=== PATIENT | female | born 1935 | race Caucasian/White ===

== ENCOUNTER 2016-06-13 21:42 | Emergency (ER) | payer MEDICARE ==
[~2016-06-13] VITALS: Ht 165.1 cm; Wt 83.0 kg
[~2016-06-13 21:42] MED LIST: ASPI81TA2 PO; DOXY100C2 PO; FLUT16SP2 NS; GUAI-42 PO; HYDR-2762 PO; PRED20TA PO; SERT50TA PO; VENTOLIN HFA18 GM INH
[2016-06-13] MEDS ORDERED: DIPHTH,PERTUSS(ACELL),TET TOX 0.5 ML DISP.SYRIN. VAX IM ONE (22:30)
--- NOTE | 2016-06-13 22:39 | PHYS DOC ---
Past Medical History Past Medical History: Anemia Past Surgical History: No Surgical History Alcohol Use: None Drug Use: None Adult General Chief Complaint Chief Complaint: LACERATION/AVULSION HPI HPI 80-year-old female presenting to the emergency department today with right eye laceration less than 1 cm. She sustained this after having a mechanical fall and injuring her forehead. She has mild pain is nonradiating constant and not associated with visual changes. She denies neck pain chest pain shortness of breath. Review of systems is negative for chest pain abdominal pain. She does have right knee pain with bruising. Otherwise she denies any other injuries to her extremities. All other review of systems is negative unless otherwise noted in history of present illness. Review of Systems Review of Systems SEE ABOVE. Current Medications Current Medications Current Medications Medications (Trade) Dose Ordered Sig/Bhavna Start Time Stop Time Status Last Admin Dose Admin Diphtheria/ Tetanus/Acell Pertussis (Boostrix) 0.5 ml ONCE ONCE 06/13/16 22:30 06/13/16 22:31 DC 06/13/16 23:06 0.5 ML Allergies Allergies Allergies Coded Allergies Type Severity Reaction Last Updated Verified codeine Allergy Mild Anxiety 02/10/14 Yes Physical Exam Physical Exam Constitutional: Well developed, well nourished, no acute distress, non-toxic appearance. HENT: Normocephalic, 3mm laceration on the right lateral eyebrow, bilateral external ears normal, oropharynx moist, no oral exudates, nose normal. [] Eyes: PERRLA, EOMI, conjunctiva normal, no discharge. Neck: Normal range of motion, no tenderness, supple, no stridor. Cardiovascular:Heart rate regular rhythm, no murmur [] Lungs & Thorax: Bilateral breath sounds clear to auscultation Abdomen: Bowel sounds normal, soft, no tenderness, no masses, no pulsatile masses. [] Skin: Warm, dry, no erythema, no rash. Back: No tenderness, no CVA tenderness. [] Extremities: No tenderness, no cyanosis, no clubbing, ROM intact, no edema. Neurologic: Alert and oriented X 3, normal motor function, normal sensory function, no focal deficits noted. Psychologic: Affect normal, judgement normal, mood normal. [] Current Patient Data Vital Signs Vital Signs Date Time Temp Pulse Resp B/P Pulse Ox O2 Delivery O2 Flow Rate FiO2 06/13/16 22:08 98.7 85 16 157/65 95 Room Air 98.7 EKG EKG [] Radiology/Procedures Radiology/Procedures [] Course & Med Decision Making Course & Med Decision Making Pertinent Labs and Imaging studies reviewed. (See chart for details) [] 80-year-old female presenting to the emergency department today after sustaining a mechanical fall. Vital signs show chronic hypertension otherwise unremarkable. Head neck CT negative. Maxillofacial CT negative. Patient had a 5 mm laceration was repaired using glue successfully. Otherwise x-rays of the knee and tibia-fibula were negative for acute pathology. She was in discharged home to follow up with PCP over the next 2-3 days. Dragon Disclaimer Dragon Disclaimer This electronic medical record was generated, in whole or in part, using a voice recognition dictation system. Departure Departure Impression: Primary Impression: Head injury Additional Impression: Facial laceration Disposition: 01 HOME, SELF-CARE Condition: STABLE Referrals: EDILMA LAMA Jr, MD (PCP) Patient Instructions: Facial Laceration, [id number] Additional Instructions: Thank you for allowing us to participate in your care today. Followup with your primary care physician in 3 days if your symptoms do not improve. If you do not have a primary care provider you can ask for a list of our primary care providers. Return to the emergency department you have any new or concerning findings. This should be evaluated by the primary care physician and any necessary consulting services for continued management within a few days after discharge. Return to emergency room if you have any new or concerning symptoms including but not limited to fever, chills, nausea, vomiting, intractable pain, any new rashes, chest pain, shortness of air, uncontrolled bleeding, difficulty breathing, and/or vision loss. You may have been prescribed medication that can change in your level of thinking and ability to operate machinery. These medications include hydrocodone and Ativan. Also, Benadryl has been known to do this as well. Be sure to check with your pharmacist and ask if the medications you've prescribed can affect your level of consciousness. I recommend not operating heavy machinery or driving while on medication such as these. Laceration Repair Lac Repair Indication: []facial lac Procedure: The patient was placed in the appropriate position and anesthesia around the right eyebrow. The area was then cleansed with saline. The laceration was closed with dermabond. The wound area was then dressed with sterile covering. Total repaired wound length: 3mm. Other Items: The patient tolerated the procedure well. Complications: none. Problem Qualifiers THIAGO ROLDAN MD Jun 13, 2016 22:39
--- NOTE | 2016-06-13 22:47 | RAD ---
PROCEDURE Head, cervical spine and maxillofacial bone CT without contrast. HISTORY Laceration. TECHNIQUE Computed tomographic images of the head, cervical spine and maxillofacial bones were obtained without contrast. One or more of the following individualized dose reduction techniques were utilized for this examination: 1. Automated exposure control; 2. Adjustment of the mA and/or kV according to patient size; 3. Use of iterative reconstruction technique. COMPARISON None. FINDINGS Head: There is no acute or subacute hemorrhage. There is no mass effect or midline shift. There is no hydrocephalus. There are subtle areas of hypodensity within the cerebral white matter, likely due to chronic small vessel disease. The mastoid air cells are clear. 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 No calvarial lesion is seen. Maxillofacial bones: There is right periorbital soft tissue swelling. No fracture is seen. There is frothy fluid within the left maxillary sinus and mild bilateral maxillary sinus mucosal thickening. The ostiomeatal units are patent. There is mild nasal septal deviation. There are degenerative changes involving the temporomandibular joints. Cervical spine: There is slight listhesis at multiple levels. The vertebral bodies are normal in height. There is endplate remodeling and facet arthropathy at multiple levels. No suspicious osseous lesion is seen. There is no fracture. At C2-C3, there is mild left facet arthropathy. There is no stenosis At C3-C4, there is mild right greater than left facet arthropathy. There is no stenosis. At C4-C5, there is mild to moderate bilateral facet arthropathy. There is no stenosis. At C5-C6, there is moderate left facet arthropathy. There is mild left foraminal stenosis. At C6-C7, there is [id number] left facet arthropathy. There is no stenosis. IMPRESSION 1. Small right periorbital soft tissue contusion. 2. No acute intracranial finding or evidence of acute maxillofacial bone or cervical spine trauma. 3. Subtle areas of hypodensity within the cerebral white matter, likely due to chronic small vessel disease. 4. Multilevel degenerative change within the cervical spine. 5. Mild maxillary sinus disease. Electronically signed by: Veronica Cordova (Jun 13, 2016 22:47:01)
[2016-06-13 23:35] VITALS: BP 159/67
--- NOTE | 2016-06-14 07:32 | RAD ---
Indication fall, pain. AP oblique and lateral views of the right knee were obtained. There is diffuse soft tissue swelling. There are degenerative changes involving the knee. There is bilateral joint space compartment narrowing lateral more so than medial and there is patellofemoral narrowing. An acute bony finding is not seen. IMPRESSION: Chronic changes. No acute finding seen.
--- NOTE | 2016-06-14 07:33 | RAD ---
Indication fall, pain. AP and lateral views of the right tibia and fibula were obtained. There is diffuse soft tissue swelling. An acute bony finding is not seen.
== END 2016-06-13 23:54 | disposition home or self-care (01) ==
LOC: ER 21:42
DX: S01.111A Laceration without foreign body of right eyelid and periocular area, initial encounter (principal); S80.01XA Contusion of right knee, initial encounter; I10 Essential (primary) hypertension; Z88.5 Allergy status to narcotic agent; W18.39XA Other fall on same level, initial encounter; Y93.89 Activity, other specified; Y92.89 Other specified places as the place of occurrence of the external cause; Y99.8 Other external cause status
CPT/HCPCS: 12011; 70450; 70486; 72125; 73562; 73590; 90471; 90715; 99284-25

== ENCOUNTER 2016-07-01 16:29 | Inpatient (IN) | payer MEDICARE ==
[~2016-07-01] VITALS: Ht 157.5 cm; Wt 70.4 kg
--- NOTE | 2016-07-01 17:28 | RAD ---
Exam performed: 3 views right knee. History: Right knee pain and swelling with stiffness, status post fall Date of service: 07/01/16. Comparison: X-ray right knee from 06/13/16. Findings: AP, lateral and oblique views of the right knee are obtained. There is narrowing of the right medial and lateral tibiofemoral as well as patellofemoral joint compartment. There is no acute fracture or dislocation. No soft tissue swelling or joint effusion. impression: 1. 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 2. No acute abnormality seen.
[2016-07-01] MEDS ORDERED: fentaNYL PF VIAL 100 MCG/2 ML VIAL IV ONE (17:30)
[2016-07-01] MEDS ORDERED: VANCOMYCIN PER PHARMACY MC ONE (17:30)
[2016-07-01] MEDS ORDERED: IPRATRPIUM/ALBUTEROL 0.5/2.5MG 3 ML NEBU. NEB ONE (17:30)
[2016-07-01] MEDS ORDERED: OMEP20CA9 PO (17:37)
[2016-07-01] MEDS ORDERED: FURO40TA4 PO (17:37)
[2016-07-01] MEDS ORDERED: NAPR220T70 PO (17:37)
[2016-07-01] MEDS ORDERED: SERT50TA PO (17:37)
[2016-07-01] MEDS ORDERED: CYAN100031 PO (17:37)
--- NOTE | 2016-07-01 17:52 | PHYS DOC ---
Past Medical History Past Medical History: Anemia Past Surgical History: No Surgical History Alcohol Use: None Drug Use: None Adult General Chief Complaint Chief Complaint: KNEE INJURY HPI HPI 80-year-old female who had a fall approximately 3 weeks ago onto her right side and had significant right-sided knee injury. Her plain films of that time did not demonstrate any acute fracture. Since that time she's had increased redness and swelling to the area as well as bilateral lower externally swelling and shortness of breath. Patient is being treated outpatient for her edema with Lasix. She's been receiving DuoNeb treatments as needed minimal relief. She states she is significantly short of air with exertion denies any chest pain. Her daughter at bedside states the last 3-4 days she has noted some mild purulent drainage from the right knee. Patient was evaluated by her primary care doctor for this and placed on doxycycline for the skin infection over the knee as well as a possible pneumonia. The daughter at bedside states she is overwhelmed dealing with this patient and is in need of help. Upon my initial assessment, the patient does not appear to be in any acute distress. She complains primarily of right sided knee pain and swelling as well as mild shortness breath. She was initially saturating 89% in no acute distress. She normally does not require supplemental oxygen. She is placed on 2 L nasal cannula oxygen. Review of Systems Review of Systems Constitutional: Denies fever or chills [] Eyes: Denies change in visual acuity, redness, or eye pain [] HENT: Denies nasal congestion or sore throat [] Respiratory: Denies cough, has shortness of breath [] Cardiovascular: No additional information not addressed in HPI [] GI: Denies abdominal pain, nausea, vomiting, bloody stools or diarrhea [] : Denies dysuria or hematuria [] Musculoskeletal: Denies back pain, has joint pain [] Integument: Denies rash or skin lesions [] Neurologic: Denies headache, focal weakness or sensory changes [] Endocrine: Denies polyuria or polydipsia [] Current Medications Current Medications Current Medications Medications (Trade) Dose Ordered Sig/Bhavna Start Time Stop Time Status Last Admin Dose Admin Albuterol/ Ipratropium (Duoneb) 3 ml 1X ONCE 07/01/16 17:30 07/01/16 17:34 DC 07/01/16 17:46 3 ML Fentanyl Citrate (Fentanyl 2ml Vial) 50 mcg 1X ONCE 07/01/16 17:30 07/01/16 17:34 DC 07/01/16 17:30 50 MCG Vancomycin HCl (Vanco Per Pharmacy) 1 each 1X ONCE 07/01/16 17:30 07/01/16 18:41 DC 07/01/16 17:30 1 EACH Vancomycin HCl 2 gm/Sodium Chloride 500 ml @ 250 mls/hr 1X ONCE 07/01/16 18:00 07/01/16 19:59 DC 07/01/16 18:00 250 MLS/HR Allergies Allergies Allergies Coded Allergies Type Severity Reaction Last Updated Verified codeine Allergy Mild Anxiety 02/10/14 Yes Physical Exam Physical Exam Constitutional: Well developed, well nourished, no acute distress, non-toxic appearance. [] HENT: Normocephalic, atraumatic, bilateral external ears normal, oropharynx moist, no oral exudates, nose normal. [] Eyes: PERRLA, EOMI, conjunctiva normal, no discharge. [] Neck: Normal range of motion, no tenderness, supple, no stridor. [] Cardiovascular:Heart rate regular rhythm, no murmur [] Lungs & Thorax: Bilateral breath sounds clear to auscultation [] Abdomen: Bowel sounds normal, soft, no tenderness, no masses, no pulsatile masses. [] Skin: Warm, dry, no erythema, no rash. [] Back: No tenderness, no CVA tenderness. [] Extremities: No tenderness, no cyanosis, no clubbing, ROM intact, no edema. [] Neurologic: Alert and oriented X 3, normal motor function, normal sensory function, no focal deficits noted. [] Psychologic: Affect normal, judgement normal, mood normal. [] Current Patient Data Vital Signs Vital Signs Date Time Temp Pulse Resp B/P (MAP) Pulse Ox O2 Delivery O2 Flow Rate FiO2 07/01/16 17:39 96 Nasal Cannula 2.0 07/01/16 17:30 88 20 148/65 (92) 07/01/16 16:35 98.6 98.6 Lab Values Laboratory Tests Test 07/01/16 17:55 White Blood Count 9.8 x10^3/uL (4.0-11.0) Red Blood Count 3.19 x10^6/uL (3.50-5.40) L Hemoglobin 9.4 g/dL (12.0-15.5) L Hematocrit 28.8 % (36.0-47.0) L Mean Corpuscular Volume 90 fL (79-100) Mean Corpuscular Hemoglobin 30 pg (25-35) Mean Corpuscular Hemoglobin Concent 33 g/dL (31-37) Red Cell Distribution Width 15.0 % (11.5-14.5) H Platelet Count 377 x10^3/uL (140-400) Neutrophils (%) (Auto) 80 % (31-73) H Lymphocytes (%) (Auto) 12 % (24-48) L Monocytes (%) (Auto) 7 % (0-9) Eosinophils (%) (Auto) 0 % (0-3) Basophils (%) (Auto) 1 % (0-3) Neutrophils # (Auto) 7.9 x10^3uL (1.8-7.7) H Lymphocytes # (Auto) 1.2 x10^3/uL (1.0-4.8) Monocytes # (Auto) 0.7 x10^3/uL (0.0-1.1) Eosinophils # (Auto) 0.0 x10^3/uL (0.0-0.7) Basophils # (Auto) 0.1 x10^3/uL (0.0-0.2) Sodium Level 139 mmol/L (136-145) Potassium Level 4.1 mmol/L (3.5-5.1) Chloride Level 103 mmol/L (98-107) Carbon Dioxide Level 30 mmol/L (21-32) Anion Gap 6 (6-14) Blood Urea Nitrogen 22 mg/dL (7-20) H Creatinine 0.9 mg/dL (0.6-1.0) Estimated GFR (Cockcroft-Gault) 60.1 Glucose Level 178 mg/dL (70-99) H Lactic Acid Level 2.5 mmol/L (0.4-2.0) H Calcium Level 8.4 mg/dL (8.5-10.1) L Troponin I Quantitative < 0.017 ng/mL (0.000-0.055) VL-Kkt-Z-Type Natriuretic Peptide 274 pg/mL (0-449) Laboratory Tests 07/01/16 17:55 Laboratory Tests 07/01/16 17:55 EKG EKG [] Radiology/Procedures Radiology/Procedures One view of the chest shows a moderate right-sided pleural effusion and cardiomegaly. Course & Med Decision Making Course & Med Decision Making Pertinent Labs and Imaging studies reviewed. (See chart for details) 80-year-old female has significant right-sided knee pain and redness with swelling there as well. Patient will be empirically treated with vancomycin for her knee and had a venous Doppler of that lower extremity rule out DVT. She will be given a dose of IV Lasix and a DuoNeb treatment for her swelling and shortness of breath. Her chest film shows a moderate right-sided pleural effusion and cardiomegaly which is consistent with possible CHF. I'll be admitting her with consult to cardiology and orthopedics. Laboratory workup is pending at this time. Her laboratory workup is significant for an elevated serum lactate at 2.5. BNP was only mildly elevated. Patient is given doses of vancomycin and Rocephin for her ongoing right-sided knee infection and cellulitis as well as her right- sided pleural effusion. I discussed the case with Dr. Talavera regarding her large effusion and lower extremity swelling and possible need for echocardiogram. Her case was discussed with the hospitalist, Dr. Mane, who agreed to accept the patient for further evaluation and treatment. The rest of her laboratory workup was fairly unremarkable. Dragon Disclaimer Dragon Disclaimer This electronic medical record was generated, in whole or in part, using a voice recognition dictation system. Departure Departure Impression: Primary Impression: Swelling of knee joint, right Additional Impressions: Pleural effusion Cellulitis Disposition: ADMITTED INPATIENT Admitting Physician: Gonzales Mane Condition: STABLE Referrals: EDILMA LAMA Jr, MD (PCP) Problem Qualifiers HOLLY GUADARRAMA DO July 01, 2016 17:52
[2016-07-01] MEDS ORDERED: VANCOMYCIN 2 GM in IV NORMAL SALINE 500ML BAG 500 ML IV ONE (18:00)
[2016-07-01 18:11] LABS: BASO # 0.1 x10^3/uL (0.0-0.2); BASO % 1 % (0-3); EOS % 0 % (0-3); HEMATOCRIT 28.8 % (36.0-47.0); HEMOGLOBIN 9.4 g/dL (12.0-15.5); LYMPH # 1.2 x10^3/uL (1.0-4.8); LYMPH % 12 % (24-48); MEAN CORPUSCULAR HEMOGLOBIN 30 pg (25-35); MEAN CORPUSCULAR HGB CONC 33 g/dL (31-37); MEAN CORPUSCULAR VOLUME 90 fL (79-100); MONO % 7 % (0-9); NEUT % 80 % (31-73); PLATELET COUNT 377 x10^3/uL (140-400); RED BLOOD COUNT 3.19 x10^6/uL (3.50-5.40); WHITE BLOOD COUNT 9.8 x10^3/uL (4.0-11.0)
[2016-07-01] MEDS ORDERED: FUROSEMIDE 40 MG/4 ML VIAL. IVP ONE (18:15)
[2016-07-01] MEDS ORDERED: ONDANSETRON PF 4 MG/2 ML VIAL. IV PRN (18:15)
[2016-07-01 18:21] LABS: CALCIUM 8.4 mg/dL (8.5-10.1); CREATININE 0.9 mg/dL (0.6-1.0); GFR 60.1; POTASSIUM 4.1 mmol/L (3.5-5.1)
--- NOTE | 2016-07-01 19:06 | RAD ---
PROCEDURE Right lower extremity venous duplex Doppler ultrasound HISTORY Right leg pain and swelling and bruising TECHNIQUE Grayscale and duplex Doppler sonography were utilized COMPARISON No prior FINDINGS No evidence of deep venous thrombosis by grayscale imaging with compressibility, patent color Doppler blood flow and augmentation of blood flow of the right common femoral vein, greater saphenous vein in the proximal thigh, profunda femoral vein, superficial femoral vein, and popliteal vein. There is edema at the popliteal fossa and anterior knee. Patent color Doppler blood flow of the posterior tibial and peroneal veins in the calf documented. Right calf edema also noted. IMPRESSION Negative right leg for deep venous thrombosis. Electronically signed by: Beau Perry MD (July 01, 2016 19:05:25)
[2016-07-01] MEDS: IPRATRPIUM/ALBUTEROL 0.5/2.5MG 3 ML NEBU. NEB SCH (19:43)
--- NOTE | 2016-07-01 19:47 | PDOC2 ---
CONSULT Date of Consult Date of Consult DATE: 07/01/16 TIME: 19:39 Reason for Consult Reason for Consult: Pleural effusion Referring Physician Referring Physician: Dr. Moy Identification/Chief Complaint Chief Complaint Chest trauma, knee injury, pleural effusion. History of Present Illness Reason for Visit: This patient is a very pleasant 80-year-old lady that has a history of hypertension. She had a recent fall at which time she injured the right side of the face the right side of the chest as well as the knee. She was seen and evaluated at that time and no apparent fracture was noted. Since then the patient has been having progressive swelling of the knee and this has been a bilateral edema. In addition to that she had some injuries to the right side of the head as well as the knee. The patient has been getting gradually short of breath and complaints of some right-sided chest discomfort as well as the shortness of breath with a cough that is not very productive. At the time that I saw her she seems to be in mild respiratory distress. The patient denies having any previous cardiac problems. Past Medical History Cardiovascular: HTN Current Problem List Problem List Problems Medical Problems: (1) Cellulitis Status: Acute (2) Pleural effusion Status: Acute (3) Swelling of knee joint, right Status: Acute Current Medications Current Medications Current Medications Vancomycin HCl (Vanco Per Pharmacy) 1 each 1X ONCE MC Last administered on 07/01 17:30; Start 07/01/16 at 17:30; Stop 07/01/16 at 18:41; Status DC Fentanyl Citrate (Fentanyl 2ml Vial) 50 mcg 1X ONCE IV Last administered on 17:30; Start 07/01/16 at 17:30; Stop 07/01/16 at 17:34; Status DC Albuterol/ Ipratropium (Duoneb) 3 ml 1X ONCE NEB Last administered on 17:46; Start 07/01/16 at 17:30; Stop 07/01/16 at 17:34; Status DC Furosemide (Lasix) 40 mg 1X ONCE IVP Last administered on 07/01/16 18:15; Start 07/01/16 at 18:15; Stop 07/01/16 at 18:16; Status DC Vancomycin HCl 2 gm/Sodium Chloride 500 ml @ 250 mls/hr 1X ONCE IV Last administered on 5/8/17at 18:00; Start 07/01/16 at 18:00; Stop 07/01/16 at 19:59 Ondansetron HCl (Zofran) 4 mg PRN Q8HRS PRN IV NAUSEA/VOMITING; Start 07/01/16 at 18:15; Stop 07/02/16 at 18:14 Albuterol/ Ipratropium (Duoneb) 3 ml RTQID NEB ; Start 07/01/16 at 20:00; Stop at 19:59 Vancomycin HCl 1.25 gm/Sodium Chloride 250 ml @ 167 mls/hr Q24H IV ; Start 07/02 at 19:00 Vancomycin HCl 1 each 1X ONCE MC ; Start 07/03/16 at 18:30; Stop 07/03/16 at 18 :31 Vancomycin HCl (Vanco Per Pharmacy) 1 each PRN DAILY PRN MC SEE COMMENTS; Start 07/01/16 at 19:00 Ceftriaxone Sodium 1 gm/ Sodium Chloride 50 ml @ 100 mls/hr Q24H IV ; Start 07/01/16 at 20:00 Active Scripts Active Reported B-12 (Cyanocobalamin (Vitamin B-12)) 1,000 Mcg Tablet.er 1,000 Mcg PO Zoloft (Sertraline Hcl) 50 Mg Tablet 1 Tab PO DAILY Aleve (Naproxen Sodium) 220 Mg Tablet 220 Mg PO BID Furosemide 40 Mg Tablet 1 Tab PO DAILY Omeprazole 20 Mg Capsule.dr 1 Cap PO DAILY Zoloft (Sertraline Hcl) 50 Mg Tablet 1 Tab PO DAILY Hydrocodone-Apap 7.5-325 (Hydrocodone Bit/Acetaminophen) 1 Each Tablet 1 Tab PO PRN Q6HRS PRN Allergies Allergies: Coded Allergies: codeine (Verified Allergy, Mild, Anxiety, 02/10/14) Physical Exam Physical Exam H EENT there is a score radiation to the right orbital area on the lateral aspect that is probably about 1 cm x 2 cm. Pupils are reactive. Neck is supple no JVD. Lungs breath sounds are markedly decreased on the right side with dullness half way up on the right side there are some crackles on the left side at the base. Heart regular rate and rhythm S1-S2 no S3 no S4. Abdomen is soft bowel sounds are present. Extremities there is bilateral 2+ edema. Dressing on the knee. Vitals VITALS Vital Signs Date Time Temp Pulse Resp B/P (MAP) Pulse Ox O2 Delivery O2 Flow Rate FiO2 07/01/16 19:21 82 20 144/65 (91) 94 Nasal Cannula 2.0 07/01/16 16:35 98.6 98.6 Labs Labs Laboratory Tests Test 07/01/16 17:55 White Blood Count 9.8 x10^3/uL (4.0-11.0) Red Blood Count 3.19 x10^6/uL (3.50-5.40) Hemoglobin 9.4 g/dL (12.0-15.5) Hematocrit 28.8 % (36.0-47.0) Mean Corpuscular Volume 90 fL (79-100) Mean Corpuscular Hemoglobin 30 pg (25-35) Mean Corpuscular Hemoglobin Concent 33 g/dL (31-37) Red Cell Distribution Width 15.0 % (11.5-14.5) Platelet Count 377 x10^3/uL (140-400) Neutrophils (%) (Auto) 80 % (31-73) Lymphocytes (%) (Auto) 12 % (24-48) Monocytes (%) (Auto) 7 % (0-9) Eosinophils (%) (Auto) 0 % (0-3) Basophils (%) (Auto) 1 % (0-3) Neutrophils # (Auto) 7.9 x10^3uL (1.8-7.7) Lymphocytes # (Auto) 1.2 x10^3/uL (1.0-4.8) Monocytes # (Auto) 0.7 x10^3/uL (0.0-1.1) Eosinophils # (Auto) 0.0 x10^3/uL (0.0-0.7) Basophils # (Auto) 0.1 x10^3/uL (0.0-0.2) Sodium Level 139 mmol/L (136-145) Potassium Level 4.1 mmol/L (3.5-5.1) Chloride Level 103 mmol/L (98-107) Carbon Dioxide Level 30 mmol/L (21-32) Anion Gap 6 (6-14) Blood Urea Nitrogen 22 mg/dL (7-20) Creatinine 0.9 mg/dL (0.6-1.0) Estimated GFR (Cockcroft-Gault) 60.1 Glucose Level 178 mg/dL (70-99) Lactic Acid Level 2.5 mmol/L (0.4-2.0) Calcium Level 8.4 mg/dL (8.5-10.1) Troponin I Quantitative < 0.017 ng/mL (0.000-0.055) PE-Obx-A-Type Natriuretic Peptide 274 pg/mL (0-449) Laboratory Tests Test 07/01/16 17:55 White Blood Count 9.8 x10^3/uL (4.0-11.0) Red Blood Count 3.19 x10^6/uL (3.50-5.40) Hemoglobin 9.4 g/dL (12.0-15.5) Hematocrit 28.8 % (36.0-47.0) Mean Corpuscular Volume 90 fL (79-100) Mean Corpuscular Hemoglobin 30 pg (25-35) Mean Corpuscular Hemoglobin Concent 33 g/dL (31-37) Red Cell Distribution Width 15.0 % (11.5-14.5) Platelet Count 377 x10^3/uL (140-400) Neutrophils (%) (Auto) 80 % (31-73) Lymphocytes (%) (Auto) 12 % (24-48) Monocytes (%) (Auto) 7 % (0-9) Eosinophils (%) (Auto) 0 % (0-3) Basophils (%) (Auto) 1 % (0-3) Neutrophils # (Auto) 7.9 x10^3uL (1.8-7.7) Lymphocytes # (Auto) 1.2 x10^3/uL (1.0-4.8) Monocytes # (Auto) 0.7 x10^3/uL (0.0-1.1) Eosinophils # (Auto) 0.0 x10^3/uL (0.0-0.7) Basophils # (Auto) 0.1 x10^3/uL (0.0-0.2) Sodium Level 139 mmol/L (136-145) Potassium Level 4.1 mmol/L (3.5-5.1) Chloride Level 103 mmol/L (98-107) Carbon Dioxide Level 30 mmol/L (21-32) Anion Gap 6 (6-14) Blood Urea Nitrogen 22 mg/dL (7-20) Creatinine 0.9 mg/dL (0.6-1.0) Estimated GFR (Cockcroft-Gault) 60.1 Glucose Level 178 mg/dL (70-99) Lactic Acid Level 2.5 mmol/L (0.4-2.0) Calcium Level 8.4 mg/dL (8.5-10.1) Troponin I Quantitative < 0.017 ng/mL (0.000-0.055) AJ-Gir-N-Type Natriuretic Peptide 274 pg/mL (0-449) Assessment/Plan Assessment/Plan This patient comes in following a fall during which she sustained blunt trauma to the head chest and knee now she is having multiple problems including a pleural effusion. Whether this is due to to a lung contusion, chest wall contusion or CHF is not very clear however she has edema of both legs. I would like to get an echocardiogram to evaluate the patient's left ventricular function. I would then recommend to diurese the patient and follow x-rays including rib films. May need a CT of the chest. Thank you very much for asking me to participate in the care of this patient HIMA COLE MD July 01, 2016 19:47
[2016-07-01 20:00] VITALS: BP 128/61
[2016-07-01 23:00] VITALS: BP 114/62
[2016-07-01] MEDS: SERTRALINE 50 MG TABLET. PO SCH (23:52)
--- NOTE | 2016-07-02 00:07 | HP ---
ADMIT DATE: 07/01/2016 CHIEF COMPLAINT: Right knee pain and shortness of breath. HISTORY OF PRESENT ILLNESS: The patient is a pleasant 80-year-old female presents with right knee pain. She fell a few weeks ago and she has had right knee pain ____. She has also become short of breath. While in the ER, we did imaging; her chest x-ray showing pleural effusion and cardiomegaly. The knee was also swollen and erythematous. She has now been admitted for a presumed heart failure and right knee cellulitis. PAST MEDICAL HISTORY: Reviewed in the computerized H and P; please refer to the computerized H and P. ALLERGIES: None. FAMILY HISTORY: Hypertension. SOCIAL HISTORY: She does not drink, smoke or take drugs. She is retired. MEDICATIONS: Reviewed, please refer to the MRAD. REVIEW OF SYSTEMS: GENERAL: No history of weight change, weakness or fevers. SKIN: No bruising, hair changes or rashes. EYES: No blurred, double or loss of vision. NOSE AND THROAT: No history of nosebleeds, hoarseness or sore throat. HEART: No history of palpitations, chest pain or shortness of breath on exertion. LUNGS: ____ shortness of breath. GASTROINTESTINAL: Denies changes in appetite, nausea, vomiting, diarrhea or constipation. GENITOURINARY: No history of frequency, urgency, hesitancy or nocturia. NEUROLOGIC: Denies history of numbness, tingling, tremor or weakness. PSYCHIATRIC: No history of panic, anxiety or depression. ENDOCRINE: No history of heat or cold intolerance, polyuria or polydipsia. EXTREMITIES: She complains of right knee pain. PHYSICAL EXAMINATION: VITAL SIGNS: Temperature afebrile, pulse 67, respirations 18, blood pressure 144/91. GENERAL: She is alert, cooperative. Her family is present. HEART: Normal S1, S2 with a soft S3. LUNGS: Bibasilar crackles, diminished on the right. ABDOMEN: Soft. Decreased bowel sounds, distended. EXTREMITIES: The right knee is quite swollen and erythematous, little bit warm. ENDOCRINE: No thyromegaly. LYMPHATICS: No cervical nodes. HEMATOPOIETIC: No bruising. ASSESSMENT AND PLAN: Right knee swelling and pain, suspect cellulitis; with the incidental finding of an abnormal chest x-ray with [id number] systolic and diastolic heart failure. The patient has been admitted. We will give her intravenous Lasix. Consult Cardiology, intravenous antibiotics, consult Orthopedics, continue home medicines, PT, OT, recheck her labs. PROGNOSIS: Guarded. ZAHEER HENRIQUEZ DO DR: MARTIN/herve JOB#: [id number] / [id number]
[2016-07-02 03:00] VITALS: BP 122/61
--- NOTE | 2016-07-02 06:13 | EKG ---
[facility] [address] [place] [address] Test Date: 2016-07-01 Test Time: 18:45:18 Pat Name: JEFFERSON ABURTO Department: Room: 512 1 Gender: F Executive Vp: : 1935 Requested By: HOLLY GUADARRAMA Order Number: [id number] Reading MD: Arturo Flores Measurements Intervals [place] Rate: 81 P: 20 AK: 166 QRS: -14 QRSD: 80 T: 22 QT: 384 QTc: 447 Interpretive Statements SINUS RHYTHM NON-SPECIFIC ST/T CHANGES Electronically Signed On 07-08-2016 8:59:47 CDT by Arturo Flores
--- NOTE | 2016-07-02 06:31 | ACF ---
Admission Forms Criteria MUSCULOSKELETAL DISEASE GRG Clinical Indications for Admission to Inpatient Care (Place 'X' for any and all applicable criteria): Hospital admission is needed for appropriate care of the patient because of 1 or more of the following: [ ]I. Fracture, dislocation, or other musculoskeletal injury requiring inpatient care(medical) as indicated by 1 or more of the following(4)(5)(6)(7) [ ]a) Vertebral fracture requiring observation for instability or neurologic compromise (8) [ ]b) Compartment syndrome (proven or cannot be ruled out during observation level of care) (9) [ ]c) Limb-threatening injury [ ]d) Major injury requiring inpatient stabilization such as traction initiation or external fixation before internal fixation or closure of complex or open fracture [ ]e) Major injury requiring inpatient treatment after emergency or observation level care (as appropriate) [ ]f) Severe pain requiring acute inpatient management [ ]g) Injury with suspicion of abuse or neglect (eg., child, dependent elderly) [ ]II. Newly diagnosed or suspected bone, joint, or orthopedic device infection (e.g., osteomyelitis, septic arthritis) needing 1 or more of the following(1)(2)(3) [ ]a) IV antibiotics that cannot be initiated in other than inpatient setting (e.g., patient too unstable or home infusion not available) [ ]b) Device removal or replacement [ ]c) Bone or soft tissue debridement [ ]d) Joint drainage (drain placement or repetitive aspirations) [ ]III. Severe rheumatologic disease (e.g., systemic lupus erythematosus, rheumatoid arthritis) with complications or comorbidities (Also use Optimal Recovery Care Criteria or General Recovery Criteria as appropriate on the basis of predominant condition), including 1 or more of the following( 10)(11)(12)(13) [ ]a) Severe infection (e.g., VENETIAN BL[employer]ST[employer]ER infection, sepsis) (14) [ ]b) Respiratory complications, including 1 or more of the following : [ ]i) Pleural effusion with respiratory compromise [ ]ii) Pulmonary hypertension with congestive failure [ ]iii) Respiratory failure [ ]iv) Pulmonary hemorrhage (15) [ ]c) Hematologic disease, including 1 or more of the following: [ ]i) Coagulopathy with bleeding [ ]ii) Thrombosis with hypercoagulable state [ ]iii) Thrombotic thrombocytopenic purpura [ ]d) Cerebritis with seizures, psychosis, or other severe abnormalities [ ]e) Vertebral destruction with monitoring needed for cervical myelopathy& possible respiratory compromise [ ]f) Exacerbation that requires inpatient treatment (e.g., intravenous immunosuppression) (16) [ ]g) Acute renal failure [ ]h) Cerebritis with seizures, psychosis, Altered mental status, or other neurologic abnormalities [ ]i) Pericardial effusion with tamponade [ ]j) Vertebral destruction, with monitoring needed for cervical myelopathy and possible respiratory compromise [ ]IV. Severe vasculitis with complications or comorbidities (Also use Optimal Recovery Care Criteria General Recovery Criteria as appropriate on the basis of predominant condition), including 1 or more of the following(11)(12)(17)(18)(19)(20) [ ]a) Exacerbation that requires inpatient treatment (e.g., intravenous immunosuppression) (19)(21) [ ]b) Pulmonary hemorrhage (15) [ ]c) VEN[employer]IAN BLIND [employer]ST[employer]ER vasculitis with seizures, psychosis, Altered mental status that is severe or persistent, or other severe abnormalities (22) [ ]d) Cerebral infarction [ ]e) Gastrointestinal ischemia [ ]f) Gangrene or threatened amputation [ ]g) Renal failure (16) [ ]h) Other significant complications of vasculitis ( eg., tissue or organ ischemia, organ dysfunction ) [ ]V. Severe myopathy as indicated by 1 or more of the following (28)(29) [ ]a) New onset of airway compromise or inability to swallow [ ]b) Respiratory deterioration with observation needed for impending respiratory failure [ ]c) Exacerbation that requires inpatient treatment (e.g., intravenous immunosuppression) [ ]. Severe crystal gout (arthropathy) indicated by 1 or more of the following (23)(24) [ ]a) Severe pain requiring acute inpatient management [ ]b) Exacerbation that requires inpatient treatment (e.g., intravenous treatment) [ ]VII.Rhabdomyolysis and 1 or more of the following (25)(26)(27) [ ]a) Acute renal failure [ ]b) Need for intravenous hydration after emergency or observation level care (as appropriate) [ ]c) Inability to maintain oral hydration [ ]d) Change in mental status [ ]e) Electrolyte abnormality that remains after emergency or observation level care (as appropriate) [ ]VIII Post amputation complication, as indicated by ANY ONE of the following [ ]a) Infection [ ]b) Dehiscence [ ]c) Myodesis failure [ ]IX. Severe pain requiring acute inpatient management due to musculoskeletal condition [ ]X. Musculoskeletal Disease and ALL of the following: [ ]a) Symptom or finding for which emergency and observation care have failed or are not considered appropriate (Use General Criteria: Observation Care as appropriate) [ ]b) Presence of ANY ONE of the following [ ]i) A General Admission Criteria [ ]ii) A Pediatric General Admission Criteria The original [employer] content created by [employer] has been revised. The portions of the content which have been revised are identified through the use of italic text or in bold, and [facility] has neither reviewed nor approved the modified material. All other unmodified content is copyright [facility] [employer]. Please see references footnoted in the original [employer] edition 2016 PAIGE CORMIER July 02, 2016 06:31
[2016-07-02 07:00] VITALS: BP 103/76
[2016-07-02] MEDS: PANTOPRAZOLE 40 MG TABLET.DR. PO SCH (07:09)
--- NOTE | 2016-07-02 07:22 | RAD ---
Indication: Shortness of air. Time of exam 1741 hours. No prior studies are available for comparison. There is a moderate to large right pleural effusion. The heart is enlarged. There is some airspace infiltrate in the left upper lobe. No pneumothorax is seen. Impression: Moderate right pleural effusion and patchy left upper lobe airspace pulmonary infiltrate.
[2016-07-02] MEDS: IPRATRPIUM/ALBUTEROL 0.5/2.5MG 3 ML NEBU. NEB SCH ×4 (08:00→19:25)
[2016-07-02] MEDS: FUROSEMIDE 40 MG/4 ML VIAL. IVP SCH ×2 (08:52→14:35)
[2016-07-02] MEDS: NAPROXEN 250 MG TABLET PO SCH ×2 (08:52→21:08)
[2016-07-02] MEDS ORDERED: FUROSEMIDE 40 MG TABLET. PO SCH (09:00)
--- NOTE | 2016-07-02 09:36 | PDOC ---
PROGRESS NOTES Chief Complaint Chief Complaint cc: knee swelling A/P R Knee anterior hematoma, : normal ROM, No cellulitis, no fever, Pain control, Pleural effusion and Infiltrates on CXR: on Rocephin and vancomycin, renal dosing vancomycin, IV lasix, Echo pending. monitor renal functions and intake and out put, no fever, follow blood cx, Knee pain : Pain control with iv morphine and pnr noco Depression stable. History of Present Illness History of Present Illness pain better now no fever doing ok Vitals Vitals Vital Signs Date Time Temp Pulse Resp B/P (MAP) Pulse Ox O2 Delivery O2 Flow Rate FiO2 07/02/16 03:00 98.5 78 18 122/61 (81) 96 Room Air 98.5 07/01/16 20:00 2.0 Physical Exam General: Alert, Oriented X3 Heart: Normal S1, Normal S2 Lungs: Clear Abdomen: Normal bowel sounds, Soft Extremities: Other Labs LABS Laboratory Tests Test 07/01/16 17:55 07/02/16 08:50 White Blood Count 9.8 x10^3/uL (4.0-11.0) Red Blood Count 3.19 x10^6/uL (3.50-5.40) Hemoglobin 9.4 g/dL (12.0-15.5) Hematocrit 28.8 % (36.0-47.0) Mean Corpuscular Volume 90 fL (79-100) Mean Corpuscular Hemoglobin 30 pg (25-35) Mean Corpuscular Hemoglobin Concent 33 g/dL (31-37) Red Cell Distribution Width 15.0 % (11.5-14.5) Platelet Count 377 x10^3/uL (140-400) Neutrophils (%) (Auto) 80 % (31-73) Lymphocytes (%) (Auto) 12 % (24-48) Monocytes (%) (Auto) 7 % (0-9) Eosinophils (%) (Auto) 0 % (0-3) Basophils (%) (Auto) 1 % (0-3) Neutrophils # (Auto) 7.9 x10^3uL (1.8-7.7) Lymphocytes # (Auto) 1.2 x10^3/uL (1.0-4.8) Monocytes # (Auto) 0.7 x10^3/uL (0.0-1.1) Eosinophils # (Auto) 0.0 x10^3/uL (0.0-0.7) Basophils # (Auto) 0.1 x10^3/uL (0.0-0.2) Sodium Level 139 mmol/L (136-145) Potassium Level 4.1 mmol/L (3.5-5.1) Chloride Level 103 mmol/L (98-107) Carbon Dioxide Level 30 mmol/L (21-32) Anion Gap 6 (6-14) Blood Urea Nitrogen 22 mg/dL (7-20) Creatinine 0.9 mg/dL (0.6-1.0) Estimated GFR (Cockcroft-Gault) 60.1 Glucose Level 178 mg/dL (70-99) Lactic Acid Level 2.5 mmol/L (0.4-2.0) 0.7 mmol/L (0.4-2.0) Calcium Level 8.4 mg/dL (8.5-10.1) Troponin I Quantitative < 0.017 ng/mL (0.000-0.055) BC-Ymv-I-Type Natriuretic Peptide 274 pg/mL (0-449) Assessment and Plan Assessmemt and Plan Problems Medical Problems: (1) Cellulitis Status: Acute (2) Pleural effusion Status: Acute (3) Swelling of knee joint, right Status: Acute Problems: Comment Review of Relevant I have reviewed the following items eamon (where applicable) has been applied. Labs Laboratory Tests Test 07/01/16 17:55 07/02/16 08:50 White Blood Count 9.8 x10^3/uL (4.0-11.0) Red Blood Count 3.19 x10^6/uL (3.50-5.40) Hemoglobin 9.4 g/dL (12.0-15.5) Hematocrit 28.8 % (36.0-47.0) Mean Corpuscular Volume 90 fL (79-100) Mean Corpuscular Hemoglobin 30 pg (25-35) Mean Corpuscular Hemoglobin Concent 33 g/dL (31-37) Red Cell Distribution Width 15.0 % (11.5-14.5) Platelet Count 377 x10^3/uL (140-400) Neutrophils (%) (Auto) 80 % (31-73) Lymphocytes (%) (Auto) 12 % (24-48) Monocytes (%) (Auto) 7 % (0-9) Eosinophils (%) (Auto) 0 % (0-3) Basophils (%) (Auto) 1 % (0-3) Neutrophils # (Auto) 7.9 x10^3uL (1.8-7.7) Lymphocytes # (Auto) 1.2 x10^3/uL (1.0-4.8) Monocytes # (Auto) 0.7 x10^3/uL (0.0-1.1) Eosinophils # (Auto) 0.0 x10^3/uL (0.0-0.7) Basophils # (Auto) 0.1 x10^3/uL (0.0-0.2) Sodium Level 139 mmol/L (136-145) Potassium Level 4.1 mmol/L (3.5-5.1) Chloride Level 103 mmol/L (98-107) Carbon Dioxide Level 30 mmol/L (21-32) Anion Gap 6 (6-14) Blood Urea Nitrogen 22 mg/dL (7-20) Creatinine 0.9 mg/dL (0.6-1.0) Estimated GFR (Cockcroft-Gault) 60.1 Glucose Level 178 mg/dL (70-99) Lactic Acid Level 2.5 mmol/L (0.4-2.0) 0.7 mmol/L (0.4-2.0) Calcium Level 8.4 mg/dL (8.5-10.1) Troponin I Quantitative < 0.017 ng/mL (0.000-0.055) TR-Jpa-A-Type Natriuretic Peptide 274 pg/mL (0-449) Laboratory Tests Test 07/01/16 17:55 07/02/16 08:50 White Blood Count 9.8 x10^3/uL (4.0-11.0) Red Blood Count 3.19 x10^6/uL (3.50-5.40) Hemoglobin 9.4 g/dL (12.0-15.5) Hematocrit 28.8 % (36.0-47.0) Mean Corpuscular Volume 90 fL (79-100) Mean Corpuscular Hemoglobin 30 pg (25-35) Mean Corpuscular Hemoglobin Concent 33 g/dL (31-37) Red Cell Distribution Width 15.0 % (11.5-14.5) Platelet Count 377 x10^3/uL (140-400) Neutrophils (%) (Auto) 80 % (31-73) Lymphocytes (%) (Auto) 12 % (24-48) Monocytes (%) (Auto) 7 % (0-9) Eosinophils (%) (Auto) 0 % (0-3) Basophils (%) (Auto) 1 % (0-3) Neutrophils # (Auto) 7.9 x10^3uL (1.8-7.7) Lymphocytes # (Auto) 1.2 x10^3/uL (1.0-4.8) Monocytes # (Auto) 0.7 x10^3/uL (0.0-1.1) Eosinophils # (Auto) 0.0 x10^3/uL (0.0-0.7) Basophils # (Auto) 0.1 x10^3/uL (0.0-0.2) Sodium Level 139 mmol/L (136-145) Potassium Level 4.1 mmol/L (3.5-5.1) Chloride Level 103 mmol/L (98-107) Carbon Dioxide Level 30 mmol/L (21-32) Anion Gap 6 (6-14) Blood Urea Nitrogen 22 mg/dL (7-20) Creatinine 0.9 mg/dL (0.6-1.0) Estimated GFR (Cockcroft-Gault) 60.1 Glucose Level 178 mg/dL (70-99) Lactic Acid Level 2.5 mmol/L (0.4-2.0) 0.7 mmol/L (0.4-2.0) Calcium Level 8.4 mg/dL (8.5-10.1) Troponin I Quantitative < 0.017 ng/mL (0.000-0.055) KH-Eob-P-Type Natriuretic Peptide 274 pg/mL (0-449) Medications Current Medications Vancomycin HCl (Vanco Per Pharmacy) 1 each 1X ONCE MC Last administered on 07/01 17:30; Start 07/01/16 at 17:30; Stop 07/01/16 at 18:41; Status DC Fentanyl Citrate (Fentanyl 2ml Vial) 50 mcg 1X ONCE IV Last administered on 17:30; Start 07/01/16 at 17:30; Stop 07/01/16 at 17:34; Status DC Albuterol/ Ipratropium (Duoneb) 3 ml 1X ONCE NEB Last administered on 17:46; Start 07/01/16 at 17:30; Stop 07/01/16 at 17:34; Status DC Furosemide (Lasix) 40 mg 1X ONCE IVP Last administered on 07/01/16 18:15; Start 07/01/16 at 18:15; Stop 07/01/16 at 18:16; Status DC Vancomycin HCl 2 gm/Sodium Chloride 500 ml @ 250 mls/hr 1X ONCE IV Last administered on 07/01/16 18:00; Start 07/01/16 at 18:00; Stop 07/01/16 at 19:59; Status DC Ondansetron HCl (Zofran) 4 mg PRN Q8HRS PRN IV NAUSEA/VOMITING; Start 07/01/16 at 18:15; Stop 07/02/16 at 18:14 Albuterol/ Ipratropium (Duoneb) 3 ml RTQID NEB Last administered on 07/01/16 19 :43; Start 07/01/16 at 20:00; Stop 07/02/16 at 19:59 Vancomycin HCl 1.25 gm/Sodium Chloride 250 ml @ 167 mls/hr Q24H IV ; Start 07/02 at 19:00 Vancomycin HCl 1 each 1X ONCE MC ; Start 07/03/16 at 18:30; Stop 07/03/16 at 18 :31 Vancomycin HCl (Vanco Per Pharmacy) 1 each PRN DAILY PRN MC SEE COMMENTS; Start 07/01/16 at 19:00 Ceftriaxone Sodium 1 gm/ Sodium Chloride 50 ml @ 100 mls/hr Q24H IV Last administered on 07/01/16 23:12; Start 07/01/16 at 20:00 Furosemide (Lasix) 40 mg [id number] IVP Last administered on 07/02/16 08:52; Start 07/02/16 at 09:00 Furosemide (Lasix) 40 mg DAILY PO ; Start 07/02/16 at 09:00; Status Cancel Sertraline HCl (Zoloft) 50 mg HS PO Last administered on 07/01/16 23:52; Start 07/01/16 at 23:15 Naproxen (Naprosyn) 250 mg BID PO Last administered on 07/02/16 08:52; Start at 09:00 Pantoprazole Sodium (Protonix) 40 mg DAILYAC PO Last administered on 07/02/16 07:09; Start 07/02/16 at 07:30 Active Scripts Active Reported B-12 (Cyanocobalamin (Vitamin B-12)) 1,000 Mcg Tablet.er 1,000 Mcg PO Zoloft (Sertraline Hcl) 50 Mg Tablet 1 Tab PO DAILY Aleve (Naproxen Sodium) 220 Mg Tablet 220 Mg PO BID Furosemide 40 Mg Tablet 1 Tab PO DAILY Omeprazole 20 Mg Capsule.dr 1 Cap PO DAILY Zoloft (Sertraline Hcl) 50 Mg Tablet 1 Tab PO DAILY Hydrocodone-Apap 7.5-325 (Hydrocodone Bit/Acetaminophen) 1 Each Tablet 1 Tab PO PRN Q6HRS PRN Vitals/I & O Vital Sign - Last 24 Hours 07/01/16 07/01/16 07/01/16 07/01/16 16:35 17:30 17:30 17:39 Temp 98.6 98.6 Pulse 84 88 Resp 22 16 20 B/P (MAP) 139/53 (81) 148/65 (92) Pulse Ox 91 92 96 O2 Delivery Room Air Nasal Cannula Nasal Cannula O2 Flow Rate 2.0 2.0 07/01/16 07/01/16 07/01/16 07/01/16 19:21 19:43 20:00 20:00 Pulse 82 Resp 20 B/P (MAP) 144/65 (91) Pulse Ox 94 95 O2 Delivery Nasal Cannula Nasal Cannula Nasal Cannula Nasal Cannula O2 Flow Rate 2.0 2.0 2.0 2.0 07/01/16 07/01/16 07/02/16 20:00 23:00 03:00 Temp 98.2 98.4 98.5 98.2 98.4 98.5 Pulse 80 77 78 Resp 17 18 18 B/P (MAP) 128/61 (83) 114/62 (79) 122/61 (81) Pulse Ox 93 94 96 O2 Delivery Room Air Room Air Room Air Intake and Output 07/01/16 07/01/16 07/02/16 15:00 23:00 07:00 Intake Total 250 ml Balance 250 ml YONIS MCGREGOR MD July 02, 2016 09:36
[2016-07-02 11:00] VITALS: BP 142/60
[2016-07-02] MEDS: MORPHINE SULFATE 2 MG/ML DISP.SYRIN. IV PRN ×3 (11:51→17:12)
[2016-07-02] MEDS: VANCOMYCIN PER PHARMACY MC PRN (12:30)
--- NOTE | 2016-07-02 13:55 | RAD ---
Indication: Pleural effusion, fall. Time of exam 1330 hours. Correlation is made with prior chest from one day earlier. The heart size is stable. Moderate to large right effusion is unchanged. Airspace infiltrate in the left upper lobe and right base is stable. There is no pneumothorax. There appears to be trace pleural fluid on the left. No displaced rib fractures detected. Impression: No definite displaced rib fractures identified. There are bilateral effusions, right greater with bilateral pulmonary infiltrates.
[2016-07-02 15:00] VITALS: BP 128/67
--- NOTE | 2016-07-02 17:38 | PDOC2 ---
CONSULT Date of Consult Date of Consult DATE: 07/02/16 TIME: 17:32 Reason for Consult Reason for Consult: right knee swelling/ cellulitus? Identification/Chief Complaint Chief Complaint right knee swelling Source Source: Chart review, Patient History of Present Illness Reason for Visit: The patient is an 80 year old female who states she fell nearly three weeks ago injuring her knee. It swelled up on her she says, to the point it "erupted". She came to the ED and was found to have acute on chronic heart failure as well as possible cellulitus of her right leg. She was started on antibiotics.I am consulted for a right knee effusion. She has an anterior hematoma, but the surrounding skin does not look indurated or erythematous. It looks like a hematoma over the right knee. She has no pain with knee rom, no drainage. Past Medical History Cardiovascular: HTN Current Problem List Problem List Problems Medical Problems: (1) Cellulitis Status: Acute (2) Pleural effusion Status: Acute (3) Swelling of knee joint, right Status: Acute Current Medications Current Medications Current Medications Vancomycin HCl (Vanco Per Pharmacy) 1 each 1X ONCE MC Last administered on 07/01 17:30; Start 07/01/16 at 17:30; Stop 07/01/16 at 18:41; Status DC Fentanyl Citrate (Fentanyl 2ml Vial) 50 mcg 1X ONCE IV Last administered on 17:30; Start 07/01/16 at 17:30; Stop 07/01/16 at 17:34; Status DC Albuterol/ Ipratropium (Duoneb) 3 ml 1X ONCE NEB Last administered on 17:46; Start 07/01/16 at 17:30; Stop 07/01/16 at 17:34; Status DC Furosemide (Lasix) 40 mg 1X ONCE IVP Last administered on 07/01/16 18:15; Start 07/01/16 at 18:15; Stop 07/01/16 at 18:16; Status DC Vancomycin HCl 2 gm/Sodium Chloride 500 ml @ 250 mls/hr 1X ONCE IV Last administered on 07/01/16 18:00; Start 07/01/16 at 18:00; Stop 07/01/16 at 19:59; Status DC Ondansetron HCl (Zofran) 4 mg PRN Q8HRS PRN IV NAUSEA/VOMITING; Start 07/01/16 at 18:15; Stop 07/02/16 at 18:14 Albuterol/ Ipratropium (Duoneb) 3 ml RTQID NEB Last administered on 07/02/16 15 :24; Start 07/01/16 at 20:00; Stop 07/02/16 at 19:59 Vancomycin HCl 1.25 gm/Sodium Chloride 250 ml @ 167 mls/hr Q24H IV Last administered on 07/02/16 17:11; Start 07/02/16 at 18:00 Vancomycin HCl 1 each 1X ONCE MC ; Start 07/03/16 at 17:30; Stop 07/03/16 at 17 :31 Vancomycin HCl (Vanco Per Pharmacy) 1 each PRN DAILY PRN MC SEE COMMENTS Last administered on 07/02/16 12:30; Start 07/01/16 at 19:00 Ceftriaxone Sodium 1 gm/ Sodium Chloride 50 ml @ 100 mls/hr Q24H IV Last administered on 07/01/16 23:12; Start 07/01/16 at 20:00 Furosemide (Lasix) 40 mg BID92 IVP Last administered on 07/02/16 14:35; Start 07/02/16 at 09:00 Furosemide (Lasix) 40 mg DAILY PO ; Start 07/02/16 at 09:00; Status Cancel Sertraline HCl (Zoloft) 50 mg HS PO Last administered on 07/01/16 23:52; Start 07/01/16 at 23:15 Naproxen (Naprosyn) 250 mg BID PO Last administered on 07/02/16 08:52; Start at 09:00 Pantoprazole Sodium (Protonix) 40 mg DAILYAC PO Last administered on 07/02/16 07:09; Start 07/02/16 at 07:30 Morphine Sulfate 2 mg PRN Q2HR PRN IV PAIN Last administered on 07/02/16 17:12 ; Start 07/02/16 at 11:30 Active Scripts Active Reported B-12 (Cyanocobalamin (Vitamin B-12)) 1,000 Mcg Tablet.er 1,000 Mcg PO Zoloft (Sertraline Hcl) 50 Mg Tablet 1 Tab PO DAILY Aleve (Naproxen Sodium) 220 Mg Tablet 220 Mg PO BID Furosemide 40 Mg Tablet 1 Tab PO DAILY Omeprazole 20 Mg Capsule. 1 Cap PO DAILY Zoloft (Sertraline Hcl) 50 Mg Tablet 1 Tab PO DAILY Hydrocodone-Apap 7.5-325 (Hydrocodone Bit/Acetaminophen) 1 Each Tablet 1 Tab PO PRN Q6HRS PRN Allergies Allergies: Coded Allergies: codeine (Verified Allergy, Mild, Anxiety, 02/10/14) ROS General: No: Chills, Night Sweats, Fatigue, Malaise, Appetite, Other Musculoskeletal: Yes Joint Pain, Yes Joint Swelling Physical Exam General: Alert, Oriented X3, Cooperative, No acute distress HEENT: Other (hard of hearing) MUSCULOSKELETAL: Other (Right knee with anterior hematoma, no fluctuance or warmth. no surrounding induration or erythema. nvi distally. knee rom equal bilaterally. no instability in varus/ valgus stress) Vitals VITALS Vital Signs Date Time Temp Pulse Resp B/P (MAP) Pulse Ox O2 Delivery O2 Flow Rate FiO2 07/02/16 17:12 18 Nasal Cannula 2.0 07/02/16 15:25 95 07/02/16 15:00 97.8 72 128/67 (87) 97.8 Labs Labs Laboratory Tests Test 07/01/16 17:55 07/02/16 08:50 White Blood Count 9.8 x10^3/uL (4.0-11.0) Red Blood Count 3.19 x10^6/uL (3.50-5.40) Hemoglobin 9.4 g/dL (12.0-15.5) Hematocrit 28.8 % (36.0-47.0) Mean Corpuscular Volume 90 fL (79-100) Mean Corpuscular Hemoglobin 30 pg (25-35) Mean Corpuscular Hemoglobin Concent 33 g/dL (31-37) Red Cell Distribution Width 15.0 % (11.5-14.5) Platelet Count 377 x10^3/uL (140-400) Neutrophils (%) (Auto) 80 % (31-73) Lymphocytes (%) (Auto) 12 % (24-48) Monocytes (%) (Auto) 7 % (0-9) Eosinophils (%) (Auto) 0 % (0-3) Basophils (%) (Auto) 1 % (0-3) Neutrophils # (Auto) 7.9 x10^3uL (1.8-7.7) Lymphocytes # (Auto) 1.2 x10^3/uL (1.0-4.8) Monocytes # (Auto) 0.7 x10^3/uL (0.0-1.1) Eosinophils # (Auto) 0.0 x10^3/uL (0.0-0.7) Basophils # (Auto) 0.1 x10^3/uL (0.0-0.2) Sodium Level 139 mmol/L (136-145) Potassium Level 4.1 mmol/L (3.5-5.1) Chloride Level 103 mmol/L (98-107) Carbon Dioxide Level 30 mmol/L (21-32) Anion Gap 6 (6-14) Blood Urea Nitrogen 22 mg/dL (7-20) Creatinine 0.9 mg/dL (0.6-1.0) Estimated GFR (Cockcroft-Gault) 60.1 Glucose Level 178 mg/dL (70-99) Lactic Acid Level 2.5 mmol/L (0.4-2.0) 0.7 mmol/L (0.4-2.0) Calcium Level 8.4 mg/dL (8.5-10.1) Troponin I Quantitative < 0.017 ng/mL (0.000-0.055) AU-Jgi-R-Type Natriuretic Peptide 274 pg/mL (0-449) Laboratory Tests Test 07/01/16 17:55 07/02/16 08:50 White Blood Count 9.8 x10^3/uL (4.0-11.0) Red Blood Count 3.19 x10^6/uL (3.50-5.40) Hemoglobin 9.4 g/dL (12.0-15.5) Hematocrit 28.8 % (36.0-47.0) Mean Corpuscular Volume 90 fL (79-100) Mean Corpuscular Hemoglobin 30 pg (25-35) Mean Corpuscular Hemoglobin Concent 33 g/dL (31-37) Red Cell Distribution Width 15.0 % (11.5-14.5) Platelet Count 377 x10^3/uL (140-400) Neutrophils (%) (Auto) 80 % (31-73) Lymphocytes (%) (Auto) 12 % (24-48) Monocytes (%) (Auto) 7 % (0-9) Eosinophils (%) (Auto) 0 % (0-3) Basophils (%) (Auto) 1 % (0-3) Neutrophils # (Auto) 7.9 x10^3uL (1.8-7.7) Lymphocytes # (Auto) 1.2 x10^3/uL (1.0-4.8) Monocytes # (Auto) 0.7 x10^3/uL (0.0-1.1) Eosinophils # (Auto) 0.0 x10^3/uL (0.0-0.7) Basophils # (Auto) 0.1 x10^3/uL (0.0-0.2) Sodium Level 139 mmol/L (136-145) Potassium Level 4.1 mmol/L (3.5-5.1) Chloride Level 103 mmol/L (98-107) Carbon Dioxide Level 30 mmol/L (21-32) Anion Gap 6 (6-14) Blood Urea Nitrogen 22 mg/dL (7-20) Creatinine 0.9 mg/dL (0.6-1.0) Estimated GFR (Cockcroft-Gault) 60.1 Glucose Level 178 mg/dL (70-99) Lactic Acid Level 2.5 mmol/L (0.4-2.0) 0.7 mmol/L (0.4-2.0) Calcium Level 8.4 mg/dL (8.5-10.1) Troponin I Quantitative < 0.017 ng/mL (0.000-0.055) AM-Dya-P-Type Natriuretic Peptide 274 pg/mL (0-449) Images Images Laboratory Tests Test 07/01/16 17:55 07/02/16 08:50 White Blood Count 9.8 x10^3/uL Red Blood Count 3.19 x10^6/uL Hemoglobin 9.4 g/dL Hematocrit 28.8 % Mean Corpuscular Volume 90 fL Mean Corpuscular Hemoglobin 30 pg Mean Corpuscular Hemoglobin Concent 33 g/dL Red Cell Distribution Width 15.0 % Platelet Count 377 x10^3/uL Neutrophils (%) (Auto) 80 % Lymphocytes (%) (Auto) 12 % Monocytes (%) (Auto) 7 % Eosinophils (%) (Auto) 0 % Basophils (%) (Auto) 1 % Neutrophils # (Auto) 7.9 x10^3uL Lymphocytes # (Auto) 1.2 x10^3/uL Monocytes # (Auto) 0.7 x10^3/uL Eosinophils # (Auto) 0.0 x10^3/uL Basophils # (Auto) 0.1 x10^3/uL Sodium Level 139 mmol/L Potassium Level 4.1 mmol/L Chloride Level 103 mmol/L Carbon Dioxide Level 30 mmol/L Anion Gap 6 Blood Urea Nitrogen 22 mg/dL Creatinine 0.9 mg/dL Estimated GFR (Cockcroft-Gault) 60.1 Glucose Level 178 mg/dL Lactic Acid Level 2.5 mmol/L 0.7 mmol/L Calcium Level 8.4 mg/dL Troponin I Quantitative < 0.017 ng/mL YT-Chg-A-Type Natriuretic Peptide 274 pg/mL Current Medications Medications (Trade) Dose Ordered Sig/Bhavna Route PRN Reason Start Time Stop Time Status Last Admin Dose Admin Vancomycin HCl (Vanco Per Pharmacy) 1 each 1X ONCE MC 07/01/16 17:30 07/01/16 18:41 DC 07/01/16 17:30 Fentanyl Citrate (Fentanyl 2ml Vial) 50 mcg 1X ONCE IV 07/01/16 17:30 07/01/16 17:34 DC 07/01/16 17:30 Albuterol/ Ipratropium (Duoneb) 3 ml 1X ONCE NEB 07/01/16 17:30 07/01/16 17:34 DC 07/01/16 17:46 Furosemide (Lasix) 40 mg 1X ONCE IVP 07/01/16 18:15 07/01/16 18:16 DC 07/01/16 18:15 Vancomycin HCl 2 gm/Sodium Chloride 500 ml @ 250 mls/hr 1X ONCE IV 07/01/16 18:00 07/01/16 19:59 DC 07/01/16 18:00 Ondansetron HCl (Zofran) 4 mg PRN Q8HRS PRN IV NAUSEA/VOMITING 07/01/16 18:15 07/02/16 18:14 Albuterol/ Ipratropium (Duoneb) 3 ml RTQID NEB 07/01/16 20:00 07/02/16 19:59 07/02/16 15:24 Vancomycin HCl 1.25 gm/Sodium Chloride 250 ml @ 167 mls/hr Q24H IV 07/02/16 18:00 07/02/16 17:11 Vancomycin HCl 1 each 1X ONCE MC 07/03/16 17:30 07/03/16 17:31 Vancomycin HCl (Vanco Per Pharmacy) 1 each PRN DAILY PRN MC SEE COMMENTS 07/01/16 19:00 07/02/16 12:30 Ceftriaxone Sodium 1 gm/ Sodium Chloride 50 ml @ 100 mls/hr Q24H IV 07/01/16 20:00 07/01/16 23:12 Furosemide (Lasix) 40 mg BID92 IVP 07/02/16 09:00 07/02/16 14:35 Furosemide (Lasix) 40 mg DAILY PO 07/02/16 09:00 Cancel Sertraline HCl (Zoloft) 50 mg HS PO 07/01/16 23:15 07/01/16 23:52 Naproxen (Naprosyn) 250 mg BID PO 07/02/16 09:00 07/02/16 08:52 Pantoprazole Sodium (Protonix) 40 mg DAILYAC PO 07/02/16 07:30 07/02/16 07:09 Morphine Sulfate 2 mg PRN Q2HR PRN IV PAIN 07/02/16 11:30 07/02/16 17:12 Xrays of the right knee reveal tricompartmental osteoarthritis with no acute fractures or dislocations. anterior soft tissue fullness. Assessment/Plan Assessment/Plan The patient is an 80 year old female 3 weeks s/p fall with right knee anterior hematoma No concern for fracture or instability. If she did have cellulitic changes previously, there are none present on my exam. It appears that she has a hematoma over her knee. She can use ice or heat as needed. No further surgical intervention at this time. Thank you for allowing me to participate in the care of this patient. Please call the office with any further questions or concerns: [phone] DONALDO BLAIR MD July 02, 2016 17:38
[2016-07-02] MEDS ORDERED: VANCOMYCIN 1.25 GM in IV NORMAL SALINE 250ML 250 ML IV SCH (18:00)
--- NOTE | 2016-07-02 18:26 | CARD ---
APPROVED REPORT EXAM: Two-dimensional and M-mode echocardiogram with Doppler and color Doppler. Other Information Quality : Average Rhythm : NSR INDICATION Congestive Heart Failure 2D DIMENSIONS RVDd3.6 (2.9-3.5cm)Left Atrium(2D)3.3 (1.6-4.0cm) IVSd0.8 (0.7-1.1cm)Aortic Root(2D)2.7 (2.0-3.7cm) LVDd3.5 (3.9-5.9cm)LVOT Diameter1.9 (1.8-2.4cm) PWd0.8 (0.7-1.1cm)LVDs2.3 (2.5-4.0cm) FS (%) 33.6 %SV31.6 ml LVEF(%)65.0 (>50%) Aortic Valve AoV Peak Oh.213.5cm/sAoV VTI40.9cm AO Peak GR.18.2mmHgLVOT Peak Oh.169.6cm/s LVOT VTI 28.97cmAO Mean GR.10mmHg ANGEL (VMAX)2.03kf9OHJ (VTI)1.99cm2 Mitral Valve MV E Sjqutlzv88.4cm/sMV DECEL [id number] MV A Ukyfnypo693.8cm/sMV SUR065vt E/A Ratio0.8MVA (PHT)1.88cm2 TDI E/Lateral E'17.4E/Medial E'15.8 Tricuspid Valve TR P. [id number]/sRAP [id number] TR Peak Gr.84rxZtAGIO74qfZd Pulmonary Vein S1 Wvjignue55.2cm/sD2 Vhomqfsw90.5cm/s LEFT VENTRICLE The left ventricle is normal size. There is normal left ventricular wall thickness. Left ventricle sy stolic function is normal. The Ejection Fraction is 65%. There is normal LV segmental wall motion. Ti ssue Doppler imaging reveals mild left ventricular diastolic dysfunction. Transmitral Doppler flow pa ttern is Grade I-abnormal relaxation pattern. RIGHT VENTRICLE The right ventricle is normal size. The right ventricular systolic function is normal. ATRIA The left atrium size is normal. The right atrium size is normal. The interatrial septum is intact wit h no evidence for an atrial septal defect or patent foramen ovale as noted on 2-D or Doppler imaging. AORTIC VALVE The aortic valve is mildly calcified. The aortic valve is trileaflet. Doppler and Color Flow revealed no significant aortic regurgitation. There is no significant aortic valvular stenosis. MITRAL VALVE The mitral valve is normal in structure There is no mitral valve stenosis. Doppler and Color Flow rev ealed trace mitral valve regurgitation TRICUSPID VALVE The tricuspid valve is not well visualized. Doppler and Color Flow revealed mild to moderate tricuspi d regurgitation. The PA pressure was estimated at 50 mmHg. There is no tricuspid valve stenosis. PULMONIC VALVE The pulmonic valve is not well visualized. Doppler and Color Flow revealed trace pulmonic valvular re gurgitation. There is no pulmonic valvular stenosis. GREAT VESSELS The aortic root is normal in size. The ascending aorta is normal in size. Normal pulmonary venous mae w (Doppler). The IVC was not well visualized. PERICARDIAL EFFUSION There is a small circumferential pericardial effusion. Critical Notification Critical Value: No <Conclusion> Left ventricle systolic function is normal. The Ejection Fraction is 65%. Tissue Doppler imaging reveals mild left ventricular diastolic dysfunction. Transmitral Doppler flow pattern is Grade I-abnormal relaxation pattern. The left atrium size is normal. The right atrium size is normal. The aortic valve is mildly calcified. The aortic valve is trileaflet. Doppler and Color Flow revealed trace mitral valve regurgitation Doppler and Color Flow revealed mild to moderate tricuspid regurgitation. The PA pressure was estimated at 50 mmHg. The pulmonic valve is not well visualized. There is a small circumferential pericardial effusion.
[2016-07-02 19:00] VITALS: BP 109/47
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
[2016-07-02] MEDS: SERTRALINE 50 MG TABLET. PO SCH (21:08)
[2016-07-02 23:00] VITALS: BP 137/55
--- NOTE | 2016-07-03 04:07 | ACF ---
Admission Forms Criteria CELLULITIS Clinical Indications for Admission to Inpatient Care (Place 'X' for any and all applicable criteria): Admission is indicated for ANY ONE of the following(1)(2)(3)(4)(5): [X]I. Limb-threatening infection [ ]II. High-risk comorbid condition as indicated by ANY ONE of the following: [ ]a) Uncontrolled diabetes (eg, HbA1c greater than 10% (0.1)) [ ]b) Cirrhosis [ ]c) Neutropenia [ ]d) Asplenia [ ]e) Immunosuppression [ ]f) Symptomatic heart failure [ ]III. Failure of outpatient therapy as indicated by ALL of the following: [ ]a) Progression or no improvement after adequate trial (minimum of 48 hours, with longer period for stable lower extremity infection) [ ]b) Adequate antibiotic regimen as indicated by use of ANY ONE of the following: [ ]i) First-generation cephalosporin (e.g., cephalexin) [ ]ii) Antistaphylococcal penicillin (e.g., dicloxacillin) [ ]iii) Penicillin-allergic patient regimen (clindamycin, extended-spectrum fluoroquinolone, or doxycycline) [ ]iv) Resistant organism (eg, methicillin-resistant Staphylococcus aureus) regimen (6) [ ]c) Outpatient intravenous therapy regimen is not appropriate due to ANY ONE of the following. (7)(8)(9)(10): [ ]i) It was tried and was not successful (eg, progression of infection). [ ]ii) It is not available or cannot be arranged in a clinically appropriate time frame (e.g., the next day). [ ]iii) Clinical presentation (eg, acuity of infection, rapidity of progression, confirmed or suspected bacteremia) is judged to require ALL of the following: [ ]1) Immediate initiation of intravenous therapy ( eg, cannot wait for next day) [ ]2) Intensity of patient monitoring and observation (eg, vital sign measurement, checks for infection progression) that cannot be provided at other than inpatient level of care [ ]IV. Mental status changes [ ]V. Bacteremia [ ]. Hemodynamic instability [ ]VII. Suspected necrotizing soft tissue infection (e.g., gas in tissue)(11)( 12) [ ]VIII. Orbital infection (13)(14) [ ]IX. Associated surgical procedure (e.g., abscess drainage, debridement) not amenable to outpatient, emergency department, or observation care [ ]X. Cutaneous gangrene [ ]XI. High fever (temperature greater than 39.5 degrees C (103.1 degrees F) (oral)) not responsive to outpatient, emergency department, or observation care therapy [ ]XIII. Inpatient admission required rather than observation care (Also use Cellulitis: Observation Care as appropriate) because of ANY ONE of the following : [ ]a) Periorbital or perineal infection that is severe or worsening [ ]b) Severe pain requiring acute inpatient management [ ]c) IV fluid to replace significant ongoing (e.g., for over 24 hours) losses (greater than 3L/m2 per day) [ ]d) Compartment syndrome monitoring (17) [ ]e) Strict or protective (eg, laminar flow) isolation [ ]f) Urgent debridement or skin grafting [ ]g) Bone or joint debridement [ ]h) Immediate inpatient surgery [ ]i) Other condition, treatment or monitoring requiring inpatient admission Extended stay beyond goal length of stay may be needed for (1)(18): [ ]a) Necrotizing soft tissue infection or fasciitis [ ]b) Gram-negative infection [ ]c) Methicillin-resistant Staphylococcal aureus (MRSA) infection [ ]d) Peripheral venous insufficiency with cellulitis [ ]e) Extensive edema [ ]f) Sepsis or continued Hemodynamic instability [ ]g) Continued high fever or mental status change [ ]h) Bacteremia [ ]i) Active serious comorbid conditions ( eg, heart failure, renal insufficiency) The original [email or web address] content created by [email or web address] has been revised. The portions of the content which have been revised are identified through the use of italic text or in bold, and [facility] has neither reviewed nor approved the modified material. All other unmodified content is copyright [facility] Please see references footnoted in the original [facility] edition 2016 Admission Criteria Met?: Yes PAIGE CORMIER July 03, 2016 04:07
[2016-07-03] MEDS: PANTOPRAZOLE 40 MG TABLET.DR. PO SCH (06:20)
[2016-07-03 07:55] VITALS: BP 116/61
[2016-07-03] MEDS: NAPROXEN 250 MG TABLET PO SCH ×2 (09:11→21:03)
[2016-07-03 10:30] VITALS: BP 135/59
--- NOTE | 2016-07-03 10:38 | PDOC ---
PROGRESS NOTES Chief Complaint Chief Complaint cc: knee swelling A/P R Knee anterior hematoma, : normal ROM, No cellulitis, no fever, Pain control, PT Pleural effusion and Infiltrates on CXR: on Rocephin and vancomycin, renal dosing vancomycin, IV Lasix, Echo- Diastolic dysfunction, monitor renal functions and intake and out put, no fever, follow blood cx, Acute respiratory failure hypoxia: need 6walk test, change abx to po, Knee pain : Pain control with iv morphine and pnr noco Depression stable. Disposition : SN[facility]. History of Present Illness History of Present Illness pain better now no fever doing ok Vitals Vitals Vital Signs Date Time Temp Pulse Resp B/P (MAP) Pulse Ox O2 Delivery O2 Flow Rate FiO2 07/03/16 08:00 Nasal Cannula 2.0 07/03/16 07:55 97.5 87 18 116/61 (79) 93 97.5 Physical Exam General: Alert, Oriented X3 Heart: Normal S1, Normal S2 Lungs: Clear, Other (ANTERIOR) Abdomen: Normal bowel sounds, Soft Extremities: Other Assessment and Plan Assessmemt and Plan Problems Medical Problems: (1) Cellulitis Status: Acute (2) Pleural effusion Status: Acute (3) Swelling of knee joint, right Status: Acute Problems: Comment Review of Relevant I have reviewed the following items eamon (where applicable) has been applied. Labs Laboratory Tests Test 07/01/16 17:55 07/02/16 08:50 White Blood Count 9.8 x10^3/uL (4.0-11.0) Red Blood Count 3.19 x10^6/uL (3.50-5.40) Hemoglobin 9.4 g/dL (12.0-15.5) Hematocrit 28.8 % (36.0-47.0) Mean Corpuscular Volume 90 fL (79-100) Mean Corpuscular Hemoglobin 30 pg (25-35) Mean Corpuscular Hemoglobin Concent 33 g/dL (31-37) Red Cell Distribution Width 15.0 % (11.5-14.5) Platelet Count 377 x10^3/uL (140-400) Neutrophils (%) (Auto) 80 % (31-73) Lymphocytes (%) (Auto) 12 % (24-48) Monocytes (%) (Auto) 7 % (0-9) Eosinophils (%) (Auto) 0 % (0-3) Basophils (%) (Auto) 1 % (0-3) Neutrophils # (Auto) 7.9 x10^3uL (1.8-7.7) Lymphocytes # (Auto) 1.2 x10^3/uL (1.0-4.8) Monocytes # (Auto) 0.7 x10^3/uL (0.0-1.1) Eosinophils # (Auto) 0.0 x10^3/uL (0.0-0.7) Basophils # (Auto) 0.1 x10^3/uL (0.0-0.2) Sodium Level 139 mmol/L (136-145) Potassium Level 4.1 mmol/L (3.5-5.1) Chloride Level 103 mmol/L (98-107) Carbon Dioxide Level 30 mmol/L (21-32) Anion Gap 6 (6-14) Blood Urea Nitrogen 22 mg/dL (7-20) Creatinine 0.9 mg/dL (0.6-1.0) Estimated GFR (Cockcroft-Gault) 60.1 Glucose Level 178 mg/dL (70-99) Lactic Acid Level 2.5 mmol/L (0.4-2.0) 0.7 mmol/L (0.4-2.0) Calcium Level 8.4 mg/dL (8.5-10.1) Troponin I Quantitative < 0.017 ng/mL (0.000-0.055) KD-[id number]-Type Natriuretic Peptide 274 pg/mL (0-449) Microbiology 07/01/16 Blood Culture - Preliminary, Resulted NO GROWTH AFTER 1 DAY Medications Current Medications Vancomycin HCl (Vanco Per Pharmacy) 1 each 1X ONCE MC Last administered on 07/01 17:30; Start 07/01/16 at 17:30; Stop 07/01/16 at 18:41; Status DC Fentanyl Citrate (Fentanyl 2ml Vial) 50 mcg 1X ONCE IV Last administered on 17:30; Start 07/01/16 at 17:30; Stop 07/01/16 at 17:34; Status DC Albuterol/ Ipratropium (Duoneb) 3 ml 1X ONCE NEB Last administered on 17:46; Start 07/01/16 at 17:30; Stop 07/01/16 at 17:34; Status DC Furosemide (Lasix) 40 mg 1X ONCE IVP Last administered on 07/01/16 18:15; Start 07/01/16 at 18:15; Stop 07/01/16 at 18:16; Status DC Vancomycin HCl 2 gm/Sodium Chloride 500 ml @ 250 mls/hr 1X ONCE IV Last administered on 07/01/16 18:00; Start 07/01/16 at 18:00; Stop 07/01/16 at 19:59; Status DC Ondansetron HCl (Zofran) 4 mg PRN Q8HRS PRN IV NAUSEA/VOMITING; Start 07/01/16 at 18:15; Stop 07/02/16 at 18:14; Status DC Albuterol/ Ipratropium (Duoneb) 3 ml RTQID NEB Last administered on 07/02/16 19 :25; Start 07/01/16 at 20:00; Stop 07/02/16 at 19:59; Status DC Vancomycin HCl 1.25 gm/Sodium Chloride 250 ml @ 167 mls/hr Q24H IV Last administered on 07/02/16 17:11; Start 07/02/16 at 18:00 Vancomycin HCl 1 each 1X ONCE MC ; Start 07/03/16 at 17:30; Stop 07/03/16 at 17 :31 Vancomycin HCl (Vanco Per Pharmacy) 1 each PRN DAILY PRN MC SEE COMMENTS Last administered on 07/02/16 12:30; Start 07/01/16 at 19:00 Ceftriaxone Sodium 1 gm/ Sodium Chloride 50 ml @ 100 mls/hr Q24H IV Last administered on 07/02/16 21:08; Start 07/01/16 at 20:00 Furosemide (Lasix) 40 mg BID92 IVP Last administered on 07/02/16 14:35; Start 07/02/16 at 09:00 Furosemide (Lasix) 40 mg DAILY PO ; Start 07/02/16 at 09:00; Status Cancel Sertraline HCl (Zoloft) 50 mg HS PO Last administered on 07/02/16 21:08; Start 07/01/16 at 23:15 Naproxen (Naprosyn) 250 mg BID PO Last administered on 07/03/16 09:11; Start 07/02/16 at 09:00 Pantoprazole Sodium (Protonix) 40 mg DAILYAC PO Last administered on 07/03/16 06:20; Start 07/02/16 at 07:30 Morphine Sulfate 2 mg PRN Q2HR PRN IV PAIN Last administered on 07/02/16 17:12 ; Start 07/02/16 at 11:30 Active Scripts Active Reported B-12 (Cyanocobalamin (Vitamin B-12)) 1,000 Mcg Tablet.er 1,000 Mcg PO Zoloft (Sertraline Hcl) 50 Mg Tablet 1 Tab PO DAILY Aleve (Naproxen Sodium) 220 Mg Tablet 220 Mg PO BID Furosemide 40 Mg Tablet 1 Tab PO DAILY Omeprazole 20 Mg Capsule.dr 1 Cap PO DAILY Zoloft (Sertraline Hcl) 50 Mg Tablet 1 Tab PO DAILY Hydrocodone-Apap 7.5-325 (Hydrocodone Bit/Acetaminophen) 1 Each Tablet 1 Tab PO PRN Q6HRS PRN Vitals/I & O Vital Sign - Last 24 Hours 07/02/16 07/02/16 07/02/16 07/02/16 11:00 11:32 11:51 14:37 Temp 97.7 97.7 Pulse 76 Resp 19 18 18 B/P (MAP) 142/60 (87) Pulse Ox 93 92 O2 Delivery Room Air Nasal Cannula Nasal Cannula Nasal Cannula O2 Flow Rate 2.0 2.0 2.0 07/02/16 07/02/16 07/02/16 07/02/16 15:00 15:10 15:25 17:12 Temp 97.8 97.8 Pulse 72 Resp 19 18 B/P (MAP) 128/67 (87) Pulse Ox 94 95 O2 Delivery Room Air Nasal Cannula Nasal Cannula O2 Flow Rate 2.0 2.0 2.0 07/02/16 07/02/16 07/02/16 07/02/16 17:48 19:00 19:26 20:00 Temp 98.1 98.1 Pulse 71 Resp 18 18 B/P (MAP) 109/47 (67) Pulse Ox 90 96 O2 Delivery Room Air Room Air Nasal Cannula Nasal Cannula O2 Flow Rate 2.0 2.0 07/02/16 07/03/16 07/03/16 23:00 07:55 08:00 Temp 97.9 97.5 97.9 97.5 Pulse 75 87 Resp 18 18 B/P (MAP) 137/55 (82) 116/61 (79) Pulse Ox 90 93 O2 Delivery Room Air Nasal Cannula Nasal Cannula O2 Flow Rate 2.0 2.0 Intake and Output 07/02/16 07/02/16 07/03/16 14:59 22:59 06:59 Intake Total 500 ml 900 ml Output Total 100 ml Balance 500 ml 900 ml -100 ml YONIS MCGREGOR MD July 03, 2016 10:38
[2016-07-03] MEDS: FUROSEMIDE 40 MG/4 ML VIAL. IVP SCH ×2 (11:41→15:19)
[2016-07-03] MEDS: IPRATRPIUM/ALBUTEROL 0.5/2.5MG 3 ML NEBU. NEB SCH ×3 (11:58→19:42)
[2016-07-03] MEDS: VANCOMYCIN PER PHARMACY MC PRN ×2 (12:46→17:55)
--- NOTE | 2016-07-03 14:27 | RAD ---
Indication: Pleural effusion. Time of exam 1415 hours. Correlation is made with prior study from 1 day earlier. Large right pleural effusion appears stable. Airspace infiltrate left upper lobe is unchanged. No pneumothorax is seen. Impression: Stable chest since exam one day earlier.
[2016-07-03 14:45] VITALS: BP 110/43
--- NOTE | 2016-07-03 18:18 | PDOC ---
PROGRESS NOTES Subjective Subjective The patient does not have any new complaints today. Objective Objective Vital Signs Date Time Temp Pulse Resp B/P (MAP) Pulse Ox O2 Delivery O2 Flow Rate FiO2 07/03/16 16:12 Nasal Cannula 2.0 07/03/16 14:45 97.7 76 18 110/43 (65) 95 97.7 Intake and Output 07/03/16 07:00 Intake Total 1400 ml Output Total 100 ml Balance 1300 ml Intake Oral 1400 ml Output Urine Total 100 ml # Voids 7 Physical Exam Physical Exam There are no significant changes in the cardiac exam or in the peripheral effusion findings Assessment Assessment The patient's chest x-ray does not show any decrease in the pleural effusion. I would recommend for the patient to have a thoracentesis done. Comment Review of Relevant I have reviewed the following items eamon (where applicable) has been applied. Labs Laboratory Tests Test 07/02/16 08:50 07/03/16 16:40 Lactic Acid Level 0.7 mmol/L (0.4-2.0) Vancomycin Level Trough 12.5 mcg/mL (10.0-20.0) Vancomycin Last Dose Date 07/02/16 Vancomycin Last Dose Time 1800 Laboratory Tests Test 07/03/16 16:40 Vancomycin Level Trough 12.5 mcg/mL (10.0-20.0) Vancomycin Last Dose Date 07/02/16 Vancomycin Last Dose Time 1800 Microbiology 07/01/16 Blood Culture - Preliminary, Resulted NO GROWTH AFTER 2 DAYS Medications Current Medications Vancomycin HCl (Vanco Per Pharmacy) 1 each 1X ONCE MC Last administered on 07/01 17:30; Start 07/01/16 at 17:30; Stop 07/01/16 at 18:41; Status DC Fentanyl Citrate (Fentanyl 2ml Vial) 50 mcg 1X ONCE IV Last administered on 17:30; Start 07/01/16 at 17:30; Stop 07/01/16 at 17:34; Status DC Albuterol/ Ipratropium (Duoneb) 3 ml 1X ONCE NEB Last administered on 17:46; Start 07/01/16 at 17:30; Stop 07/01/16 at 17:34; Status DC Furosemide (Lasix) 40 mg 1X ONCE IVP Last administered on 07/01/16 18:15; Start 07/01/16 at 18:15; Stop 07/01/16 at 18:16; Status DC Vancomycin HCl 2 gm/Sodium Chloride 500 ml @ 250 mls/hr 1X ONCE IV Last administered on 07/01/16 18:00; Start 07/01/16 at 18:00; Stop 07/01/16 at 19:59; Status DC Ondansetron HCl (Zofran) 4 mg PRN Q8HRS PRN IV NAUSEA/VOMITING; Start 07/01/16 at 18:15; Stop 07/02/16 at 18:14; Status DC Albuterol/ Ipratropium (Duoneb) 3 ml RTQID NEB Last administered on 07/02/16 19 :25; Start 07/01/16 at 20:00; Stop 07/02/16 at 19:59; Status DC Vancomycin HCl 1.25 gm/Sodium Chloride 250 ml @ 167 mls/hr Q24H IV Last administered on 07/02/16 17:11; Start 07/02/16 at 18:00; Stop 07/03/16 at 17:57; Status DC Vancomycin HCl 1 each 1X ONCE MC ; Start 07/03/16 at 17:30; Stop 07/03/16 at 17 :31; Status DC Vancomycin HCl (Vanco Per Pharmacy) 1 each PRN DAILY PRN MC SEE COMMENTS Last administered on 07/03/16 17:55; Start 07/01/16 at 19:00 Ceftriaxone Sodium 1 gm/ Sodium Chloride 50 ml @ 100 mls/hr Q24H IV Last administered on 07/02/16 21:08; Start 07/01/16 at 20:00 Furosemide (Lasix) 40 mg BID92 IVP Last administered on 07/03/16 15:19; Start 07/02/16 at 09:00 Furosemide (Lasix) 40 mg DAILY PO ; Start 07/02/16 at 09:00; Status Cancel Sertraline HCl (Zoloft) 50 mg HS PO Last administered on 07/02/16 21:08; Start 07/01/16 at 23:15 Naproxen (Naprosyn) 250 mg BID PO Last administered on 07/03/16 09:11; Start 07/02/16 at 09:00 Pantoprazole Sodium (Protonix) 40 mg DAILYAC PO Last administered on 07/03/16 06:20; Start 07/02/16 at 07:30 Morphine Sulfate 2 mg PRN Q2HR PRN IV PAIN Last administered on 07/02/16 17:12 ; Start 07/02/16 at 11:30 Albuterol/ Ipratropium (Duoneb) 3 ml RTQID NEB Last administered on 07/03/16 16:12; Start 07/03/16 at 12:00 Vancomycin HCl 1.5 gm/Sodium Chloride 500 ml @ 250 mls/hr Q24H IV ; Start 07/03 at 18:00 Active Scripts Active Reported B-12 (Cyanocobalamin (Vitamin B-12)) 1,000 Mcg Tablet.er 1,000 Mcg PO Zoloft (Sertraline Hcl) 50 Mg Tablet 1 Tab PO DAILY Aleve (Naproxen Sodium) 220 Mg Tablet 220 Mg PO BID Furosemide 40 Mg Tablet 1 Tab PO DAILY Omeprazole 20 Mg Capsule.dr 1 Cap PO DAILY Zoloft (Sertraline Hcl) 50 Mg Tablet 1 Tab PO DAILY Hydrocodone-Apap 7.5-325 (Hydrocodone Bit/Acetaminophen) 1 Each Tablet 1 Tab PO PRN Q6HRS PRN Vitals/I & O Vital Sign - Last 24 Hours 07/02/16 07/02/16 07/02/16 07/02/16 19:00 19:26 20:00 23:00 Temp 98.1 97.9 98.1 97.9 Pulse 71 75 Resp 18 18 B/P (MAP) 109/47 (67) 137/55 (82) Pulse Ox 90 96 90 O2 Delivery Room Air Nasal Cannula Nasal Cannula Room Air O2 Flow Rate 2.0 2.0 07/03/16 07/03/16 07/03/16 07/03/16 07:55 08:00 10:30 11:58 Temp 97.5 96.6 97.5 96.6 Pulse 87 74 Resp 18 18 B/P (MAP) 116/61 (79) 135/59 (84) Pulse Ox 93 95 94 O2 Delivery Nasal Cannula Nasal Cannula Nasal Cannula Nasal Cannula O2 Flow Rate 2.0 2.0 2.0 2.0 07/03/16 07/03/16 14:45 16:12 Temp 97.7 97.7 Pulse 76 Resp 18 B/P (MAP) 110/43 (65) Pulse Ox 95 O2 Delivery Nasal Cannula Nasal Cannula O2 Flow Rate 2.0 2.0 Intake and Output 07/02/16 07/02/16 07/03/16 15:00 23:00 07:00 Intake Total 500 ml 900 ml Output Total 100 ml Balance 500 ml 900 ml -100 ml HIMA COLE MD July 03, 2016 18:18
[2016-07-03] MEDS: VANCOMYCIN 1.5 GM in IV NORMAL SALINE 500ML BAG 500 ML IV SCH (18:42)
[2016-07-03 19:00] VITALS: BP 110/65
[2016-07-03] MEDS: SERTRALINE 50 MG TABLET. PO SCH (21:04)
[2016-07-03 23:00] VITALS: BP 121/46
[2016-07-04] VITALS (12 sets, daily range): BP systolic 96–126; BP diastolic 25–74
[2016-07-04] MEDS: ALPRAZolam 0.25 MG TABLET PO PRN ×2 (00:32→09:54)
[2016-07-04 07:02] LABS: CALCIUM 8.1 mg/dL (8.5-10.1); CREATININE 0.6 mg/dL (0.6-1.0); GFR 95.9
[2016-07-04 07:09] LABS: POTASSIUM 2.8 mmol/L (3.5-5.1)
[2016-07-04] MEDS: IPRATRPIUM/ALBUTEROL 0.5/2.5MG 3 ML NEBU. NEB SCH ×4 (07:14→19:25)
[2016-07-04] MEDS: NAPROXEN 250 MG TABLET PO SCH ×2 (09:00→19:58)
[2016-07-04] MEDS ORDERED: POTASSIUM CHLORIDE 20 MEQ TABLET.ER. PO ONE (09:30)
--- NOTE | 2016-07-04 09:41 | PDOC ---
Provider Note Provider Note dictated Moderate Right effusion thoracentesis today FELIX DOLL MD July 04, 2016 09:41
[2016-07-04] MEDS: FUROSEMIDE 40 MG/4 ML VIAL. IVP SCH ×2 (09:53→16:29)
[2016-07-04] MEDS: PANTOPRAZOLE 40 MG TABLET.DR. PO SCH (09:53)
--- NOTE | 2016-07-04 10:15 | CONS ---
DATE OF CONSULTATION: ATTENDING PHYSICIAN: Dr. Gonzales Mane. REASON FOR CONSULTATION: Pleural effusion, dyspnea, hypoxia. HISTORY OF PRESENT ILLNESS: The patient is an 80-year-old female who has no significant history of tobacco use. She normally does not use oxygen. She came in to the hospital with complaint of progressive shortness of breath for last 3 weeks. She said she had only a mild cough, no fever, no chills. The patient also had some right knee pain. She has mild lower extremity edema. Her echocardiogram was performed and she has a normal ejection fraction, but evidence of left ventricular diastolic dysfunction and pulmonary artery pressure of 50. Her chest x-ray revealed moderate right-sided pleural effusion. There was also some evidence of left upper lobe infiltrate. These findings did not change from another recent chest x-ray. I have been asked to see her for further evaluation. PAST MEDICAL HISTORY: Significant for history of hypertension, history of diastolic dysfunction. PAST SURGICAL HISTORY: No recent surgeries. ALLERGIES: CODEINE. FAMILY HISTORY: Hypertension. REVIEW OF SYSTEMS: Twelve-point system obtained. Pertinent positives discussed in history of present illness, otherwise noncontributory. All systems that were negative were reviewed as well. MEDICATIONS: Reviewed as listed in the [facility] including broad-spectrum antibiotic, vancomycin, Rocephin, and Lasix. SOCIAL HISTORY: Nonsmoker. PHYSICAL EXAMINATION: GENERAL: She is awake, following commands, pulse ox is 95% on 2 liters. Blood pressure is stable, afebrile. HEENT: Sclerae nonicteric. NECK: Supple. LUNGS: Diminished breath sounds, right base. CARDIOVASCULAR: Regular rate. ABDOMEN: Soft. EXTREMITIES: Trace pitting edema bilaterally. LABORATORY DATA: Reviewed. Her hemoglobin is 9.4, white cell count 9.8, platelets are 377. BUN 15, creatinine 0.6, potassium is 2.8 and is being replaced. IMPRESSION: 1. Moderate right-sided pleural effusion with some mild interstitial markings. I suspect we are dealing with [id number] diastolic heart failure. This is a patient who presents with progressive dyspnea for 3 weeks. 2. Acute hypoxic respiratory failure secondary to [id number] diastolic heart failure and suspected left upper lobe pneumonia. 3. Abnormal chest x-ray with moderate right-sided pleural effusion and focal infiltrate in the left upper lobe and also mild vascular prominence. This is consistent with combination of congestive heart failure and focal left upper lobe pneumonia. 4. No significant history of tobacco use. 5. 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 RECOMMENDATIONS: 1. Discussed with the patient the need for thoracentesis and she is agreeable with that. 2. Continue with current oxygen at 2 liters and gradually wean, to keep saturation 92% and above. 3. Continue with empiric antibiotic to cover for healthcare-associated pneumonia. 4. Follow chest x-rays in few days. 5. Continue current furosemide. 6. Follow cardiology recommendations. 7. Discussed with the patient and RN and they agree with present plan. FELIX DOLL MD DR: SHIRIN/herve JOB#: [id number] / [id number]
[2016-07-04 10:50] LABS: INR 1.2 (0.8-1.1); PROTHROMBIN TIME PATIENT 14.3 SEC (11.7-14.0)
[2016-07-04] MEDS ORDERED: LIDOCAINE 1% / SOD BICARB 8.4% 20 ML VIAL. IJ ONE ×2 (10:55→13:00)
--- NOTE | 2016-07-04 11:03 | PDOC ---
PROGRESS NOTES Chief Complaint Chief Complaint cc: knee swelling A/P R Knee anterior hematoma, : , No cellulitis, pain much better Pleural effusion and Infiltrates on CXR: on Rocephin and vancomycin Acute respiratory failure hypoxia: Knee pain : Pain control with iv morphine and pnr noco Depression stable. History of Present Illness History of Present Illness s/p IV Lasix, Echo- Diastolic dysfunction, monitor renal functions and intake and out put, no fever, follow blood cx, pain better now no fever doing ok Disposition : SNU, [facility]. Vitals Vitals Vital Signs Date Time Temp Pulse Resp B/P (MAP) Pulse Ox O2 Delivery O2 Flow Rate FiO2 07/04/16 07:16 87 Room Air 07/04/16 07:00 97.9 85 16 121/56 (77) 2.0 97.9 Physical Exam General: Alert, Oriented X3 Heart: Normal S1, Normal S2 Lungs: Clear, Other (ANTERIOR) Abdomen: Normal bowel sounds, Soft Extremities: No edema, Other Skin: No breakdown Labs LABS Laboratory Tests Test 07/03/16 16:40 07/04/16 06:25 Vancomycin Level Trough 12.5 mcg/mL (10.0-20.0) Vancomycin Last Dose Date 07/02/16 Vancomycin Last Dose Time 1800 Sodium Level 141 mmol/L (136-145) Potassium Level 2.8 mmol/L (3.5-5.1) Chloride Level 105 mmol/L (98-107) Carbon Dioxide Level 33 mmol/L (21-32) Anion Gap 3 (6-14) Blood Urea Nitrogen 15 mg/dL (7-20) Creatinine 0.6 mg/dL (0.6-1.0) Estimated GFR (Cockcroft-Gault) 95.9 Glucose Level 90 mg/dL (70-99) Calcium Level 8.1 mg/dL (8.5-10.1) Review of Systems Review of Systems no n.v.d Assessment and Plan Assessmemt and Plan Problems Medical Problems: (1) Cellulitis Status: Acute (2) Pleural effusion Status: Acute (3) Swelling of knee joint, right Status: Acute Problems: Comment Review of Relevant I have reviewed the following items eamon (where applicable) has been applied. Labs Laboratory Tests Test 07/03/16 16:40 07/04/16 06:25 Vancomycin Level Trough 12.5 mcg/mL (10.0-20.0) Vancomycin Last Dose Date 07/02/16 Vancomycin Last Dose Time 1800 Sodium Level 141 mmol/L (136-145) Potassium Level 2.8 mmol/L (3.5-5.1) Chloride Level 105 mmol/L (98-107) Carbon Dioxide Level 33 mmol/L (21-32) Anion Gap 3 (6-14) Blood Urea Nitrogen 15 mg/dL (7-20) Creatinine 0.6 mg/dL (0.6-1.0) Estimated GFR (Cockcroft-Gault) 95.9 Glucose Level 90 mg/dL (70-99) Calcium Level 8.1 mg/dL (8.5-10.1) Laboratory Tests Test 07/03/16 16:40 07/04/16 06:25 Vancomycin Level Trough 12.5 mcg/mL (10.0-20.0) Vancomycin Last Dose Date 07/02/16 Vancomycin Last Dose Time 1800 Sodium Level 141 mmol/L (136-145) Potassium Level 2.8 mmol/L (3.5-5.1) Chloride Level 105 mmol/L (98-107) Carbon Dioxide Level 33 mmol/L (21-32) Anion Gap 3 (6-14) Blood Urea Nitrogen 15 mg/dL (7-20) Creatinine 0.6 mg/dL (0.6-1.0) Estimated GFR (Cockcroft-Gault) 95.9 Glucose Level 90 mg/dL (70-99) Calcium Level 8.1 mg/dL (8.5-10.1) Microbiology 07/01/16 Blood Culture - Preliminary, Resulted NO GROWTH AFTER 2 DAYS Medications Current Medications Vancomycin HCl (Vanco Per Pharmacy) 1 each 1X ONCE MC Last administered on 07/01 17:30; Start 07/01/16 at 17:30; Stop 07/01/16 at 18:41; Status DC Fentanyl Citrate (Fentanyl 2ml Vial) 50 mcg 1X ONCE IV Last administered on 17:30; Start 07/01/16 at 17:30; Stop 07/01/16 at 17:34; Status DC Albuterol/ Ipratropium (Duoneb) 3 ml 1X ONCE NEB Last administered on 17:46; Start 07/01/16 at 17:30; Stop 07/01/16 at 17:34; Status DC Furosemide (Lasix) 40 mg 1X ONCE IVP Last administered on 07/01/16 18:15; Start 07/01/16 at 18:15; Stop 07/01/16 at 18:16; Status DC Vancomycin HCl 2 gm/Sodium Chloride 500 ml @ 250 mls/hr 1X ONCE IV Last administered on 07/01/16 18:00; Start 07/01/16 at 18:00; Stop 07/01/16 at 19:59; Status DC Ondansetron HCl (Zofran) 4 mg PRN Q8HRS PRN IV NAUSEA/VOMITING; Start 07/01/16 at 18:15; Stop 07/02/16 at 18:14; Status DC Albuterol/ Ipratropium (Duoneb) 3 ml RTQID NEB Last administered on 07/02/16 19 :25; Start 07/01/16 at 20:00; Stop 07/02/16 at 19:59; Status DC Vancomycin HCl 1.25 gm/Sodium Chloride 250 ml @ 167 mls/hr Q24H IV Last administered on 07/02/16 17:11; Start 07/02/16 at 18:00; Stop 07/03/16 at 17:57; Status DC Vancomycin HCl 1 each 1X ONCE MC Last administered on 07/03/16 17:30; Start 07/03/16 at 17:30; Stop 07/03/16 at 17:31; Status DC Vancomycin HCl (Vanco Per Pharmacy) 1 each PRN DAILY PRN MC SEE COMMENTS Last administered on 07/03/16 17:55; Start 07/01/16 at 19:00 Ceftriaxone Sodium 1 gm/ Sodium Chloride 50 ml @ 100 mls/hr Q24H IV Last administered on 07/03/16 21:04; Start 07/01/16 at 20:00 Furosemide (Lasix) 40 mg BID92 IVP Last administered on 07/04/16 09:53; Start 07/02/16 at 09:00 Furosemide (Lasix) 40 mg DAILY PO ; Start 07/02/16 at 09:00; Status Cancel Sertraline HCl (Zoloft) 50 mg HS PO Last administered on 07/03/16 21:04; Start 07/01/16 at 23:15 Naproxen (Naprosyn) 250 mg BID PO Last administered on 07/03/16 21:03; Start 07/02/16 at 09:00 Pantoprazole Sodium (Protonix) 40 mg DAILYAC PO Last administered on 07/04/16 09:53; Start 07/02/16 at 07:30 Morphine Sulfate 2 mg PRN Q2HR PRN IV PAIN Last administered on 07/02/16 17:12 ; Start 07/02/16 at 11:30 Albuterol/ Ipratropium (Duoneb) 3 ml RTQID NEB Last administered on 07/04/16 07:14; Start 07/03/16 at 12:00 Vancomycin HCl 1.5 gm/Sodium Chloride 500 ml @ 250 mls/hr Q24H IV Last administered on 07/03/16 18:42; Start 07/03/16 at 18:00 Alprazolam (Xanax) 0.25 mg PRN Q8HRS PRN PO ANXIETY / AGITATION Last administered on 07/04/16 09:54; Start 07/03/16 at 20:00 Potassium Chloride (Klor-Con) 20 meq DAILYWBKFT PO ; Start 07/05/16 at 08:00 Potassium Chloride (Klor-Con) 40 meq 1X ONCE PO Last administered on 09:31; Start 07/04/16 at 09:30; Stop 07/04/16 at 09:31; Status DC Active Scripts Active Reported B-12 (Cyanocobalamin (Vitamin B-12)) 1,000 Mcg Tablet.er 1,000 Mcg PO Zoloft (Sertraline Hcl) 50 Mg Tablet 1 Tab PO DAILY Aleve (Naproxen Sodium) 220 Mg Tablet 220 Mg PO BID Furosemide 40 Mg Tablet 1 Tab PO DAILY Omeprazole 20 Mg Capsule. 1 Cap PO DAILY Zoloft (Sertraline Hcl) 50 Mg Tablet 1 Tab PO DAILY Hydrocodone-Apap 7.5-325 (Hydrocodone Bit/Acetaminophen) 1 Each Tablet 1 Tab PO PRN Q6HRS PRN Vitals/I & O Vital Sign - Last 24 Hours 07/03/16 07/03/16 07/03/16 07/03/16 11:58 14:45 16:12 19:00 Temp 97.7 97.8 97.7 97.8 Pulse 76 88 Resp 18 20 B/P (MAP) 110/43 (65) 110/65 (80) Pulse Ox 94 95 91 O2 Delivery Nasal Cannula Nasal Cannula Nasal Cannula Room Air O2 Flow Rate 2.0 2.0 2.0 07/03/16 07/03/16 07/03/16 07/04/16 19:44 20:00 23:00 03:05 Temp 98.2 97.7 98.2 97.7 Pulse 88 83 Resp 20 20 B/P (MAP) 121/46 (71) 103/53 (70) Pulse Ox 92 95 91 O2 Delivery Room Air Nasal Cannula Nasal Cannula Nasal Cannula O2 Flow Rate 2.0 07/04/16 07/04/16 07:00 07:16 Temp 97.9 97.9 Pulse 85 Resp 16 B/P (MAP) 121/56 (77) Pulse Ox 95 87 O2 Delivery Nasal Cannula Room Air O2 Flow Rate 2.0 Intake and Output 07/03/16 07/03/16 07/04/16 15:00 23:00 07:00 Intake Total 180 ml 280 ml 200 ml Output Total 175 ml Balance 180 ml 280 ml 25 ml TOMY HART MD July 04, 2016 11:02
[2016-07-04] MEDS: VANCOMYCIN PER PHARMACY MC PRN (12:09)
[2016-07-04] MEDS ORDERED: MIDAZOLAM HCL/PF 2 MG/2 ML VIAL. ONE (12:31)
[2016-07-04] MEDS ORDERED: fentaNYL PF VIAL 100 MCG/2 ML VIAL ONE (12:31)
[2016-07-04] MEDS ORDERED: fentaNYL PF VIAL 100 MCG/2 ML VIAL IV ONE (13:00)
--- NOTE | 2016-07-04 13:18 | PDOC ---
Exam Pantograph Setter Pantograph Setter Antwon Pre-Procedure Diagnosis Pre-Procedure Diagnosis 80 YO female with recent fall with right chest trauma. Now with CP, SOA, and stable, moderately large rt pleural effusion. Post-Procedure Diagnosis Post-Procedure Diagnosis Same. Procedure Performed Procedure Performed CT guided Dx/Tx right thoracentesis Type of Anesthesia Type of Anesthesia Local + IV fentanyl analgesia Estimated Blood Loss EBL: Trace Specimens Specimans 1050 cc reddish-hazy right pleural fluid removed---samples to lab per protocol Condition of Patient Condition of Patient Stable. No apparent complication. No immediate post thoracentesis Ptx. Disposition Disposition From IR/CT return to 512. 2 hr post thoracentesis insp/exp CXR requested. F/u with HIMS, Pulmonary, and Cardiology. Full report to follow. ALFREDITO FRANCISCO MD July 04, 2016 13:18
--- NOTE | 2016-07-04 14:52 | PDOC ---
PROGRESS NOTES Subjective Subjective Patient tolerated thoracentesis well. Breathing much easier Objective Objective Vital Signs Date Time Temp Pulse Resp B/P (MAP) Pulse Ox O2 Delivery O2 Flow Rate FiO2 07/04/16 13:22 16 96 Nasal Cannula 2.0 07/04/16 13:10 93 07/04/16 11:00 97.9 120/25 (56) 97.9 Intake and Output 07/04/16 07:00 Intake Total 660 ml Output Total 175 ml Balance 485 ml Intake Oral 660 ml Output Urine Total 175 ml # Voids 6 Physical Exam Physical Exam Moving air better. No other changes in cardiac exam Assessment Assessment Patient improving. I agree with present plan. Comment Review of Relevant I have reviewed the following items eamon (where applicable) has been applied. Labs Laboratory Tests Test 07/03/16 16:40 07/04/16 06:25 07/04/16 09:58 Vancomycin Level Trough 12.5 mcg/mL (10.0-20.0) Vancomycin Last Dose Date 07/02/16 Vancomycin Last Dose Time 1800 Sodium Level 141 mmol/L (136-145) Potassium Level 2.8 mmol/L (3.5-5.1) Chloride Level 105 mmol/L (98-107) Carbon Dioxide Level 33 mmol/L (21-32) Anion Gap 3 (6-14) Blood Urea Nitrogen 15 mg/dL (7-20) Creatinine 0.6 mg/dL (0.6-1.0) Estimated GFR (Cockcroft-Gault) 95.9 Glucose Level 90 mg/dL (70-99) Calcium Level 8.1 mg/dL (8.5-10.1) Prothrombin Time 14.3 SEC (11.7-14.0) Prothromb Time International Ratio 1.2 (0.8-1.1) Laboratory Tests Test 07/03/16 16:40 07/04/16 06:25 07/04/16 09:58 Vancomycin Level Trough 12.5 mcg/mL (10.0-20.0) Vancomycin Last Dose Date 07/02/16 Vancomycin Last Dose Time 1800 Sodium Level 141 mmol/L (136-145) Potassium Level 2.8 mmol/L (3.5-5.1) Chloride Level 105 mmol/L (98-107) Carbon Dioxide Level 33 mmol/L (21-32) Anion Gap 3 (6-14) Blood Urea Nitrogen 15 mg/dL (7-20) Creatinine 0.6 mg/dL (0.6-1.0) Estimated GFR (Cockcroft-Gault) 95.9 Glucose Level 90 mg/dL (70-99) Calcium Level 8.1 mg/dL (8.5-10.1) Prothrombin Time 14.3 SEC (11.7-14.0) Prothromb Time International Ratio 1.2 (0.8-1.1) Microbiology 07/01/16 Blood Culture - Preliminary, Resulted NO GROWTH AFTER 2 DAYS 07/04/16 Gram Stain - Final, Complete Medications Current Medications Vancomycin HCl (Vanco Per Pharmacy) 1 each 1X ONCE MC Last administered on 07/01 17:30; Start 07/01/16 at 17:30; Stop 07/01/16 at 18:41; Status DC Fentanyl Citrate (Fentanyl 2ml Vial) 50 mcg 1X ONCE IV Last administered on 17:30; Start 07/01/16 at 17:30; Stop 07/01/16 at 17:34; Status DC Albuterol/ Ipratropium (Duoneb) 3 ml 1X ONCE NEB Last administered on 17:46; Start 07/01/16 at 17:30; Stop 07/01/16 at 17:34; Status DC Furosemide (Lasix) 40 mg 1X ONCE IVP Last administered on 07/01/16 18:15; Start 07/01/16 at 18:15; Stop 07/01/16 at 18:16; Status DC Vancomycin HCl 2 gm/Sodium Chloride 500 ml @ 250 mls/hr 1X ONCE IV Last administered on 07/01/16 18:00; Start 07/01/16 at 18:00; Stop 07/01/16 at 19:59; Status DC Ondansetron HCl (Zofran) 4 mg PRN Q8HRS PRN IV NAUSEA/VOMITING; Start 07/01/16 at 18:15; Stop 07/02/16 at 18:14; Status DC Albuterol/ Ipratropium (Duoneb) 3 ml RTQID NEB Last administered on 07/02/16 19 :25; Start 07/01/16 at 20:00; Stop 07/02/16 at 19:59; Status DC Vancomycin HCl 1.25 gm/Sodium Chloride 250 ml @ 167 mls/hr Q24H IV Last administered on 07/02/16 17:11; Start 07/02/16 at 18:00; Stop 07/03/16 at 17:57; Status DC Vancomycin HCl 1 each 1X ONCE MC Last administered on 07/03/16 17:30; Start 07/03/16 at 17:30; Stop 07/03/16 at 17:31; Status DC Vancomycin HCl (Vanco Per Pharmacy) 1 each PRN DAILY PRN MC SEE COMMENTS Last administered on 07/04/16 12:09; Start 07/01/16 at 19:00 Ceftriaxone Sodium 1 gm/ Sodium Chloride 50 ml @ 100 mls/hr Q24H IV Last administered on 07/03/16 21:04; Start 07/01/16 at 20:00 Furosemide (Lasix) 40 mg BID92 IVP Last administered on 07/04/16 09:53; Start 07/02/16 at 09:00 Furosemide (Lasix) 40 mg DAILY PO ; Start 07/02/16 at 09:00; Status Cancel Sertraline HCl (Zoloft) 50 mg HS PO Last administered on 07/03/16 21:04; Start 07/01/16 at 23:15 Naproxen (Naprosyn) 250 mg BID PO Last administered on 07/03/16 21:03; Start 07/02/16 at 09:00 Pantoprazole Sodium (Protonix) 40 mg DAILYAC PO Last administered on 07/04/16 09:53; Start 07/02/16 at 07:30 Morphine Sulfate 2 mg PRN Q2HR PRN IV PAIN Last administered on 07/02/16 17:12 ; Start 07/02/16 at 11:30 Albuterol/ Ipratropium (Duoneb) 3 ml RTQID NEB Last administered on 07/04/16 11:26; Start 07/03/16 at 12:00 Vancomycin HCl 1.5 gm/Sodium Chloride 500 ml @ 250 mls/hr Q24H IV Last administered on 07/03/16 18:42; Start 07/03/16 at 18:00 Alprazolam (Xanax) 0.25 mg PRN Q8HRS PRN PO ANXIETY / AGITATION Last administered on 07/04/16 09:54; Start 07/03/16 at 20:00 Potassium Chloride (Klor-Con) 20 meq DAILYWBKFT PO ; Start 07/05/16 at 08:00 Potassium Chloride (Klor-Con) 40 meq 1X ONCE PO Last administered on 09:31; Start 07/04/16 at 09:30; Stop 07/04/16 at 09:31; Status DC Lidocaine/Sodium Bicarbonate (Buffered Lidocaine 1%) 20 ml STK-MED ONCE IJ ; Start 07/04/16 at 10:55; Stop 07/04/16 at 10:56; Status DC Midazolam HCl (Versed) 2 mg STK-MED ONCE .ROUTE ; Start 07/04/16 at 12:31; Stop 07/04/16 at 12:32; Status DC Fentanyl Citrate (Fentanyl 2ml Vial) 100 mcg STK-MED ONCE .ROUTE ; Start at 12:31; Stop 07/04/16 at 12:32; Status DC Lidocaine/Sodium Bicarbonate (Buffered Lidocaine 1%) 6 ml 1X ONCE IJ Last administered on 07/04/16 13:23; Start 07/04/16 at 13:00; Stop 07/04/16 at 13:05 ; Status DC Fentanyl Citrate (Fentanyl 2ml Vial) 50 mcg 1X ONCE IV Last administered on 13:22; Start 07/04/16 at 13:00; Stop 07/04/16 at 13:05; Status DC Active Scripts Active Reported B-12 (Cyanocobalamin (Vitamin B-12)) 1,000 Mcg Tablet.er 1,000 Mcg PO Zoloft (Sertraline Hcl) 50 Mg Tablet 1 Tab PO DAILY Aleve (Naproxen Sodium) 220 Mg Tablet 220 Mg PO BID Furosemide 40 Mg Tablet 1 Tab PO DAILY Omeprazole 20 Mg Capsule.dr 1 Cap PO DAILY Zoloft (Sertraline Hcl) 50 Mg Tablet 1 Tab PO DAILY Hydrocodone-Apap 7.5-325 (Hydrocodone Bit/Acetaminophen) 1 Each Tablet 1 Tab PO PRN Q6HRS PRN Vitals/I & O Vital Sign - Last 24 Hours 07/03/16 07/03/16 07/03/16 07/03/16 16:12 19:00 19:44 20:00 Temp 97.8 97.8 Pulse 88 Resp 20 B/P (MAP) 110/65 (80) Pulse Ox 91 92 O2 Delivery Nasal Cannula Room Air Room Air Nasal Cannula O2 Flow Rate 2.0 2.0 07/03/16 07/04/16 07/04/16 07/04/16 23:00 03:05 07:00 07:16 Temp 98.2 97.7 97.9 98.2 97.7 97.9 Pulse 88 83 85 Resp 20 20 16 B/P (MAP) 121/46 (71) 103/53 (70) 121/56 (77) Pulse Ox 95 91 95 87 O2 Delivery Nasal Cannula Nasal Cannula Nasal Cannula Room Air O2 Flow Rate 2.0 07/04/16 07/04/16 07/04/16 07/04/16 11:00 11:27 12:45 12:50 Temp 97.9 97.9 Pulse 73 88 88 Resp 16 16 16 B/P (MAP) 120/25 (56) Pulse Ox 97 98 98 O2 Delivery Room Air Nasal Cannula Nasal Cannula Nasal Cannula O2 Flow Rate 2.0 2.0 2.0 2.0 07/04/16 07/04/16 07/04/16 07/04/16 12:55 13:00 13:05 13:10 Pulse 93 93 93 93 Resp 16 16 16 16 Pulse Ox 94 95 95 95 O2 Delivery Nasal Cannula Nasal Cannula Nasal Cannula Nasal Cannula O2 Flow Rate 2.0 2.0 2.0 2.0 07/04/16 13:22 Resp 16 Pulse Ox 96 O2 Delivery Nasal Cannula O2 Flow Rate 2.0 Intake and Output 07/03/16 07/03/16 07/04/16 15:00 23:00 07:00 Intake Total 180 ml 280 ml 200 ml Output Total 175 ml Balance 180 ml 280 ml 25 ml HIMA COLE MD July 04, 2016 14:52
--- NOTE | 2016-07-04 15:09 | RAD ---
CT-guided diagnostic and therapeutic right thoracentesis Indication: 80-year-old female with history of recent fall, with chest pain, shortness of air, and with a persistent at least moderate right pleural effusion. Image guided thoracentesis has been requested. Anesthesia: Local anesthesia with IV fentanyl analgesia, only. Procedure: Informed consent was obtained from the patient. She was placed supine on the CT scanner. Preliminary noncontrast CT images confirmed the presence of a moderately large right pleural effusion, with associated right basilar compression atelectasis. A skin site suitable for CT-guided thoracentesis was selected and marked along the lateral aspect of lower right hemithorax. That area was prepped and draped in the usual sterile fashion. Using aseptic technique, local anesthesia, and CT guidance, a micropuncture sheath was successfully introduced into the low right lateral pleural space. This sheath was then exchanged over a guidewire for a 6 Serbian drainage catheter. Approximately 1050 cc of reddish-hazy right pleural fluid was then easily removed, samples which were submitted to the clinical laboratory per referring physician's request. Completion CT images documented near complete resolution of the right pleural effusion, without pneumothorax. The drainage catheter was removed and a sterile dressing was applied. Patient tolerated the procedure well without apparent complication. Impression: Successful, uneventful CT-guided diagnostic and therapeutic right thoracentesis, as described. PQRS compliance statement: One or more of the following individualized dose reduction techniques was utilized for this CT procedure: 1. Automated exposure control. 2. Adjustment of MA and/or KV according to patient size. 3. Iterative reconstruction technique.
--- NOTE | 2016-07-04 15:24 | RAD ---
Indication: Status post thoracentesis. Time of exam 1505 hours. Correlation is made with prior exam one day earlier. There has been a reduction in right pleural effusion, status post thoracentesis. No pneumothorax is identified. Left upper lobe infiltrate persists. Impression: No evidence of pneumothorax, status post thoracentesis.
[2016-07-04] MEDS: VANCOMYCIN 1.5 GM in IV NORMAL SALINE 500ML BAG 500 ML IV SCH (17:37)
[2016-07-04] MEDS: SERTRALINE 50 MG TABLET. PO SCH (19:58)
[2016-07-05 03:00] VITALS: BP 115/58
[2016-07-05 07:00] VITALS: BP 133/42
[2016-07-05] MEDS: IPRATRPIUM/ALBUTEROL 0.5/2.5MG 3 ML NEBU. NEB SCH ×3 (07:53→15:15)
[2016-07-05] MEDS ORDERED: POTASSIUM CHLORIDE 20 MEQ TABLET.ER. PO SCH (08:00)
[2016-07-05] MEDS: PANTOPRAZOLE 40 MG TABLET.DR. PO SCH (08:18)
[2016-07-05] MEDS: NAPROXEN 250 MG TABLET PO SCH (08:20)
[2016-07-05] MEDS: FUROSEMIDE 40 MG/4 ML VIAL. IVP SCH ×2 (08:29→14:05)
--- NOTE | 2016-07-05 10:47 | PATHOLOGY ---
CYTOPATHOLOGY REPORT CLINICAL HISTORY: Right pleural effusion SPECIMEN(S) RECEIVED: A.Pleural fluid, Right FINAL DIAGNOSIS: A. Pleural fluid, Right: - No malignant cells identified. - Reactive mesothelial cells identified in an inflammatory background. PATHOLOGIST: Doug Gaming M.D. REPORT ELECTRONICALLY SIGNED BY: Doug Gaming M.D. DATE/TIME: 07/05/2016 10:44 GROSS PATHOLOGY: A. Pleural fluid, Right: The specimen is submitted unfixed, labeled "Jefferson Aburto". Received by the Cytology Department is 43 mL of cloudy red fluid. One ThinPrep slide and cell block were prepared. (mm 07.04.2016) VENDING MACHINE ATTENDANT(S): MISA Cesar([place]) INITIAL CPT CODE(S): A; 77154, 10603 Professional services performed [place] [facility] [place] [address] Technical services performed by [facility] at [address] [place] [address], [address], [place] [address]. PATIENT: JEFFERSON ABURTO /AGE: 6 1935 (Age: 80) SEX: F PATIENT #: [id number] ALT CASE #: SPECIMEN COLLECTION DATE: 07/04/2016 SPECIMEN RECEIVED DATE: 07/04/[address] [facility] [address] [place] [address], [address] [place] [address] PHONE: [phone] DIRECTOR: Chuckie Man M.D. * * * END OF REPORT * * *
[2016-07-05 11:00] VITALS: BP 126/39
[2016-07-05] MEDS ORDERED: DOXY100C2 PO (11:44)
[2016-07-05] MEDS ORDERED: ALPR0.254 PO (11:44)
[2016-07-05] MEDS ORDERED: HYDR-2762 PO (11:44)
[2016-07-05] MEDS ORDERED: POTASSIUM CHLORIDE 20 MEQ TABLET.ER. PO ONE (11:45)
--- NOTE | 2016-07-05 11:55 | PDOC ---
PULMONARY PROGRESS NOTES Subjective feeling better. on 02, not on home o2. is tired. sob better. has occ cough, has back pain Vitals Vital Signs Date Time Temp Pulse Resp B/P (MAP) Pulse Ox O2 Delivery O2 Flow Rate FiO2 07/05/16 11:38 Nasal Cannula 2.0 07/05/16 07:54 95 07/05/16 07:00 97.5 80 14 133/42 (72) 97.5 ROS: No Nausea General: Alert HEENT: Other (nc at perrl throat nose clear) Lungs: Crackles, Other (ANTERIOR) Cardiovascular: S1, S2 Abdomen: Soft, Non-tender Neuro Exam: Alert Extremities: No Edema Skin: Warm Labs Laboratory Tests Test 07/03/16 16:40 07/04/16 06:25 07/04/16 09:58 Vancomycin Level Trough 12.5 mcg/mL (10.0-20.0) Vancomycin Last Dose Date 07/02/16 Vancomycin Last Dose Time 1800 Sodium Level 141 mmol/L (136-145) Potassium Level 2.8 mmol/L (3.5-5.1) Chloride Level 105 mmol/L (98-107) Carbon Dioxide Level 33 mmol/L (21-32) Anion Gap 3 (6-14) Blood Urea Nitrogen 15 mg/dL (7-20) Creatinine 0.6 mg/dL (0.6-1.0) Estimated GFR (Cockcroft-Gault) 95.9 Glucose Level 90 mg/dL (70-99) Calcium Level 8.1 mg/dL (8.5-10.1) Prothrombin Time 14.3 SEC (11.7-14.0) Prothromb Time International Ratio 1.2 (0.8-1.1) Medications Active Scripts Medications Dose Route/Sig Max Daily Dose Days Date Category Doxycycline Hyclate 100 Mg Capsule 1 Cap PO BID 07/05/16 Rx Alprazolam 0.25 Mg Tablet 0.25 Mg PO PRN Q8HRS PRN 07/05/16 Rx Hydrocodone-Apap 7.5-325 (Hydrocodone Bit/Acetaminophen) 1 Each Tablet 1 Tab PO PRN Q6HRS PRN 07/05/16 Rx B-12 (Cyanocobalamin (Vitamin B-12)) 1,000 Mcg Tablet.er 1,000 Mcg PO 5/8/17 Reported Zoloft (Sertraline Hcl) 50 Mg Tablet 1 Tab PO DAILY 07/01/16 Reported Aleve (Naproxen Sodium) 220 Mg Tablet 220 Mg PO BID 07/01/16 Reported Furosemide 40 Mg Tablet 1 Tab PO DAILY 07/01/16 Reported Omeprazole 20 Mg Capsule.dr 1 Cap PO DAILY 07/01/16 Reported Zoloft (Sertraline Hcl) 50 Mg Tablet 1 Tab PO DAILY 05/31/15 Reported Impression . IMPRESSION: 1. Moderate right-sided pleural effusion with some mild interstitial markings. I suspect we are dealing with [id number] diastolic heart failure. This is a patient who presents with progressive dyspnea for 3 weeks. 2. Acute hypoxic respiratory failure secondary to [id number] diastolic heart failure and suspected left upper lobe pneumonia. 3. Abnormal chest x-ray with moderate right-sided pleural effusion and focal infiltrate in the left upper lobe and also mild vascular prominence. This is consistent with combination of congestive heart failure and focal left upper lobe pneumonia. 4. No significant history of tobacco use. 5. 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 Plan . RECOMMENDATIONS: 1. s/p thoracentesis, fu studies 2. titrate fio2 to keep saturation 92% . 3. Continue with empiric antibiotic to cover for healthcare-associated pneumonia. 4. Follow chest x-rays in few days. 5. Continue current furosemide. monitor k, cr 6. Follow cardiology recommendations. 7. Discussed with the patient and RN and they agree with present plan. ALEJANDRA AGEE MD July 05, 2016 11:55
--- NOTE | 2016-07-05 13:05 | RAD ---
Exam performed: 2 views chest. History: Reevaluate pleural effusion. Date of service: 07/05/16. Comparison: One view chest from 07/04/16 Findings: PA and lateral views chest are obtained. Heart size and mediastinal silhouette is within limits of normal. Pulmonary vascularity is congested. Airspace opacities in the left upper lobe appears slightly improved. There is development of right basilar atelectasis. Small right pleural effusion and trace left pleural effusion. There is no pneumothorax. Impression: Improving infiltrates left upper lobe with right basilar atelectasis. Small right and trace left pleural effusion
[2016-07-05] MEDS: VANCOMYCIN PER PHARMACY MC PRN (13:40)
--- NOTE | 2016-07-05 14:12 | PDOC ---
PROGRESS NOTES Chief Complaint Chief Complaint cc: knee swelling A/P R Knee anterior hematoma, : , No cellulitis, pain much better Pleural effusion and Infiltrates on CXR: on Rocephin and vancomycin Acute respiratory failure hypoxia: Knee pain : Pain control with iv morphine and pnr noco Depression stable. History of Present Illness History of Present Illness s/p IV Lasix, Echo- Diastolic dysfunction, thoracentesis yesterday, breathing much easier check echo, CV following pain better now no fever doing ok Disposition : SNU, [facility]. Vitals Vitals Vital Signs Date Time Temp Pulse Resp B/P (MAP) Pulse Ox O2 Delivery O2 Flow Rate FiO2 07/05/16 11:38 Nasal Cannula 2.0 07/05/16 11:00 97.9 73 16 126/39 (68) 92 97.9 Physical Exam General: Alert, Oriented X3 Heart: Normal S1, Normal S2 Lungs: Clear, Other (ANTERIOR) Abdomen: Normal bowel sounds, Soft Extremities: No edema, Other Skin: No breakdown Assessment and Plan Assessmemt and Plan Problems Medical Problems: (1) Cellulitis Status: Acute (2) Pleural effusion Status: Acute (3) Swelling of knee joint, right Status: Acute Problems: Comment Review of Relevant I have reviewed the following items eamon (where applicable) has been applied. Labs Laboratory Tests Test 07/03/16 16:40 07/04/16 06:25 07/04/16 09:58 Vancomycin Level Trough 12.5 mcg/mL (10.0-20.0) Vancomycin Last Dose Date 07/02/16 Vancomycin Last Dose Time 1800 Sodium Level 141 mmol/L (136-145) Potassium Level 2.8 mmol/L (3.5-5.1) Chloride Level 105 mmol/L (98-107) Carbon Dioxide Level 33 mmol/L (21-32) Anion Gap 3 (6-14) Blood Urea Nitrogen 15 mg/dL (7-20) Creatinine 0.6 mg/dL (0.6-1.0) Estimated GFR (Cockcroft-Gault) 95.9 Glucose Level 90 mg/dL (70-99) Calcium Level 8.1 mg/dL (8.5-10.1) Prothrombin Time 14.3 SEC (11.7-14.0) Prothromb Time International Ratio 1.2 (0.8-1.1) Microbiology 07/01/16 Blood Culture - Preliminary, Resulted NO GROWTH AFTER 3 DAYS 07/04/16 Gram Stain - Final, Complete Medications Current Medications Vancomycin HCl (Vanco Per Pharmacy) 1 each 1X ONCE MC Last administered on 07/01 17:30; Start 07/01/16 at 17:30; Stop 07/01/16 at 18:41; Status DC Fentanyl Citrate (Fentanyl 2ml Vial) 50 mcg 1X ONCE IV Last administered on 17:30; Start 07/01/16 at 17:30; Stop 07/01/16 at 17:34; Status DC Albuterol/ Ipratropium (Duoneb) 3 ml 1X ONCE NEB Last administered on 17:46; Start 07/01/16 at 17:30; Stop 07/01/16 at 17:34; Status DC Furosemide (Lasix) 40 mg 1X ONCE IVP Last administered on 07/01/16 18:15; Start 07/01/16 at 18:15; Stop 07/01/16 at 18:16; Status DC Vancomycin HCl 2 gm/Sodium Chloride 500 ml @ 250 mls/hr 1X ONCE IV Last administered on 07/01/16 18:00; Start 07/01/16 at 18:00; Stop 07/01/16 at 19:59; Status DC Ondansetron HCl (Zofran) 4 mg PRN Q8HRS PRN IV NAUSEA/VOMITING; Start 07/01/16 at 18:15; Stop 07/02/16 at 18:14; Status DC Albuterol/ Ipratropium (Duoneb) 3 ml RTQID NEB Last administered on 07/02/16 19 :25; Start 07/01/16 at 20:00; Stop 07/02/16 at 19:59; Status DC Vancomycin HCl 1.25 gm/Sodium Chloride 250 ml @ 167 mls/hr Q24H IV Last administered on 07/02/16 17:11; Start 07/02/16 at 18:00; Stop 07/03/16 at 17:57; Status DC Vancomycin HCl 1 each 1X ONCE MC Last administered on 07/03/16 17:30; Start 07/03/16 at 17:30; Stop 07/03/16 at 17:31; Status DC Vancomycin HCl (Vanco Per Pharmacy) 1 each PRN DAILY PRN MC SEE COMMENTS Last administered on 07/05/16 13:40; Start 07/01/16 at 19:00 Ceftriaxone Sodium 1 gm/ Sodium Chloride 50 ml @ 100 mls/hr Q24H IV Last administered on 07/04/16 19:53; Start 07/01/16 at 20:00 Furosemide (Lasix) 40 mg BID92 IVP Last administered on 07/05/16 14:05; Start 07/02/16 at 09:00 Furosemide (Lasix) 40 mg DAILY PO ; Start 07/02/16 at 09:00; Status Cancel Sertraline HCl (Zoloft) 50 mg HS PO Last administered on 07/04/16 19:58; Start 07/01/16 at 23:15 Naproxen (Naprosyn) 250 mg BID PO Last administered on 07/05/16 08:20; Start 07/02/16 at 09:00 Pantoprazole Sodium (Protonix) 40 mg DAILYAC PO Last administered on 07/05/16 08:18; Start 07/02/16 at 07:30 Morphine Sulfate 2 mg PRN Q2HR PRN IV PAIN Last administered on 07/02/16 17:12 ; Start 07/02/16 at 11:30 Albuterol/ Ipratropium (Duoneb) 3 ml RTQID NEB Last administered on 07/05/16 11:35; Start 07/03/16 at 12:00 Vancomycin HCl 1.5 gm/Sodium Chloride 500 ml @ 250 mls/hr Q24H IV Last administered on 07/04/16 17:37; Start 07/03/16 at 18:00 Alprazolam (Xanax) 0.25 mg PRN Q8HRS PRN PO ANXIETY / AGITATION Last administered on 07/04/16 09:54; Start 07/03/16 at 20:00 Potassium Chloride (Klor-Con) 20 meq DAILYWBKFT PO Last administered on 08:18; Start 07/05/16 at 08:00 Potassium Chloride (Klor-Con) 40 meq 1X ONCE PO Last administered on 09:31; Start 07/04/16 at 09:30; Stop 07/04/16 at 09:31; Status DC Lidocaine/Sodium Bicarbonate (Buffered Lidocaine 1%) 20 ml STK-MED ONCE IJ ; Start 07/04/16 at 10:55; Stop 07/04/16 at 10:56; Status DC Midazolam HCl (Versed) 2 mg STK-MED ONCE .ROUTE ; Start 07/04/16 at 12:31; Stop 07/04/16 at 12:32; Status DC Fentanyl Citrate (Fentanyl 2ml Vial) 100 mcg STK-MED ONCE .ROUTE ; Start at 12:31; Stop 07/04/16 at 12:32; Status DC Lidocaine/Sodium Bicarbonate (Buffered Lidocaine 1%) 6 ml 1X ONCE IJ Last administered on 07/04/16 13:23; Start 07/04/16 at 13:00; Stop 07/04/16 at 13:05 ; Status DC Fentanyl Citrate (Fentanyl 2ml Vial) 50 mcg 1X ONCE IV Last administered on 13:22; Start 07/04/16 at 13:00; Stop 07/04/16 at 13:05; Status DC Potassium Chloride (Klor-Con) 40 meq 1X ONCE PO Last administered on 12:18; Start 07/05/16 at 11:45; Stop 07/05/16 at 11:46; Status DC Active Scripts Active Doxycycline Hyclate 100 Mg Capsule 1 Cap PO BID Alprazolam 0.25 Mg Tablet 0.25 Mg PO PRN Q8HRS PRN Hydrocodone-Apap 7.5-325 (Hydrocodone Bit/Acetaminophen) 1 Each Tablet 1 Tab PO PRN Q6HRS PRN Reported B-12 (Cyanocobalamin (Vitamin B-12)) 1,000 Mcg Tablet.er 1,000 Mcg PO Zoloft (Sertraline Hcl) 50 Mg Tablet 1 Tab PO DAILY Aleve (Naproxen Sodium) 220 Mg Tablet 220 Mg PO BID Furosemide 40 Mg Tablet 1 Tab PO DAILY Omeprazole 20 Mg Capsule.dr 1 Cap PO DAILY Zoloft (Sertraline Hcl) 50 Mg Tablet 1 Tab PO DAILY Vitals/I & O Vital Sign - Last 24 Hours 07/04/16 07/04/16 07/04/16 07/04/16 15:00 15:22 19:00 19:26 Temp 97.9 98.0 97.9 98.0 Pulse 80 57 Resp 16 18 B/P (MAP) 96/39 (58) 108/58 (75) Pulse Ox 91 97 96 O2 Delivery Nasal Cannula Nasal Cannula Nasal Cannula Nasal Cannula O2 Flow Rate 2.0 2.0 07/04/16 07/04/16 07/05/16 07/05/16 20:00 23:00 03:00 07:00 Temp 98.1 98.2 97.9 98.1 98.2 97.9 Pulse 86 88 80 Resp 18 18 20 B/P (MAP) 110/50 (70) 115/58 (77) 133/42 (72) Pulse Ox 94 89 96 O2 Delivery Nasal Cannula Nasal Cannula Nasal Cannula Nasal Cannula O2 Flow Rate 2.0 2.0 07/05/16 07/05/16 07/05/16 07/05/16 07:00 07:54 11:00 11:38 Temp 97.5 97.9 97.5 97.9 Pulse 80 73 Resp 14 16 B/P (MAP) 133/42 (72) 126/39 (68) Pulse Ox 96 95 92 O2 Delivery Nasal Cannula Nasal Cannula Nasal Cannula Nasal Cannula O2 Flow Rate 2.0 2.0 2.0 2.0 Intake and Output 07/04/16 07/04/16 07/05/16 15:00 23:00 07:00 Intake Total 600 ml 550 ml Output Total 1050 ml Balance -1050 ml 600 ml 550 ml TOMY HART MD July 05, 2016 14:12
--- NOTE | 2016-07-05 14:36 | PDOC3 ---
Discharge Summary Visit Information Date of Admission: July 01, 2016 Date of Discharge: July 05, 2016 Admitting Diagnosis: knee pain Final Diagnosis A/P R Knee anterior hematoma, : , No cellulitis, pain much better Pleural effusion and Infiltrates on CXR: on Rocephin and vancomycin Acute respiratory failure hypoxia: Knee pain : Pain control with iv morphine and pnr noco Depression stable. check echo, CV following Problems Medical Problems: (1) Cellulitis Status: Acute (2) Pleural effusion Status: Acute (3) Swelling of knee joint, right Status: Acute Brief Hospital Course Allergies Allergies Coded Allergies Type Severity Reaction Last Updated Verified codeine Allergy Mild Anxiety 02/10/14 Yes Vital Signs Vital Signs Date Time Temp Pulse Resp B/P (MAP) Pulse Ox O2 Delivery O2 Flow Rate FiO2 07/05/16 11:38 Nasal Cannula 2.0 07/05/16 11:00 97.9 73 16 126/39 (68) 92 97.9 Lab Results Laboratory Tests Test 07/03/16 16:40 07/04/16 06:25 07/04/16 09:58 Vancomycin Level Trough 12.5 mcg/mL (10.0-20.0) Vancomycin Last Dose Date 07/02/16 Vancomycin Last Dose Time 1800 Sodium Level 141 mmol/L (136-145) Potassium Level 2.8 mmol/L (3.5-5.1) Chloride Level 105 mmol/L (98-107) Carbon Dioxide Level 33 mmol/L (21-32) Anion Gap 3 (6-14) Blood Urea Nitrogen 15 mg/dL (7-20) Creatinine 0.6 mg/dL (0.6-1.0) Estimated GFR (Cockcroft-Gault) 95.9 Glucose Level 90 mg/dL (70-99) Calcium Level 8.1 mg/dL (8.5-10.1) Prothrombin Time 14.3 SEC (11.7-14.0) Prothromb Time International Ratio 1.2 (0.8-1.1) Brief Hospital Course Ms. Arguello is a 80 old with knee pain, LE edema and shortness of breath CHF, acute diasolic, IV fluid, pleural effusion, s/p IV Lasix, Echo- Diastolic dysfunction, thoracentesis 07/04 f/u CXR good , breathing much easier, needs SNU Discharge Information Condition at Discharge: Improved Follow Up: Weeks Disposition/Orders: D/C to Another Facility (SNU) Scheduled Doxycycline Hyclate (Doxycycline Hyclate), 1 CAP PO BID Furosemide (Furosemide), 1 TAB PO DAILY, (Reported) Naproxen Sodium (Aleve), 220 MG PO BID, (Reported) Omeprazole (Omeprazole), 1 CAP PO DAILY, (Reported) Sertraline Hcl (Zoloft), 1 TAB PO DAILY, (Reported) Sertraline Hcl (Zoloft), 1 TAB PO DAILY, (Reported) Scheduled PRN Alprazolam (Alprazolam), 0.25 MG PO PRN Q8HRS PRN for ANXIETY / AGITATION Hydrocodone Bit/Acetaminophen (Hydrocodone-Apap 7.5-325 ), 1 TAB PO PRN Q6HRS PRN for PAIN Miscellaneous Medications Cyanocobalamin (Vitamin B-12) (B-12), 1,000 MCG PO, (Reported) Patient Instructions Patient Instructions time > 30 min TOMY HART MD July 05, 2016 14:36
--- NOTE | 2016-07-05 14:38 | PDOC ---
PROGRESS NOTES Subjective Subjective The patient's chest x-ray today shows very small amount of pleural fluid. Objective Objective Vital Signs Date Time Temp Pulse Resp B/P (MAP) Pulse Ox O2 Delivery O2 Flow Rate FiO2 07/05/16 11:38 Nasal Cannula 2.0 07/05/16 11:00 97.9 73 16 126/39 (68) 92 97.9 Intake and Output 07/05/16 07:00 Intake Total 1150 ml Output Total 1050 ml Balance 100 ml Intake Oral 600 ml IV Total 550 ml Other 1050 ml # Voids 8 Assessment Assessment The patient appears to be doing rather well. I agree with discharge today. We will need to get a follow-up chest x-ray as an outpatient in a few days. Comment Review of Relevant I have reviewed the following items eamon (where applicable) has been applied. Labs Laboratory Tests Test 07/03/16 16:40 07/04/16 06:25 07/04/16 09:58 Vancomycin Level Trough 12.5 mcg/mL (10.0-20.0) Vancomycin Last Dose Date 07/02/16 Vancomycin Last Dose Time 1800 Sodium Level 141 mmol/L (136-145) Potassium Level 2.8 mmol/L (3.5-5.1) Chloride Level 105 mmol/L (98-107) Carbon Dioxide Level 33 mmol/L (21-32) Anion Gap 3 (6-14) Blood Urea Nitrogen 15 mg/dL (7-20) Creatinine 0.6 mg/dL (0.6-1.0) Estimated GFR (Cockcroft-Gault) 95.9 Glucose Level 90 mg/dL (70-99) Calcium Level 8.1 mg/dL (8.5-10.1) Prothrombin Time 14.3 SEC (11.7-14.0) Prothromb Time International Ratio 1.2 (0.8-1.1) Microbiology 07/01/16 Blood Culture - Preliminary, Resulted NO GROWTH AFTER 3 DAYS 07/04/16 Gram Stain - Final, Complete Medications Current Medications Vancomycin HCl (Vanco Per Pharmacy) 1 each 1X ONCE MC Last administered on 07/01 17:30; Start 07/01/16 at 17:30; Stop 07/01/16 at 18:41; Status DC Fentanyl Citrate (Fentanyl 2ml Vial) 50 mcg 1X ONCE IV Last administered on 17:30; Start 07/01/16 at 17:30; Stop 07/01/16 at 17:34; Status DC Albuterol/ Ipratropium (Duoneb) 3 ml 1X ONCE NEB Last administered on 17:46; Start 07/01/16 at 17:30; Stop 07/01/16 at 17:34; Status DC Furosemide (Lasix) 40 mg 1X ONCE IVP Last administered on 07/01/16 18:15; Start 07/01/16 at 18:15; Stop 07/01/16 at 18:16; Status DC Vancomycin HCl 2 gm/Sodium Chloride 500 ml @ 250 mls/hr 1X ONCE IV Last administered on 07/01/16 18:00; Start 07/01/16 at 18:00; Stop 07/01/16 at 19:59; Status DC Ondansetron HCl (Zofran) 4 mg PRN Q8HRS PRN IV NAUSEA/VOMITING; Start 07/01/16 at 18:15; Stop 07/02/16 at 18:14; Status DC Albuterol/ Ipratropium (Duoneb) 3 ml RTQID NEB Last administered on 07/02/16 19 :25; Start 07/01/16 at 20:00; Stop 07/02/16 at 19:59; Status DC Vancomycin HCl 1.25 gm/Sodium Chloride 250 ml @ 167 mls/hr Q24H IV Last administered on 07/02/16 17:11; Start 07/02/16 at 18:00; Stop 07/03/16 at 17:57; Status DC Vancomycin HCl 1 each 1X ONCE MC Last administered on 07/03/16 17:30; Start 07/03/16 at 17:30; Stop 07/03/16 at 17:31; Status DC Vancomycin HCl (Vanco Per Pharmacy) 1 each PRN DAILY PRN MC SEE COMMENTS Last administered on 07/05/16 13:40; Start 07/01/16 at 19:00 Ceftriaxone Sodium 1 gm/ Sodium Chloride 50 ml @ 100 mls/hr Q24H IV Last administered on 07/04/16 19:53; Start 07/01/16 at 20:00 Furosemide (Lasix) 40 mg BID92 IVP Last administered on 07/05/16 14:05; Start 07/02/16 at 09:00 Furosemide (Lasix) 40 mg DAILY PO ; Start 07/02/16 at 09:00; Status Cancel Sertraline HCl (Zoloft) 50 mg HS PO Last administered on 07/04/16 19:58; Start 07/01/16 at 23:15 Naproxen (Naprosyn) 250 mg BID PO Last administered on 07/05/16 08:20; Start 07/02/16 at 09:00 Pantoprazole Sodium (Protonix) 40 mg DAILYAC PO Last administered on 07/05/16 08:18; Start 07/02/16 at 07:30 Morphine Sulfate 2 mg PRN Q2HR PRN IV PAIN Last administered on 07/02/16 17:12 ; Start 07/02/16 at 11:30 Albuterol/ Ipratropium (Duoneb) 3 ml RTQID NEB Last administered on 07/05/16 11:35; Start 07/03/16 at 12:00 Vancomycin HCl 1.5 gm/Sodium Chloride 500 ml @ 250 mls/hr Q24H IV Last administered on 07/04/16 17:37; Start 07/03/16 at 18:00 Alprazolam (Xanax) 0.25 mg PRN Q8HRS PRN PO ANXIETY / AGITATION Last administered on 07/04/16 09:54; Start 07/03/16 at 20:00 Potassium Chloride (Klor-Con) 20 meq DAILYWBKFT PO Last administered on 08:18; Start 07/05/16 at 08:00 Potassium Chloride (Klor-Con) 40 meq 1X ONCE PO Last administered on 09:31; Start 07/04/16 at 09:30; Stop 07/04/16 at 09:31; Status DC Lidocaine/Sodium Bicarbonate (Buffered Lidocaine 1%) 20 ml STK-MED ONCE IJ ; Start 07/04/16 at 10:55; Stop 07/04/16 at 10:56; Status DC Midazolam HCl (Versed) 2 mg STK-MED ONCE .ROUTE ; Start 07/04/16 at 12:31; Stop 07/04/16 at 12:32; Status DC Fentanyl Citrate (Fentanyl 2ml Vial) 100 mcg STK-MED ONCE .ROUTE ; Start at 12:31; Stop 07/04/16 at 12:32; Status DC Lidocaine/Sodium Bicarbonate (Buffered Lidocaine 1%) 6 ml 1X ONCE IJ Last administered on 07/04/16 13:23; Start 07/04/16 at 13:00; Stop 07/04/16 at 13:05 ; Status DC Fentanyl Citrate (Fentanyl 2ml Vial) 50 mcg 1X ONCE IV Last administered on 13:22; Start 07/04/16 at 13:00; Stop 07/04/16 at 13:05; Status DC Potassium Chloride (Klor-Con) 40 meq 1X ONCE PO Last administered on 12:18; Start 07/05/16 at 11:45; Stop 07/05/16 at 11:46; Status DC Active Scripts Active Doxycycline Hyclate 100 Mg Capsule 1 Cap PO BID Alprazolam 0.25 Mg Tablet 0.25 Mg PO PRN Q8HRS PRN Hydrocodone-Apap 7.5-325 (Hydrocodone Bit/Acetaminophen) 1 Each Tablet 1 Tab PO PRN Q6HRS PRN Reported B-12 (Cyanocobalamin (Vitamin B-12)) 1,000 Mcg Tablet.er 1,000 Mcg PO Zoloft (Sertraline Hcl) 50 Mg Tablet 1 Tab PO DAILY Aleve (Naproxen Sodium) 220 Mg Tablet 220 Mg PO BID Furosemide 40 Mg Tablet 1 Tab PO DAILY Omeprazole 20 Mg Capsule.dr 1 Cap PO DAILY Zoloft (Sertraline Hcl) 50 Mg Tablet 1 Tab PO DAILY Vitals/I & O Vital Sign - Last 24 Hours 07/04/16 07/04/16 07/04/16 07/04/16 15:00 15:22 19:00 19:26 Temp 97.9 98.0 97.9 98.0 Pulse 80 57 Resp 16 18 B/P (MAP) 96/39 (58) 108/58 (75) Pulse Ox 91 97 96 O2 Delivery Nasal Cannula Nasal Cannula Nasal Cannula Nasal Cannula O2 Flow Rate 2.0 2.0 07/04/16 07/04/16 07/05/16 07/05/16 20:00 23:00 03:00 07:00 Temp 98.1 98.2 97.9 98.1 98.2 97.9 Pulse 86 88 80 Resp 18 18 20 B/P (MAP) 110/50 (70) 115/58 (77) 133/42 (72) Pulse Ox 94 89 96 O2 Delivery Nasal Cannula Nasal Cannula Nasal Cannula Nasal Cannula O2 Flow Rate 2.0 2.0 07/05/16 07/05/16 07/05/16 07/05/16 07:00 07:54 11:00 11:38 Temp 97.5 97.9 97.5 97.9 Pulse 80 73 Resp 14 16 B/P (MAP) 133/42 (72) 126/39 (68) Pulse Ox 96 95 92 O2 Delivery Nasal Cannula Nasal Cannula Nasal Cannula Nasal Cannula O2 Flow Rate 2.0 2.0 2.0 2.0 Intake and Output 07/04/16 07/04/16 07/05/16 15:00 23:00 07:00 Intake Total 600 ml 550 ml Output Total 1050 ml Balance -1050 ml 600 ml 550 ml HIMA COLE MD July 05, 2016 14:38
== END 2016-07-05 15:15 | DRG 291 ==
LOC: ER 16:29 → 5 NORTH 18:00
PROVIDERS: ADMIT Internal Medicine; ATTEND Internal Medicine
PROC: 0W9930Z Drainage of Right Pleural Cavity with Drainage Device, Percutaneous Approach (ICD-10-PCS; principal; 2016-07-04)
DX: I11.0 Hypertensive heart disease with heart failure (principal); J96.01 Acute respiratory failure with hypoxia; J18.9 Pneumonia, unspecified organism; I31.3 Pericardial effusion (noninflammatory); I50.43 Acute on chronic combined systolic (congestive) and diastolic (congestive) heart failure; S80.01XA Contusion of right knee, initial encounter; F32.9 Major depressive disorder, single episode, unspecified; I27.2 Other secondary pulmonary hypertension; W19.XXXA Unspecified fall, initial encounter; Z82.49 Family history of ischemic heart disease and other diseases of the circulatory system; Z91.81 History of falling; Z88.5 Allergy status to narcotic agent; Y93.89 Activity, other specified; Y92.89 Other specified places as the place of occurrence of the external cause; Y99.8 Other external cause status
CPT/HCPCS: 32555; 36415; 71010; 71020; 71035; 71111; 73562; 80048; 80202; 83605; 83615; 83880; 84157; 84484; 85027; 85610; 87040; 87071; 87075; 87205; 88112; 88305; 93005; 93306; 93971; 94250; 94640; 94760; 96365; 96375; A4215; C1729; C1892; C1894; J0696; J1940; J2270; J3010; J3370; J7040; J7050; J7620; 97110; 97116; 97530; 97535; 99285-25; J7030

== ENCOUNTER 2017-04-08 15:19 | Inpatient (IN) | payer OTHER, MEDICARE ==
[2017-04-08 16:46] LABS: ADD MAN DIFF? NO
[2017-04-08 16:51] LABS: BILIRUBIN,URINE SMALL (NEG); CLARITY,URINE CLEAR; COLOR,URINE AMBER; GLUCOSE,URINE NEGATIVE (NEG); NITRITE,URINE NEGATIVE (NEG); PH,URINE 5.5; PROTEIN,URINE NEGATIVE (NEG-TRACE)
[2017-04-08 16:52] LABS: BASO % 0 % (0-3); EOS # 0.2 x10^3/uL (0.0-0.7); EOS % 3 % (0-3); HEMATOCRIT 38.7 % (36.0-47.0); HEMOGLOBIN 12.8 g/dL (12.0-15.5); LYMPH # 1.7 x10^3/uL (1.0-4.8); LYMPH % 34 % (24-48); MEAN CORPUSCULAR HEMOGLOBIN 31 pg (25-35); MEAN CORPUSCULAR HGB CONC 33 g/dL (31-37); MEAN CORPUSCULAR VOLUME 92 fL (79-100); MONO # 0.5 x10^3/uL (0.0-1.1); MONO % 10 % (0-9); NEUT # 2.7 x10^3uL (1.8-7.7); NEUT % 53 % (31-73); PLATELET COUNT 188 x10^3/uL (140-400); RED CELL DISTRIBUTION WIDTH 13.8 % (11.5-14.5); WHITE BLOOD COUNT 5.1 x10^3/uL (4.0-11.0)
[2017-04-08 17:04] LABS: PARTIAL THROMBOPLASTIN TIME 33 SEC (24-38)
[2017-04-08 17:06] LABS: ANION GAP 9 (6-14); BLOOD UREA NITROGEN 27 mg/dL (7-20); BUN/CREATININE RATIO 34 (6-20); CALCIUM 9.2 mg/dL (8.5-10.1); CARBON DIOXIDE 28 mmol/L (21-32); CHLORIDE 105 mmol/L (98-107); CREATININE 0.8 mg/dL (0.6-1.0); GFR 68.7; GLUCOSE 121 mg/dL (70-99); POTASSIUM 3.8 mmol/L (3.5-5.1); SODIUM 142 mmol/L (136-145)
[2017-04-08 17:07] LABS: BACTERIA,URINE 0 /HPF (0-FEW); HYALINE CASTS, URINE MODERATE /HPF; RBC,URINE 0 /HPF (0-2); WBC,URINE 0 /HPF (0-4)
[2017-04-08] MEDS: ONDANSETRON PF 4 MG/2 ML VIAL. IV (17:10)
[2017-04-08 17:14] LABS: ALBUMIN 3.5 g/dL (3.4-5.0); ALK PHOS 71 U/L (46-116); ALT (SGPT) 30 U/L (14-59); AST (SGOT) 39 U/L (15-37); LIPASE 176 U/L (73-393); MAGNESIUM 2.1 mg/dL (1.8-2.4); TOTAL BILIRUBIN 0.8 mg/dL (0.2-1.0)
[2017-04-08 17:14] LABS: TROPONINI < 0.017 ng/mL (0.000-0.055)
[2017-04-08 17:17] LABS: NT-PRO BNP 106 pg/mL (0-449)
[2017-04-08 17:18] LABS: INR 1.2 (0.8-1.1); PROTHROMBIN TIME PATIENT 14.5 SEC (11.7-14.0)
[2017-04-08] MEDS ORDERED: ONDANSETRON PF 4 MG/2 ML VIAL. IV (19:00)
[2017-04-08] MEDS ORDERED: ACETAMINOPHEN 325 MG TABLET. PO (19:00)
[2017-04-09 05:25] LABS: ADD MAN DIFF? NO
[2017-04-09 05:36] LABS: RED BLOOD COUNT 3.77 x10^6/uL (3.50-5.40); WHITE BLOOD COUNT 4.6 x10^3/uL (4.0-11.0)
[2017-04-09 05:37] LABS: HEMATOCRIT 34.9 % (36.0-47.0); HEMOGLOBIN 11.6 g/dL (12.0-15.5); MEAN CORPUSCULAR HEMOGLOBIN 31 pg (25-35); MEAN CORPUSCULAR VOLUME 93 fL (79-100)
[2017-04-09 05:38] LABS: BASO % 1 % (0-3); EOS % 6 % (0-3); LYMPH % 44 % (24-48); MEAN CORPUSCULAR HGB CONC 33 g/dL (31-37); MONO % 10 % (0-9); NEUT # 1.8 x10^3uL (1.8-7.7); NEUT % 39 % (31-73); PLATELET COUNT 161 x10^3/uL (140-400); RED CELL DISTRIBUTION WIDTH 13.7 % (11.5-14.5)
[2017-04-09 05:39] LABS: EOS # 0.3 x10^3/uL (0.0-0.7); MONO # 0.4 x10^3/uL (0.0-1.1)
[2017-04-09 06:40] LABS: ANION GAP 7 (6-14); BLOOD UREA NITROGEN 23 mg/dL (7-20); CALCIUM 8.8 mg/dL (8.5-10.1); CARBON DIOXIDE 28 mmol/L (21-32); CHLORIDE 110 mmol/L (98-107); CREATININE 0.7 mg/dL (0.6-1.0); GFR 80.1; GLUCOSE 96 mg/dL (70-99); POTASSIUM 3.7 mmol/L (3.5-5.1); SODIUM 145 mmol/L (136-145)
[2017-04-09] MEDS: DICLOFENAC SODIUM 1% TOPICAL GEL 100GM TUBE. TP ×2 (10:30→22:13)
[2017-04-09] MEDS: IV NORMAL SALINE 1000ML BAG 1,000 ML IV (13:15)
[2017-04-09] MEDS: POTASSIUM CHLORIDE 10 MEQ TABLET.ER. PO (15:49)
[2017-04-09] MEDS: PANTOPRAZOLE 40 MG TABLET.DR. PO (15:49)
[2017-04-09] MEDS: FUROSEMIDE 20 MG TABLET PO (15:49)
[2017-04-09] MEDS: SERTRALINE 50 MG TABLET. PO (22:13)
[2017-04-10 05:07] LABS: ADD MAN DIFF? NO
[2017-04-10 05:27] LABS: BASO % 1 % (0-3); EOS # 0.3 x10^3/uL (0.0-0.7); EOS % 6 % (0-3); HEMATOCRIT 37.3 % (36.0-47.0); HEMOGLOBIN 12.4 g/dL (12.0-15.5); LYMPH # 2.6 x10^3/uL (1.0-4.8); LYMPH % 49 % (24-48); MEAN CORPUSCULAR HEMOGLOBIN 31 pg (25-35); MEAN CORPUSCULAR HGB CONC 33 g/dL (31-37); MEAN CORPUSCULAR VOLUME 92 fL (79-100); MONO # 0.4 x10^3/uL (0.0-1.1); MONO % 8 % (0-9); NEUT # 1.9 x10^3uL (1.8-7.7); NEUT % 36 % (31-73); PLATELET COUNT 178 x10^3/uL (140-400); RED BLOOD COUNT 4.05 x10^6/uL (3.50-5.40); RED CELL DISTRIBUTION WIDTH 13.6 % (11.5-14.5); WHITE BLOOD COUNT 5.2 x10^3/uL (4.0-11.0)
[2017-04-10 06:03] LABS: BLOOD UREA NITROGEN 19 mg/dL (7-20); CALCIUM 9.2 mg/dL (8.5-10.1); CARBON DIOXIDE 27 mmol/L (21-32); CHLORIDE 108 mmol/L (98-107); CREATININE 0.7 mg/dL (0.6-1.0); GFR 80.1; GLUCOSE 92 mg/dL (70-99); POTASSIUM 3.8 mmol/L (3.5-5.1); SODIUM 141 mmol/L (136-145)
[2017-04-10 06:04] LABS: ANION GAP 6 (6-14)
[2017-04-10 06:22] LABS: THYROID STIM HORMONE (TSH) 4.502 uIU/mL (0.358-3.74)
[2017-04-10 08:57] LABS: SEDIMENTATION RATE 4 (0-25)
[2017-04-10] MEDS: DICLOFENAC SODIUM 1% TOPICAL GEL 100GM TUBE. TP ×2 (09:00→22:07)
[2017-04-10] MEDS: LEVOTHYROXINE 25 MCG TABLET. PO (09:00)
[2017-04-10] MEDS: FUROSEMIDE 20 MG TABLET PO (09:10)
[2017-04-10] MEDS: POTASSIUM CHLORIDE 10 MEQ TABLET.ER. PO (09:10)
[2017-04-10] MEDS: PANTOPRAZOLE 40 MG TABLET.DR. PO (09:10)
[2017-04-10] MEDS: NAPROXEN 250 MG TABLET PO (09:11)
[2017-04-10 09:17] LABS: FOLATE 13.49 ng/ml (3.2-20.0)
[2017-04-10 09:47] LABS: VITAMIN-B12 > 2000 pg/mL (247-911)
[2017-04-10 19:14] LABS: THYROXINE 10.9 ug/dL (4.5-12.0)
[2017-04-10] MEDS: SERTRALINE 50 MG TABLET. PO (22:06)
[2017-04-10] MEDS: HYDROcodone/APAP 7.5/325MG 1 TAB TABLET PO (23:51)
[2017-04-11 04:38] LABS: ADD MAN DIFF? NO
[2017-04-11 04:54] LABS: BASO % 1 % (0-3); EOS # 0.4 x10^3/uL (0.0-0.7); EOS % 7 % (0-3); HEMATOCRIT 32.1 % (36.0-47.0); LYMPH # 2.1 x10^3/uL (1.0-4.8); LYMPH % 42 % (24-48); MEAN CORPUSCULAR HEMOGLOBIN 32 pg (25-35); MEAN CORPUSCULAR HGB CONC 34 g/dL (31-37); MEAN CORPUSCULAR VOLUME 92 fL (79-100); MONO # 0.5 x10^3/uL (0.0-1.1); MONO % 9 % (0-9); NEUT # 2.1 x10^3uL (1.8-7.7); NEUT % 41 % (31-73); PLATELET COUNT 150 x10^3/uL (140-400); RED BLOOD COUNT 3.51 x10^6/uL (3.50-5.40); RED CELL DISTRIBUTION WIDTH 13.5 % (11.5-14.5)
[2017-04-11 05:41] LABS: ANION GAP 5 (6-14); BLOOD UREA NITROGEN 19 mg/dL (7-20); CALCIUM 8.3 mg/dL (8.5-10.1); CARBON DIOXIDE 27 mmol/L (21-32); CHLORIDE 108 mmol/L (98-107); CREATININE 0.7 mg/dL (0.6-1.0); GFR 80.1; GLUCOSE 92 mg/dL (70-99); POTASSIUM 3.7 mmol/L (3.5-5.1); SODIUM 140 mmol/L (136-145)
[2017-04-11] MEDS: DICLOFENAC SODIUM 1% TOPICAL GEL 100GM TUBE. TP (09:00)
[2017-04-11] MEDS: PANTOPRAZOLE 40 MG TABLET.DR. PO (09:25)
[2017-04-11] MEDS: FUROSEMIDE 20 MG TABLET PO (09:26)
[2017-04-11] MEDS: LEVOTHYROXINE 25 MCG TABLET. PO (09:26)
[2017-04-11] MEDS: POTASSIUM CHLORIDE 10 MEQ TABLET.ER. PO (09:26)
== END 2017-04-11 20:03 | disposition home health service (06) | DRG 551 ==
LOC: ER 15:19 → 6 SOUTH 18:30
DX: M48.02 Spinal stenosis, cervical region (principal); G93.41 Metabolic encephalopathy; M17.0 Bilateral primary osteoarthritis of knee; M47.812 Spondylosis without myelopathy or radiculopathy, cervical region; R62.7 Adult failure to thrive; F03.90 Unspecified dementia, unspecified severity, without behavioral disturbance, psychotic disturbance, mood disturbance, and anxiety; I10 Essential (primary) hypertension; K21.9 Gastro-esophageal reflux disease without esophagitis; K22.70 Barrett's esophagus without dysplasia; M51.36 Other intervertebral disc degeneration, lumbar region; R29.6 Repeated falls; R32 Unspecified urinary incontinence; Z83.3 Family history of diabetes mellitus; M54.5 Low back pain; F32.9 Major depressive disorder, single episode, unspecified; F41.9 Anxiety disorder, unspecified; Z87.440 Personal history of urinary (tract) infections; Z88.8 Allergy status to other drugs, medicaments and biological substances
CPT/HCPCS: 36415; 70450; 71045; 72141; 73565; 80048; 80053; 81001; 82607; 82746; 83690; 83735; 83880; 84436; 84443; 84484; 85025; 85610; 85651; 85730; 92523-GN; 93005; 95816; 96361; 96374; 97110-GP; 97116-GP; 97162-GP; 97165-GO; 97535-GO; 99285; 99285-25; J2405; J7030

== ENCOUNTER 2017-11-18 09:58 | Emergency (ER) | payer OTHER ==
[~2017-11-18] VITALS: Ht 154.9 cm; Wt 63.5 kg
[~2017-11-18 09:58] MED LIST changes: +ALPR0.254 PO; +ASPI-630 PO; -ASPI81TA2 PO; +CYAN100031 PO; +FURO-69 PO; +FURO40TA4 PO; +GUAI-108 PO; -GUAI-42 PO; +NAPR220T70 PO; +OMEP20CA9 PO; +PANT20TA2 PO; +POTA10TA12 PO
[2017-11-18] MEDS ORDERED: LIDOCAINE 1% Multi-Dose 50 ML VIAL. INJ ONE (10:15)
--- NOTE | 2017-11-18 10:23 | PHYS DOC ---
Past Medical History Past Medical History: Anemia, Other Additional Past Medical Histor: EDEMA,FALLS Past Surgical History: No Surgical History Alcohol Use: None Drug Use: None Adult General Chief Complaint Chief Complaint: MECHANICAL FALL HPI HPI Patient is a 82 year old female who presents after a fall. Patient states she was walking through her house when her legs became tangled in an area rug. She did fall striking her head on an unknown object. She sustained a minor laceration over the right top portion of her scalp. She did not lose consciousness. She was able to get up. She denies neck pain. She denies chest pain or palpitations, feeling lightheaded or dizzy prior to the incident or after. Review of Systems Review of Systems Constitutional: Denies fever or chills Eyes: Denies change in visual acuity HENT: Denies nasal congestion or sore throat Respiratory: Denies cough or shortness of breath Cardiovascular: No additional information GI: Denies abdominal pain : Denies dysuria Musculoskeletal: Denies back pain Integument: Denies rash Neurologic: Denies headache Endocrine: Denies polyuria All other systems were reviewed and found to be within normal limits, except as documented in this note. Current Medications Current Medications Current Medications Medications (Trade) Dose Ordered Sig/Bhavna Start Time Stop Time Status Last Admin Dose Admin Lidocaine HCl (Lidocaine 1% 50ml Vial) 20 ml 1X ONCE 11/18/17 10:15 11/18/17 10:16 DC 11/18/17 10:27 20 ML Allergies Allergies Allergies Coded Allergies Type Severity Reaction Last Updated Verified codeine Allergy Mild Anxiety 02/10/14 Yes Physical Exam Physical Exam Constitutional: Well developed, well nourished, no acute distress, non-toxic appearance HENT: Normocephalic, minor laceration over superior scalp, hemostatic, bilateral external ears normal, oropharynx moist Eyes: PERRLA, EOMI Neck: Normal range of motion Cardiovascular:Heart rate regular rhythm, no murmur Lungs & Thorax: Bilateral breath sounds clear to auscultation Abdomen: Bowel sounds normal, soft Skin: Warm, dry Back: No tenderness Extremities: No tenderness, no edema Neurologic: Alert and oriented X 3, normal motor function Psychologic: Affect normal Current Patient Data Vital Signs Vital Signs Date Time Temp Pulse Resp B/P (MAP) Pulse Ox O2 Delivery O2 Flow Rate FiO2 11/18/17 10:33 90 98 11/18/17 09:58 98.2 20 162/69 (100) Room Air 98.2 EKG EKG [] Radiology/Procedures Radiology/Procedures HEAD Posterior fossa is unremarkable. No evidence of acute intracranial hemorrhage or abnormal extra-axial fluid collection. No evidence of mass effect or midline shift. Low-density in the white matter bilaterally, a nonspecific finding, but which is commonly due to chronic small vessel ischemic disease in a patient of this age. Prominence of ventricles and sulci, compatible with involutional change or atrophy. Visualized orbits are unremarkable. Minimal mucosal thickening of the partially seen maxillary sinuses. No evidence of depressed skull fracture, although a point of impact is not known. Mild swelling in the high right parietal scalp with increased density, compatible with a small scalp hematoma. Impression: Chronic findings. No evidence of acute intracranial hemorrhage or mass effect. Small right high parietal scalp hematoma. CERVICAL SPINE C1 ring: Defect at the posterior arch, likely developmental. Cervico-occipital junction: Intact C1-C2 relationship: Within normal limits Fracture: No acute fracture identified. Spondylosis: Multilevel degenerative spondylosis appears similar as prior study Alignment: Mild spondylolisthesis at multiple levels appears similar. Slight left convexity cervical curvature. Facets: Degenerative changes. No evidence of perched or locked facet. Prevertebral soft tissues: No significant swelling or hematoma Thyroid: Symmetric Lung apices: Mild increased markings in the lung apices, greater on the right, could represent chronic fibrosis or interstitial disease. Mild infiltrate not excludable. Impression: 1. Degenerative spondylosis, similar to prior study. 2. No evidence of acute fracture. 3. Interstitial prominence of both lung apices, may be due to chronic scarring or interstitial disease. More acute inflammatory/infectious etiology is not excludable if clinically correlated. Course & Med Decision Making Course & Med Decision Making Pertinent Labs and Imaging studies reviewed. (See chart for details) 10:15: Seen and examined. She does not have neck pain. Palpation of all long bones and ROM of major joints does not reveal tenderness. CT head/neck ordered given her reported hx of blood thinning medication use. 12:05: Laceration on scalp is repaired per procedure note below. Patient ambulated in the department several times to the restroom and did have a steady gait. Patient was incontinent a couple of times during the ED course. She relates that this is not uncommon because she takes water pills. She had no additional complaints today. Patient will be discharged home. She was advised to come back to the ER in 10-14 days for a staple removal. Procedure note: Laceration over her scalp. Patient had a 1.5cm laceration over the right parietal scalp area. Wound was hemostatic. The area was cleansed with normal saline. 4 clara were placed and the wound edges were fairly well approximated. Following the procedure, the patient remained hemostatic. No palpitations. 2mls of 1% lidocaine used to provide local anesthesia. Dragon Disclaimer Dragon Disclaimer This electronic medical record was generated, in whole or in part, using a voice recognition dictation system. Departure Departure Referrals: EDILMA LAMA Jr, MD (PCP) VICTORINO BOYER DO Nov 18, 2017 10:23
--- NOTE | 2017-11-18 11:52 | RAD ---
CT HEAD AND CERVICAL SPINE WO Indication: Head and neck pain after a fall. Patient is anticoagulated. Exposure: One or more of the following individualized dose reduction techniques were utilized for this examination: 1. Automated exposure control 2. Adjustment of the mA and/or kV according to patient size 3. Use of iterative reconstruction technique. Comparison: June 13, 2016 Contrast: None HEAD Posterior fossa is unremarkable. No evidence of acute intracranial hemorrhage or abnormal extra-axial fluid collection. No evidence of mass effect or midline shift. Low-density in the white matter bilaterally, a nonspecific finding, but which is commonly due to chronic small vessel ischemic disease in a patient of this age. Prominence of ventricles and sulci, compatible with involutional change or atrophy. Visualized orbits are unremarkable. Minimal mucosal thickening of the partially seen maxillary sinuses. No evidence of depressed skull fracture, although a point of impact is not known. Mild swelling in the high right parietal scalp with increased density, compatible with a small scalp hematoma. Impression: Chronic findings. No evidence of acute intracranial hemorrhage or mass effect. Small right high parietal scalp hematoma. CERVICAL SPINE C1 ring: Defect at the posterior arch, likely developmental. Cervico-occipital junction: Intact C1-C2 relationship: Within normal limits Fracture: No acute fracture identified. Spondylosis: Multilevel degenerative spondylosis appears similar as prior study Alignment: Mild spondylolisthesis at multiple levels appears similar. Slight left convexity cervical curvature. Facets: Degenerative changes. No evidence of perched or locked facet. Prevertebral soft tissues: No significant swelling or hematoma Thyroid: Symmetric Lung apices: Mild increased markings in the lung apices, greater on the right, could represent chronic fibrosis or interstitial disease. Mild infiltrate not excludable. Impression: 1. Degenerative spondylosis, similar to prior study. 2. No evidence of acute fracture. 3. Interstitial prominence of both lung apices, may be due to chronic scarring or interstitial disease. More acute inflammatory/infectious etiology is not excludable if clinically correlated. Electronically signed by: Vu Arias MD (11/18/2017 11:48 AM) [facility]
[2017-11-18 12:05] VITALS: BP 126/60
== END 2017-11-18 12:41 | disposition home or self-care (01) ==
LOC: ER 09:58
DX: S01.01XA Laceration without foreign body of scalp, initial encounter (principal); Z88.5 Allergy status to narcotic agent; W18.09XA Striking against other object with subsequent fall, initial encounter; Y93.89 Activity, other specified; Y92.89 Other specified places as the place of occurrence of the external cause; Y99.8 Other external cause status
CPT/HCPCS: 12001; 70450; 72125; 99284-25

== ENCOUNTER 2017-12-01 15:11 | Emergency (ER) | payer OTHER ==
[~2017-12-01] VITALS: Ht 162.6 cm; Wt 63.5 kg
[2017-12-01 15:15] VITALS: BP 139/63
--- NOTE | 2017-12-01 15:21 | PHYS DOC ---
Past Medical History Past Medical History: Anemia, Other Additional Past Medical Histor: EDEMA,FALLS Past Surgical History: No Surgical History Alcohol Use: None Drug Use: None Adult General Chief Complaint Chief Complaint: SUTURE/STAPLE REMOVAL HPI HPI Patient is a 82 year old female who presents for staple removal, clara have been in since November 18 2017. Patient denies any issues with the wound healing Review of Systems Review of Systems Constitutional: Denies fever or chills [] Musculoskeletal: Denies back pain or joint pain [] Integument: Visit for staple removal Neurologic: Denies headache, focal weakness or sensory changes [] All other systems were reviewed and found to be within normal limits, except as documented in this note. Allergies Allergies Allergies Coded Allergies Type Severity Reaction Last Updated Verified codeine Allergy Mild Anxiety 02/10/14 Yes Physical Exam Physical Exam Constitutional: Well developed, well nourished, no acute distress, non-toxic appearance. [] Skin: Warm, dry, right scalp with 4 clara, laceration site is well approximated and scabbed over. No signs of infection. Back: No tenderness, no CVA tenderness. [] Extremities: No tenderness, no cyanosis, no clubbing, ROM intact, no edema. [] Neurologic: Alert and oriented X 3, normal motor function, normal sensory function, no focal deficits noted. [] Psychologic: Affect normal, judgement normal, mood normal. [] Current Patient Data Vital Signs Vital Signs Date Time Temp Pulse Resp B/P (MAP) Pulse Ox O2 Delivery O2 Flow Rate FiO2 12/01/17 15:15 98.5 70 12 139/63 (88) 97 Room Air 98.5 EKG EKG [] Radiology/Procedures Radiology/Procedures [] Course & Med Decision Making Course & Med Decision Making Pertinent Labs and Imaging studies reviewed. (See chart for details) 4 clara were removed from patient's laceration site, laceration site is well approximated and healing well. Follow up with PCP as needed Staff Physician Addendum: I was working in the ER during the course of this patient's visit. I was available for consultation as needed, but I was not directly involved in the care of this patient. Dragon Disclaimer Dragon Disclaimer This electronic medical record was generated, in whole or in part, using a voice recognition dictation system. Departure Departure Impression: Primary Impression: Encounter for staple removal Disposition: HOME, SELF-CARE Condition: STABLE Referrals: EDILMA LAMA Jr, MD (PCP) Follow-up with your doctor as needed Patient Instructions: Staple Removal, Care After Additional Instructions: We removed 4 clara from your scalp. You can shower and wash your hair. Follow- up with your doctor as needed. SLOAN CHEATHAM APRN Dec 01, 2017 15:21 VISHAL MUNOZ MD Dec 01, 2017 16:25
== END 2017-12-01 15:32 | disposition home or self-care (01) ==
LOC: ER 15:11
DX: S01.01XD Laceration without foreign body of scalp, subsequent encounter (principal); Z88.5 Allergy status to narcotic agent; X58.XXXD Exposure to other specified factors, subsequent encounter
CPT/HCPCS: 99284

== ENCOUNTER → 2018-07-01 | Outpatient (CLI) | payer MEDICARE ==
[~2018-07-01] MED LIST changes: -HYDR-2762 PO; +HYDR-2765 PO; +OMEP20CA10 PO; -OMEP20CA9 PO
--- NOTE | 2018-07-01 12:38 | CARD ---
MR#: [id number] Date of Study: 07/01/2018 Ordering Physician: LORENZO THAKUR, Referring Physician: LORENZO THAKUR, Tech: Adalgisa Martinez RDCS APPROVED REPORT EXAM: Two-dimensional and M-mode echocardiogram with Doppler and color Doppler. Other Information Quality : Good INDICATION Dyspnea 2D DIMENSIONS RVDd2.9 (2.9-3.5cm)Left Atrium(2D)3.7 (1.6-4.0cm) IVSd1.1 (0.7-1.1cm)Aortic Root(2D)3.0 (2.0-3.7cm) LVDd4.1 (3.9-5.9cm)LVOT Diameter2.1 (1.8-2.4cm) PWd0.9 (0.7-1.1cm)LVDs2.2 (2.5-4.0cm) FS (%) 30.0 %SV60.0 ml LVEF(%)60.0 (>50%) Aortic Valve AoV Peak Oh.189.0cm/sAoV VTI40.4cm AO Peak GR.14.3mmHgLVOT Peak Oh.129.1cm/s LVOT VTI 31.56cmAO Mean GR.8mmHg ANGEL (VMAX)2.53yc3IDF (VTI)2.72cm2 Mitral Valve MV E Rmgtopap66.5cm/sMV DECEL XBMO190fx MV A Gmglefit580.4cm/sMV VET76ar E/A Ratio0.7MVA (PHT)4.01cm2 TDI E/Lateral E'12.5E/Medial E'13.6 Tricuspid Valve TR P. Yroabgdc341le/sRAP XIDAUYBV9ofOr TR Peak Gr.60soRkLUWJ07yjKe Pulmonary Vein S1 Gtnkajjz71.4cm/sD2 Ewgiulwd25.8cm/s LEFT VENTRICLE The left ventricle is normal size. There is normal left ventricular wall thickness. The left ventricu lar systolic function is normal. The Ejection Fraction is 60-65%. There is normal LV segmental wall m otion. Transmitral Doppler flow pattern is Grade I-abnormal relaxation pattern. RIGHT VENTRICLE The right ventricle is normal size. The right ventricular systolic function is normal. ATRIA The left atrium size is normal. The right atrium size is normal. The interatrial septum is intact wit h no evidence for an atrial septal defect or patent foramen ovale as noted on 2-D or Doppler imaging. AORTIC VALVE The aortic valve is calcified but opens well. Doppler and Color Flow revealed no significant aortic r egurgitation. There is no significant aortic valvular stenosis. MITRAL VALVE The mitral valve is calcified but opens well. There is no evidence of mitral valve prolapse. There is no mitral valve stenosis. Doppler and Color-flow revealed mild mitral regurgitation. TRICUSPID VALVE The tricuspid valve is normal in structure and function. Doppler and Color Flow revealed mild tricusp id regurgitation. There is mild pulmonary hypertension. The PA pressure was estimated at 36 mmHg. The re is no tricuspid valve stenosis. PULMONIC VALVE The pulmonic valve is not well visualized. Doppler and Color Flow revealed trace pulmonic valvular re gurgitation. There is no pulmonic valvular stenosis. GREAT VESSELS The aortic root is normal in size. The ascending aorta is normal in size. The IVC was not visualized. PERICARDIAL EFFUSION There is no evidence of significant pericardial effusion. Critical Notification Critical Value: No <Conclusion> The left ventricular systolic function is normal. The Ejection Fraction is 60-65%. There is normal LV segmental wall motion. Transmitral Doppler flow pattern is Grade I-abnormal relaxation pattern. Mild mitral regurgitation. Mild tricuspid regurgitation. There is mild pulmonary hypertension. The PA pressure was estimated at 36 mmHg. There is no evidence of significant pericardial effusion. Signed by : Moisés Hassan, Electronically Approved : 07/01/2018 12:37:40
== END | disposition home or self-care (01) ==
LOC: ECHO 11:29
PROVIDERS: ATTEND Internal Medicine Cardiovascular Disease
DX: I08.3 Combined rheumatic disorders of mitral, aortic and tricuspid valves (principal); I27.20 Pulmonary hypertension, unspecified
CPT/HCPCS: 93306

== ENCOUNTER → 2018-09-01 | Outpatient (CLI) | payer MEDICARE ==
--- NOTE | 2018-09-01 15:51 | RAD ---
Bilateral lower extremity arterial ultrasound History: Claudication Findings: Multiple grayscale, color, and duplex spectral analysis sonographic images were acquired of the lower extremity arteries bilaterally. There are no previous similar exams. Diffuse atheromatous involvement of bilateral lower arterial vasculature is evident. Biphasic flow is noted involving the right common femoral artery, proximal and distal superficial femoral artery, and popliteal artery. Monophasic flow otherwise is seen involving the right lower extremity arterial vasculature. Biphasic flow is identified involving the left common lower extremity arterial vasculature. Velocities in cm/sec: RIGHT Common femoral artery 185 Profunda femoris artery 148 Proximal SFA 175 Mid SFA 147 Distal SFA 177 Popliteal artery 112 Anterior tibial artery 36 Dorsalis pedis artery 82 Posterior tibial artery 58 Peroneal artery 53 LEFT: Common femoral artery 218 Profunda femoris artery 179 Proximal SFA 261 Mid SFA 223 Distal SFA 208 Popliteal artery 176 Anterior tibial artery 90 Dorsalis pedis artery 109 Posterior tibial artery 88 Peroneal artery 80 Impression: Elevated right dorsalis pedis arterial vasculature of concern for more proximal hemodynamically significant stenosis. Mildly moderately elevated left common femoral and superficial femoral arterial flow. Correlate for possibility of a more proximal hemodynamically significant stenosis. Electronically signed by: Bg Saenz MD (09/01/2018 3:48 PM) [facility]
--- NOTE | 2018-09-02 09:10 | RAD ---
MR#: [id number] Date of Study: 09/01/2018 Ordering Physician: LORENZO THAKUR, Referring Physician: LORENZO THAKUR, Tech: JACKI Lovett, RDGA, RTR APPROVED REPORT Patient Location : OUT-PATIENT Indications Lower Extremity Edema : Bilateral Findings Bilateral greater saphenous veins do not reveal any evidence of reflux. The right great saphenous vei n measures 7.6 mm and left great saphenous vein measures 7.7 mm. Bilateral lesser saphenous veins do not show any evidence of reflux. Critical Notification Critical Value: No <Conclusion> 1. Negative for reflux in the bilateral greater and lesser saphenous veins Signed by : Arturo Flores, Electronically Approved : 09/02/2018 09:10:13
--- NOTE | 2018-09-02 09:15 | RAD ---
MR#: [id number] Date of Study: 09/01/2018 Ordering Physician: LORENZO THAKUR, Referring Physician: LORENZO THAKUR, Tech: JACKI Lovett, [facility], RTR APPROVED REPORT Bilateral Lower Extremity Venous Study for DVT Patient Location: OUT-PATIENT Indications Lower Extremity Edema: Bilateral edema ble Findings The bilateral lower extremity deep veins were evaluated for thrombus with color Doppler, spectral and grayscale images. On the right the grayscale images of the common femoral, superficial femoral and popliteal veins do n ot demonstrate any evidence of thrombus and these veins appear to be compressible. The below-knee vei ns were not well visualized but grossly appear to be compressible. Spectral imaging and color Doppler do not reveal any evidence of obstruction to flow with normal respirophasic variation above the knee . Below the knee there is spontaneous flow noted. On the left, the grayscale images of the common femoral, superficial femoral and popliteal veins do n ot demonstrate any evidence of thrombus and these veins appear to be compressible. The below-knee vei ns again were not well visualized but grossly appear to be compressible. Spectral imaging and color D oppler do not reveal any evidence of obstruction to flow with normal respirophasic variation above th e knee. The below-knee veins demonstrate spontaneous flow. Critical Notification Critical Value: No <Conclusion> 1. No gross evidence of DVT in the above knee vessels. Below-knee vessels were not well visualized. Signed by : Arturo Flores, Electronically Approved : 09/02/2018 09:14:55
== END | disposition home or self-care (01) ==
LOC: US 13:53
PROVIDERS: ATTEND Internal Medicine Cardiovascular Disease
DX: I70.203 Unspecified atherosclerosis of native arteries of extremities, bilateral legs (principal); M79.89 Other specified soft tissue disorders
CPT/HCPCS: 93925; 93970

== ENCOUNTER 2018-11-17 10:48 | Emergency (ER) | payer MEDICARE ==
[~2018-11-17] VITALS: Ht 154.9 cm; Wt 65.8 kg
[2018-11-17] MEDS ORDERED: LIDOCAINE 1% Multi-Dose 20 ML VIAL. ONE (11:03)
[2018-11-17] MEDS ORDERED: LIDOCAINE 1% Multi-Dose 20 ML VIAL. INJ ONE (11:15)
--- NOTE | 2018-11-17 11:20 | PHYS DOC ---
Past Medical History Past Medical History: Anemia, Depression, Other Additional Past Medical Histor: EDEMA,FALLS Past Surgical History: Hysterectomy Alcohol Use: None Drug Use: None Adult General Chief Complaint Chief Complaint: MECHANICAL FALL HPI HPI Patient is an 83-year-old female who presents to the emergency department for evaluation. She states that she was walking in her home, when she tripped, and fell to the ground. She struck her head on the sofa, and is complaining of some neck pain. She also landed on her left wrist and has a dinner fork deformity, suggestive of a Colles' fracture. She denies any other injuries or painful areas. She denies any mid or lower back pain, or any other extremity injury, denies any hip pain or injury. Movement and palpation of the affected areas worsen her pain. There are no alleviating factors to her symptoms. The patient remembers the fall, states that she tripped, did not feel dizzy or lightheaded. Review of Systems Review of Systems Constitutional: Denies fever or chills [] Eyes: Denies change in visual acuity, redness, or eye pain [] HENT: Denies nasal congestion or sore throat [] Respiratory: Denies cough or shortness of breath [] Cardiovascular:The patient denies any shortness of breath, chest pain, palpitations, or orthopnea [] GI: Denies abdominal pain, nausea, vomiting, bloody stools or diarrhea [] : Denies dysuria or hematuria [] Musculoskeletal: Denies back pain or joint pain , other than as noted in the history of present illness[] Integument: Denies rash or skin lesions [] Neurologic: Denies headache, focal weakness or sensory changes [] Endocrine: Denies polyuria or polydipsia [] All other systems were reviewed and found to be within normal limits, except as documented in this note. Current Medications Current Medications Current Medications Medications (Trade) Dose Ordered Sig/Bhavna Start Time Stop Time Status Last Admin Dose Admin Lidocaine HCl (Lidocaine 1% 20ml Vial) 20 ml 1X ONCE 11/17/18 11:15 11/17/18 11:16 DC Oxycodone/ Acetaminophen (Percocet 5/325) 1 tab 1X ONCE 11/17/18 11:30 11/17/18 11:31 DC Allergies Allergies Allergies Coded Allergies Type Severity Reaction Last Updated Verified codeine Allergy Mild Anxiety 02/10/14 Yes Physical Exam Physical Exam PHYSICAL EXAM: CONSTITUTIONAL: Well developed, well nourished HEAD: normocephalic, atraumatic EENT: PERRL, EOMI. Conjunctivae normal color, sclerae non-icteric; moist mucous membranes. NECK: Supple, no meningismus. He is mild tenderness to palpation of the cervical spine diffusely without any step-off. LUNGS: Lungs CTA, breathing even and unlabored. Normal air movement. HEART: Regular rate and rhythm, no murmur CHEST: No deformity; non-tender ABDOMEN: The abdomen is soft, and non-tender, no masses or bruits. EXTREM: There is a dinner fork deformity to the left wrist, with tenderness to palpation in this area. Radial pulses palpable. Distal PMS are intact. The re mainder the extremities are atraumatic, with Normal ROM; no deformity, no calf tenderness. Normal pulses palpable in all extremities. Hips and pelvis are nontender, with normal range of motion in the hips.. SKIN: No rash; no diaphoresis NEURO: Alert; normal speech and cognition; CN's grossly intact; strength grossly intact without focal deficit. BACK: No CVA TTP. Current Patient Data Vital Signs Vital Signs Date Time Temp Pulse Resp B/P (MAP) Pulse Ox O2 Delivery O2 Flow Rate FiO2 11/17/18 10:53 98.3 89 18 131/62 (85) 98 Room Air 98.3 EKG EKG [] Radiology/Procedures Radiology/Procedures [PROCEDURE: WRIST 3V LEFT Three-view left wrist study Clinical indications: Fall and pain. FINDINGS: There is a transverse fracture of the distal left radial metaphysis. Fracture is impacted. There is dorsal displacement of the distal fracture segment. There is anterior angulation of the apex of the fracture resulting in dorsal angulation of the radial carpal articulation. Positive ulnar variance is evident. 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 No lytic process is seen. IMPRESSION: Posttraumatic fracture of the distal left radius.] PROCEDURE: CT HEAD AND CERVICAL SPINE WO CT HEAD AND CERVICAL SPINE WO Clinical indications: Fall with head pain and neck pain. NONCONTRAST HEAD CT COMPARISON: November 18, 2017. Technique: Noncontrast axial cross sectional scanning of the head was performed. PQRS compliance Statement One or more of the following individualized dose reduction techniques were utilized for this study: 1. Automated exposure control 2. Adjustment of the mA and/or kV according to patient size 3. Use of iterative reconstruction technique Findings: No acute intracranial hemorrhage or midline shift or mass-effect or hydrocephalus or extra-axial fluid collection is seen. No focal hypodense area or sulci effacement is seen to indicate an acute infarct or edema radiographically. No skull fracture or pneumocephalus is seen. No opacification of the mastoid sinuses or the middle ear cavities is seen. There is a moderate-sized air-fluid level within the left maxillary sinus. The maxillary sinuses are not completely seen in this study. There is a small air-fluid level within the left sphenoid sinus. These are new findings IMPRESSION: No acute intracranial abnormality is seen. Air-fluid levels within the left maxillary sinus and the left sphenoid sinus. This could be secondary to trauma or acute sinusitis. NONCONTRAST CERVICAL SPINE CT TECHNIQUE: Noncontrast helical CT scanning of the cervical spine was performed. Multiplanar 2-D reconstructions were generated. FINDINGS: No acute fracture or discitis or lytic process or prevertebral soft tissue swelling is evident. Grade 1 anterolisthesis of C3-4 and C4-5 and C5-C6 and C6-7 is seen. No perching of facet joints is evident. There is degenerative facet arthropathy throughout the cervical spine. There is mild degenerative endplate spurring throughout the cervical spine. There is degenerative disc space narrowing at C6-7 and C7-T1 and T1-T2. IMPRESSION: No acute fracture. Degenerative cervical spondylosis. Course & Med Decision Making Course & Med Decision Making Pertinent Imaging studies reviewed. (See chart for details) [] 12:45 PM: After verbal consent was obtained from the patient, a hematoma block was placed using 10 mL of 1% lidocaine, after the skin was prepped with Betadine. Manual traction and manipulation is used, anatomical alignment was obtained, and the patient's arm was splinted using Ortho-Glass, and a sugar tong split, by myself. PMS intact post placement. Postreduction x-ray will be obtained. 1:10 PM: Patient's condition remains stable. Postreduction x-ray shows improved alignment. Discussed test results, home care plan, need for orthopedic follow-up and return precautions. The patient does have family to help her manage at home. Dragon Disclaimer Dragon Disclaimer This electronic medical record was generated, in whole or in part, using a voice recognition dictation system. Departure Departure Impression: Primary Impression: Distal radius fracture, left Additional Impressions: Accidental fall Closed head injury Disposition: HOME, SELF-CARE Condition: STABLE Referrals: TIM MONZON MD (PCP) ML ZAYAS MD Patient Instructions: Cast or Splint Care, Wrist Fracture Additional Instructions: Tylenol as needed for pain. Keep splint clean and dry. Follow-up with orthopedics as soon as possible. Please call today or tomorrow to schedule appointment. Scripts Hydrocodone/Apap 5-325 (NORCO 5-325 TABLET) 1 Each Tablet 1 TAB PO TID PRN for PAIN, #15 TAB Prov: VÍCTOR WOLF MD 11/17/18 Problem Qualifiers VÍCTOR WOLF MD Nov 17, 2018 11:20
[2018-11-17] MEDS ORDERED: oxyCODONE/APAP 5/325 1 TAB TABLET PO ONE (11:30)
--- NOTE | 2018-11-17 11:39 | RAD ---
Three-view left wrist study Clinical indications: Fall and pain. FINDINGS: There is a transverse fracture of the distal left radial metaphysis. Fracture is impacted. There is dorsal displacement of the distal fracture segment. There is anterior angulation of the apex of the fracture resulting in dorsal angulation of the radial carpal articulation. Positive ulnar variance is evident. 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 No lytic process is seen. IMPRESSION: Posttraumatic fracture of the distal left radius. Electronically signed by: Naga Napier MD (11/17/2018 11:36 AM) [id number]
--- NOTE | 2018-11-17 12:02 | RAD ---
CT HEAD AND CERVICAL SPINE WO Clinical indications: Fall with head pain and neck pain. NONCONTRAST HEAD CT COMPARISON: November 18, 2017. Technique: Noncontrast axial cross sectional scanning of the head was performed. PQRS compliance Statement One or more of the following individualized dose reduction techniques were utilized for this study: 1. Automated exposure control 2. Adjustment of the mA and/or kV according to patient size 3. Use of iterative reconstruction technique Findings: No acute intracranial hemorrhage or midline shift or mass-effect or hydrocephalus or extra-axial fluid collection is seen. No focal hypodense area or sulci effacement is seen to indicate an acute infarct or edema radiographically. No skull fracture or pneumocephalus is seen. No opacification of the mastoid sinuses or the middle ear cavities is seen. There is a moderate-sized air-fluid level within the left maxillary sinus. The maxillary sinuses are not completely seen in this study. There is a small air-fluid level within the left sphenoid sinus. These are new findings IMPRESSION: No acute intracranial abnormality is seen. Air-fluid levels within the left maxillary sinus and the left sphenoid sinus. This could be secondary to trauma or acute sinusitis. NONCONTRAST CERVICAL SPINE CT TECHNIQUE: Noncontrast helical CT scanning of the cervical spine was performed. Multiplanar 2-D reconstructions were generated. FINDINGS: No acute fracture or discitis or lytic process or prevertebral soft tissue swelling is evident. Grade 1 anterolisthesis of C3-4 and C4-5 and C5-C6 and C6-7 is seen. No perching of facet joints is evident. There is degenerative facet arthropathy throughout the cervical spine. There is mild degenerative endplate spurring throughout the cervical spine. There is degenerative disc space narrowing at C6-7 and C7-T1 and T1-T2. IMPRESSION: No acute fracture. Degenerative cervical spondylosis. Electronically signed by: Naga Napier MD (11/17/2018 11:59 AM) [id number]
[2018-11-17 12:55] VITALS: BP 130/60
[2018-11-17] MEDS ORDERED: HYDR-3164 PO (13:11)
--- NOTE | 2018-11-17 13:12 | RAD ---
2 view study of the left wrist Clinical indications: Post reduction. FINDINGS: The left wrist has been immobilized in a cast after closed reduction. The previously seen displaced angulated fracture of the distal left radius has been partially reduced. Fracture of the ulnar styloid process is now evident. IMPRESSION: Partial reduction of distal left radial fracture. Ulnar styloid process fracture is now evident. Electronically signed by: Naga Napier MD (11/17/2018 1:09 PM) [id number]
== END 2018-11-17 13:36 | disposition home or self-care (01) ==
LOC: ER 10:48
DX: S52.592A Other fractures of lower end of left radius, initial encounter for closed fracture (principal); S52.612A Displaced fracture of left ulna styloid process, initial encounter for closed fracture; R51 Headache; M54.2 Cervicalgia; F32.9 Major depressive disorder, single episode, unspecified; Z90.710 Acquired absence of both cervix and uterus; Z88.5 Allergy status to narcotic agent; W01.190A Fall on same level from slipping, tripping and stumbling with subsequent striking against furniture, initial encounter; Y93.01 Activity, walking, marching and hiking; Y92.009 Unspecified place in unspecified non-institutional (private) residence as the place of occurrence of the external cause; Y99.8 Other external cause status
CPT/HCPCS: 25605; 29125; 70450; 72125; 73100; 73110; 99284

== ENCOUNTER 2018-11-24 06:51 | Inpatient (IN) | payer MEDICARE ==
[~2018-11-24] VITALS: Ht 154.9 cm; Wt 69.5 kg
[~2018-11-24 06:51] MED LIST changes: +HYDR-3164 PO
[2018-11-24] MEDS ORDERED: LEVO25TA4 PO (07:23)
[2018-11-24] MEDS: IV RINGERS,LACTATED 1000ML 1,000 ML IV SCH ×2 (07:39→12:21)
[2018-11-24] MEDS ORDERED: SEVOFLURANE 61 TO 120 MINUTES. IH ONE (08:02)
[2018-11-24] MEDS ORDERED: PROPOFOL 20 ML IV ONE (08:02)
[2018-11-24] MEDS ORDERED: ONDANSETRON PF 4 MG/2 ML VIAL. ONE (08:02)
[2018-11-24] MEDS ORDERED: LIDOCAINE 2% PF 5 ML VIAL. ONE (08:02)
[2018-11-24] MEDS ORDERED: DEXAMETHASONE SOD PHOS 4 MG/ML VIAL ONE (08:02)
[2018-11-24] MEDS ORDERED: PHENYLEPHRINE in 0.9% NACL PF 1 MG/10 ML SYRINGE. IV ONE (08:02)
[2018-11-24] MEDS ORDERED: ceFAZolin 2GM PREMIX 2 GM/50 ML BAG IV ONE (09:00)
[2018-11-24] MEDS ORDERED: BUPIVACAINE-EPI 0.25%-1:200000 MPF 30 ML VIAL. INJ ONE (09:00)
[2018-11-24] MEDS ORDERED: ESMOLOL 100 MG/10 ML VIAL. IVP ONE (09:27)
--- NOTE | 2018-11-24 10:49 | PDOC4 ---
Operative Note Operative Note Date of Procedure: November 24, 2018 Preoperative diagnosis: Colles� fracture of left radius, initial encounter for closed fracture S52.532A Postoperative diagnosis: Colles� fracture of left radius, initial encounter for closed fracture S52.532A Procedure: Open treatment of distal radial extra-articular fracture, with internal fixation CPT 98665 Surgeon: Margaret Ochoa MD. Asst.: KASANDRA Dolan Anesthesia Type: General EBL: 25 mL Specimens: none Drains: none Complications: none Tourniquet time: 33 minutes Tourniquet pressure: 275 mm Hg Implant Company: [employer] INDICATION FOR PROCEDURE: The patient is an 83 -year-old who fell and had a displaced left distal radius fracture. X-rays showed a displaced fracture. I recommended open treatment with internal fixation. We talked about potential risks of surgery such as bleeding, infection, stiffness, need for hardware r emoval or other potential surgical or anesthetic complications. The patient stated understanding of the risks, benefits and alternatives. Written consent was obtained and she desired to proceed with surgery. PROCEDURE IN DETAIL: The patient was identified in the preoperative holding area. The correct left wrist was marked by me. The patient was taken to the operating room, where a general anesthetic was used. Preoperative antibiotics were given intravenously. A timeout procedure was performed. Tourniquet was used on the upper left arm. The limb was prepared in sterile fashion with ChloraPrep, and sterile drapes were applied. An Esmarch bandage was used to exsanguinate the limb and the tourniquet was inflated. The volar approach of Sheng was used distally. Sharp dissection was used and Bovie electrocautery was used as needed for hemostasis. The flexor carpi radialis tendon was retracted ulnarly to protect the median nerve. The brachioradialis was retracted radially to protect the radial artery. My geo t used small Hohmann retractors on the radial side of the distal fragment and ulnar side of the proximal fragment to help maintain reduction. A Weitlaner retractor was also placed. Subperiosteal dissection of the pronator quadratus was performed after an L incision was made and the muscle was reflected across the fracture site. The fracture was easily identified but markedly displaced, comminuted and unstable. I performed a reduction first using a Poplar elevator to disimpact the fragments, and using longitudinal traction, and volar to palmar compression, the fracture was able to be reduced including the intra-articular reduction as confirmed on the image intensifier. The reduction was stabilized with two K wires prior to plate application. The small image intensifier device was used to check the reduction, and I used the image intensifier throughout the case and interpreted all of the images myself. I then applied a volar plate, placed a single screw, and again checked the position of the plate on the image intensifier. I adjusted the plate as needed for satisfactory alignment and fixation. I placed a single cortical screw in the oval hole for fixation of the plate to the bone and buttressed against the volar displacement of the original fracture. I placed additional locking screws distally and locking screws proximally and I confirmed the reduction with the image intensifier. Final locking screws were placed in the proximal portion of the plate, and into the shaft. After satisfactory reduction and satisfactory fixation with all the screws, final images were taken. Copious irrigation was used. The tourniquet was released and Bovie electrocautery was used for hemostasis. Bupivacaine 0.25% with epinephrine was injected. The incision was closed with 3-0 Vicryl in the subcutaneous tissues and 3-0 Prolene in the skin. My education assistant did the skin closure. Xeroform and a sterile dressing and a volar splint were applied. Needle and sponge counts were correct. There were no apparent complications MARGARET OCHOA MD Nov 24, 2018 10:49
[2018-11-24] MEDS ORDERED: DEXTROSE 50% 25 GM / 50ML DISP.SYRIN. IV PRN (11:00)
[2018-11-24] MEDS ORDERED: fentaNYL PF VIAL 100 MCG/2 ML VIAL IV PRN (11:00)
[2018-11-24] MEDS ORDERED: ONDANSETRON PF 4 MG/2 ML VIAL. IV PRN (11:00)
[2018-11-24] MEDS ORDERED: oxyCODONE IR 5 MG TABLET PO PRN (11:00)
[2018-11-24] MEDS ORDERED: POLYETHYLENE GLYCOL 3350 17 GM PACKET. PO PRN (11:00)
[2018-11-24] MEDS ORDERED: MORPHINE SULFATE 2 MG/ML VIAL. IV PRN (11:00)
--- NOTE | 2018-11-24 11:07 | PDOC1 ---
History and Physical Date of Admission Date of Admission DATE: 11/24/18 TIME: 10:59 Identification/Chief Complaint Chief Complaint Left wrist Colles' fracture Source Source: Caregiver, Chart review, Patient History of Present Illness History of Present Illness Ms. Aburto is a retired right handed 83-year-old female who presents with a left wrist fracture. She was seen in the ED on 11/17/18 s/p mechanical fall earlier that day when letting a nurse into her home. FOOSH injury. She currently lives alone but does not drive. She is accompanied by her son and [id number]. They state that she is about to leave home to live in an assisted-living facility as there is no one available to watch her 24 hours a day. She is familiar to me from my prior practice with [facility]. I admitted her for surgery today. She will need half-way. Past Medical History Past Medical History Mammogram 05/07, BMD 12/06, colonoscopy 05/07, Zostavax 02/02, anemia, depression, edema, falls. Cardiovascular: HTN GI: GERD, Other Heme/Onc: Anemia NOS Psych: Anxiety, Depression Musculoskeletal: low back pain Renal/: UTI, Urinary Incontinence Past Surgical History Past Surgical History: Other (R ankle ORIF 2006 , partial hysterectomy ) Social History Smoke: No ALCOHOL: none Current Medications Current Medications Current Medications Cefazolin Sodium/ Dextrose 50 ml @ 100 mls/hr 1X PREOP PRN IV PRIOR TO PROCEDURE Last administered on 11/24/18at 09:22; Start 11/24/18 at 06:00; Stop 11/24/18 at 18:00 Cefazolin Sodium/ Dextrose 50 ml @ 100 mls/hr 1X PREOP PRN IV pre-op; Start 11/24/18 at 07:15; Status UNV Ringer's Solution 1,000 ml @ 100 mls/hr Q10H IV Last administered on 11/24/18at 07:39; Start 11/24/18 at 07:45 Sevoflurane (Ultane) 60 ml STK-MED ONCE IH ; Start 11/24/18 at 08:02; Stop 11/24/18 at 08:02; Status DC Dexamethasone Sodium Phosphate (Decadron) 4 mg STK-MED ONCE .ROUTE ; Start 11/24/18 at 08:02; Stop 11/24/18 at 08:02; Status DC Propofol 20 ml @ As Directed STK-MED ONCE IV ; Start 11/24/18 at 08:02; Stop 11/24/18 at 08:02; Status DC Lidocaine HCl (Lidocaine Pf 2% Vial) 5 ml STK-MED ONCE .ROUTE ; Start 11/24/18 at 08:02; Stop 11/24/18 at 08:02; Status DC Ondansetron HCl (Zofran) 4 mg STK-MED ONCE .ROUTE ; Start 11/24/18 at 08:02; Stop 11/24/18 at 08:02; Status DC Phenylephrine HCl (PHENYLEPHRINE in 0.9% NACL PF) 1 mg STK-MED ONCE IV ; Start 11/24/18 at 08:02; Stop 11/24/18 at 08:02; Status DC Bupivacaine HCl/ Epinephrine Bitart (Sensorcaine-Epi 0.25%-1:500218 Mpf) 30 ml 1X ONCE INJ Last administered on 11/24/18at 10:01; Start 11/24/18 at 09:00; Stop 11/24/18 at 09:01; Status DC Esmolol HCl (Brevibloc) 100 mg STK-MED ONCE IVP ; Start 11/24/18 at 09:27; Stop 11/24/18 at 09:28; Status DC Oxycodone HCl (Roxicodone) 5 mg PRN Q3HRS PRN PO PAIN; Start 11/24/18 at 11:00; Status UNV Morphine Sulfate (Morphine Sulfate) 2 mg PRN Q1HR PRN IV PAIN; Start 11/24/18 at 11:00; Status UNV Fentanyl Citrate (Fentanyl 2ml Vial) 25 mcg PRN Q1HR PRN IV PAIN; Start 11/24/18 at 11:00; Status UNV Senna/Docusate Sodium (Senna Plus) 1 tab DAILY PO ; Start 11/25/18 at 09:00; Status UNV Polyethylene Glycol (miraLAX PACKET) 17 gm PRN DAILY PRN PO CONSTIPATION; Start 11/24/18 at 11:00; Status UNV Vitamin D (Vitamin D3) 1,000 unit DAILY PO ; Start 11/25/18 at 09:00; Status UNV Sodium Chloride 1,000 ml @ 75 mls/hr [id number] IV ; Start 11/24/18 at 10:50; S tatus UNV Ondansetron HCl (Zofran) 4 mg PRN Q4HRS PRN IV NAUSEA/VOMITING; Start 11/24/18 at 11:00; Status UNV Magnesium Hydroxide (Milk Of Magnesia) 2,400 mg 1X PRN PRN PO CONSTIPATION; Start 11/25/18 at 06:00; Stop 11/26/18 at 05:59; Status UNV Bisacodyl (Dulcolax Supp) 10 mg 1X PRN PRN [place] CONSTIPATION; Start 11/25/18 at 16:00; Stop 11/26/18 at 15:59; Status UNV Dextrose (Dextrose 50%-Water Syringe) 12.5 gm PRN Q15MIN PRN IV SEE COMMENTS; Start 11/24/18 at 11:00; Status UNV Cefazolin Sodium/ Dextrose 50 ml @ 100 mls/hr Q6H IV ; Start 11/24/18 at 11:00; Stop 11/24/18 at 23:29; Status UNV Oxycodone/ Acetaminophen (Percocet 5/325) i-ii po q4hrs prn pain PRN Q4HRS PRN PO PAIN; Start 11/24/18 at 11:00; Status UNV Furosemide (Lasix) 20 mg DAILY PO ; Start 11/25/18 at 09:00; Status UNV Levothyroxine Sodium (Synthroid) 25 mcg DAILY PO ; Start 11/25/18 at 09:00; Status UNV Potassium Chloride (Klor-Con) 10 meq DAILY PO ; Start 11/25/18 at 09:00; Status UNV Sertraline HCl (Zoloft) 50 mg HS PO ; Start 11/24/18 at 21:00; Status UNV Non-Formulary Medication (Pantoprazole Sodium (Protonix)) 40 mg DAILY PO ; Start 11/25/18 at 09:00; Status UNV Active Scripts Active [place] 5-325 Tablet (Acetaminophen/Hydrocodone Bitart) 1 Each Tablet 1 Tab PO TID PRN Hydrocodone-Apap 7.5-325 (Hydrocodone Bit/Acetaminophen) 1 Each Tablet 1 Tab PO PRN Q6HRS PRN Reported Levothyroxine Sodium 25 Mcg Tablet 1 Tab PO DAILY Protonix (Pantoprazole Sodium) 20 Mg Tablet.dr 40 Mg PO DAILY Potassium Chloride 10 Meq Tablet.er 10 Meq PO DAILY Lasix (Furosemide) 20 Mg Tablet 20 Mg PO DAILY B-12 (Cyanocobalamin (Vitamin B-12)) 1,000 Mcg Tablet.er 1,000 Mcg PO Aleve (Naproxen Sodium) 220 Mg Tablet 220 Mg PO DAILY PRN Zoloft (Sertraline Hcl) 50 Mg Tablet 50 Mg PO HS Allergies Allergies: Coded Allergies: codeine (Verified Allergy, Mild, Anxiety, 11/24/18) ROS Review of System CONSTITUTIONAL Fever denies. Chills denies. Weight gain denies. Weakness none. weight loss denies. Fatigue none. OPHTHALMOLOGY Blurred vision none. Double vision denies. Change in vision none. ENT Hearing loss none. Change in voice denies. Rhinorrhea none. CARDIOLOGY Palpitations none. Shortness of breath denies. Chest pain denies. GASTROENTEROLOGY Diarrhea denies. Vomiting none. Dysphagia none. UROLOGY Voiding normally yes. Hematuria none. MUSCULOSKELETAL Chronic back or neck pain denies. Swelling of the feet, hands, ankles and /or legs denies. Joint pain reports. Tingling/numbness no. DERMATOLOGY Rash denies. Lumps none. NEUROLOGY Dizziness/lightheadedness denies. Double vision, temporary blindness denies. Tingling/numbness none. PSYCHOLOGY Change in mood or personality denies. Memory loss none. ENDOCRINOLOGY Obesity denies. Fatigue none. Weight loss none. HEMATOLOGY/LYMPH Hepatitis denies. Enlarged lymph nodes denies. Physical Exam General: Alert, Cooperative HEENT: Atraumatic Lungs: Normal air movement Heart: RRR Abdomen: Soft Extremities: No clubbing, No cyanosis, Normal pulses, Other (The LEFT wrist is in a splint which was removed for the exam. There is swelling at the wrist area. The alignment is deformed with a dinner fork deformity and radial deviation. There is tenderness at the wrist. Motion is decreased but there is no evidence of specific neurovascular injury. Capillary refill is normal. Pulse is not assessable due to the tenderness of the wrist. Light touch sensation is intact. Motor function is present for the radial ulnar and median nerves. There is no tenderness at the elbow. The skin is intact over the fracture but there is some ecchymosis) Skin: No significant lesion Neuro: Normal speech Vitals Vitals Vital Signs Date Time Temp Pulse Resp B/P (MAP) Pulse Ox O2 Delivery O2 Flow Rate FiO2 11/24/18 07:33 99.3 97 20 173/82 98 Room Air 99.3 Images Images [facility] [address] [place] [address] IMAGING REPORT Signed PATIENT: JEFFERSON ABURTO ACCOUNT: [id number] : 1935 LOCATION: [facility] AGE: 83 SEX: F EXAM STATUS: REG CLI ORD. PHYSICIAN: MARGARET YOUSIF MD REASON: PROCEDURE: WRIST 3V LEFT EXAM: Left wrist, 3 views. HISTORY: Fracture follow-up. COMPARISON: 11/17/2018. FINDINGS: 3 views of the left wrist are obtained. There is minimal interval healing of a displaced distal radial metaphyseal fracture. There has been no change in a displaced ulnar styloid fracture. There is first carpometacarpal joint space narrowing with subchondral sclerosis and marginal spurring. There is bone demineralization. IMPRESSION: 1. Minimal interval healing of a distal radial metaphyseal fracture. 2. No change in a mildly displaced ulnar styloid fracture. 3. Mild to moderate first carpometacarpal osteoarthritis. 4. Suspected bone demineralization. Electronically signed by: Veronica Mcgarry MD (11/23/2018 4:45 PM) [facility] DICTATED and SIGNED BY: VERONICA MCGARRY MD DATE: 11/23/18 1645 VTE Prophylaxis Ordered VTE Prophylaxis Devices: Yes VTE Pharmacological Prophylaxi: Yes Assessment/Plan Assessment/Plan The Patient has a displaced and unstable fracture of the distal radius, extra- articular. She is 83 years old and lives alone. She uses a walker. She has an obvious deformity on examination. We could treat this surgically or nonsurgically. 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 Surgery has some risk such as infection, neurovascular injury, tendon irritation, and the risks of the anesthetic, but would give her a better aligned wrist, and likely better function for living alone, and using a walker. We reviewed the options for treatment with the patient, her son an d daughter in law, and I recommended surgery. We discussed potential risks of ORIF surgery, including risks of bleeding, infection, malunion, nonunion, potential need for hardware removal, neurovascular injury, tendon injury or other potential surgical or anesthetic complications. We also discussed postoperative treatment and expectations. All of her questions were answered and she desires to proceed with surgery at a mutually convenient date, tentatively scheduled for tomorrow, 11/24/18. she may need half-way postoperatively as they're having difficulty caring for her since there is no one with her at home she cannot care for herself well at this time. The plan is temporary half-way and then return to independent living in her own home. All of their questions were answered and they desired to proceed. MARGARET YOUSIF MD Nov 24, 2018 11:07
[2018-11-24] MEDS ORDERED: fentaNYL PF VIAL 100 MCG/2 ML VIAL ONE (11:24)
[2018-11-24] MEDS ORDERED: oxyCODONE/APAP 5/325 1 TAB TABLET PO PRN (12:00)
[2018-11-24] MEDS: oxyCODONE/APAP 5/325 1 TAB TABLET PO PRN ×2 (12:54→21:02)
[2018-11-24] MEDS: IV 1/2 NORMAL SALINE 1,000 ML IV SCH (12:56)
[2018-11-24 15:00] VITALS: BP_SYST 111; BP_SYST 121; BP_DIAS 49; BP_DIAS 51
[2018-11-24 19:20] VITALS: BP 131/53
[2018-11-24] MEDS: SERTRALINE 50 MG TABLET. PO SCH (20:56)
[2018-11-24 23:19] VITALS: BP 110/40
[2018-11-25] MEDS: IV 1/2 NORMAL SALINE 1,000 ML IV SCH ×2 (00:10→13:30)
[2018-11-25 03:31] VITALS: BP 137/53
[2018-11-25] MEDS: IV RINGERS,LACTATED 1000ML 1,000 ML IV SCH (03:45)
[2018-11-25 04:04] LABS: CALCIUM 8.5 mg/dL (8.5-10.1); CREATININE 0.8 mg/dL (0.6-1.0); GFR 68.3; POTASSIUM 3.8 mmol/L (3.5-5.1)
[2018-11-25] MEDS: LEVOTHYROXINE 25 MCG TABLET. PO SCH (05:58)
[2018-11-25] MEDS ORDERED: MAGNESIUM HYDROXIDE 2,400 MG/30 ML ORAL.SUSP. PO PRN (06:00)
[2018-11-25 07:00] VITALS: BP 108/49
[2018-11-25] MEDS ORDERED: LIDOCAINE 1% PF 2 ML VIAL. ID PRN (07:00)
[2018-11-25] MEDS ORDERED: IV RINGERS,LACTATED 1000ML 1,000 ML IV SCH (07:00)
[2018-11-25] MEDS ORDERED: ONDANSETRON PF 4 MG/2 ML VIAL. IV PRN (07:00)
[2018-11-25] MEDS ORDERED: PROCHLORPERAZINE 10 MG/2 ML VIAL. IV PRN (07:00)
[2018-11-25] MEDS ORDERED: fentaNYL PF VIAL 100 MCG/2 ML VIAL IV PRN ×2 (07:00)
[2018-11-25] MEDS: SENNOSIDES/DOCUSATE 8.6/50MG TABLET. PO SCH (08:27)
[2018-11-25] MEDS: FUROSEMIDE 20 MG TABLET PO SCH (08:27)
[2018-11-25] MEDS: POTASSIUM CHLORIDE 10 MEQ TABLET.ER. PO SCH (08:28)
[2018-11-25] MEDS: PANTOPRAZOLE 40 MG TABLET.DR. PO SCH (08:28)
[2018-11-25] MEDS: oxyCODONE/APAP 5/325 1 TAB TABLET PO PRN ×2 (08:28→20:40)
[2018-11-25] MEDS: CHOLECALCIFEROL (VITAMIN D3) 1,000 UNIT TABLET PO SCH (08:28)
[2018-11-25] MEDS ORDERED: FLU VAX QS 2019-20 (36MOS+)/PF 0.5 ML SYRINGE. VAX IM ONE (09:00)
--- NOTE | 2018-11-25 10:49 | PDOC ---
LUIS A CLOUD MID LEVEL GAME DESIGNER 11/25/18 1049: ORTHO PROGRESS NOTES Subjective Patient walking in hallway with PT using platform walker. Post-op Day: 1 Procedure ORIF left distal radius. Vitals Vital Signs Date Time Temp Pulse Resp B/P (MAP) Pulse Ox O2 Delivery O2 Flow Rate FiO2 11/25/18 09:30 Room Air 11/25/18 08:28 1.5 11/25/18 07:00 97.8 77 16 108/49 (68) 95 97.8 Labs Laboratory Tests Test 11/25/18 03:30 Sodium Level 141 mmol/L (136-145) Potassium Level 3.8 mmol/L (3.5-5.1) Chloride Level 107 mmol/L (98-107) Carbon Dioxide Level 27 mmol/L (21-32) Anion Gap 7 (6-14) Blood Urea Nitrogen 11 mg/dL (7-20) Creatinine 0.8 mg/dL (0.6-1.0) Estimated GFR (Cockcroft-Gault) 68.3 Glucose Level 128 mg/dL (70-99) Calcium Level 8.5 mg/dL (8.5-10.1) 25-Hydroxy Vitamin D Total 29.1 ng/mL (30-100) Laboratory Tests Test 11/25/18 03:30 Sodium Level 141 mmol/L (136-145) Potassium Level 3.8 mmol/L (3.5-5.1) Chloride Level 107 mmol/L (98-107) Carbon Dioxide Level 27 mmol/L (21-32) Anion Gap 7 (6-14) Blood Urea Nitrogen 11 mg/dL (7-20) Creatinine 0.8 mg/dL (0.6-1.0) Estimated GFR (Cockcroft-Gault) 68.3 Glucose Level 128 mg/dL (70-99) Calcium Level 8.5 mg/dL (8.5-10.1) 25-Hydroxy Vitamin D Total 29.1 ng/mL (30-100) Notes Alert and up walking Assessment and Plan POD #1 ORIF Left wrist moving fingers,elbow and shoulder on request sensation intact at the fingers splint intact Awaiting decision on going to rehab F/U in clinic in 2 weeks, call for appt. MARGARET YOUSIF MD 11/25/18 1113: Attending Co-Sign Attending Co-Sign The case was reviewed. Patient is unsafe for home discharge due to inability to care for herself (she lives alone) and family are unable to care for her due to work commitments. She is medically stable for discharge (she received postop IV antibiotics for 23 hours.) Recommend SNU eval and SNU transfer. She will be out of the postop splint in 2-3 weeks. LUIS A CLOUD APRN Nov 25, 2018 10:49 MARGARET YOUSIF MD Nov 25, 2018 11:13
[2018-11-25 11:00] VITALS: BP 109/39
--- NOTE | 2018-11-25 12:16 | NUR ---
SS following for discharge planning. SS received phone contact on 11/24/2018 from physician stating that pt had come in for outpatient procedure but lives at home alone and is unsafe to return to home. SS was asked to screen pt for halfway unit. Pt admitted and PT/OT ordered. SS currently awaiting PT/OT evaluations and recommendations and will proceed accordingly with halfway unit referral. SS was notified that pt's family is also looking at Assisted Living options. Pt will need three midnights admitted prior to being able to go to halfway unit per Medicare guidelines. SS will continue to follow for discharge planning.
[2018-11-25 15:00] VITALS: BP 95/39
[2018-11-25] MEDS ORDERED: BISACODYL 10 MG SUPP.RECT. PR PRN (16:00)
[2018-11-25 19:53] VITALS: BP 106/48
[2018-11-25] MEDS: SERTRALINE 50 MG TABLET. PO SCH (20:40)
[2018-11-25 23:30] VITALS: BP 104/47
--- NOTE | 2018-11-26 01:25 | NUR ---
Report received from KAVITHA Martin and this nurse assumed care of patient at this time. Patient in bed resting with call light within reach, will continue to monitor.
[2018-11-26 03:42] VITALS: BP 124/55
[2018-11-26] MEDS: PANTOPRAZOLE 40 MG TABLET.DR. PO SCH (06:33)
[2018-11-26] MEDS: LEVOTHYROXINE 25 MCG TABLET. PO SCH (06:33)
[2018-11-26] MEDS: oxyCODONE/APAP 5/325 1 TAB TABLET PO PRN ×2 (06:35→17:49)
[2018-11-26 07:00] VITALS: BP 129/49
[2018-11-26] MEDS: SENNOSIDES/DOCUSATE 8.6/50MG TABLET. PO SCH (08:59)
[2018-11-26] MEDS: CHOLECALCIFEROL (VITAMIN D3) 1,000 UNIT TABLET PO SCH (08:59)
[2018-11-26] MEDS: FUROSEMIDE 20 MG TABLET PO SCH (08:59)
[2018-11-26] MEDS: POTASSIUM CHLORIDE 10 MEQ TABLET.ER. PO SCH (08:59)
[2018-11-26 11:00] VITALS: BP 134/51
[2018-11-26] MEDS ORDERED: MIRA50TA PO (12:39)
--- NOTE | 2018-11-26 13:24 | PDOC ---
PROGRESS NOTES Subjective Subjective Comfortable and no complaints. Sitting in a chair. Objective Vital Signs Vital Signs Date Time Temp Pulse Resp B/P (MAP) Pulse Ox O2 Delivery O2 Flow Rate FiO2 11/26/18 11:00 97.7 70 14 134/51 (78) 94 Room Air 97.7 11/26/18 07:43 2.0 Physical Exam Sitting in chair. Splint intact. Good active range of motion of the fingers. No sign of compartment syndrome or neurovascular injury. Capillary refill normal. Sensation normal. Labs Laboratory Tests Test 11/25/18 03:30 Sodium Level 141 mmol/L (136-145) Potassium Level 3.8 mmol/L (3.5-5.1) Chloride Level 107 mmol/L (98-107) Carbon Dioxide Level 27 mmol/L (21-32) Anion Gap 7 (6-14) Blood Urea Nitrogen 11 mg/dL (7-20) Creatinine 0.8 mg/dL (0.6-1.0) Estimated GFR (Cockcroft-Gault) 68.3 Glucose Level 128 mg/dL (70-99) Calcium Level 8.5 mg/dL (8.5-10.1) 25-Hydroxy Vitamin D Total 29.1 ng/mL (30-100) Assessment Assessment POD# Plan Plan of Care Nonweightbearing left upper extremity. residential transfer likely tomorrow MARGARET YOUSIF MD Nov 26, 2018 13:24
[2018-11-26 15:00] VITALS: BP 134/56
--- NOTE | 2018-11-26 15:35 | NUR ---
SS following up with discharge planning. workforce planner phoned and faxed referral to [facility], ; fax [phone], per pt and family request. Awaiting acceptance decision at this time. Pt will need two more midnights per Medicare guidelines. SS will continue to follow for discharge planning.
--- NOTE | 2018-11-26 18:21 | NUR ---
Brooke has done well today. she has been up in the recliner for all meals. she has ambulated to the bathroom with walker and assist of 1. pain has been controlled with oral medications. tolerating food well. family brought in fresh fruit as a snack. was given miralax for a laxative today. awaiting transfer to [facility] Friday
[2018-11-26 19:30] VITALS: BP 118/50
[2018-11-26] MEDS: SERTRALINE 50 MG TABLET. PO SCH (20:21)
[2018-11-26] MEDS: diphenhydrAMINE HCL 25 MG CAPSULE PO PRN (20:21)
[2018-11-26 23:17] VITALS: BP 129/59
[2018-11-27 03:26] VITALS: BP 136/51
[2018-11-27] MEDS: LEVOTHYROXINE 25 MCG TABLET. PO SCH (05:46)
[2018-11-27] MEDS: PANTOPRAZOLE 40 MG TABLET.DR. PO SCH (05:48)
[2018-11-27 07:00] VITALS: BP 133/58
[2018-11-27] MEDS: POTASSIUM CHLORIDE 10 MEQ TABLET.ER. PO SCH (08:23)
[2018-11-27] MEDS: CHOLECALCIFEROL (VITAMIN D3) 1,000 UNIT TABLET PO SCH (08:24)
[2018-11-27] MEDS: SENNOSIDES/DOCUSATE 8.6/50MG TABLET. PO SCH (08:24)
[2018-11-27] MEDS: FUROSEMIDE 20 MG TABLET PO SCH (08:24)
[2018-11-27 11:00] VITALS: BP 132/54
--- NOTE | 2018-11-27 14:12 | NUR ---
SS following up with discharge planning. [facility], ; fax [phone], accepted and can accept pt Friday. Pt needs one more midnight. SS will place on weekend territory supervisor list.
--- NOTE | 2018-11-27 14:40 | PDOC3 ---
Discharge Summary Visit Information Date of Admission: Nov 24, 2018 Date of Discharge: Nov 27, 2018 Admitting Diagnosis: Colles� fracture of left radius Final Diagnosis Problems Medical Problems: (1) Left wrist fracture Status: Acute Colles� fracture of left radius, initial encounter for closed fracture S52.532A Brief Hospital Course Allergies Allergies Coded Allergies Type Severity Reaction Last Updated Verified codeine Allergy Mild Anxiety 11/24/18 Yes Vital Signs Vital Signs Date Time Temp Pulse Resp B/P (MAP) Pulse Ox O2 Delivery O2 Flow Rate FiO2 11/27/18 11:00 98.1 78 19 132/54 (80) 96 Room Air 98.1 11/27/18 03:26 2.0 Lab Results Laboratory Tests Test 11/25/18 03:30 Sodium Level 141 mmol/L (136-145) Potassium Level 3.8 mmol/L (3.5-5.1) Chloride Level 107 mmol/L (98-107) Carbon Dioxide Level 27 mmol/L (21-32) Anion Gap 7 (6-14) Blood Urea Nitrogen 11 mg/dL (7-20) Creatinine 0.8 mg/dL (0.6-1.0) Estimated GFR (Cockcroft-Gault) 68.3 Glucose Level 128 mg/dL (70-99) Calcium Level 8.5 mg/dL (8.5-10.1) 25-Hydroxy Vitamin D Total 29.1 ng/mL (30-100) Brief Hospital Course 83-year-old woman who was admitted with a left wrist displaced unstable distal radius fracture. She was admitted the day of surgery for open treatment and internal fixation of the left wrist fracture. She is unable to care for herself at home. She requires the use of a walker. She was admitted overnight for IV ant ibiotics, and has stayed in the hospital for discharge planning to snf. There is no one to care for her at home. Discharge Information Condition at Discharge: Stable Follow Up: Weeks Disposition/Orders: D/C to Another Facility Scheduled Furosemide (Lasix), 20 MG PO DAILY, (Reported) Levothyroxine Sodium (Levothyroxine Sodium), 1 TAB PO DAILY, (Reported) Mirabegron (Myrbetriq), 50 MG PO DAILY08, (Reported) Pantoprazole Sodium (Protonix), 40 MG PO DAILY, (Reported) Potassium Chloride (Potassium Chloride), 10 MEQ PO DAILY, (Reported) Sertraline Hcl (Zoloft), 50 MG PO HS, (Reported) Scheduled PRN Hydrocodone Bit/Acetaminophen (Hydrocodone-Apap 7.5-325 ), 1 TAB PO PRN Q6HRS PRN for PAIN Hydrocodone/Apap 5-325 ([place] 5-325 Tablet), 1 TAB PO TID PRN for PAIN Naproxen Sodium (Aleve), 220 MG PO DAILY PRN for PAIN, (Reported) Miscellaneous Medications Cyanocobalamin (Vitamin B-12) (B-12), 1,000 MCG PO, (Reported) Patient Instructions Patient Instructions Keep the splint intact and dry. Use a platform walker. 1 pound lifting or pushing restriction with the left hand. Active range of motion of the left fingers encouraged. MARGARET YOUSIF MD Nov 27, 2018 14:40
--- NOTE | 2018-11-27 14:45 | SNU/HH DC ---
DISCHARGE ORDERS DISCHARGE INFORMATION: DISCHARGE DATE: Nov 27, 2018 FINAL DIAGNOSIS Problems Medical Problems: (1) Left wrist fracture Status: Acute CONDITION ON DISCHARGE: Stable CODE STATUS: Code Status: Full DETENTION: SNF STAY <30 DAYS: Yes HOSPICE: HOSPICE: No HOSPICE EVAL & TREAT: No LTAC: ADMIT TO LTAC: No POST DISCHARGE ORDERS: ACTIVITY ORDERS: Activity as tolerated, Avoid exertion, Other, see below WEIGHT BEARING STATUS: As tolerated, Other, see below WOUND/INCISION CARE: Ice to area for comfort, Keep wound/cast CDI, Keep wound elevated, Do not change dressing, No wound care needed OTHER ORDERS: left hand 1 pound lifting or pushing restriction. TREATMENT/EQUIPMENT ORDERS: ADAPTIVE EQUIPMENT NEEDED: Platform walker Physical Therapy For: Evalulation/Treatment Occupational Therapy For: Evaluation/Treatment DISCHARGE MEDICATIONS: Home Meds Active Scripts Hydrocodone/Apap 5-325 (NORCO 5-325 TABLET) 1 Each Tablet, 1 TAB PO TID PRN for PAIN, #15 TAB Prov:VÍCTOR WOLF MD 11/17/18 Hydrocodone Bit/Acetaminophen (HYDROCODONE-APAP 7.5-325 ) 1 Each Tablet, 1 TAB PO PRN Q6HRS PRN for PAIN, #20 TAB 0 Refills Prov:TOMY HART MD 07/05/16 Reported Medications Mirabegron (MYRBETRIQ) 50 Mg Tab.er.24h, 50 MG PO DAILY08 for bladder, TAB.SR 11/26/18 Levothyroxine Sodium (LEVOTHYROXINE SODIUM) 25 Mcg Tablet, 1 TAB PO DAILY for thyroid, #30 TAB 5 Refills 11/24/18 Pantoprazole Sodium (PROTONIX) 20 Mg Tablet.dr, 40 MG PO DAILY, TAB 04/08/17 Potassium Chloride (POTASSIUM CHLORIDE) 10 Meq Tablet.er, 10 MEQ PO DAILY, TAB 04/08/17 Furosemide (LASIX) 20 Mg Tablet, 20 MG PO DAILY, TAB 04/08/17 Cyanocobalamin (Vitamin B-12) (B-12) 1,000 Mcg Tablet.er, 1000 MCG PO, TAB.SR 07/01/16 Naproxen Sodium (ALEVE) 220 Mg Tablet, 220 MG PO DAILY PRN for PAIN, TAB 07/01/16 Sertraline Hcl (ZOLOFT) 50 Mg Tablet, 50 MG PO HS, #30 TAB 2 Refills 05/31/15 MARGARET YOUSIF MD Nov 27, 2018 14:45
[2018-11-27 15:00] VITALS: BP 90/60
[2018-11-27 19:00] VITALS: BP 133/42
[2018-11-27] MEDS: SERTRALINE 50 MG TABLET. PO SCH (21:14)
[2018-11-27 23:00] VITALS: BP 113/44
[2018-11-27] MEDS: oxyCODONE/APAP 5/325 1 TAB TABLET PO PRN (23:14)
[2018-11-28 03:00] VITALS: BP 127/44
[2018-11-28 07:00] VITALS: BP 125/46
[2018-11-28] MEDS: LEVOTHYROXINE 25 MCG TABLET. PO SCH (07:32)
--- NOTE | 2018-11-28 09:21 | PDOC ---
ORTHO PROGRESS NOTES Subjective Brooke tells me that her main complaint is some pain at her posterior ankles and heels. It has started since being hospital. She thinks it is related to the coffee she has been drinking. She denies any other complaint or concern, she feels like her left wrist is doing okay Vitals Vital Signs Date Time Temp Pulse Resp B/P (MAP) Pulse Ox O2 Delivery O2 Flow Rate FiO2 11/28/18 03:00 98.4 82 18 127/44 (71) 97 Room Air 98.4 Notes She is awake and alert and lying in bed. The skin around her heels is intact. Normal motor and sensation are present bilaterally lower extremity is. Left upper extremity is in a splint. Edema is noted at her fingers. She wiggles her fingers though. Assessment and Plan We will float her heels. This may be a pressure phenomenon versus some spinal issue. From my standpoint she can be transferred whenever a bed is available. AGNES MURPHY II, MD Nov 28, 2018 09:21
[2018-11-28 11:00] VITALS: BP 121/53
[2018-11-28] MEDS: SENNOSIDES/DOCUSATE 8.6/50MG TABLET. PO SCH (11:29)
[2018-11-28] MEDS: POTASSIUM CHLORIDE 10 MEQ TABLET.ER. PO SCH (11:29)
[2018-11-28] MEDS: PANTOPRAZOLE 40 MG TABLET.DR. PO SCH (11:29)
[2018-11-28] MEDS: FUROSEMIDE 20 MG TABLET PO SCH (11:29)
[2018-11-28] MEDS: CHOLECALCIFEROL (VITAMIN D3) 1,000 UNIT TABLET PO SCH (11:30)
[2018-11-28 15:00] VITALS: BP 120/50
[2018-11-28 19:25] VITALS: BP 117/54
[2018-11-28] MEDS: SERTRALINE 50 MG TABLET. PO SCH (20:08)
[2018-11-28] MEDS: oxyCODONE/APAP 5/325 1 TAB TABLET PO PRN (20:08)
[2018-11-28] MEDS: diphenhydrAMINE HCL 25 MG CAPSULE PO PRN (23:28)
[2018-11-28 23:32] VITALS: BP 128/37
[2018-11-29 03:31] VITALS: BP 113/38
[2018-11-29] MEDS: LEVOTHYROXINE 25 MCG TABLET. PO SCH (06:27)
[2018-11-29 07:00] VITALS: BP 117/45
[2018-11-29 10:53] VITALS: BP 121/49
--- NOTE | 2018-11-29 11:19 | PDOC ---
ORTHO PROGRESS NOTES Subjective Foot and ankle pain better, no new complaints Vitals Vital Signs Date Time Temp Pulse Resp B/P (MAP) Pulse Ox O2 Delivery O2 Flow Rate FiO2 11/29/18 10:53 97.9 68 18 121/49 (73) 94 Room Air 97.9 Notes A and A, in chair LUE: splint intact normal m/s present Assessment and Plan ok to transfer, f/u Gabriela in 2 wks ANTONY JUNG, platform walker AGNES Dougherty II, MD Nov 29, 2018 11:19
--- NOTE | 2018-11-29 12:22 | NUR ---
Discharge teaching completed with patient. No IV site present. Telephone contact with Chey, daughter. Report given to Yazmin PLUMMER at [facility]. Also notified [facility] that patient's wheelchair is here at the nurse's station. RX for [place] sent to [facility]. Am medications will be given by [facility]. Synthroid already given. Patient transported by transport van.
== END 2018-11-29 11:15 | DRG 512 ==
LOC: SURG 06:51 → 4 NORTH 11:41 → OBSVTOIN 11-25 09:40
PROVIDERS: ADMIT Orthopaedic Surgery; ATTEND Orthopaedic Surgery
PROC: 0PSJ04Z Reposition Left Radius with Internal Fixation Device, Open Approach (ICD-10-PCS; principal; 2018-11-24 09:00)
DX: S52.532A Colles' fracture of left radius, initial encounter for closed fracture (principal); F41.9 Anxiety disorder, unspecified; F32.9 Major depressive disorder, single episode, unspecified; Z60.2 Problems related to living alone; I10 Essential (primary) hypertension; K21.9 Gastro-esophageal reflux disease without esophagitis; M19.049 Primary osteoarthritis, unspecified hand; M81.0 Age-related osteoporosis without current pathological fracture; W19.XXXA Unspecified fall, initial encounter; Y93.89 Activity, other specified; Y92.098 Other place in other non-institutional residence as the place of occurrence of the external cause; Y99.8 Other external cause status; Z90.711 Acquired absence of uterus with remaining cervical stump; Z88.5 Allergy status to narcotic agent
CPT/HCPCS: 36415; 80048; 82306; 90471; 90686; A7015; C1713; G0378; G0379; J0696; J1100; J2001; J2370; J2405; J2704; J3010; J3490; Q0163; 97110; 97116; 97530; 97535

== ENCOUNTER 2019-08-20 20:14 | Emergency (ER) | payer MEDICARE ==
[~2019-08-20] VITALS: Ht 152.4 cm; Wt 65.9 kg
[~2019-08-20 20:14] MED LIST changes: +LEVO25TA4 PO; +MIRA50TA PO; -OMEP20CA10 PO; +OMEP20CA16 PO; -POTA10TA12 PO; +POTASSIUM CHLO10 ME1 PO
--- NOTE | 2019-08-20 21:51 | PHYS DOC ---
Past Medical History Past Medical History: Anemia, Depression, Other Additional Past Medical Histor: EDEMA,FALLS Past Surgical History: Hysterectomy Smoking Status: Never Smoker Alcohol Use: None Drug Use: None General Adult EDM: Chief Complaint: MECHANICAL FALL HPI: HPI: Patient is a 84 year old male brought to the emergency department by EMS with complaints of neck pain that occurred at approximately 1700 at the patient's home. The fall was from a seated position and witnessed by the patient's daughter who denied any loss of consciousness per EMS. The patient denies feeling dizzy having any vision changes, chest pain, shortness of breath, fever, cough, nausea, vomiting, diarrhea, abdominal pain, or low back pain. She is not sure why she fell, she is alert to person, place, day, year, and situation. Patient reports a history of some memory problems there is great difficulty recalling patient medical and surgical history. She currently rates the pain a 10 out of 10 on the pain scale, she denies any alleviating or exacerbating factors. Patient states that she has pain in her right hip that is chronic pain and nothing new. Review of Systems: Review of Systems: Constitutional: Denies fever or chills. [] Eyes: Denies change in visual acuity. [] HENT: Denies nasal congestion or sore throat. [] Respiratory: Denies cough or shortness of breath. [] Cardiovascular: Denies chest pain or edema. [] GI: Denies abdominal pain, nausea, vomiting, or diarrhea. [] Musculoskeletal: See HPI Integument: Denies rash. [] Neurologic: Denies headache, focal weakness or sensory changes. [] Psychiatric: Denies depression or anxiety. [] Heart Score: Risk Factors: Risk Factors: DM, Current or recent (<one month) smoker, HTN, HLP, family history of CAD, obesity. Risk Scores: Score 0 - 3: 2.5% MACE over next 6 weeks - Discharge Home Score 4 - 6: 20.3% MACE over next 6 weeks - Admit for Clinical Observation Score 7 - 10: 72.7% MACE over next 6 weeks - Early Invasive Strategies Allergies: Allergies: Allergies Coded Allergies Type Severity Reaction Last Updated Verified codeine Allergy Mild Anxiety 11/24/18 Yes Physical Exam: PE: Constitutional: Well developed, well nourished, no acute distress, non-toxic appearance. [] HENT: Normocephalic, atraumatic, bilateral external ears normal, nose normal. [] Eyes: PERRLA, EOMI, conjunctiva normal, no discharge. [] Neck: Normal range of motion, cervical tenderness, no stridor. [] Cardiovascular:Heart rate regular rhythm, no murmur [] Lungs & Thorax: Bilateral breath sounds clear to auscultation, Respirations even and unlabored, no retractions, no respiratory distress [] Abdomen: soft, no tenderness pelvis: nontender to palpation. Skin: Warm, dry, no erythema, no rash. [] Extremities: No tenderness, no cyanosis, ROM intact, no edema. [] Neurologic: Alert and oriented X 3, normal motor function, normal sensory function, no focal deficits noted. [] Psychologic: Affect normal, judgement normal, mood normal. [] Current Patient Data: Vital Signs: Vital Signs Date Time Temp Pulse Resp B/P (MAP) Pulse Ox O2 Delivery O2 Flow Rate FiO2 08/19/ 21:37 98.6 97 16 147/68 (94) 93 Room Air 98.6 EKG: EK sinus tachycardia rate 101, with left atrial abnormality and leftward axis, no STEMI, read by Dr. Topete. [] Radiology/Procedures: Radiology/Procedures: PROCEDURE: CT HEAD AND CERVICAL SPINE WO Exam: CT head and cervical spine INDICATION: Fall, hit head, neck pain TECHNIQUE: Sequential axial images through the head and cervical spine were obtained without the administration of IV contrast. Comparisons: None FINDINGS: Head: No focal parenchymal lesion or hemorrhage is identified. There is no midline shift or sulcal effacement. No acute vascular territory infarction is identified. Mcknight-white distinction is preserved. The ventricular system is within normal limits without compression hydrocephalus. The basal cisterns are well maintained. The visualized portions of the paranasal sinuses and mastoid air cells are well-pneumatized. No acute fractures. Cervical spine: Vertebral body heights and alignment are well-maintained. There is a transverse fracture through the base of the dens which is mildly displaced. No other fracture identified in the cervical spine. Overall mild multilevel spondylotic change in cervical spine with diffuse facet arthropathy and degenerative disc disease. Visualized paraspinal soft tissues are unremarkable. IMPRESSION: 1. No acute intracranial abnormality. 2. Transverse fractures of the base of the dens, mildly displaced. There is mild hyperdensity along the posterior surface of the fracture which may relate to a small epidural hematoma. MRI would better evaluate.[] Course & Med Decision Making: Course & Med Decision Making Pertinent Labs and Imaging studies reviewed. (See chart for details) 2148- per Dr. Ashby with radiology there appears to be a displaced fracture to the dens on CT, no intracranial bleed. Advise Dr. Topete of this finding will page neurosurgery. 2233 Per Elizabeth SPLICING SUPERVISOR with Dr. Reeder there is no neurosurgery coverage this evening, will tx patient to [facility] 2248- per [facility] tx team is the accepting trauma surgeon, keep patient in C-collar for transport to trauma ICU [] Dragon Disclaimer: Dragon Disclaimer: This electronic medical record was generated, in whole or in part, using a voice recognition dictation system. Departure Departure Impression: Primary Impression: Traumatic closed fracture of C2 vertebra with minimal displacement Qualified Codes: S12.100A - Unspecified displaced fracture of second cervical vertebra, initial encounter for closed fracture Additional Impression: Fall Qualified Codes: W19.XXXA - Unspecified fall, initial encounter Disposition: 05 TRANSFER OTHER Condition: STABLE Referrals: TIM MONZON MD (PCP) Justicifation of Admission Dx: Justifications for Admission: Justification of Admission Dx: N/A MANJIT ROA SCIENCE INSTRUCTOR Aug 20, 2019 21:51
[2019-08-20 21:52] LABS: BASO % 1 % (0-3); EOS # 0.3 x10^3/uL (0.0-0.7); EOS % 5 % (0-3); HEMATOCRIT 30.5 % (36.0-47.0); HEMOGLOBIN 10.1 g/dL (12.0-15.5); LYMPH # 1.4 x10^3/uL (1.0-4.8); LYMPH % 24 % (24-48); MEAN CORPUSCULAR HEMOGLOBIN 29 pg (25-35); MEAN CORPUSCULAR HGB CONC 33 g/dL (31-37); MEAN CORPUSCULAR VOLUME 86 fL (79-100); MONO # 0.7 x10^3/uL (0.0-1.1); MONO % 12 % (0-9); NEUT # 3.4 x10^3/uL (1.8-7.7); NEUT % 59 % (31-73); PLATELET COUNT 235 x10^3/uL (140-400); RED BLOOD COUNT 3.56 x10^6/uL (3.50-5.40); RED CELL DISTRIBUTION WIDTH 17.3 % (11.5-14.5); WHITE BLOOD COUNT 5.7 x10^3/uL (4.0-11.0)
--- NOTE | 2019-08-20 21:56 | RAD ---
Exam: CT head and cervical spine INDICATION: Fall, hit head, neck pain TECHNIQUE: Sequential axial images through the head and cervical spine were obtained without the administration of IV contrast. Comparisons: None FINDINGS: Head: No focal parenchymal lesion or hemorrhage is identified. There is no midline shift or sulcal effacement. No acute vascular territory infarction is identified. Mcknight-white distinction is preserved. The ventricular system is within normal limits without compression hydrocephalus. The basal cisterns are well maintained. The visualized portions of the paranasal sinuses and mastoid air cells are well-pneumatized. No acute fractures. Cervical spine: Vertebral body heights and alignment are well-maintained. There is a transverse fracture through the base of the dens which is mildly displaced. No other fracture identified in the cervical spine. Overall mild multilevel spondylotic change in cervical spine with diffuse facet arthropathy and degenerative disc disease. Visualized paraspinal soft tissues are unremarkable. IMPRESSION: 1. No acute intracranial abnormality. 2. Transverse fractures of the base of the dens, mildly displaced. There is mild hyperdensity along the posterior surface of the fracture which may relate to a small epidural hematoma. MRI would better evaluate. Exposure: One or more of the following in the visualized dose reduction techniques were utilized for this examination: 1. Automated exposure control 2. Adjustment of the MA and/or KV according to patient size Use of iterative of reconstructive technique FOR INTERNAL CODING PURPOSES Critical result: Findings discussed with MANJIT ROA at 08/20/2019 9:49 PM. RESULT CODE: (C) Electronically signed by: Eusebio Ashby MD (08/20/2019 9:53 PM) [id number]
[2019-08-20 22:00] LABS: CALCIUM 8.8 mg/dL (8.5-10.1); CREATININE 0.8 mg/dL (0.6-1.0); GFR 68.2; POTASSIUM 3.7 mmol/L (3.5-5.1); PROTHROMBIN TIME PATIENT 13.2 SEC (11.7-14.0)
[2019-08-20 22:06] LABS: ALBUMIN/GLOBULIN RATIO 0.9 (1.0-1.7); TOTAL BILIRUBIN 0.3 mg/dL (0.2-1.0); TOTAL PROTEIN 6.5 g/dL (6.4-8.2)
[2019-08-20] MEDS ORDERED: fentaNYL PF VIAL 100 MCG/2 ML VIAL IV ONE (23:15)
[2019-08-20] MEDS ORDERED: ONDANSETRON PF 4 MG/2 ML VIAL. IV ONE (23:15)
[2019-08-20 23:24] VITALS: BP 133/59
--- NOTE | 2019-08-24 10:35 | EKG ---
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
--- NOTE | 2019-08-24 11:14 | EKG ---
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
== END 2019-08-20 23:40 | disposition short-term general hospital (02) ==
LOC: ER 20:14
DX: S12.15 Other traumatic spondylolisthesis of second cervical vertebra (principal); M54.2 Cervicalgia; F32.9 Major depressive disorder, single episode, unspecified; Z90.710 Acquired absence of both cervix and uterus; Z88.5 Allergy status to narcotic agent; W18.39XA Other fall on same level, initial encounter; Y93.89 Activity, other specified; Y92.89 Other specified places as the place of occurrence of the external cause; Y99.8 Other external cause status
CPT/HCPCS: 70450; 72125; 80053; 82553; 83735; 84484; 85025; 85610; 85730; 96374; 96375; 99285; J2405; J3010; 93005

== ENCOUNTER 2020-10-17 15:10 | Emergency (ER) | payer MEDICARE ==
[~2020-10-17] VITALS: Ht 152.4 cm; Wt 65.9 kg
[~2020-10-17 15:10] MED LIST changes: -DOXY100C2 PO; +DOXY100C3 PO; +MIRA25TA PO; -MIRA50TA PO
[2020-10-17] MEDS ORDERED: IBUPROFEN 200 MG TABLET. PO ONE (17:45)
[2020-10-17] MEDS ORDERED: ACETAMINOPHEN 325 MG TABLET. PO ONE (17:45)
[2020-10-17] MEDS ORDERED: ACETAMINOPHEN 500 MG TABLET PO ONE (18:00)
--- NOTE | 2020-10-17 18:28 | RAD ---
XR CHEST 1V History: Reason: Cough, PUI / Spl. Instructions: / History: Comparison: April 08, 2017 Findings: No consolidation or pleural effusion. Normal heart size. No pneumothorax. Impression: 1. No acute cardiopulmonary process. Electronically signed by: Chaka Irving DO (10/17/2020 6:25 PM) [facility]
[2020-10-17 18:31] LABS: BASO # 0.1 x10^3/uL (0.0-0.2); BASO % 1 % (0-3); EOS # 0.2 x10^3/uL (0.0-0.7); EOS % 2 % (0-3); HEMATOCRIT 36.2 % (36.0-47.0); HEMOGLOBIN 12.1 g/dL (12.0-15.5); LYMPH # 1.2 x10^3/uL (1.0-4.8); LYMPH % 14 % (24-48); MEAN CORPUSCULAR HEMOGLOBIN 32 pg (25-35); MEAN CORPUSCULAR HGB CONC 34 g/dL (31-37); MEAN CORPUSCULAR VOLUME 94 fL (79-100); MONO # 0.7 x10^3/uL (0.0-1.1); MONO % 9 % (0-9); NEUT # 6.6 x10^3/uL (1.8-7.7); NEUT % 75 % (31-73); PLATELET COUNT 195 x10^3/uL (140-400); RED BLOOD COUNT 3.85 x10^6/uL (3.50-5.40); RED CELL DISTRIBUTION WIDTH 15.1 % (11.5-14.5); WHITE BLOOD COUNT 8.8 x10^3/uL (4.0-11.0)
--- NOTE | 2020-10-17 18:35 | PHYS DOC ---
Past Medical History Past Medical History: Anemia, Depression, Other Additional Past Medical Histor: [place], [place] Past Surgical History: Hysterectomy, Other Additional Past Surgical Histo: bilat feet Smoking Status: Never Smoker Alcohol Use: None Drug Use: None General Adult EDM: Chief Complaint: FLU SYMPTOM HPI: HPI: Patient is a 85 year old female presents to the emergency department chief complaint of generalized body aches, generalized weakness, headaches, chronic neck and shoulder pain for the past 3 days. Patient fears she might have the COVID-19 virus and has been using her incentive spirometry apparatus daily. Patient denies shortness of breath, chest pain, chest congestion, fever or chills, nausea, vomiting, or diarrhea. Patient reports her pain is a 9 out of 10. Patient states she fractured her cervical spine approximately 2 years ago and reports she is not eligible for surgery related to her age, states she takes pain medications for chronic neck and shoulder pain. Patient denies any changes in her neck pain or shoulder pain, states this is ongoing however has not taken any pain medications today. Patient denies receiving the COVID-19 virus vaccination series patient denies any other physical complaints or physical concerns Review of Systems: Review of Systems: 14 body systems of review of systems have been reviewed. See HPI for pertinent positives and negative responses, otherwise all other systems are negative, nonpertinent or noncontributory. Constitutional: Negative except as outlined in HPI above. Skin: Negative except as outlined in HPI above. Eyes: Negative except as outlined in HPI above. HENT: Negative except as outlined in HPI above. Respiratory: Negative except as outlined in HPI above. Cardiovascular: Negative except as outlined in HPI above. GI: Negative except as outlined in HPI above. : Negative except as outlined in HPI above. Musculoskeletal: Negative except as outlined in HPI above. Integument: Negative except as outlined in HPI above. Neurologic: Negative except as outlined in HPI above. Endocrine: Negative except as outlined in HPI above. Lymphatic: Negative except as outlined in HPI above. Psychiatric: Negative except as outlined in HPI above. Heart Score: C/O Chest Pain: No Risk Factors: Risk Factors: DM, Current or recent (<one month) smoker, HTN, HLP, family history of CAD, obesity. Risk Scores: Score 0 - 3: 2.5% MACE over next 6 weeks - Discharge Home Score 4 - 6: 20.3% MACE over next 6 weeks - Admit for Clinical Observation Score 7 - 10: 72.7% MACE over next 6 weeks - Early Invasive Strategies Current Medications: Current Medications Medications (Trade) Dose Ordered Sig/Bhavna Start Time Stop Time Status Last Admin Dose Admin Acetaminophen (Tylenol) 1,000 mg 1X ONCE 10/17/20 18:00 10/17/20 18:01 DC Ibuprofen (Motrin) 600 mg 1X ONCE 10/17/20 17:45 10/17/20 17:46 DC 10/17/20 17:56 600 MG Allergies: Allergies: Allergies Coded Allergies Type Severity Reaction Last Updated Verified codeine Allergy Mild Anxiety 11/24/18 Yes Physical Exam: PE: Constitutional: Well developed, well nourished, no acute distress, non-toxic appearance. 85-year-old female in no apparent distress. HENT: Normocephalic, atraumatic. Oropharynx moist, pink, no deep tissue infectious process appreciated, no lymphadenopathy of the head or neck appreciated, bilateral TMs within normal limits. Eyes: Conjunctiva normal, no discharge. Neck: Normal range of motion, no stridor. Pain to palpation along musculoskeletal structures of the cervical spine. No step-offs appreciated, no crepitus appreciated, no bruising or swelling appreciated. Cardiovascular: No cyanosis appreciated, distal cap refill less than 2 seconds. Heart sounds S1-S2 auscultation. Lungs & Thorax: Patient is in no respiratory distress, no audible adventitious lung sounds appreciated. Lung sounds clear to auscultate all lung torres, normal work of breathing. Abdomen: Nontender, no abnormalities noted. Skin: Warm, dry, no erythema, no rash. Back: No tenderness, no deformities. Extremities: No tenderness, no cyanosis, no clubbing, ROM intact, no edema. Neurologic: Alert and oriented X 3, normal motor function, normal sensory function, no focal deficits noted. Psychologic: Affect normal, judgement normal, mood normal. Current Patient Data: Labs: Laboratory Tests Test 10/17/20 18:10 10/17/20 18:30 10/17/20 19:05 White Blood Count 8.8 x10^3/uL Red Blood Count 3.85 x10^6/uL Hemoglobin 12.1 g/dL Hematocrit 36.2 % Mean Corpuscular Volume 94 fL Mean Corpuscular Hemoglobin 32 pg Mean Corpuscular Hemoglobin Concent 34 g/dL Red Cell Distribution Width 15.1 % Platelet Count 195 x10^3/uL Neutrophils (%) (Auto) 75 % Lymphocytes (%) (Auto) 14 % Monocytes (%) (Auto) 9 % Eosinophils (%) (Auto) 2 % Basophils (%) (Auto) 1 % Neutrophils # (Auto) 6.6 x10^3/uL Lymphocytes # (Auto) 1.2 x10^3/uL Monocytes # (Auto) 0.7 x10^3/uL Eosinophils # (Auto) 0.2 x10^3/uL Basophils # (Auto) 0.1 x10^3/uL Sodium Level 138 mmol/L Potassium Level 3.6 mmol/L Chloride Level 105 mmol/L Carbon Dioxide Level 26 mmol/L Anion Gap 7 Blood Urea Nitrogen 15 mg/dL Creatinine 0.7 mg/dL Estimated GFR (Cockcroft-Gault) 79.3 BUN/Creatinine Ratio 21 Glucose Level 97 mg/dL Calcium Level 8.7 mg/dL Total Bilirubin 0.8 mg/dL Aspartate Amino Transf (AST/SGOT) 20 U/L Alanine Aminotransferase (ALT/SGPT) 19 U/L Alkaline Phosphatase 92 U/L Total Protein 6.4 g/dL Albumin 3.0 g/dL Albumin/Globulin Ratio 0.9 D-Dimer (Nedra) 0.82 ug/mlFEU Urine Collection Type Unknown Urine Color Yellow Urine Clarity Clear Urine pH 6.5 Urine Specific [place] 1.025 Urine Protein Negative mg/dL Urine Glucose (UA) Negative mg/dL Urine Ketones (Stick) Trace mg/dL Urine Blood Negative Urine Nitrite Negative Urine Bilirubin Negative Urine Urobilinogen Dipstick 1.0 mg/dL Urine Leukocyte Esterase Small Urine RBC 0 /HPF Urine WBC 1-4 /HPF Urine Squamous Epithelial Cells Mod /LPF Urine Bacteria 0 /HPF Urine Mucus Slight /LPF Current Medications Medications (Trade) Dose Ordered Sig/Bhavna Route PRN Reason Start Time Stop Time Status Last Admin Dose Admin Acetaminophen (Tylenol) 1,000 mg 1X ONCE PO 10/17/20 17:45 10/17/20 17:46 DC Ibuprofen (Motrin) 600 mg 1X ONCE PO 10/17/20 17:45 10/17/20 17:46 DC 10/17/20 17:56 Acetaminophen (Tylenol) 1,000 mg 1X ONCE PO 10/17/20 18:00 10/17/20 18:01 DC 10/17/20 17:56 Vital Signs: Vital Signs Date Time Temp Pulse Resp B/P (MAP) Pulse Ox O2 Delivery O2 Flow Rate FiO2 10/17/20 17:00 100.3 94 16 154/70 (94) 94 Room Air 100.3 EKG: EKG: [] Radiology/Procedures: Radiology/Procedures: PATIENT: JEFFERSON ABURTO ACCOUNT: [id number] : 1935 LOCATION: ER AGE: 85 SEX: F EXAM STATUS: REG ER ORD. PHYSICIAN: MEIL COFFEY APRN REASON: Cough, PUI PROCEDURE: CHEST AP ONLY XR CHEST 1V History: Reason: Cough, PUI / Spl. Instructions: / History: Comparison: April 08, 2017 Findings: No consolidation or pleural effusion. Normal heart size. No pneumothorax. Impression: 1. No acute cardiopulmonary process. Electronically signed by: Chaka Irving DO (10/17/2020 6:25 PM) [facility] Course & Med Decision Making: Course & Med Decision Making Pertinent Labs and Imaging studies reviewed. (See chart for details) 85-year-old female, vital signs reviewed, presents to the emergency department concerning Covid virus type signs and symptoms. Physical examination concerning for viral syndrome versus Covid virus illness. Will order urinalysis assay, CBC, CMP, Covid virus testing, chest x-ray, D-dimer Patient's urine is not infected, lab work unremarkable, age-adjusted D-dimer did not indicate venous emboli, the patient was not hypoxic, the patient had no respiratory distress. Chest x-ray nonconcerning. Patient was given p.o. Tylenol and Motrin while pending lab results, upon reevaluation of the patient, patient reports her pain is now a 2 out of 10, patient reports this is tolerable for her and she is ready to go home. Discussed with patient COVID-19 virus lab test pending and should be available within the next 48 hours, patient gave verbal understanding of this. Discussed with patient strict follow-up with primary care this week, continue Tylenol and/or Motrin for generalized body aches and fevers, patient is amenable to ED discharge planning. Diagnosis PUI, differential diagnosis viral syndrome. Repeat oral temp taken by me during reevaluation of the patient is 98.1. Discussed with the patient all findings and diagnostic testing as well as the need to follow-up with their primary care provider for further evaluation and treatment or return to the ED if any new or worsening symptoms. Strict return precautions were also discussed at length, the patient voiced understanding and agreement with the discharge planning. The patient was nontoxic in appearance, in no apparent distress, and hemodynamically stable at the time of disposition. Dragon Disclaimer: Dragon Disclaimer: This electronic medical record was generated, in whole or in part, using a voice recognition dictation system. Departure Departure Impression: Primary Impression: Person under investigation for COVID-19 Additional Impression: Viral syndrome Disposition: HOME / SELF CARE / HOMELESS Condition: GOOD Referrals: TIM MONZON MD (PCP) Patient Instructions: Viral Syndrome Additional Instructions: You were seen here today for COVID-19 virus type signs and symptoms. An extensive respiratory work-up was performed today in the emergency department your physical presentation and blood lab work and chest x-ray is reassuring, there is no infectious process that would warrant a hospital admission. As we discussed at length, continue taken Tylenol and or Motrin for your body aches and pains along with fevers at home. As we also discussed at length, please follow-up with your primary care physician or the nurse practitioner in his office for reevaluation of your symptoms and ongoing pain management for your chronic neck pains related to your fractured neck that you reported from 2 years ago. You were also tested today for the COVID-19 virus, as we discussed the results should be available within the next 48 hours. Please reviewed the COVID-19 virus information I have attached to this document. Please return to the emergency department for worsening symptoms or other concerns. Thank you for visiting our Emergency Department. It was a pleasure taking care of you today in the emergency department and we appreciate you trusting us with your care. If any additional problems come up don't hesitate to return to visit us. Please follow up with your primary care provider so they can plan additional care if needed and know about the problem that you had. If symptoms worsen come back to the Emergency Department. Any concerning symptoms that start such as chest pain, shortness of air, weakness or numbness on one side of the body, running high fevers or any other concerning symptoms return to the ER. EMERGENCY DEPARTMENT GENERAL DISCHARGE INSTRUCTIONS Thank you for coming to [facility] Emergency Department (ED) today and trusting us with you care. We trust that you had a positive experience in our Emergency Department. If you wish to speak to the department management, you may call the Director at [phone]. YOUR FOLLOW UP INSTRUCTIONS ARE FOLLOWS: 1. Do you have a private Doctor? If you do not have a private doctor, please ask for a resource list of physicians or clinics that may be able to assist you with follow up care. 2. The Emergency Physicain has interpreted your x-rays. The X-Ray specialist will also review them. If there is a change in the findings, you will be notified in 48 hours when at all possible. 3. A lab test or culture has been done, your results will be reviewed and you will be notified if you need a change in treatment. ADDITIONAL INSTRUCTIONS AND INFORMATION: 1. Your care today has been supervised by a physician who is specially trained in emergency care. Many problems require more than one evaluation for a complete diagnosis and treatment. We recommend that you schedule your follow up appointment as recommended to ensure complete treatment of you illness or injury. If you are unable to obtain follow up care and continue to have a problem, or if your condition worsens, we recommend that you return to the ED. 2. We are not able to safely determine your condition over the phone nor are we able to give sound medical advice over the phone. For these safety reasons, if you call for medical advice we will ask you to come to the ED for further evaluation. 3. If you have any questions regarding these discharge instructions please call the ED at [phone]. SAFETY INFORMATION: In the interest of safety, wellness, and injury prevention; we encourage you to wear your sealbelt, if you smoke; quite smoking, and we encourage family to use a protective helmet for bicycling and other sporting events that present an increased risk for head injury. IF YOUR SYMPTOMS WORSEN OR NEW SYMPTOMS DEVELOP, OR YOU HAVE CONCERNS ABOUT YOUR CONDITION; OR IF YOUR CONDITION WORSENS WHILE YOU ARE WAITING FOR YOUR FOLLOW UP APPOINTMENT; EITHER CONTACT YOUR PRIMARY CARE DOCTOR, THE PHYSICIAN WHOSE NAME AND NUMBER YOU WERE GIVEN, OR RETURN TO THE ED IMMEDIATELY. You have been tested for or diagnosed with COVID-19. It is an infection caused by a new type of coronavirus. COVID-19 will cause cold-like or mild flu symptoms in most. It can cause more severe symptoms like problems breathing in some. There is no treatment for COVID-19. The body will clear the infection over time. Self-care will help to ease discomfort. Steps to Take: Self-Care Rest as needed. Healthy habits may help you feel better. Steps include: Choose healthy foods including fruits and vegetables. Drink water throughout the day. Get plenty of sleep each night. If you smoke, try to quit. It may ease breathing. Avoid alcohol. Keep Others Healthy The virus can spread to others. Droplets are released every time you sneeze or cough. The droplets can get into the mouth, nose, or eyes of people near you and lead to infection. To lower the chances of spreading COVID-19 to others: Stay at home until your doctor has said it is safe to leave. If you tested positive this will mean staying isolated until both of the following are true: At least 7 days have passed since the start of illness. You are free of fever for at least 72 hours without the use of medicine. During this time: - Avoid public areas, events, or transportation. Do not return to work or school until your doctor has said it is safe to do so. - Call ahead if you need to go to a medical center. Let them know you may have COVID-19. It will help them guide you where to go. They may also ask you to wear a facemask when you come to the office. - If you call for emergency medical services, let them know you may have COVID- 19. While at home: - Try to avoid close contact with others. Stay about 6 feet away. - If possible, spend most of your time in a separate room from others. - Use a face mask if you will be in close contact with others such as sharing a room or vehicle. - Have someone wipe down common surfaces in the home. Use household lens and frames prescription clerk every day on areas like doorknobs, counters, or sinks. - Cough or sneeze into a tissue. Throw the tissue away right after use. If a tissue is not available, cough or sneeze into your elbow. - Wash your hands often. Wash them after sneezing or coughing. Use soap and jamey er and wash for at least 20 seconds. Alcohol based hand die cleaner can be used if soap and water is not available. - Do not prepare food for others. Avoid sharing personal items like forks, spoons, or toothbrushes. - Avoid close contact with pets while you are sick. There is no evidence of the virus passing to pets. This is a safety step until more is known about this virus. Isolation can be frustrating. Social interaction can help. Keep in touch with friends and family through phone and tech options. You can still interact with others in your home, just keep a safe distance of about 6 feet. Follow-up: Your doctors office will check in with you to see if there are any changes in your health. You may be asked to keep track of symptoms to share with them. They will also let you know when you are clear to be in public again. Problems to Look Out For: Contact your doctor if your recovery is not going as you expect. Get emergency care if you have problems such as: - Trouble breathing - Nonstop chest pain or pressure - Changes in awareness, confusion, or problems waking - Lips or face have bluish color - Worsening of symptoms If you think you have an emergency, call for emergency medical services right away. As taken from [facility] EMIL COFFEY APRN Oct 17, 2020 18:35
[2020-10-17 19:07] LABS: CALCIUM 8.7 mg/dL (8.5-10.1); CREATININE 0.7 mg/dL (0.6-1.0); GFR 79.3; POTASSIUM 3.6 mmol/L (3.5-5.1)
[2020-10-17 19:10] LABS: ALBUMIN/GLOBULIN RATIO 0.9 (1.0-1.7); TOTAL BILIRUBIN 0.8 mg/dL (0.2-1.0); TOTAL PROTEIN 6.4 g/dL (6.4-8.2)
[2020-10-17 19:32] LABS: BILIRUBIN,URINE NEGATIVE (NEG); CLARITY,URINE CLEAR; COLOR,URINE YELLOW; NITRITE,URINE NEGATIVE (NEG); PH,URINE 6.5 (<5.0-8.0); PROTEIN,URINE NEGATIVE (NEG-TRACE)
[2020-10-17 19:38] LABS: BACTERIA,URINE 0 /HPF (0-FEW); RBC,URINE 0 /HPF (0-2)
[2020-10-17 20:10] VITALS: BP 123/58
--- NOTE | 2020-10-18 12:16 | NUR ---
IP: Informed pt's daughter of positive covid test and the need to quarantine for 10 days. She verbalized understanding.
== END 2020-10-17 20:10 | disposition home or self-care (01) ==
LOC: ER 15:10
DX: U07.1 COVID-19 (principal); B34.9 Viral infection, unspecified; Z88.5 Allergy status to narcotic agent
CPT/HCPCS: 36415; 71045; 80053; 81001; 85025; 85379; 87040; 87086; 99284; U0003; U0005

== ENCOUNTER 2020-10-23 18:43 | Inpatient (IN) | payer MEDICARE ==
[~2020-10-23] VITALS: Ht 152.4 cm; Wt 64.4 kg
--- NOTE | 2020-10-23 20:09 | PHYS DOC ---
Past Medical History Past Medical History: Anemia, Depression, Other Additional Past Medical Histor: EDEMA,[place], [place] Past Surgical History: Hysterectomy, Other Additional Past Surgical Histo: bilat feet Smoking Status: Never Smoker Alcohol Use: Rarely Drug Use: None General Adult EDM: Chief Complaint: SHORTNESS OF BREATH HPI: HPI: Patient is a 85 year old female who presents with shortness of breath. States that she has had symptoms of cough and shortness of breath for the past week. Reportedly tested positive for Covid as an outpatient. She is unsure of the date. States that she is fully vaccinated against Covid. Unsure of the type or date of vaccination. She denies any chest pain at the time. States that she has chronic lower extremity edema. States that her right chronically larger than her left and this is unchanged recently. Review of Systems: Review of Systems: Constitutional: Denies fever or chills. [] Eyes: Denies change in visual acuity. [] HENT: Denies nasal congestion or sore throat. [] Respiratory: Reports cough and shortness of breath. [] Cardiovascular: Denies chest pain or edema. [] GI: Denies abdominal pain, nausea, vomiting, bloody stools or diarrhea. [] : Denies dysuria. [] Musculoskeletal: Denies back pain or joint pain. [] Integument: Denies rash. [] Neurologic: Denies headache, focal weakness or sensory changes. [] Endocrine: Denies polyuria or polydipsia. [] Lymphatic: Denies swollen glands. [] Psychiatric: Denies depression or anxiety. [] Heart Score: C/O Chest Pain: No Risk Factors: Risk Factors: DM, Current or recent (<one month) smoker, HTN, HLP, family history of CAD, obesity. Risk Scores: Score 0 - 3: 2.5% MACE over next 6 weeks - Discharge Home Score 4 - 6: 20.3% MACE over next 6 weeks - Admit for Clinical Observation Score 7 - 10: 72.7% MACE over next 6 weeks - Early Invasive Strategies Allergies: Allergies: Allergies Coded Allergies Type Severity Reaction Last Updated Verified codeine Allergy Mild Anxiety 11/24/18 Yes Physical Exam: PE: Constitutional: In mild respiratory distress [] HENT: Normocephalic, atraumatic, bilateral external ears normal, oropharynx moist, no oral exudates, nose normal. [] Eyes: PERRLA, EOMI, conjunctiva normal, no discharge. [] Neck: Normal range of motion, no tenderness, supple, no stridor. [] Cardiovascular:Heart rate regular rhythm, no murmur [] Lungs & Thorax: Increased work of breathing, 23 word sentences, diffuse crackles. Initial saturation 68% on room air. [] Abdomen: Bowel sounds normal, soft, no tenderness, no masses, no pulsatile masses. [] Skin: Warm, dry, no erythema, no rash. [] Back: No tenderness, no CVA tenderness. [] Extremities: No tenderness, no cyanosis, no clubbing, ROM intact, no edema. [] Neurologic: Alert and oriented X 3, normal motor function, normal sensory function, no focal deficits noted. [] Psychologic: Affect normal, judgement normal, mood normal. [] EKG: EKG: Sinus rhythm. Rate 108. Left axis deviation. Baseline wander. No obvious acute ischemic changes. Normal intervals. [] Radiology/Procedures: Radiology/Procedures: [] Impression: [facility] [address] [place] [address] IMAGING REPORT Signed PATIENT: JEFFERSON ABURTO ACCOUNT: [id number] : 1935 LOCATION: ER AGE: 85 SEX: F EXAM STATUS: REG ER ORD. PHYSICIAN: BROOK CALDERON MD REASON: hypoxia, reported covid + PROCEDURE: CHEST AP ONLY INDICATION: Reason: hypoxia, reported covid + / Spl. Instructions: / History: COMPARISON: October 17, 2020 FINDINGS: Single view of chest obtained. Tortuous aortic contour with calcific atherosclerosis. There is some suspected calcified lymph nodes in the mediastinum which could be sequela of chronic granulomatous disease. Patchy interstitial and groundglass opacities throughout the bilateral lungs. IMPRESSION: * Bilateral pulmonic opacities which could be secondary to bilateral pneumonia including from viral etiology given the patient's history. Bacterial pneumonia as well as pulmonary edema could also have this appearance. Electronically signed by: Dennis Rodriguez MD (10/23/2020 8:35 PM) [id number] DICTATED and SIGNED BY: DENNIS RODRIGUEZ MD DATE: 10/23/[id number] 0 Course & Med Decision Making: Course & Med Decision Making Pertinent Labs and Imaging studies reviewed. (See chart for details) Patient 85-year-old female who is reportedly Covid positive presents with shortness of breath. Hypoxic to 68% on room air. Now 92% on 5 L/min nasal cannula. She is mildly tachycardic, but BP is stable. Afebrile on arrival. When asked about her CODE STATUS, she states that she is unsure whether she be willing to accept intubation as part of her treatment plan. We will give dexamethasone and obtain labs and CXR. Considered DVT/PE given her right lower extremity edema, however she states this is chronic and unchanged. 2008 Patient has a leukocytosis, CXR shows multifocal pneumonia which could be viral or bacterial. Given white count, will cover with ceftriaxone and azithromycin. Leukocytosis also could be stress-induced in the setting hypoxia. She has a negative troponin. Her lactate is normal. Her O2 saturation has remained stable on 5 L/min nasal cannula. Dimer is slightly elevated to 0.9, CTA of chest ordered. 2129 CTA negative. Admission orders placed. [id number] Dragon Disclaimer: Dragon Disclaimer: This electronic medical record was generated, in whole or in part, using a voice recognition dictation system. Departure Departure Impression: Primary Impression: COVID-19 Additional Impression: Acute respiratory failure with hypoxia Disposition: ADMITTED INPATIENT Admitting Physician: TAI ([facility] ) Condition: STABLE Referrals: TIM MONZON MD (PCP) BROOK CALDERON MD Oct 23, 2020 20:09
[2020-10-23 20:21] LABS: BASO # 0.1 x10^3/uL (0.0-0.2); BASO % 1 % (0-3); EOS # 0.2 x10^3/uL (0.0-0.7); EOS % 1 % (0-3); HEMATOCRIT 36.2 % (36.0-47.0); HEMOGLOBIN 12.2 g/dL (12.0-15.5); LYMPH # 1.5 x10^3/uL (1.0-4.8); LYMPH % 9 % (24-48); MEAN CORPUSCULAR HEMOGLOBIN 31 pg (25-35); MEAN CORPUSCULAR HGB CONC 34 g/dL (31-37); MEAN CORPUSCULAR VOLUME 93 fL (79-100); MONO # 0.8 x10^3/uL (0.0-1.1); MONO % 5 % (0-9); NEUT # 13.6 x10^3/uL (1.8-7.7); NEUT % 84 % (31-73); PLATELET COUNT 274 x10^3/uL (140-400); RED BLOOD COUNT 3.87 x10^6/uL (3.50-5.40); RED CELL DISTRIBUTION WIDTH 15.3 % (11.5-14.5); WHITE BLOOD COUNT 16.2 x10^3/uL (4.0-11.0)
[2020-10-23] MEDS ORDERED: DEXAMETHASONE SOD PHOS 4 MG/ML VIAL IVP ONE (20:30)
--- NOTE | 2020-10-23 20:37 | RAD ---
INDICATION: Reason: hypoxia, reported covid + / Spl. Instructions: / History: COMPARISON: October 17, 2020 FINDINGS: Single view of chest obtained. Tortuous aortic contour with calcific atherosclerosis. There is some suspected calcified lymph nodes in the mediastinum which could be sequela of chronic granulomatous disease. Patchy interstitial and groundglass opacities throughout the bilateral lungs. IMPRESSION: * Bilateral pulmonic opacities which could be secondary to bilateral pneumonia including from viral etiology given the patient's history. Bacterial pneumonia as well as pulmonary edema could also have this appearance. Electronically signed by: Isaac Shepard MD (10/23/2020 8:35 PM) [id number]
[2020-10-23 20:57] LABS: % BANDS 2 % (0-9); % EOS 1 % (0-5); % LYMPHS 11 % (24-48); % MONOS 4 % (0-10); % SEGS 82 % (35-66)
[2020-10-23 20:58] LABS: OVALOCYTES FEW; PLT ESTIMATE ADEQUATE (ADEQUATE)
[2020-10-23 21:13] LABS: CALCIUM 8.8 mg/dL (8.5-10.1); CREATININE 1.1 mg/dL (0.6-1.0); GFR 47.1; POTASSIUM 4.1 mmol/L (3.5-5.1)
[2020-10-23] MEDS ORDERED: cefTRIAXone IV Push 1 GM VIAL. IVP ONE (21:15)
[2020-10-23 21:19] LABS: ALBUMIN 2.7 g/dL (3.4-5.0); ALBUMIN/GLOBULIN RATIO 0.7 (1.0-1.7); TOTAL BILIRUBIN 0.5 mg/dL (0.2-1.0); TOTAL PROTEIN 6.5 g/dL (6.4-8.2)
[2020-10-23] MEDS ORDERED: AZITHRMYCN 500MG IVPB FOR OMNI 250 ML IV ONE (21:30)
[2020-10-23] MEDS ORDERED: ACETAMINOPHEN 500 MG TABLET PO ONE (22:00)
[2020-10-23] MEDS ORDERED: CONTRAST GIVEN. MC PRN (22:15)
[2020-10-23] MEDS ORDERED: IOHEXOL 350 MG/ML 100 ML VIAL. IV ONE (22:30)
--- NOTE | 2020-10-23 22:39 | RAD ---
Exam: CT of chest with contrast INDICATION: Hypoxia, right lower quadrant edema, Covid positive TECHNIQUE: Sequential axial images through the chest obtained following the administration of 80 mL o f Omni 350 IV contrast. Sagittal and coronal reformatted images were reconstructed from the axial erick a and reviewed. 3-D reformatted images were reconstructed from the axial data and reviewed. Exposure: One or more of the following in the visualized dose reduction techniques were utilized for this examination: 1. Automated exposure control 2. Adjustment of the MA and/or KV according to patient size 3. Use of iterative of reconstructive technique Comparisons: Chest x-ray same day FINDINGS: Visualized portions of the thyroid are unremarkable. Several prominent but not enlarged mediastinal l ymph nodes are identified. Heart size is normal. Trace pericardial effusion. Thoracic aorta has a normal course and caliber. Pul monary artery is not enlarged. No pulmonary embolus identified within the main, lobar or segmental pu lmonary arteries. Airways are patent. Patchy areas of groundglass opacity noted lungs bilaterally. No pneumothorax. No pleural effusion or thickening. Visualized upper abdomen is unremarkable. No suspicious osseous lesions or acute fractures. IMPRESSION: 1. No pulmonary embolus identified within the main, lobar or segmental pulmonary arteries. 2. Patchy areas of groundglass opacity in lungs bilaterally favored infectious or inflammatory in et iology. Electronically signed by: Eusebio Ashby MD (10/23/2020 10:36 PM) [facility]
--- NOTE | 2020-10-23 22:42 | EKG ---
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
[2020-10-24] MEDS ORDERED: LEVO25TA4 PO (04:37)
[2020-10-24] MEDS ORDERED: FURO40TA4 PO ×2 (04:42→04:49)
[2020-10-24] MEDS ORDERED: CALC-98 PO (04:49)
[2020-10-24] MEDS ORDERED: POTA10TA12 PO (04:49)
[2020-10-24] MEDS ORDERED: tylenol PM (04:49)
--- NOTE | 2020-10-24 06:50 | PDOC1 ---
History and Physical Date of Admission Date of Admission DATE: 10/24/20 TIME: 06:48 Identification/Chief Complaint Chief Complaint Shortness of breath Source Source: Chart review, Patient History of Present Illness History of Present Illness Patient is a 5-year-old female presents to the ED with complaints of shortness of breath. She states she was recently diagnosed with COVID-19 in the clinic on Friday, and reports worsening shortness of breath since that time. Associated cough. States that she has been vaccinated against COVID-19, but does not recall the date or which vaccination she received. She does admit to chronic lower extremity edema that is unchanged recently. Will admit patient for further medical management. Past Medical History Cardiovascular: HTN GI: GERD, Other Heme/Onc: Anemia NOS Psych: Anxiety, Depression Musculoskeletal: low back pain Renal/: UTI, Urinary Incontinence Past Surgical History Past Surgical History: Hysterectomy, Other Family History Family History Reviewed with patient but she denies any significant family history Social History Smoke: No ALCOHOL: none Current Problem List Problem List Problems Medical Problems: (1) Acute respiratory failure with hypoxia Status: Acute (2) COVID-19 Status: Acute Current Medications Current Medications Current Medications Dexamethasone Sodium Phosphate (Decadron) 6 mg 1X ONCE IVP Last administered on 10/23/20at 20:38; Start 10/23/20 at 20:30; Stop 10/23/20 at 20:31; Status DC Ceftriaxone Sodium (Rocephin) 1 gm 1X ONCE IVP Last administered on 10/23/20at 21:28; Start 10/23/20 at 21:15; Stop 10/23/20 at 21:16; Status DC Azithromycin 500 mg/Sodium Chloride 250 ml @ 250 mls/hr Q24H IV ; Start 10/24/20 at 21:00 Azithromycin 250 ml @ 250 mls/hr 1X ONCE IV Last administered on 10/23/20at 21:35; Start 10/23/20 at 21:30; Stop 10/23/20 at 22:29; Status DC Acetaminophen (Tylenol) 1,000 mg 1X ONCE PO ; Start 10/23/20 at 22:00; Stop 10/23/20 at 22:01; Status DC Iohexol (Omnipaque 350 Mg/ml) 80 ml 1X ONCE IV Last administered on 10/23/20at 22:26; Start 10/23/20 at 22:30; Stop 10/23/20 at 22:31; Status DC Info (CONTRAST GIVEN -- Rx MONITORING) 1 each PRN DAILY PRN MC SEE COMMENTS; Start 10/23/20 at 22:15; Stop 10/25/20 at 22:14 Active Scripts Active Reported Calcium + Vitamin D Tablet (Calcium Carbonate/Vitamin D3) 1 Each Tablet 1 Each PO BID [tylenol PM] Potassium Chloride (Potassium Chloride) 10 Meq Tab.sr.24h 15 Meq PO QODAY Potassium Chloride (Potassium Chloride) 10 Meq Tab.sr.24h 10 Meq PO QODAY Furosemide 40 Mg Tablet 1.5 Tab PO DAILY Furosemide 40 Mg Tablet 1 Tab PO QODAY Levothyroxine Sodium 25 Mcg Tablet 1 Tab PO DAILY Protonix (Pantoprazole Sodium) 20 Mg Tablet.dr 40 Mg PO DAILY Zoloft (Sertraline Hcl) 50 Mg Tablet 50 Mg PO HS Allergies Allergies: Coded Allergies: codeine (Verified Allergy, Mild, Anxiety, 11/24/18) ROS Review of System GENERAL: No history of weight change, weakness or fevers. SKIN: No bruising, hair changes or rashes. EYES: No blurred, double or loss of vision. NOSE AND THROAT: No history of nosebleeds, hoarseness or sore throat. HEART: Denies chest pain, denies palpitations. LUNGS: Shortness of breath, cough. Denies hemoptysis or wheezing. GASTROINTESTINAL: Denies nausea, vomiting, abdominal pain. GENITOURINARY: Denies dysuria, frequency, urgency, hematuria. NEUROLOGIC: Denies history of numbness, tingling, tremor or weakness. PSYCHIATRIC: Denies anxiety, denies depression. ENDOCRINE: No history of heat or cold intolerance, polyuria or polydipsia. EXTREMITIES: Denies muscle weakness, joint pain, pain on walking or stiffness. Physical Exam Physical Exam General: Alert, Oriented X3, Cooperative, No acute distress HEENT: PERRLA, EOMI Lungs: Decreased breath sounds bilaterally, normal air movement Heart: RRR, no murmurs Cardiovascular: S1, S2 Abdomen: Normal bowel sounds, Soft, No tenderness Extremities: +1 edema bilateral lower extremities. No clubbing, No cyanosis Skin: No rashes, No significant lesion Neuro: Normal speech, Normal tone, Sensation intact Psych/Mental Status: Mental status NL, Mood NL Vitals Vitals Vital Signs Date Time Temp Pulse Resp B/P (MAP) Pulse Ox O2 Delivery O2 Flow Rate FiO2 10/24/20 05:21 Nasal Cannula 6.0 10/23/20 22:16 106 30 129/61 (83) 94 10/23/20 20:00 98.8 98.8 Labs Labs Laboratory Tests Test 10/23/20 20:07 10/23/20 20:50 White Blood Count 16.2 x10^3/uL (4.0-11.0) Red Blood Count 3.87 x10^6/uL (3.50-5.40) Hemoglobin 12.2 g/dL (12.0-15.5) Hematocrit 36.2 % (36.0-47.0) Mean Corpuscular Volume 93 fL (79-100) Mean Corpuscular Hemoglobin 31 pg (25-35) Mean Corpuscular Hemoglobin Concent 34 g/dL (31-37) Red Cell Distribution Width 15.3 % (11.5-14.5) Platelet Count 274 x10^3/uL (140-400) Neutrophils (%) (Auto) 84 % (31-73) Lymphocytes (%) (Auto) 9 % (24-48) Monocytes (%) (Auto) 5 % (0-9) Eosinophils (%) (Auto) 1 % (0-3) Basophils (%) (Auto) 1 % (0-3) Neutrophils # (Auto) 13.6 x10^3/uL (1.8-7.7) Lymphocytes # (Auto) 1.5 x10^3/uL (1.0-4.8) Monocytes # (Auto) 0.8 x10^3/uL (0.0-1.1) Eosinophils # (Auto) 0.2 x10^3/uL (0.0-0.7) Basophils # (Auto) 0.1 x10^3/uL (0.0-0.2) Segmented Neutrophils % 82 % (35-66) Band Neutrophils % 2 % (0-9) Lymphocytes % 11 % (24-48) Monocytes % 4 % (0-10) Eosinophils % 1 % (0-5) Platelet Estimate Adequate (ADEQUATE) Ovalocytes Few D-Dimer (Nedra) 0.91 ug/mlFEU (0.00-0.50) Sodium Level 138 mmol/L (136-145) Potassium Level 4.1 mmol/L (3.5-5.1) Chloride Level 104 mmol/L (98-107) Carbon Dioxide Level 27 mmol/L (21-32) Anion Gap 7 (6-14) Blood Urea Nitrogen 21 mg/dL (7-20) Creatinine 1.1 mg/dL (0.6-1.0) Estimated GFR (Cockcroft-Gault) 47.1 BUN/Creatinine Ratio 19 (6-20) Glucose Level 115 mg/dL (70-99) Lactic Acid Level 1.6 mmol/L (0.4-2.0) Calcium Level 8.8 mg/dL (8.5-10.1) Total Bilirubin 0.5 mg/dL (0.2-1.0) Aspartate Amino Transf (AST/SGOT) 25 U/L (15-37) Alanine Aminotransferase (ALT/SGPT) 14 U/L (14-59) Alkaline Phosphatase 127 U/L (46-116) Troponin I Quantitative < 0.017 ng/mL (0.000-0.055) CR-Vqw-G-Type Natriuretic Peptide 309 pg/mL (0-449) Total Protein 6.5 g/dL (6.4-8.2) Albumin 2.7 g/dL (3.4-5.0) Albumin/Globulin Ratio 0.7 (1.0-1.7) Laboratory Tests Test 10/23/20 20:07 10/23/20 20:50 White Blood Count 16.2 x10^3/uL (4.0-11.0) Red Blood Count 3.87 x10^6/uL (3.50-5.40) Hemoglobin 12.2 g/dL (12.0-15.5) Hematocrit 36.2 % (36.0-47.0) Mean Corpuscular Volume 93 fL (79-100) Mean Corpuscular Hemoglobin 31 pg (25-35) Mean Corpuscular Hemoglobin Concent 34 g/dL (31-37) Red Cell Distribution Width 15.3 % (11.5-14.5) Platelet Count 274 x10^3/uL (140-400) Neutrophils (%) (Auto) 84 % (31-73) Lymphocytes (%) (Auto) 9 % (24-48) Monocytes (%) (Auto) 5 % (0-9) Eosinophils (%) (Auto) 1 % (0-3) Basophils (%) (Auto) 1 % (0-3) Neutrophils # (Auto) 13.6 x10^3/uL (1.8-7.7) Lymphocytes # (Auto) 1.5 x10^3/uL (1.0-4.8) Monocytes # (Auto) 0.8 x10^3/uL (0.0-1.1) Eosinophils # (Auto) 0.2 x10^3/uL (0.0-0.7) Basophils # (Auto) 0.1 x10^3/uL (0.0-0.2) Segmented Neutrophils % 82 % (35-66) Band Neutrophils % 2 % (0-9) Lymphocytes % 11 % (24-48) Monocytes % 4 % (0-10) Eosinophils % 1 % (0-5) Platelet Estimate Adequate (ADEQUATE) Ovalocytes Few D-Dimer (Nedra) 0.91 ug/mlFEU (0.00-0.50) Sodium Level 138 mmol/L (136-145) Potassium Level 4.1 mmol/L (3.5-5.1) Chloride Level 104 mmol/L (98-107) Carbon Dioxide Level 27 mmol/L (21-32) Anion Gap 7 (6-14) Blood Urea Nitrogen 21 mg/dL (7-20) Creatinine 1.1 mg/dL (0.6-1.0) Estimated GFR (Cockcroft-Gault) 47.1 BUN/Creatinine Ratio 19 (6-20) Glucose Level 115 mg/dL (70-99) Lactic Acid Level 1.6 mmol/L (0.4-2.0) Calcium Level 8.8 mg/dL (8.5-10.1) Total Bilirubin 0.5 mg/dL (0.2-1.0) Aspartate Amino Transf (AST/SGOT) 25 U/L (15-37) Alanine Aminotransferase (ALT/SGPT) 14 U/L (14-59) Alkaline Phosphatase 127 U/L (46-116) Troponin I Quantitative < 0.017 ng/mL (0.000-0.055) BS-Cvl-D-Type Natriuretic Peptide 309 pg/mL (0-449) Total Protein 6.5 g/dL (6.4-8.2) Albumin 2.7 g/dL (3.4-5.0) Albumin/Globulin Ratio 0.7 (1.0-1.7) Images Images PATIENT: JEFFERSON ABURTO ACCOUNT: [id number] : 1935 LOCATION: ER AGE: 85 SEX: F EXAM STATUS: REG ER ORD. PHYSICIAN: BROOK CALDERON MD REASON: hypoxia, RLE edema, covid +, r/o PE PROCEDURE: CT ANGIOGRAPHY CHEST Exam: CT of chest with contrast INDICATION: Hypoxia, right lower quadrant edema, Covid positive TECHNIQUE: Sequential axial images through the chest obtained following the administration of 80 mL of Omni 350 IV contrast. Sagittal and coronal reformatted images were reconstructed from the axial data and reviewed. 3-D reformatted images were reconstructed from the axial data and reviewed. Exposure: One or more of the following in the visualized dose reduction techniques were utilized for this examination: 1. Automated exposure control 2. Adjustment of the MA and/or KV according to patient size 3. Use of iterative of reconstructive technique Comparisons: Chest x-ray same day FINDINGS: Visualized portions of the thyroid are unremarkable. Several prominent but not enlarged mediastinal lymph nodes are identified. Heart size is normal. Trace pericardial effusion. Thoracic aorta has a normal co urse and caliber. Pulmonary artery is not enlarged. No pulmonary embolus identified within the main, lobar or segmental pulmonary arteries. Airways are patent. Patchy areas of groundglass opacity noted lungs bilaterally. No pneumothorax. No pleural effusion or thickening. Visualized upper abdomen is unremarkable. No suspicious osseous lesions or acute fractures. IMPRESSION: 1. No pulmonary embolus identified within the main, lobar or segmental pulmonary arteries. 2. Patchy areas of groundglass opacity in lungs bilaterally favored infectious or inflammatory in etiology. VTE Prophylaxis Ordered VTE Prophylaxis Devices: No VTE Pharmacological Prophylaxi: Yes Assessment/Plan Assessment/Plan Acute respiratory failure with hypoxia COVID-19 pneumonia SHELLIE due to vasomotor nephropathy Severe malnutrition Plan: We will initiate remdesivir and monitor daily LFTs We will treat with Decadron daily for total of 10 days (oruntil patient is no longer requiring O2) Prophylactic antibiotics Resume home medications FEN - Cardiac diet PPX - Lovenox DNR Dispo - inpatient for above Patient names her daughter (Bessie Anglin) as surrogate decision-maker. Justifications for Admission Other Justification MECHE DE LA FUENTE MD Oct 24, 2020 06:50
[2020-10-24 07:00] VITALS: BP 137/62
[2020-10-24] MEDS ORDERED: CALCIUM CARBONATE 500 MG TAB.CHEW PO PRN (07:15)
[2020-10-24] MEDS ORDERED: ONDANSETRON PF 4 MG/2 ML VIAL. IVP PRN (07:15)
[2020-10-24] MEDS ORDERED: MAG HYDROX/ALUMINUM HYD/SIMETH 30 ML ORAL.SUSP PO PRN (07:15)
[2020-10-24] MEDS ORDERED: MAGNESIUM HYDROXIDE 2,400 MG/30 ML ORAL.SUSP. PO PRN (07:15)
[2020-10-24] MEDS ORDERED: guaiFENesin ORAL 200 MG/10 ML LIQUID. PO PRN (07:15)
[2020-10-24] MEDS: FUROSEMIDE 40 MG TABLET. PO SCH (08:30)
[2020-10-24] MEDS: LEVOTHYROXINE 25 MCG TABLET. PO SCH (08:31)
[2020-10-24] MEDS: CALCIUM CARB/VIT D3 500/200 TABLET. PO SCH ×2 (08:31→17:08)
[2020-10-24] MEDS: PANTOPRAZOLE 40 MG TABLET.DR. PO SCH (08:31)
[2020-10-24] MEDS: DEXAMETHASONE SOD PHOS 4 MG/ML VIAL IVP SCH (08:31)
[2020-10-24] MEDS: HEPARIN for SUB-Q USE 5,000 UNIT/ML VIAL. SQ SCH ×2 (08:33→21:43)
[2020-10-24] MEDS ORDERED: REMDESIVIR LOAD in IV NORMAL SALINE 250ML TV IV ONE (09:00)
[2020-10-24 11:00] VITALS: BP 152/77
--- NOTE | 2020-10-24 11:22 | NUR ---
SW following. Discussed with RN, pt from home with kendal, requiring 10L oxygen, regular diet. COVID-19 positive. RN advised no SW needs at this time. SW will continue to follow.
[2020-10-24 15:00] VITALS: BP 139/60
[2020-10-24 19:00] VITALS: BP 135/60
[2020-10-24] MEDS: AZITHROMYCIN 500 MG in IV NORMAL SALINE 250ML 250 ML IV SCH (21:13)
[2020-10-24] MEDS: diphenhydrAMINE HCL 25 MG CAPSULE PO PRN (21:13)
[2020-10-24] MEDS: HYDROcodone/APAP 5/325MG 1 TAB TABLET PO PRN (21:13)
[2020-10-24] MEDS: SERTRALINE 50 MG TABLET. PO SCH (21:14)
[2020-10-24] MEDS: cefTRIAXone IV Push 1 GM VIAL. IVP SCH (21:43)
[2020-10-24 23:00] VITALS: BP 126/66
[2020-10-25] MEDS: ACETAMINOPHEN 325 MG TABLET. PO PRN ×2 (02:57→21:10)
[2020-10-25 03:56] VITALS: BP 137/67
[2020-10-25] MEDS: LEVOTHYROXINE 25 MCG TABLET. PO SCH (06:14)
[2020-10-25 07:00] VITALS: BP 123/70
--- NOTE | 2020-10-25 08:02 | PDOC ---
[employer] PROGRESS NOTE Date of Service DOS: DATE: 10/25/20 TIME: 07:59 Chief Complaint Chief Complaint Acute respiratory failure with hypoxia COVID-19 pneumonia SHELLIE due to vasomotor nephropathy Severe malnutrition Plan: We will initiate remdesivir and monitor daily LFTs We will treat with Decadron daily for total of 10 days (or until patient is no longer requiring O2) Prophylactic antibiotics Resume home medications FEN - Cardiac diet PPX - Lovenox DNR Dispo - inpatient for above Patient names her daughter (Bessie Anglin) as surrogate decision-maker. History of Present Illness History of Present Illness Patient is a 85-year-old female presents to the ED with complaints of shortness of breath. She states she was recently diagnosed with COVID-19 in the clinic on Friday, and reports worsening shortness of breath since that time. Associated cough. States that she has been vaccinated against COVID-19, but does not recall the date or which vaccination she received. She does admit to chronic lower extremity edema that is unchanged recently. Will admit patient for further medical management. 10/25/2020: Afebrile. Currently breathing on high flow nasal cannula due to worsening respiratory distress. Continue treatment with remdesivir (day 2/5), steroids, and prophylactic antibiotics. Supportive care. Feels she may have aspirated on some water overnight, currently with complaints of cough. Will obtain chest x-ray and place order ST to evaluate. Discussed with patient and daughter, confirmed she is DNR. Critical care time 30 minutes spent reviewing charts imaging, discussion with RN, discussion with patient's daughter. Advance Care Planning: Total time spent [id number] with patient 16 minutes in discussion with goals of care, comfort care, end-of-life care, pain management, code status; patient names and her daughter as surrogate decision-maker. Vitals/I&O Vitals/I&O: Vital Signs Date Time Temp Pulse Resp B/P (MAP) Pulse Ox O2 Delivery O2 Flow Rate FiO2 10/25/20 07:00 98.5 86 20 123/70 (87) 98 Nasal Cannula 15.0 98.5 I & O 10/24/20 10/24/20 10/25/20 15:00 23:00 07:00 Intake Total 400 ml 250 ml Output Total 200 ml Balance 400 ml 250 ml -200 ml Physical Exam General: Alert, mild distress Heart: Regular rate Lungs: Other (Decreased breath sounds, increased work of breathing) Abdomen: Other (Nondistended) Extremities: No clubbing, No cyanosis Skin: No rashes, No breakdown Assessment and Plan Assessmemt and Plan Problems Medical Problems: (1) Acute respiratory failure with hypoxia Status: Acute (2) COVID-19 Status: Acute Comment Review of Relevant I have reviewed the following items eamon (where applicable) has been applied. Medications: Current Medications Medications (Trade) Dose Ordered Sig/Bhavna Route PRN Reason Start Time Stop Time Status Last Admin Dose Admin Azithromycin 500 mg/Sodium Chloride 250 ml @ 250 mls/hr Q24H IV 10/24/20 21:00 10/27/20 21:59 10/24/20 21:13 Sertraline HCl (Zoloft) 50 mg HS PO 10/24/20 21:00 10/24/20 21:14 Calcium/Vitamin D (Oscal D 500mg/ 200uts) 1 tab BIDWMEALS PO 10/24/20 08:00 10/24/20 17:08 Pantoprazole Sodium (Protonix) 40 mg DAILYAC PO 10/24/20 08:00 10/24/20 08:31 Furosemide (Lasix) 60 mg QODAY PO 10/24/20 09:00 10/24/20 08:30 Dexamethasone Sodium Phosphate (Decadron) 6 mg DAILY IVP 10/24/20 09:00 11/03/20 08:59 10/24/20 08:31 Remdesivir 200 mg/ Sodium Chloride 210 ml @ 210 mls/hr 1X ONCE IV 10/24/20 09:00 10/24/20 09:59 DC 10/24/20 09:03 Ceftriaxone Sodium (Rocephin) 1 gm Q24H IVP 10/24/20 21:00 10/29/20 20:59 10/24/20 21:43 Heparin Sodium (Porcine) (Heparin Sodium) 5,000 unit Q12HR SQ 10/24/20 09:00 10/24/20 21:43 Acetaminophen/ Hydrocodone Bitart (Lortab 5/325) 1 tab Q6HRS PRN PO PAIN 10/24/20 20:30 10/24/20 21:13 Diphenhydramine HCl (Benadryl) 25 mg PRN QHS PRN PO INSOMNIA 10/24/20 20:30 10/24/20 21:13 Justifications for Admission Other Justification MECHE DE LA FUENTE MD Oct 25, 2020 08:02
[2020-10-25 08:20] LABS: BASO % 0 % (0-3); EOS % 0 % (0-3); HEMATOCRIT 33.7 % (36.0-47.0); HEMOGLOBIN 11.2 g/dL (12.0-15.5); LYMPH # 1.1 x10^3/uL (1.0-4.8); LYMPH % 6 % (24-48); MEAN CORPUSCULAR HEMOGLOBIN 31 pg (25-35); MEAN CORPUSCULAR HGB CONC 33 g/dL (31-37); MEAN CORPUSCULAR VOLUME 93 fL (79-100); MONO # 0.9 x10^3/uL (0.0-1.1); MONO % 5 % (0-9); NEUT # 15.7 x10^3/uL (1.8-7.7); NEUT % 88 % (31-73); PLATELET COUNT 313 x10^3/uL (140-400); RED BLOOD COUNT 3.62 x10^6/uL (3.50-5.40); RED CELL DISTRIBUTION WIDTH 15.7 % (11.5-14.5); WHITE BLOOD COUNT 17.8 x10^3/uL (4.0-11.0)
[2020-10-25 08:21] LABS: ALBUMIN 2.1 g/dL (3.4-5.0); C-REACTIVE PROTEIN 76.8 mg/L (0-3.3); DIRECT BILIRUBIN 0.2 mg/dL (0.0-0.2); TOTAL BILIRUBIN 0.3 mg/dL (0.2-1.0); TOTAL PROTEIN 5.8 g/dL (6.4-8.2)
[2020-10-25 08:39] LABS: CREATININE 0.7 mg/dL (0.6-1.0); GFR 79.3; POTASSIUM 3.8 mmol/L (3.5-5.1)
[2020-10-25] MEDS: CALCIUM CARB/VIT D3 500/200 TABLET. PO SCH ×2 (09:36→17:50)
[2020-10-25] MEDS: PANTOPRAZOLE 40 MG TABLET.DR. PO SCH (09:36)
[2020-10-25] MEDS: FUROSEMIDE 40 MG TABLET. PO SCH (09:37)
[2020-10-25] MEDS: REMDESIVIR 100mg in NORMAL SALINE 250ML X 4 DAYS IV SCH (09:38)
[2020-10-25] MEDS: DEXAMETHASONE SOD PHOS 4 MG/ML VIAL IVP SCH (09:38)
[2020-10-25] MEDS: HEPARIN for SUB-Q USE 5,000 UNIT/ML VIAL. SQ SCH ×2 (09:39→21:14)
[2020-10-25 11:00] VITALS: BP 117/63
[2020-10-25] MEDS: LACTOBACILLUS RHAMNOSUS GG 1 CAPSULE. PO SCH ×2 (12:31→21:16)
--- NOTE | 2020-10-25 12:56 | RAD ---
EXAM: AP View of the chest DATE: 10/25/2020 10:09 AM INDICATION: Reason: Possible aspiration pneumonia; COVID-19 / Spl. Instructions: / History: COMPARISON: 10/23/2020 FINDINGS/ IMPRESSION: The heart is not enlarged. Aorta is tortuous with atherosclerotic calcifications. Diffuse bilateral parenchymal airspace opaciti es are mildly progressed compared with 10/23/2020. Small pleural effusions. No pneumothorax. Electronically signed by: Gregory Rojas MD (10/25/2020 12:53 PM) [id number]
--- NOTE | 2020-10-25 14:50 | NUR ---
Upon rounding on pt, pt had oxygen off, O2 sat 64%. This RN placed 15 L high flow NC back on and instructed pt to deep breath in through nose and out through mouth. Pt performed deep breaths as instructed. Pt stated that she was washing her face and took her oxygen off. Pt instructed to keep oxygen on at all times, pt verbalizes understanding. O2 sats improved to 95% with deep breaths and replacement of nasal cannula. Will monitor pt for changes. Addendum: 10/25/20 at 1458 by TIMMY RAYA RN Adjustment to previous: instructed pt to deep breathe*
[2020-10-25 15:00] VITALS: BP 117/59
[2020-10-25 19:00] VITALS: BP 126/54
[2020-10-25] MEDS: AZITHROMYCIN 500 MG in IV NORMAL SALINE 250ML 250 ML IV SCH (21:10)
[2020-10-25] MEDS: diphenhydrAMINE HCL 25 MG CAPSULE PO PRN (21:10)
[2020-10-25] MEDS: SERTRALINE 50 MG TABLET. PO SCH (21:10)
[2020-10-25] MEDS: cefTRIAXone IV Push 1 GM VIAL. IVP SCH (21:10)
[2020-10-25 23:23] VITALS: BP 117/55
[2020-10-26 03:00] VITALS: BP 132/59
[2020-10-26] MEDS: LEVOTHYROXINE 25 MCG TABLET. PO SCH (05:50)
[2020-10-26 07:00] VITALS: BP 139/73
[2020-10-26 07:47] LABS: BASO % 0 % (0-3); EOS % 0 % (0-3); HEMATOCRIT 34.3 % (36.0-47.0); HEMOGLOBIN 11.3 g/dL (12.0-15.5); LYMPH # 1.1 x10^3/uL (1.0-4.8); LYMPH % 7 % (24-48); MEAN CORPUSCULAR HEMOGLOBIN 31 pg (25-35); MEAN CORPUSCULAR HGB CONC 33 g/dL (31-37); MEAN CORPUSCULAR VOLUME 93 fL (79-100); MONO % 6 % (0-9); NEUT # 14.6 x10^3/uL (1.8-7.7); NEUT % 87 % (31-73); PLATELET COUNT 304 x10^3/uL (140-400); RED BLOOD COUNT 3.67 x10^6/uL (3.50-5.40); RED CELL DISTRIBUTION WIDTH 15.4 % (11.5-14.5); WHITE BLOOD COUNT 16.8 x10^3/uL (4.0-11.0)
[2020-10-26 08:24] LABS: CALCIUM 8.3 mg/dL (8.5-10.1); CREATININE 0.6 mg/dL (0.6-1.0); GFR 94.8
[2020-10-26 08:34] LABS: C-REACTIVE PROTEIN 63.3 mg/L (0-3.3); DIRECT BILIRUBIN 0.2 mg/dL (0.0-0.2); TOTAL BILIRUBIN 0.3 mg/dL (0.2-1.0); TOTAL PROTEIN 5.3 g/dL (6.4-8.2)
[2020-10-26] MEDS: DEXAMETHASONE SOD PHOS 4 MG/ML VIAL IVP SCH (09:03)
[2020-10-26] MEDS: FUROSEMIDE 40 MG TABLET. PO SCH (09:03)
[2020-10-26] MEDS: LACTOBACILLUS RHAMNOSUS GG 1 CAPSULE. PO SCH ×2 (09:03→22:55)
[2020-10-26] MEDS: REMDESIVIR 100mg in NORMAL SALINE 250ML X 4 DAYS IV SCH (09:03)
[2020-10-26] MEDS: CALCIUM CARB/VIT D3 500/200 TABLET. PO SCH ×2 (09:03→18:12)
[2020-10-26] MEDS: PANTOPRAZOLE 40 MG TABLET.DR. PO SCH (09:04)
[2020-10-26] MEDS: HEPARIN for SUB-Q USE 5,000 UNIT/ML VIAL. SQ SCH ×2 (09:07→22:54)
[2020-10-26 11:00] VITALS: BP 122/53
--- NOTE | 2020-10-26 14:00 | PDOC ---
[employer] PROGRESS NOTE Date of Service DOS: DATE: 10/26/20 TIME: 13:45 Chief Complaint Chief Complaint Acute respiratory failure with hypoxia COVID-19 pneumonia SHELLIE due to vasomotor nephropathy Severe malnutrition History of Present Illness History of Present Illness Patient is a 85-year-old female presents to the ED with complaints of shortness of breath. She states she was recently diagnosed with COVID-19 in the clinic on Friday, and reports worsening shortness of breath since that time. Associated cough. States that she has been vaccinated against COVID-19, but does not recall the date or which vaccination she received. She does admit to chronic lower extremity edema that is unchanged recently. Will admit patient for further medical management. 10/25/2020: Afebrile. Currently breathing on high flow nasal cannula due to worsening respiratory distress. Continue treatment with remdesivir (day 03/31), steroids, and prophylactic antibiotics. Supportive care. Feels she may have aspirated on some water overnight, currently with complaints of cough. Will obtain chest x-ray and place order ST to evaluate. Discussed with patient and daughter, confirmed she is DNR. Critical care time 30 minutes spent reviewing charts imaging, discussion with RN, discussion with patient's daughter. Advance Care Planning: Total time spent [id number] with patient 16 minutes in discussion with goals of care, comfort care, end-of-life care, pain management, code status; patient names and her daughter as surrogate decision-maker. 10/26: Patient seen and examined. Patient was in mild distress. Patient on 15L O2 per non-rebreather mask. Patient on day 3 of Remdesivir. Discussed with RN. Patient tolerated Ensure. Chart reviewed. 10/25 Chest x-ray indicated progression of pulmonary findings. Vitals/I&O Vitals/I&O: Vital Signs Date Time Temp Pulse Resp B/P (MAP) Pulse Ox O2 Delivery O2 Flow Rate FiO2 10/26/20 07:00 98.2 95 20 139/73 (95) 92 NonRebreather Mask 15.0 98.2 I & O 10/25/20 10/25/20 10/26/20 15:00 23:00 07:00 Intake Total 550 ml 550 ml Output Total 450 ml Balance 550 ml 550 ml -450 ml Physical Exam General: Alert, mild distress Heart: Regular rate Lungs: Clear, Other (Decreased breath sounds, increased work of breathing) Abdomen: Other (Nondistended) Extremities: No clubbing, No cyanosis Skin: No rashes, No breakdown Labs Labs: Laboratory Tests Test 10/26/20 07:00 White Blood Count 16.8 x10^3/uL (4.0-11.0) Red Blood Count 3.67 x10^6/uL (3.50-5.40) Hemoglobin 11.3 g/dL (12.0-15.5) Hematocrit 34.3 % (36.0-47.0) Mean Corpuscular Volume 93 fL (79-100) Mean Corpuscular Hemoglobin 31 pg (25-35) Mean Corpuscular Hemoglobin Concent 33 g/dL (31-37) Red Cell Distribution Width 15.4 % (11.5-14.5) Platelet Count 304 x10^3/uL (140-400) Neutrophils (%) (Auto) 87 % (31-73) Lymphocytes (%) (Auto) 7 % (24-48) Monocytes (%) (Auto) 6 % (0-9) Eosinophils (%) (Auto) 0 % (0-3) Basophils (%) (Auto) 0 % (0-3) Neutrophils # (Auto) 14.6 x10^3/uL (1.8-7.7) Lymphocytes # (Auto) 1.1 x10^3/uL (1.0-4.8) Monocytes # (Auto) 1.0 x10^3/uL (0.0-1.1) Eosinophils # (Auto) 0.0 x10^3/uL (0.0-0.7) Basophils # (Auto) 0.0 x10^3/uL (0.0-0.2) Sodium Level 143 mmol/L (136-145) Potassium Level 4.0 mmol/L (3.5-5.1) Chloride Level 108 mmol/L (98-107) Carbon Dioxide Level 29 mmol/L (21-32) Anion Gap 6 (6-14) Blood Urea Nitrogen 19 mg/dL (7-20) Creatinine 0.6 mg/dL (0.6-1.0) Estimated GFR (Cockcroft-Gault) 94.8 Glucose Level 109 mg/dL (70-99) Calcium Level 8.3 mg/dL (8.5-10.1) Total Bilirubin 0.3 mg/dL (0.2-1.0) Direct Bilirubin 0.2 mg/dL (0.0-0.2) Aspartate Amino Transf (AST/SGOT) 24 U/L (15-37) Alanine Aminotransferase (ALT/SGPT) 17 U/L (14-59) Alkaline Phosphatase 101 U/L (46-116) C-Reactive Protein, Quantitative 63.3 mg/L (0-3.3) Total Protein 5.3 g/dL (6.4-8.2) Albumin 2.0 g/dL (3.4-5.0) Review of Systems Review of Systems: Patient denies loss of vision or blurry vision. Assessment and Plan Assessmemt and Plan Problems Medical Problems: (1) Acute respiratory failure with hypoxia Status: Acute (2) COVID-19 Status: Acute Assessment: Acute respiratory failure with hypoxia COVID-19 pneumonia SHELLIE due to vasomotor nephropathy Severe malnutrition Plan: 1. Continue COVID-19 Protcol (Remdesivir, robitussin, dexamethasone, rocephin, azithromycin, oxygen) -Remdesivir course 10/24 - 10/28 -Decadron daily for total of 10 days (or until patient is no longer requiring O2) 2. Add multivitamin with minerals to COVID protocol 3. Add Aspirin to COVID protcol 4. Consult Pulmonology 5. Trend Chest X-ray 6. Monitor daily LFTs 7. Continue home medications 8. FEN - Cardiac diet 9. PPX - Lovenox 10. DNR 11. Discharge disposition pending Patient names her daughter (Bessie Anglin) as surrogate decision-maker. Comment Review of Relevant I have reviewed the following items eamon (where applicable) has been applied. Justifications for Admission Other Justification ZAHEER HENRIQUEZ III DO Oct 26, 2020 14:00
[2020-10-26 15:00] VITALS: BP 126/63
[2020-10-26 19:00] VITALS: BP 134/79
[2020-10-26] MEDS: AZITHROMYCIN 500 MG in IV NORMAL SALINE 250ML 250 ML IV SCH (22:53)
[2020-10-26] MEDS: ACETAMINOPHEN 325 MG TABLET. PO PRN (22:53)
[2020-10-26] MEDS: diphenhydrAMINE HCL 25 MG CAPSULE PO PRN (22:54)
[2020-10-26] MEDS: SERTRALINE 50 MG TABLET. PO SCH (22:54)
[2020-10-26] MEDS: cefTRIAXone IV Push 1 GM VIAL. IVP SCH (22:54)
[2020-10-26 23:00] VITALS: BP 142/78
[2020-10-27 03:00] VITALS: BP 134/63
[2020-10-27 07:00] VITALS: BP 109/66
[2020-10-27] MEDS: LEVOTHYROXINE 25 MCG TABLET. PO SCH (09:32)
[2020-10-27] MEDS: LACTOBACILLUS RHAMNOSUS GG 1 CAPSULE. PO SCH ×2 (09:32→21:48)
[2020-10-27] MEDS: MULTIVITAMIN with MINERAL TABLET. PO SCH (09:32)
[2020-10-27] MEDS: DEXAMETHASONE SOD PHOS 4 MG/ML VIAL IVP SCH (09:32)
[2020-10-27] MEDS: PANTOPRAZOLE 40 MG TABLET.DR. PO SCH (09:32)
[2020-10-27] MEDS: ASPIRIN 325 MG TABLET PO SCH (09:32)
[2020-10-27] MEDS: FUROSEMIDE 40 MG TABLET. PO SCH (09:32)
[2020-10-27] MEDS: REMDESIVIR 100mg in NORMAL SALINE 250ML X 4 DAYS IV SCH (09:33)
[2020-10-27] MEDS: CALCIUM CARB/VIT D3 500/200 TABLET. PO SCH ×2 (09:39→17:26)
[2020-10-27] MEDS: HEPARIN for SUB-Q USE 5,000 UNIT/ML VIAL. SQ SCH ×2 (09:48→21:53)
--- NOTE | 2020-10-27 10:01 | PDOC ---
[facility] PROGRESS NOTE Date of Service DOS: DATE: 10/27/20 TIME: 09:45 Chief Complaint Chief Complaint Acute respiratory failure with hypoxia COVID-19 pneumonia SHELLIE due to vasomotor nephropathy Severe malnutrition History of Present Illness History of Present Illness Patient is a 85-year-old female presents to the ED with complaints of shortness of breath. She states she was recently diagnosed with COVID-19 in the clinic on Friday, and reports worsening shortness of breath since that time. Associated cough. States that she has been vaccinated against COVID-19, but does not recall the date or which vaccination she received. She does admit to chronic lower extremity edema that is unchanged recently. Will admit patient for further medical management. 10/25/2020: Afebrile. Currently breathing on high flow nasal cannula due to worsening respiratory distress. Continue treatment with remdesivir (day 03/31), steroids, and prophylactic antibiotics. Supportive care. Feels she may have aspirated on some water overnight, currently with complaints of cough. Will obtain chest x-ray and place order ST to evaluate. Discussed with patient and daughter, confirmed she is DNR. Critical care time 30 minutes spent reviewing charts imaging, discussion with RN, discussion with patient's daughter. Advance Care Planning: Total time spent [id number] with patient 16 minutes in discussion with goals of care, comfort care, end-of-life care, pain management, code status; patient names and her daughter as surrogate decision-maker. 10/26: Patient seen and examined. Patient was in mild distress. Patient on 15L O2 per non-rebreather mask. Patient on day 3 of Remdesivir. Discussed with RN. Patient tolerated Ensure. Chart reviewed. 10/25 Chest x-ray indicated progression of pulmonary findings. 10/27. Patient seen and examined. Discussed with RN. Chart reviewed. Patient appeared in moderate respiratory distress. She is on 15L O2 per non-rebreather mask with a pulse ox of 92. Pulmonology was consulted. Patient expected to move to room 512 to be placed on the [place] for increased O2 delivery. She is on Day 4 of Remdesivir. Speech therapy plans to reevaluate patient today. Vitals/I&O Vitals/I&O: Vital Signs Date Time Temp Pulse Resp B/P (MAP) Pulse Ox O2 Delivery O2 Flow Rate FiO2 10/27/20 07:00 98.4 110 18 109/66 (80) 92 NonRebreather Mask 15.0 98.4 I & O 10/26/20 10/26/20 10/27/20 15:00 23:00 07:00 Intake Total 275 ml 250 ml Output Total 200 ml Balance 275 ml 50 ml Physical Exam General: Alert, moderate distress Heart: Regular rate Lungs: Other (Decreased breath sounds, increased work of breathing) Abdomen: Other (Nondistended) Extremities: No clubbing, No cyanosis Skin: No rashes, No breakdown Review of Systems Review of Systems: Patient denies nausea and vomiting. Assessment and Plan Assessmemt and Plan Problems Medical Problems: (1) Acute respiratory failure with hypoxia Status: Acute (2) COVID-19 Status: Acute Assessment: Acute respiratory failure with hypoxia COVID-19 pneumonia SHELLIE due to vasomotor nephropathy Severe malnutrition Plan: 1. Continue COVID-19 Protcol (Remdesivir, robitussin, dexamethasone, rocephin, azithromycin, oxygen, multivitamin, aspirin) -Remdesivir course 10/24 - 10/28 -Decadron daily for total of 10 days, or until patient is no longer requiring O2 (started on 10/23) 2. Patient is moving rooms to be placed on [place] for increased O2 delivery 3. Appreciate Pulmonology consultation input 4. Trend Chest X-ray 5. Monitor daily LFTs 6. Continue home medications 7. FEN - Dysphagia III with honey thick liquids -Speech therapy is reevaluating patient on 10/27 8. PPX - Lovenox 9. DNR 10. Discharge disposition pending Patient names her daughter (Bessie Anglin) as surrogate decision-maker. Comment Review of Relevant I have reviewed the following items eamon (where applicable) has been applied. Justifications for Admission Other Justification ZAHEER HENRIQUEZ III DO Oct 27, 2020 10:01
[2020-10-27] MEDS: IV NORMAL SALINE 1000ML BAG 1,000 ML IV SCH ×2 (10:45→22:04)
[2020-10-27 10:47] LABS: BASO # 0.1 x10^3/uL (0.0-0.2); BASO % 0 % (0-3); EOS # 0.1 x10^3/uL (0.0-0.7); EOS % 1 % (0-3); HEMATOCRIT 35.7 % (36.0-47.0); LYMPH # 1.3 x10^3/uL (1.0-4.8); LYMPH % 7 % (24-48); MEAN CORPUSCULAR HEMOGLOBIN 32 pg (25-35); MEAN CORPUSCULAR HGB CONC 34 g/dL (31-37); MEAN CORPUSCULAR VOLUME 94 fL (79-100); MONO # 0.5 x10^3/uL (0.0-1.1); MONO % 3 % (0-9); NEUT # 16.5 x10^3/uL (1.8-7.7); NEUT % 89 % (31-73); PLATELET COUNT 343 x10^3/uL (140-400); RED BLOOD COUNT 3.79 x10^6/uL (3.50-5.40); WHITE BLOOD COUNT 18.5 x10^3/uL (4.0-11.0)
[2020-10-27 10:59] LABS: CALCIUM 8.3 mg/dL (8.5-10.1); CREATININE 0.6 mg/dL (0.6-1.0); GFR 94.8; POTASSIUM 3.5 mmol/L (3.5-5.1)
[2020-10-27 11:00] VITALS: BP 156/49
[2020-10-27 11:13] LABS: C-REACTIVE PROTEIN 81.3 mg/L (0-3.3); DIRECT BILIRUBIN 0.2 mg/dL (0.0-0.2); TOTAL BILIRUBIN 0.4 mg/dL (0.2-1.0); TOTAL PROTEIN 5.6 g/dL (6.4-8.2)
--- NOTE | 2020-10-27 11:41 | NUR ---
Patient was transferred to room 512 to be monitored on an [place], patient desat's immediately when pt takes off her mask. Patients all personal belongings were sent with her. Report was given to KAVITHA Manuel.
--- NOTE | 2020-10-27 12:32 | PDOC ---
PULMONARY PROGRESS NOTES DATE: 10/27/20 TIME: 12:32 Vitals Vital Signs Date Time Temp Pulse Resp B/P (MAP) Pulse Ox O2 Delivery O2 Flow Rate FiO2 10/27/20 11:38 Non-Rebreather 15.0 10/27/20 07:00 98.4 110 18 109/66 (80) 92 98.4 General: Alert HEENT: Other Lungs: Other (Decreased breath sounds, increased work of breathing) Cardiovascular: S1, S2 Abdomen: Soft, Non-tender Extremities: No Edema Labs Laboratory Tests Test 10/26/20 07:00 10/27/20 10:30 White Blood Count 16.8 x10^3/uL (4.0-11.0) 18.5 x10^3/uL (4.0-11.0) Red Blood Count 3.67 x10^6/uL (3.50-5.40) 3.79 x10^6/uL (3.50-5.40) Hemoglobin 11.3 g/dL (12.0-15.5) 12.0 g/dL (12.0-15.5) Hematocrit 34.3 % (36.0-47.0) 35.7 % (36.0-47.0) Mean Corpuscular Volume 93 fL (79-100) 94 fL (79-100) Mean Corpuscular Hemoglobin 31 pg (25-35) 32 pg (25-35) Mean Corpuscular Hemoglobin Concent 33 g/dL (31-37) 34 g/dL (31-37) Red Cell Distribution Width 15.4 % (11.5-14.5) 16.0 % (11.5-14.5) Platelet Count 304 x10^3/uL (140-400) 343 x10^3/uL (140-400) Neutrophils (%) (Auto) 87 % (31-73) 89 % (31-73) Lymphocytes (%) (Auto) 7 % (24-48) 7 % (24-48) Monocytes (%) (Auto) 6 % (0-9) 3 % (0-9) Eosinophils (%) (Auto) 0 % (0-3) 1 % (0-3) Basophils (%) (Auto) 0 % (0-3) 0 % (0-3) Neutrophils # (Auto) 14.6 x10^3/uL (1.8-7.7) 16.5 x10^3/uL (1.8-7.7) Lymphocytes # (Auto) 1.1 x10^3/uL (1.0-4.8) 1.3 x10^3/uL (1.0-4.8) Monocytes # (Auto) 1.0 x10^3/uL (0.0-1.1) 0.5 x10^3/uL (0.0-1.1) Eosinophils # (Auto) 0.0 x10^3/uL (0.0-0.7) 0.1 x10^3/uL (0.0-0.7) Basophils # (Auto) 0.0 x10^3/uL (0.0-0.2) 0.1 x10^3/uL (0.0-0.2) Sodium Level 143 mmol/L (136-145) 144 mmol/L (136-145) Potassium Level 4.0 mmol/L (3.5-5.1) 3.5 mmol/L (3.5-5.1) Chloride Level 108 mmol/L (98-107) 109 mmol/L (98-107) Carbon Dioxide Level 29 mmol/L (21-32) 31 mmol/L (21-32) Anion Gap 6 (6-14) 4 (6-14) Blood Urea Nitrogen 19 mg/dL (7-20) 17 mg/dL (7-20) Creatinine 0.6 mg/dL (0.6-1.0) 0.6 mg/dL (0.6-1.0) Estimated GFR (Cockcroft-Gault) 94.8 94.8 Glucose Level 109 mg/dL (70-99) 141 mg/dL (70-99) Calcium Level 8.3 mg/dL (8.5-10.1) 8.3 mg/dL (8.5-10.1) Total Bilirubin 0.3 mg/dL (0.2-1.0) 0.4 mg/dL (0.2-1.0) Direct Bilirubin 0.2 mg/dL (0.0-0.2) 0.2 mg/dL (0.0-0.2) Aspartate Amino Transf (AST/SGOT) 24 U/L (15-37) 25 U/L (15-37) Alanine Aminotransferase (ALT/SGPT) 17 U/L (14-59) 17 U/L (14-59) Alkaline Phosphatase 101 U/L (46-116) 112 U/L (46-116) C-Reactive Protein, Quantitative 63.3 mg/L (0-3.3) 81.3 mg/L (0-3.3) Total Protein 5.3 g/dL (6.4-8.2) 5.6 g/dL (6.4-8.2) Albumin 2.0 g/dL (3.4-5.0) 2.0 g/dL (3.4-5.0) Laboratory Tests Test 10/27/20 10:30 White Blood Count 18.5 x10^3/uL (4.0-11.0) Red Blood Count 3.79 x10^6/uL (3.50-5.40) Hemoglobin 12.0 g/dL (12.0-15.5) Hematocrit 35.7 % (36.0-47.0) Mean Corpuscular Volume 94 fL (79-100) Mean Corpuscular Hemoglobin 32 pg (25-35) Mean Corpuscular Hemoglobin Concent 34 g/dL (31-37) Red Cell Distribution Width 16.0 % (11.5-14.5) Platelet Count 343 x10^3/uL (140-400) Neutrophils (%) (Auto) 89 % (31-73) Lymphocytes (%) (Auto) 7 % (24-48) Monocytes (%) (Auto) 3 % (0-9) Eosinophils (%) (Auto) 1 % (0-3) Basophils (%) (Auto) 0 % (0-3) Neutrophils # (Auto) 16.5 x10^3/uL (1.8-7.7) Lymphocytes # (Auto) 1.3 x10^3/uL (1.0-4.8) Monocytes # (Auto) 0.5 x10^3/uL (0.0-1.1) Eosinophils # (Auto) 0.1 x10^3/uL (0.0-0.7) Basophils # (Auto) 0.1 x10^3/uL (0.0-0.2) Sodium Level 144 mmol/L (136-145) Potassium Level 3.5 mmol/L (3.5-5.1) Chloride Level 109 mmol/L (98-107) Carbon Dioxide Level 31 mmol/L (21-32) Anion Gap 4 (6-14) Blood Urea Nitrogen 17 mg/dL (7-20) Creatinine 0.6 mg/dL (0.6-1.0) Estimated GFR (Cockcroft-Gault) 94.8 Glucose Level 141 mg/dL (70-99) Calcium Level 8.3 mg/dL (8.5-10.1) Total Bilirubin 0.4 mg/dL (0.2-1.0) Direct Bilirubin 0.2 mg/dL (0.0-0.2) Aspartate Amino Transf (AST/SGOT) 25 U/L (15-37) Alanine Aminotransferase (ALT/SGPT) 17 U/L (14-59) Alkaline Phosphatase 112 U/L (46-116) C-Reactive Protein, Quantitative 81.3 mg/L (0-3.3) Total Protein 5.6 g/dL (6.4-8.2) Albumin 2.0 g/dL (3.4-5.0) Medications Active Scripts Medications Dose Route/Sig Max Daily Dose Days Date Category Calcium + Vitamin D Tablet (Calcium Carbonate/Vitamin D3) 1 Each Tablet 1 Each PO BID 10/24/20 Reported [tylenol PM] 10/24/20 Reported Potassium Chloride (Potassium Chloride) 10 Meq Tab.sr.24h 15 Meq PO QODAY 10/24/20 Reported Potassium Chloride (Potassium Chloride) 10 Meq Tab.sr.24h 10 Meq PO QODAY 10/24/20 Reported Furosemide 40 Mg Tablet 1.5 Tab PO DAILY 10/24/20 Reported Furosemide 40 Mg Tablet 1 Tab PO QODAY 10/24/20 Reported Levothyroxine Sodium 25 Mcg Tablet 1 Tab PO DAILY 10/24/20 Reported Protonix (Pantoprazole Sodium) 20 Mg Tablet.dr 40 Mg PO DAILY 04/08/17 Reported Zoloft (Sertraline Hcl) 50 Mg Tablet 50 Mg PO HS 05/31/15 Reported Impression . FULL NOTE DICTATED THANKS AGREE WITH CURRENT RX FOR COVID/ARDS ROLANDO SANTACRUZ MD Oct 27, 2020 12:32
[2020-10-27 15:00] VITALS: BP 148/41
--- NOTE | 2020-10-27 15:47 | NUR ---
SS following up with discharge planning. SS reviewed pt chart and discussed with pt RN. Pt is currently on non-rebreather at 15 liters. COVID19 positive. Pt has no home oxygen. Pt on Remdesivir, IV Rocephin, PO Lasix, IV Azithromycin, and IV Decadron. Pt on PO diet. SS will continue to follow for discharge planning.
[2020-10-27 19:00] VITALS: BP 158/67
--- NOTE | 2020-10-27 20:01 | CONS ---
DATE OF CONSULTATION: 10/27/2020 ATTENDING PHYSICIAN: Dr. Gonzales Mane, Dr. Prakash Drummond. REASON FOR CONSULTATION: The patient is seen in pulmonary consultation at the request of Dr. Mane for acute hypoxemic respiratory failure, COVID-19 positivity. HISTORY OF PRESENT ILLNESS: The patient is an 85-year-old that was vaccinated some time ago last Friday, Friday, she felt sick, went to the clinic. We tested positive. She presented with increasing shortness of breath. She was admitted over the last 24 hours, she has had increasing oxygen requirements. I was consulted. The patient has a cough, mostly nonproductive. She had a chest x-ray, compatible with COVID-19 viral pneumonia. She has also had some difficulty with lower extremity edema, but unchanged from previous exam. She had a CT angiogram revealing no evidence of pulmonary emboli. There were patchy areas of ground glass opacities. PAST MEDICAL HISTORY: Hypertension, gastroesophageal reflux, anxiety, depression, lower back pain, UTI. PAST SURGICAL HISTORY: Status post hysterectomy. FAMILY HISTORY: Noncontributory. SOCIAL HISTORY: She smoked many years ago. REVIEW OF SYSTEMS: Unobtainable secondary to the patient's condition. CURRENT MEDICATIONS: List was reviewed. The patient is currently on steroids and empiric antibiotics, remdesivir, IV Rocephin. She received some furosemide, dexamethasone 6 mg IV daily. PHYSICAL EXAMINATION: GENERAL: The patient at rest with a nonrebreather and nasal cannula, had saturations ranging anywhere between 92% and 96%. She does desaturate quickly with exertion. Otherwise, she did not appear to be in any significant distress at rest. LUNGS: Anteriorly were clear. CARDIOVASCULAR: Regular rate and rhythm. ABDOMEN: Soft. EXTREMITIES: Minimal edema. NEUROLOGIC: The patient was awake, alert. LABORATORY DATA: White count was elevated. Hemoglobin and hematocrit were noted. Electrolytes were noted. BUN and creatinine were normal. Albumin upon admission was low. D-dimer was 0.91. CT and chest x-ray as indicated above. IMPRESSION: 1. Acute hypoxemic respiratory failure. 2. COVID-19 viral pneumonia. 3. Acute respiratory distress syndrome. 4. Abnormal x-ray, compatible with viral pneumonia, possibly bacterial pneumonia. 5. Comorbidities, hypertension, gastroesophageal reflux, anxiety and depression. 6. CT angiogram revealed no evidence of pulmonary embolism. PLAN: 1. Continue support with nonrebreather and nasal cannula. 2. May require Vapotherm. 3. Discussed possibility of intubation. The patient is currently a do not resuscitate candidate. 4. Continue support with IV remdesivir. 5. IV steroids. 6. DVT and GI prophylaxis. I do appreciate the privilege in sharing in the patient's care. KEITH DR: Dale TID: [id number]
[2020-10-27] MEDS: HYDROcodone/APAP 5/325MG 1 TAB TABLET PO PRN (21:48)
[2020-10-27] MEDS: SERTRALINE 50 MG TABLET. PO SCH (21:48)
[2020-10-27] MEDS: cefTRIAXone IV Push 1 GM VIAL. IVP SCH (22:02)
[2020-10-27] MEDS: AZITHROMYCIN 500 MG in IV NORMAL SALINE 250ML 250 ML IV SCH (22:03)
[2020-10-27 23:03] VITALS: BP 165/77
[2020-10-28] VITALS (7 sets, daily range): BP systolic 133–175; BP diastolic 59–73
[2020-10-28] MEDS: PANTOPRAZOLE 40 MG TABLET.DR. PO SCH (05:35)
[2020-10-28] MEDS: LEVOTHYROXINE 25 MCG TABLET. PO SCH (05:35)
[2020-10-28] MEDS: FUROSEMIDE 40 MG TABLET. PO SCH (07:31)
[2020-10-28] MEDS: CALCIUM CARB/VIT D3 500/200 TABLET. PO SCH ×2 (07:32→17:00)
[2020-10-28] MEDS: LACTOBACILLUS RHAMNOSUS GG 1 CAPSULE. PO SCH ×2 (07:32→20:57)
[2020-10-28] MEDS: ASPIRIN 325 MG TABLET PO SCH (07:32)
[2020-10-28] MEDS: MULTIVITAMIN with MINERAL TABLET. PO SCH (07:32)
[2020-10-28] MEDS: HYDROcodone/APAP 5/325MG 1 TAB TABLET PO PRN ×2 (07:32→20:57)
[2020-10-28] MEDS: DEXAMETHASONE SOD PHOS 4 MG/ML VIAL IVP SCH (07:33)
[2020-10-28] MEDS: HEPARIN for SUB-Q USE 5,000 UNIT/ML VIAL. SQ SCH ×2 (07:34→20:58)
--- NOTE | 2020-10-28 07:39 | PDOC ---
PULMONARY PROGRESS NOTES DATE: 10/28/20 TIME: 07:39 Subjective Patient more short of air today, saturations low despite nonrebreather and nasal cannula Vitals Vital Signs Date Time Temp Pulse Resp B/P (MAP) Pulse Ox O2 Delivery O2 Flow Rate FiO2 10/28/20 07:32 89 15.0 10/28/20 03:27 97.6 92 22 155/73 (100) NonRebreather Mask 97.6 ROS: No Nausea, No Chest Pain, No Abdominal Pain General: Alert Lungs: Crackles, Other Cardiovascular: S1, S2 Abdomen: Soft, Non-tender Extremities: No Edema Labs Laboratory Tests Test 10/27/20 10:30 White Blood Count 18.5 x10^3/uL (4.0-11.0) Red Blood Count 3.79 x10^6/uL (3.50-5.40) Hemoglobin 12.0 g/dL (12.0-15.5) Hematocrit 35.7 % (36.0-47.0) Mean Corpuscular Volume 94 fL (79-100) Mean Corpuscular Hemoglobin 32 pg (25-35) Mean Corpuscular Hemoglobin Concent 34 g/dL (31-37) Red Cell Distribution Width 16.0 % (11.5-14.5) Platelet Count 343 x10^3/uL (140-400) Neutrophils (%) (Auto) 89 % (31-73) Lymphocytes (%) (Auto) 7 % (24-48) Monocytes (%) (Auto) 3 % (0-9) Eosinophils (%) (Auto) 1 % (0-3) Basophils (%) (Auto) 0 % (0-3) Neutrophils # (Auto) 16.5 x10^3/uL (1.8-7.7) Lymphocytes # (Auto) 1.3 x10^3/uL (1.0-4.8) Monocytes # (Auto) 0.5 x10^3/uL (0.0-1.1) Eosinophils # (Auto) 0.1 x10^3/uL (0.0-0.7) Basophils # (Auto) 0.1 x10^3/uL (0.0-0.2) Sodium Level 144 mmol/L (136-145) Potassium Level 3.5 mmol/L (3.5-5.1) Chloride Level 109 mmol/L (98-107) Carbon Dioxide Level 31 mmol/L (21-32) Anion Gap 4 (6-14) Blood Urea Nitrogen 17 mg/dL (7-20) Creatinine 0.6 mg/dL (0.6-1.0) Estimated GFR (Cockcroft-Gault) 94.8 Glucose Level 141 mg/dL (70-99) Calcium Level 8.3 mg/dL (8.5-10.1) Total Bilirubin 0.4 mg/dL (0.2-1.0) Direct Bilirubin 0.2 mg/dL (0.0-0.2) Aspartate Amino Transf (AST/SGOT) 25 U/L (15-37) Alanine Aminotransferase (ALT/SGPT) 17 U/L (14-59) Alkaline Phosphatase 112 U/L (46-116) C-Reactive Protein, Quantitative 81.3 mg/L (0-3.3) Total Protein 5.6 g/dL (6.4-8.2) Albumin 2.0 g/dL (3.4-5.0) Laboratory Tests Test 10/27/20 10:30 White Blood Count 18.5 x10^3/uL (4.0-11.0) Red Blood Count 3.79 x10^6/uL (3.50-5.40) Hemoglobin 12.0 g/dL (12.0-15.5) Hematocrit 35.7 % (36.0-47.0) Mean Corpuscular Volume 94 fL (79-100) Mean Corpuscular Hemoglobin 32 pg (25-35) Mean Corpuscular Hemoglobin Concent 34 g/dL (31-37) Red Cell Distribution Width 16.0 % (11.5-14.5) Platelet Count 343 x10^3/uL (140-400) Neutrophils (%) (Auto) 89 % (31-73) Lymphocytes (%) (Auto) 7 % (24-48) Monocytes (%) (Auto) 3 % (0-9) Eosinophils (%) (Auto) 1 % (0-3) Basophils (%) (Auto) 0 % (0-3) Neutrophils # (Auto) 16.5 x10^3/uL (1.8-7.7) Lymphocytes # (Auto) 1.3 x10^3/uL (1.0-4.8) Monocytes # (Auto) 0.5 x10^3/uL (0.0-1.1) Eosinophils # (Auto) 0.1 x10^3/uL (0.0-0.7) Basophils # (Auto) 0.1 x10^3/uL (0.0-0.2) Sodium Level 144 mmol/L (136-145) Potassium Level 3.5 mmol/L (3.5-5.1) Chloride Level 109 mmol/L (98-107) Carbon Dioxide Level 31 mmol/L (21-32) Anion Gap 4 (6-14) Blood Urea Nitrogen 17 mg/dL (7-20) Creatinine 0.6 mg/dL (0.6-1.0) Estimated GFR (Cockcroft-Gault) 94.8 Glucose Level 141 mg/dL (70-99) Calcium Level 8.3 mg/dL (8.5-10.1) Total Bilirubin 0.4 mg/dL (0.2-1.0) Direct Bilirubin 0.2 mg/dL (0.0-0.2) Aspartate Amino Transf (AST/SGOT) 25 U/L (15-37) Alanine Aminotransferase (ALT/SGPT) 17 U/L (14-59) Alkaline Phosphatase 112 U/L (46-116) C-Reactive Protein, Quantitative 81.3 mg/L (0-3.3) Total Protein 5.6 g/dL (6.4-8.2) Albumin 2.0 g/dL (3.4-5.0) Medications Active Scripts Medications Dose Route/Sig Max Daily Dose Days Date Category Calcium + Vitamin D Tablet (Calcium Carbonate/Vitamin D3) 1 Each Tablet 1 Each PO BID 10/24/20 Reported [tylenol PM] 10/24/20 Reported Potassium Chloride (Potassium Chloride) 10 Meq Tab.sr.24h 15 Meq PO QODAY 10/24/20 Reported Potassium Chloride (Potassium Chloride) 10 Meq Tab.sr.24h 10 Meq PO QODAY 10/24/20 Reported Furosemide 40 Mg Tablet 1.5 Tab PO DAILY 10/24/20 Reported Furosemide 40 Mg Tablet 1 Tab PO QODAY 10/24/20 Reported Levothyroxine Sodium 25 Mcg Tablet 1 Tab PO DAILY 10/24/20 Reported Protonix (Pantoprazole Sodium) 20 Mg Tablet.dr 40 Mg PO DAILY 04/08/17 Reported Zoloft (Sertraline Hcl) 50 Mg Tablet 50 Mg PO HS 05/31/15 Reported Impression . IMPRESSION: 1. Acute hypoxemic respiratory failure. 2. COVID-19 viral pneumonia. 3. Acute respiratory distress syndrome. 4. Abnormal x-ray, compatible with viral pneumonia, possibly bacterial pneumonia. 5. Comorbidities, hypertension, gastroesophageal reflux, anxiety and depression. 6. CT angiogram revealed no evidence of pulmonary embolism. Plan . Discussed with RN, will transfer to initiate Vapotherm Continue steroids Remdesivir DVT prophylaxis Monitor closely for any deterioration 1. Continue support with nonrebreather and nasal cannula. 2. May require Vapotherm. 3. Discussed possibility of intubation. The patient is currently a do not resuscitate candidate. 4. Continue support with IV remdesivir. 5. IV steroids. 6. DVT and GI prophylaxis. I do appreciate the privilege in sharing in the patient's care. ROLANDO SANTACRUZ MD Oct 28, 2020 07:39
[2020-10-28] MEDS: REMDESIVIR 100mg in NORMAL SALINE 250ML X 4 DAYS IV SCH (09:33)
[2020-10-28 10:22] LABS: BASO % 0 % (0-3); EOS % 0 % (0-3); HEMATOCRIT 35.9 % (36.0-47.0); HEMOGLOBIN 11.7 g/dL (12.0-15.5); LYMPH # 0.6 x10^3/uL (1.0-4.8); LYMPH % 3 % (24-48); MEAN CORPUSCULAR HEMOGLOBIN 31 pg (25-35); MEAN CORPUSCULAR HGB CONC 33 g/dL (31-37); MEAN CORPUSCULAR VOLUME 96 fL (79-100); MONO # 0.4 x10^3/uL (0.0-1.1); MONO % 2 % (0-9); NEUT # 18.6 x10^3/uL (1.8-7.7); NEUT % 95 % (31-73); PLATELET COUNT 332 x10^3/uL (140-400); RED BLOOD COUNT 3.76 x10^6/uL (3.50-5.40); WHITE BLOOD COUNT 19.6 x10^3/uL (4.0-11.0)
[2020-10-28 10:34] LABS: CREATININE 0.7 mg/dL (0.6-1.0); GFR 79.3; POTASSIUM 3.7 mmol/L (3.5-5.1)
[2020-10-28 10:38] LABS: C-REACTIVE PROTEIN 101.2 mg/L (0-3.3); DIRECT BILIRUBIN 0.2 mg/dL (0.0-0.2); TOTAL BILIRUBIN 0.4 mg/dL (0.2-1.0); TOTAL PROTEIN 5.6 g/dL (6.4-8.2)
--- NOTE | 2020-10-28 11:00 | PDOC ---
PROGRESS NOTES Date of Service: DATE: 10/28/20 TIME: 10:58 Chief Complaint Chief Complaint Acute respiratory failure with hypoxia COVID-19 pneumonia SHELLIE due to vasomotor nephropathy Severe malnutrition History of Present Illness History of Present Illness Patient is a 85-year-old female presents to the ED with complaints of shortness of breath. She states she was recently diagnosed with COVID-19 in the clinic on Friday, and reports worsening shortness of breath since that time. Associated cough. States that she has been vaccinated against COVID-19, but does not recall the date or which vaccination she received. She does admit to chronic lower extremity edema that is unchanged recently. Will admit patient for further medical management. 10/25/2020: Afebrile. Currently breathing on high flow nasal cannula due to worsening respiratory distress. Continue treatment with remdesivir (day 2/), steroids, and prophylactic antibiotics. Supportive care. Feels she may have aspirated on some water overnight, currently with complaints of cough. Will obtain chest x-ray and place order ST to evaluate. Discussed with patient and daughter, confirmed she is DNR. Critical care time 30 minutes spent reviewing charts imaging, discussion with RN, discussion with patient's daughter. Advance Care Planning: Total time spent [id number] with patient 16 minutes in discussion with goals of care, comfort care, end-of-life care, pain management, code status; patient names and her daughter as surrogate decision-maker. 10/26: Patient seen and examined. Patient was in mild distress. Patient on 15L O2 per non-rebreather mask. Patient on day 3 of Remdesivir. Discussed with RN. Patient tolerated Ensure. Chart reviewed. 10/25 Chest x-ray indicated progression of pulmonary findings. 10/27. Patient seen and examined. Discussed with RN. Chart reviewed. Patient appeared in moderate respiratory distress. She is on 15L O2 per non-rebreather mask with a pulse ox of 92. Pulmonology was consulted. Patient expected to move to room 512 to be placed on the [place] for increased O2 delivery. She is on Day 4 of Remdesivir. Speech therapy plans to reevaluate patient today. 10/28. seen and examined. Discussed with RN. Chart reviewed. moved to 6th floor on vapotherm mild- moderate respiratory distress. /15L O2 per non-rebreather mask 85% Pulmonology was consulted. Patient expected to move to room 512 to be placed on the [place] for increased O2 delivery. Day 5 of Remdesivir. Speech therapy plans to reevaluate Patchy areas of groundglass opacity in lungs bilaterally favored infectious or inflammatory in etiology. 33 min cc time Vitals Vitals Vital Signs Date Time Temp Pulse Resp B/P (MAP) Pulse Ox O2 Delivery O2 Flow Rate FiO2 10/28/20 09:40 85 15.0 10/28/20 07:30 Non-Rebreather 10/28/20 07:00 97.9 96 18 154/61 (92) 97.9 Physical Exam General: Alert, Oriented X3, Cooperative, mild distress Heart: Regular rate Lungs: Other (Decreased breath sounds, increased work of breathing) Abdomen: Soft, No tenderness, Other (Nondistended) Extremities: No clubbing, No cyanosis, No edema Skin: No rashes, No breakdown Labs LABS ATRIA The left atrium size is normal. The right atrium size is normal. The interatrial septum is intact with no evidence for an atrial septal defect or patent foramen ovale as noted on 2-D or Doppler imaging. AORTIC VALVE The aortic valve is calcified but opens well. Doppler and Color Flow revealed no significant aortic regurgitation. There is no significant aortic valvular stenosis. MITRAL VALVE The mitral valve is calcified but opens well. There is no evidence of mitral valve prolapse. There is no mitral valve stenosis. Doppler and Color-flow revealed mild mitral regurgitation. TRICUSPID VALVE The tricuspid valve is normal in structure and function. Doppler and Color Flow revealed mild tricuspid regurgitation. There is mild pulmonary hypertension. The PA pressure was estimated at 36 mmHg. There is no tricuspid valve stenosis. PULMONIC VALVE The pulmonic valve is not well visualized. Doppler and Color Flow revealed trace pulmonic valvular regurgitation. There is no pulmonic valvular stenosis. GREAT VESSELS The aortic root is normal in size. The ascending aorta is normal in size. The IVC was not visualized. PERICARDIAL EFFUSION There is no evidence of significant pericardial effusion. Critical Notification Critical Value: No <Conclusion> The left ventricular systolic function is normal. The Ejection Fraction is 60-65%. There is normal LV segmental wall motion. Transmitral Doppler flow pattern is Grade I-abnormal relaxation pattern. Mild mitral regurgitation. Mild tricuspid regurgitation. There is mild pulmonary hypertension. The PA pressure was estimated at 36 mmHg. There is no evidence of significant pericardial effusion. Signed by : Vickie Patel, Electronically Approved : 07/01/2018 12:37:40 DICTATED and SIGNED BY: VICKIE PATEL MD PATIENT: JEFFERSON ABURTO ACCOUNT: [id number] : 1935 LOCATION: ER AGE: 85 SEX: F EXAM STATUS: REG ER ORD. PHYSICIAN: BROOK CALDERON MD REASON: hypoxia, RLE edema, covid +, r/o PE PROCEDURE: CT ANGIOGRAPHY CHEST Exam: CT of chest with contrast INDICATION: Hypoxia, right lower quadrant edema, Covid positive TECHNIQUE: Sequential axial images through the chest obtained following the administration of 80 mL of Omni 350 IV contrast. Sagittal and coronal reformatted images were reconstructed from the axial data and reviewed. 3-D reformatted images were reconstructed from the axial data and reviewed. Exposure: One or more of the following in the visualized dose reduction techniques were utilized for this examination: 1. Automated exposure control 2. Adjustment of the MA and/or KV according to patient size 3. Use of iterative of reconstructive technique Comparisons: Chest x-ray same day FINDINGS: Visualized portions of the thyroid are unremarkable. Several prominent but not enlarged mediastinal lymph nodes are identified. Heart size is normal. Trace pericardial effusion. Thoracic aorta has a normal course and caliber. Pulmonary artery is not enlarged. No pulmonary embolus identified within the main, lobar or segmental pulmonary arteries. Airways are patent. Patchy areas of groundglass opacity noted lungs bilaterally. No pneumothorax. No pleural effusion or thickening. Visualized upper abdomen is unremarkable. No suspicious osseous lesions or acute fractures. IMPRESSION: 1. No pulmonary embolus identified within the main, lobar or segmental pulmonary arteries. 2. Patchy areas of groundglass opacity in lungs bilaterally favored infectious or inflammatory in etiology. Laboratory Tests Test 10/28/20 10:10 White Blood Count 19.6 x10^3/uL (4.0-11.0) Red Blood Count 3.76 x10^6/uL (3.50-5.40) Hemoglobin 11.7 g/dL (12.0-15.5) Hematocrit 35.9 % (36.0-47.0) Mean Corpuscular Volume 96 fL (79-100) Mean Corpuscular Hemoglobin 31 pg (25-35) Mean Corpuscular Hemoglobin Concent 33 g/dL (31-37) Red Cell Distribution Width 16.0 % (11.5-14.5) Platelet Count 332 x10^3/uL (140-400) Neutrophils (%) (Auto) 95 % (31-73) Lymphocytes (%) (Auto) 3 % (24-48) Monocytes (%) (Auto) 2 % (0-9) Eosinophils (%) (Auto) 0 % (0-3) Basophils (%) (Auto) 0 % (0-3) Neutrophils # (Auto) 18.6 x10^3/uL (1.8-7.7) Lymphocytes # (Auto) 0.6 x10^3/uL (1.0-4.8) Monocytes # (Auto) 0.4 x10^3/uL (0.0-1.1) Eosinophils # (Auto) 0.0 x10^3/uL (0.0-0.7) Basophils # (Auto) 0.0 x10^3/uL (0.0-0.2) Sodium Level 145 mmol/L (136-145) Potassium Level 3.7 mmol/L (3.5-5.1) Chloride Level 108 mmol/L (98-107) Carbon Dioxide Level 34 mmol/L (21-32) Anion Gap 3 (6-14) Blood Urea Nitrogen 16 mg/dL (7-20) Creatinine 0.7 mg/dL (0.6-1.0) Estimated GFR (Cockcroft-Gault) 79.3 Glucose Level 160 mg/dL (70-99) Calcium Level 8.0 mg/dL (8.5-10.1) Total Bilirubin 0.4 mg/dL (0.2-1.0) Direct Bilirubin 0.2 mg/dL (0.0-0.2) Aspartate Amino Transf (AST/SGOT) 24 U/L (15-37) Alanine Aminotransferase (ALT/SGPT) 18 U/L (14-59) Alkaline Phosphatase 127 U/L (46-116) C-Reactive Protein, Quantitative 101.2 mg/L (0-3.3) Total Protein 5.6 g/dL (6.4-8.2) Albumin 2.0 g/dL (3.4-5.0) Assessment and Plan Assessmemt and Plan Problems Medical Problems: (1) Acute respiratory failure with hypoxia Status: Acute (2) COVID-19 Status: Acute Comment Review of Relevant I have reviewed the following items eamon (where applicable) has been applied. Labs Laboratory Tests Test 10/27/20 10:30 10/28/20 10:10 White Blood Count 18.5 x10^3/uL (4.0-11.0) 19.6 x10^3/uL (4.0-11.0) Red Blood Count 3.79 x10^6/uL (3.50-5.40) 3.76 x10^6/uL (3.50-5.40) Hemoglobin 12.0 g/dL (12.0-15.5) 11.7 g/dL (12.0-15.5) Hematocrit 35.7 % (36.0-47.0) 35.9 % (36.0-47.0) Mean Corpuscular Volume 94 fL (79-100) 96 fL (79-100) Mean Corpuscular Hemoglobin 32 pg (25-35) 31 pg (25-35) Mean Corpuscular Hemoglobin Concent 34 g/dL (31-37) 33 g/dL (31-37) Red Cell Distribution Width 16.0 % (11.5-14.5) 16.0 % (11.5-14.5) Platelet Count 343 x10^3/uL (140-400) 332 x10^3/uL (140-400) Neutrophils (%) (Auto) 89 % (31-73) 95 % (31-73) Lymphocytes (%) (Auto) 7 % (24-48) 3 % (24-48) Monocytes (%) (Auto) 3 % (0-9) 2 % (0-9) Eosinophils (%) (Auto) 1 % (0-3) 0 % (0-3) Basophils (%) (Auto) 0 % (0-3) 0 % (0-3) Neutrophils # (Auto) 16.5 x10^3/uL (1.8-7.7) 18.6 x10^3/uL (1.8-7.7) Lymphocytes # (Auto) 1.3 x10^3/uL (1.0-4.8) 0.6 x10^3/uL (1.0-4.8) Monocytes # (Auto) 0.5 x10^3/uL (0.0-1.1) 0.4 x10^3/uL (0.0-1.1) Eosinophils # (Auto) 0.1 x10^3/uL (0.0-0.7) 0.0 x10^3/uL (0.0-0.7) Basophils # (Auto) 0.1 x10^3/uL (0.0-0.2) 0.0 x10^3/uL (0.0-0.2) Sodium Level 144 mmol/L (136-145) 145 mmol/L (136-145) Potassium Level 3.5 mmol/L (3.5-5.1) 3.7 mmol/L (3.5-5.1) Chloride Level 109 mmol/L (98-107) 108 mmol/L (98-107) Carbon Dioxide Level 31 mmol/L (21-32) 34 mmol/L (21-32) Anion Gap 4 (6-14) 3 (6-14) Blood Urea Nitrogen 17 mg/dL (7-20) 16 mg/dL (7-20) Creatinine 0.6 mg/dL (0.6-1.0) 0.7 mg/dL (0.6-1.0) Estimated GFR (Cockcroft-Gault) 94.8 79.3 Glucose Level 141 mg/dL (70-99) 160 mg/dL (70-99) Calcium Level 8.3 mg/dL (8.5-10.1) 8.0 mg/dL (8.5-10.1) Total Bilirubin 0.4 mg/dL (0.2-1.0) 0.4 mg/dL (0.2-1.0) Direct Bilirubin 0.2 mg/dL (0.0-0.2) 0.2 mg/dL (0.0-0.2) Aspartate Amino Transf (AST/SGOT) 25 U/L (15-37) 24 U/L (15-37) Alanine Aminotransferase (ALT/SGPT) 17 U/L (14-59) 18 U/L (14-59) Alkaline Phosphatase 112 U/L (46-116) 127 U/L (46-116) C-Reactive Protein, Quantitative 81.3 mg/L (0-3.3) 101.2 mg/L (0-3.3) Total Protein 5.6 g/dL (6.4-8.2) 5.6 g/dL (6.4-8.2) Albumin 2.0 g/dL (3.4-5.0) 2.0 g/dL (3.4-5.0) Laboratory Tests Test 10/28/20 10:10 White Blood Count 19.6 x10^3/uL (4.0-11.0) Red Blood Count 3.76 x10^6/uL (3.50-5.40) Hemoglobin 11.7 g/dL (12.0-15.5) Hematocrit 35.9 % (36.0-47.0) Mean Corpuscular Volume 96 fL (79-100) Mean Corpuscular Hemoglobin 31 pg (25-35) Mean Corpuscular Hemoglobin Concent 33 g/dL (31-37) Red Cell Distribution Width 16.0 % (11.5-14.5) Platelet Count 332 x10^3/uL (140-400) Neutrophils (%) (Auto) 95 % (31-73) Lymphocytes (%) (Auto) 3 % (24-48) Monocytes (%) (Auto) 2 % (0-9) Eosinophils (%) (Auto) 0 % (0-3) Basophils (%) (Auto) 0 % (0-3) Neutrophils # (Auto) 18.6 x10^3/uL (1.8-7.7) Lymphocytes # (Auto) 0.6 x10^3/uL (1.0-4.8) Monocytes # (Auto) 0.4 x10^3/uL (0.0-1.1) Eosinophils # (Auto) 0.0 x10^3/uL (0.0-0.7) Basophils # (Auto) 0.0 x10^3/uL (0.0-0.2) Sodium Level 145 mmol/L (136-145) Potassium Level 3.7 mmol/L (3.5-5.1) Chloride Level 108 mmol/L (98-107) Carbon Dioxide Level 34 mmol/L (21-32) Anion Gap 3 (6-14) Blood Urea Nitrogen 16 mg/dL (7-20) Creatinine 0.7 mg/dL (0.6-1.0) Estimated GFR (Cockcroft-Gault) 79.3 Glucose Level 160 mg/dL (70-99) Calcium Level 8.0 mg/dL (8.5-10.1) Total Bilirubin 0.4 mg/dL (0.2-1.0) Direct Bilirubin 0.2 mg/dL (0.0-0.2) Aspartate Amino Transf (AST/SGOT) 24 U/L (15-37) Alanine Aminotransferase (ALT/SGPT) 18 U/L (14-59) Alkaline Phosphatase 127 U/L (46-116) C-Reactive Protein, Quantitative 101.2 mg/L (0-3.3) Total Protein 5.6 g/dL (6.4-8.2) Albumin 2.0 g/dL (3.4-5.0) Microbiology 10/23/20 Blood Culture - Preliminary, Resulted NO GROWTH AFTER 4 DAYS Medications Current Medications Dexamethasone Sodium Phosphate (Decadron) 6 mg 1X ONCE IVP Last administered on 10/23/20at 20:38; Start 10/23/20 at 20:30; Stop 10/23/20 at 20:31; Status DC Ceftriaxone Sodium (Rocephin) 1 gm 1X ONCE IVP Last administered on 10/23/20at 21:28; Start 10/23/20 at 21:15; Stop 10/23/20 at 21:16; Status DC Azithromycin 500 mg/Sodium Chloride 250 ml @ 250 mls/hr Q24H IV Last administered on 10/27/20at 22:03; Start 10/24/20 at 21:00; Stop 10/27/20 at 21:59; Status DC Azithromycin 250 ml @ 250 mls/hr 1X ONCE IV Last administered on 10/23/20at 21:35; Start 10/23/20 at 21:30; Stop 10/23/20 at 22:29; Status DC Acetaminophen (Tylenol) 1,000 mg 1X ONCE PO ; Start 10/23/20 at 22:00; Stop 10/23/20 at 22:01; Status DC Iohexol (Omnipaque 350 Mg/ml) 80 ml 1X ONCE IV Last administered on 10/23/20at 22:26; Start 10/23/20 at 22:30; Stop 10/23/20 at 22:31; Status DC Info (CONTRAST GIVEN -- Rx MONITORING) 1 each PRN DAILY PRN MC SEE COMMENTS; Start 10/23/20 at 22:15; Stop 10/25/20 at 22:14; Status DC Furosemide (Lasix) 40 mg QODAY PO Last administered on 10/27/20at 09:32; Start 10/25/20 at 09:00 Levothyroxine Sodium (Synthroid) 25 mcg DAILY07 PO Last administered on 10/28/20at 05:35; Start 10/24/20 at 07:30 Sertraline HCl (Zoloft) 50 mg HS PO Last administered on 10/27/20at 21:48; Start 10/24/20 at 21:00 Calcium/Vitamin D (Oscal D 500mg/ 200uts) 1 tab BIDWMEALS PO Last administered on 10/28/20at 07:32; Start 10/24/20 at 08:00 Pantoprazole Sodium (Protonix) 40 mg DAILYAC PO Last administered on 10/28/20at 05:35; Start 10/24/20 at 08:00 Furosemide (Lasix) 60 mg QODAY PO Last administered on 10/28/20at 07:31; Start 10/24/20 at 09:00 Guaifenesin (Robitussin) 200 mg PRN Q4HRS PRN PO COUGH; Start 10/24/20 at 07:15 Dexamethasone Sodium Phosphate (Decadron) 6 mg DAILY IVP Last administered on 10/28/20at 07:33; Start 10/24/20 at 09:00; Stop 11/03/20 at 08:59 Remdesivir 200 mg/ Sodium Chloride 210 ml @ 210 mls/hr 1X ONCE IV Last administered on 10/24/20at 09:03; Start 10/24/20 at 09:00; Stop 10/24/20 at 09:59; Status DC Remdesivir 100 mg/ Sodium Chloride 230 ml @ 460 mls/hr Q24H IV Last administered on 10/28/20at 09:33; Start 10/25/20 at 09:00; Stop 10/28/20 at 09:29; Status DC Ceftriaxone Sodium (Rocephin) 1 gm Q24H IVP Last administered on 10/27/20at 22:02; Start 10/24/20 at 21:00; Stop 10/29/20 at 20:59 Ondansetron HCl (Zofran) 4 mg PRN Q6HRS PRN IVP NAUSEA/VOMITING; Start 10/24/20 at 07:15 Al Hydroxide/Mg Hydroxide (Mylanta Plus Xs) 30 ml PRN Q3HRS PRN PO HEARTBURN / GAS; Start 10/24/20 at 07:15 Calcium Carbonate/ Glycine (Tums) 500 mg PRN Q3HRS PRN PO UPSET STOMACH; Start 10/24/20 at 07:15 Acetaminophen (Tylenol) 650 mg PRN Q6HRS PRN PO Headaches, Temp > 101.5F Last administered on 10/26/20 22:53; Start 10/24/20 at 07:15 Magnesium Hydroxide (Milk Of Magnesia) 2,400 mg PRN Q12HR PRN PO CONSTIPATION; Start 10/24/20 at 07:15 Heparin Sodium (Porcine) (Heparin Sodium) 5,000 unit Q12HR SQ Last administered on 10/28/20 07:34; Start 10/24/20 at 09:00 Acetaminophen/ Hydrocodone Bitart (Lortab 5/325) 1 tab Q6HRS PRN PO PAIN Last administered on 10/28/20 07:32; Start 10/24/20 at 20:30 Diphenhydramine HCl (Benadryl) 25 mg PRN QHS PRN PO INSOMNIA Last administered on 10/26/20 22:54; Start 10/24/20 at 20:30 Lactobacillus Rhamnosus (Culturelle) 1 cap BID PO Last administered on 10/28/20 07:32; Start 10/25/20 at 12:30 Multivitamins (Thera M Plus) 1 tab DAILY PO Last administered on 10/28/20 07:32; Start 10/27/20 at 09:00 Aspirin (Hamlet Aspirin) 325 mg [id number] PO Last administered on 10/28/20 07:32; Start 10/27/20 at 08:00 Sodium Chloride 1,000 ml @ 75 mls/hr [id number] IV Last administered on 10/27/20 22:04; Start 10/27/20 at 10:45 Active Scripts Active Reported Calcium + Vitamin D Tablet (Calcium Carbonate/Vitamin D3) 1 Each Tablet 1 Each PO BID [tylenol PM] Potassium Chloride (Potassium Chloride) 10 Meq Tab.sr.24h 15 Meq PO QODAY Potassium Chloride (Potassium Chloride) 10 Meq Tab.sr.24h 10 Meq PO QODAY Furosemide 40 Mg Tablet 1.5 Tab PO DAILY Furosemide 40 Mg Tablet 1 Tab PO QODAY Levothyroxine Sodium 25 Mcg Tablet 1 Tab PO DAILY Protonix (Pantoprazole Sodium) 20 Mg Tablet.dr 40 Mg PO DAILY Zoloft (Sertraline Hcl) 50 Mg Tablet 50 Mg PO HS Vitals/I & O Vital Sign - Last 24 Hours 10/27/20 10/27/20 10/27/20 10/27/20 11:00 11:38 15:00 19:00 Temp 98.3 98.1 97.6 98.3 98.1 97.6 Pulse 100 96 86 Resp 20 20 24 B/P (MAP) 156/49 (84) 148/41 (76) 158/67 (97) Pulse Ox 98 97 89 O2 Delivery NonRebreather Mask Non-Rebreather NonRebreather Mask Nasal Cannula O2 Flow Rate 15.0 15.0 15.0 10/27/20 10/27/20 10/27/20 10/27/20 20:00 21:48 22:18 23:03 Temp 97.7 97.7 Pulse 93 Resp 18 18 24 B/P (MAP) 165/77 (106) Pulse Ox 89 89 91 O2 Delivery Non-Rebreather NonRebreather Mask O2 Flow Rate 15.0 15.0 15.0 10/28/20 10/28/20 10/28/20 10/28/20 03:27 07:00 07:30 07:32 Temp 97.6 97.9 97.6 97.9 Pulse 92 96 Resp 22 18 B/P (MAP) 155/73 (100) 154/61 (92) Pulse Ox 89 86 89 O2 Delivery NonRebreather Mask NonRebreather Mask Non-Rebreather O2 Flow Rate 15.0 15.0 10/28/20 09:40 Pulse Ox 85 O2 Flow Rate 15.0 Intake and Output 10/27/20 10/27/20 10/28/20 15:00 23:00 07:00 Intake Total 350 ml 1230 ml 120 ml Output Total 1100 ml Balance 350 ml 1230 ml -980 ml Justicifation of Admission Dx: Justifications for Admission: Justification of Admission Dx: N/A TARA PURI MD Oct 28, 2020 11:00
[2020-10-28] MEDS: IV NORMAL SALINE 1000ML BAG 1,000 ML IV SCH (14:55)
[2020-10-28] MEDS: SERTRALINE 50 MG TABLET. PO SCH (20:57)
[2020-10-28] MEDS: cefTRIAXone IV Push 1 GM VIAL. IVP SCH (20:57)
[2020-10-28] MEDS: STERILE WATER for RESP 1,000 ML BAG. INH PRN (21:45)
[2020-10-29 03:09] VITALS: BP 145/75
[2020-10-29] MEDS: IV NORMAL SALINE 1000ML BAG 1,000 ML IV SCH ×2 (03:32→17:43)
[2020-10-29 05:05] LABS: BASO % 0 % (0-3); EOS % 0 % (0-3); HEMATOCRIT 35.8 % (36.0-47.0); HEMOGLOBIN 11.8 g/dL (12.0-15.5); LYMPH # 0.7 x10^3/uL (1.0-4.8); LYMPH % 4 % (24-48); MEAN CORPUSCULAR HEMOGLOBIN 31 pg (25-35); MEAN CORPUSCULAR HGB CONC 33 g/dL (31-37); MEAN CORPUSCULAR VOLUME 95 fL (79-100); MONO # 0.5 x10^3/uL (0.0-1.1); MONO % 3 % (0-9); NEUT % 93 % (31-73); PLATELET COUNT 333 x10^3/uL (140-400); RED BLOOD COUNT 3.78 x10^6/uL (3.50-5.40); WHITE BLOOD COUNT 18.3 x10^3/uL (4.0-11.0)
[2020-10-29 05:22] LABS: CALCIUM 8.2 mg/dL (8.5-10.1); CREATININE 0.7 mg/dL (0.6-1.0); GFR 79.3; POTASSIUM 3.9 mmol/L (3.5-5.1)
[2020-10-29] MEDS: STERILE WATER for RESP 1,000 ML BAG. INH PRN ×2 (06:15→16:15)
[2020-10-29] MEDS: LEVOTHYROXINE 25 MCG TABLET. PO SCH (06:37)
[2020-10-29 07:00] VITALS: BP 183/84
--- NOTE | 2020-10-29 07:33 | RAD ---
XR CHEST 1V INDICATION: Reason: pneumonia / Spl. Instructions: / History: . COMPARISON STUDY: 10/25/2020. FINDINGS: Lungs: Persistent diffuse bilateral opacities. Pleura: No pleural effusion or pneumothorax. Heart and Mediastinum: Stable cardiomediastinal silhouette and great vessels. Bones and Soft Tissues: Stable regional skeleton and soft tissues. IMPRESSION: Persistent diffuse bilateral opacities. Electronically signed by: Alek Weiss MD (10/29/2020 7:31 AM) [id number]
[2020-10-29] MEDS: ASPIRIN 325 MG TABLET PO SCH (08:48)
[2020-10-29] MEDS: CALCIUM CARB/VIT D3 500/200 TABLET. PO SCH ×2 (08:48→17:42)
[2020-10-29] MEDS: LACTOBACILLUS RHAMNOSUS GG 1 CAPSULE. PO SCH ×2 (08:48→20:35)
[2020-10-29] MEDS: PANTOPRAZOLE 40 MG TABLET.DR. PO SCH (08:49)
[2020-10-29] MEDS: MULTIVITAMIN with MINERAL TABLET. PO SCH (08:49)
[2020-10-29] MEDS: DEXAMETHASONE SOD PHOS 4 MG/ML VIAL IVP SCH (08:49)
[2020-10-29] MEDS: FUROSEMIDE 40 MG TABLET. PO SCH (08:49)
[2020-10-29] MEDS: HEPARIN for SUB-Q USE 5,000 UNIT/ML VIAL. SQ SCH ×2 (08:53→21:17)
--- NOTE | 2020-10-29 10:21 | PDOC ---
PULMONARY PROGRESS NOTES DATE: 10/29/20 TIME: 10:19 Subjective Patient about the same, requiring Vapotherm 40 L 100% Vitals Vital Signs Date Time Temp Pulse Resp B/P (MAP) Pulse Ox O2 Delivery O2 Flow Rate FiO2 10/29/20 09:36 95 183/84 10/29/20 08:29 87 VAPOTHERM 40.0 10/29/20 07:00 97.4 24 97.4 General: Alert HEENT: Other Lungs: Other (Decreased breath sounds, increased work of breathing) Cardiovascular: S1, S2 Abdomen: Soft, Non-tender Extremities: No Edema Labs Laboratory Tests Test 10/27/20 10:30 10/28/20 10:10 10/29/20 04:30 White Blood Count 18.5 x10^3/uL (4.0-11.0) 19.6 x10^3/uL (4.0-11.0) 18.3 x10^3/uL (4.0-11.0) Red Blood Count 3.79 x10^6/uL (3.50-5.40) 3.76 x10^6/uL (3.50-5.40) 3.78 x10^6/uL (3.50-5.40) Hemoglobin 12.0 g/dL (12.0-15.5) 11.7 g/dL (12.0-15.5) 11.8 g/dL (12.0-15.5) Hematocrit 35.7 % (36.0-47.0) 35.9 % (36.0-47.0) 35.8 % (36.0-47.0) Mean Corpuscular Volume 94 fL (79-100) 96 fL (79-100) 95 fL (79-100) Mean Corpuscular Hemoglobin 32 pg (25-35) 31 pg (25-35) 31 pg (25-35) Mean Corpuscular Hemoglobin Concent 34 g/dL (31-37) 33 g/dL (31-37) 33 g/dL (31-37) Red Cell Distribution Width 16.0 % (11.5-14.5) 16.0 % (11.5-14.5) 16.0 % (11.5-14.5) Platelet Count 343 x10^3/uL (140-400) 332 x10^3/uL (140-400) 333 x10^3/uL (140-400) Neutrophils (%) (Auto) 89 % (31-73) 95 % (31-73) 93 % (31-73) Lymphocytes (%) (Auto) 7 % (24-48) 3 % (24-48) 4 % (24-48) Monocytes (%) (Auto) 3 % (0-9) 2 % (0-9) 3 % (0-9) Eosinophils (%) (Auto) 1 % (0-3) 0 % (0-3) 0 % (0-3) Basophils (%) (Auto) 0 % (0-3) 0 % (0-3) 0 % (0-3) Neutrophils # (Auto) 16.5 x10^3/uL (1.8-7.7) 18.6 x10^3/uL (1.8-7.7) 17.0 x10^3/uL (1.8-7.7) Lymphocytes # (Auto) 1.3 x10^3/uL (1.0-4.8) 0.6 x10^3/uL (1.0-4.8) 0.7 x10^3/uL (1.0-4.8) Monocytes # (Auto) 0.5 x10^3/uL (0.0-1.1) 0.4 x10^3/uL (0.0-1.1) 0.5 x10^3/uL (0.0-1.1) Eosinophils # (Auto) 0.1 x10^3/uL (0.0-0.7) 0.0 x10^3/uL (0.0-0.7) 0.0 x10^3/uL (0.0-0.7) Basophils # (Auto) 0.1 x10^3/uL (0.0-0.2) 0.0 x10^3/uL (0.0-0.2) 0.0 x10^3/uL (0.0-0.2) Sodium Level 144 mmol/L (136-145) 145 mmol/L (136-145) 148 mmol/L (136-145) Potassium Level 3.5 mmol/L (3.5-5.1) 3.7 mmol/L (3.5-5.1) 3.9 mmol/L (3.5-5.1) Chloride Level 109 mmol/L (98-107) 108 mmol/L (98-107) 112 mmol/L (98-107) Carbon Dioxide Level 31 mmol/L (21-32) 34 mmol/L (21-32) 33 mmol/L (21-32) Anion Gap 4 (6-14) 3 (6-14) 3 (6-14) Blood Urea Nitrogen 17 mg/dL (7-20) 16 mg/dL (7-20) 20 mg/dL (7-20) Creatinine 0.6 mg/dL (0.6-1.0) 0.7 mg/dL (0.6-1.0) 0.7 mg/dL (0.6-1.0) Estimated GFR (Cockcroft-Gault) 94.8 79.3 79.3 Glucose Level 141 mg/dL (70-99) 160 mg/dL (70-99) 123 mg/dL (70-99) Calcium Level 8.3 mg/dL (8.5-10.1) 8.0 mg/dL (8.5-10.1) 8.2 mg/dL (8.5-10.1) Total Bilirubin 0.4 mg/dL (0.2-1.0) 0.4 mg/dL (0.2-1.0) Direct Bilirubin 0.2 mg/dL (0.0-0.2) 0.2 mg/dL (0.0-0.2) Aspartate Amino Transf (AST/SGOT) 25 U/L (15-37) 24 U/L (15-37) Alanine Aminotransferase (ALT/SGPT) 17 U/L (14-59) 18 U/L (14-59) Alkaline Phosphatase 112 U/L (46-116) 127 U/L (46-116) C-Reactive Protein, Quantitative 81.3 mg/L (0-3.3) 101.2 mg/L (0-3.3) 94.9 mg/L (0-3.3) Total Protein 5.6 g/dL (6.4-8.2) 5.6 g/dL (6.4-8.2) Albumin 2.0 g/dL (3.4-5.0) 2.0 g/dL (3.4-5.0) Ferritin 117 ng/mL (8-252) Laboratory Tests Test 10/29/20 04:30 White Blood Count 18.3 x10^3/uL (4.0-11.0) Red Blood Count 3.78 x10^6/uL (3.50-5.40) Hemoglobin 11.8 g/dL (12.0-15.5) Hematocrit 35.8 % (36.0-47.0) Mean Corpuscular Volume 95 fL (79-100) Mean Corpuscular Hemoglobin 31 pg (25-35) Mean Corpuscular Hemoglobin Concent 33 g/dL (31-37) Red Cell Distribution Width 16.0 % (11.5-14.5) Platelet Count 333 x10^3/uL (140-400) Neutrophils (%) (Auto) 93 % (31-73) Lymphocytes (%) (Auto) 4 % (24-48) Monocytes (%) (Auto) 3 % (0-9) Eosinophils (%) (Auto) 0 % (0-3) Basophils (%) (Auto) 0 % (0-3) Neutrophils # (Auto) 17.0 x10^3/uL (1.8-7.7) Lymphocytes # (Auto) 0.7 x10^3/uL (1.0-4.8) Monocytes # (Auto) 0.5 x10^3/uL (0.0-1.1) Eosinophils # (Auto) 0.0 x10^3/uL (0.0-0.7) Basophils # (Auto) 0.0 x10^3/uL (0.0-0.2) Sodium Level 148 mmol/L (136-145) Potassium Level 3.9 mmol/L (3.5-5.1) Chloride Level 112 mmol/L (98-107) Carbon Dioxide Level 33 mmol/L (21-32) Anion Gap 3 (6-14) Blood Urea Nitrogen 20 mg/dL (7-20) Creatinine 0.7 mg/dL (0.6-1.0) Estimated GFR (Cockcroft-Gault) 79.3 Glucose Level 123 mg/dL (70-99) Calcium Level 8.2 mg/dL (8.5-10.1) C-Reactive Protein, Quantitative 94.9 mg/L (0-3.3) Medications Active Scripts Medications Dose Route/Sig Max Daily Dose Days Date Category Calcium + Vitamin D Tablet (Calcium Carbonate/Vitamin D3) 1 Each Tablet 1 Each PO BID 10/24/20 Reported [tylenol PM] 10/24/20 Reported Potassium Chloride (Potassium Chloride) 10 Meq Tab.sr.24h 15 Meq PO QODAY 10/24/20 Reported Potassium Chloride (Potassium Chloride) 10 Meq Tab.sr.24h 10 Meq PO QODAY 10/24/20 Reported Furosemide 40 Mg Tablet 1.5 Tab PO DAILY 10/24/20 Reported Furosemide 40 Mg Tablet 1 Tab PO QODAY 10/24/20 Reported Levothyroxine Sodium 25 Mcg Tablet 1 Tab PO DAILY 10/24/20 Reported Protonix (Pantoprazole Sodium) 20 Mg Tablet.dr 40 Mg PO DAILY 04/08/17 Reported Zoloft (Sertraline Hcl) 50 Mg Tablet 50 Mg PO HS 05/31/15 Reported Impression . IMPRESSION: 1. Acute hypoxemic respiratory failure. 2. COVID-19 viral pneumonia. 3. Acute respiratory distress syndrome. 4. Abnormal x-ray, compatible with viral pneumonia, possibly bacterial pneumonia. 5. Comorbidities, hypertension, gastroesophageal reflux, anxiety and depression. 6. CT angiogram revealed no evidence of pulmonary embolism. Plan . 10/29 Nutritional support Continue Vapotherm Monitor closely for deterioration Remdesivir Monitor chest x-ray Steroids DVT pro prophylax 10/28 PLAN: 1. Continue support with nonrebreather and nasal cannula. 2. May require Vapotherm. 3. Discussed possibility of intubation. The patient is currently a do not resuscitate candidate. 4. Continue support with IV remdesivir. 5. IV steroids. 6. DVT and GI prophylaxis. I do appreciate the privilege in sharing in the patient's care. ROLANDO SANTACRUZ MD Oct 29, 2020 10:21
[2020-10-29 10:44] VITALS: BP 168/69
--- NOTE | 2020-10-29 10:47 | PDOC ---
[facility] PROGRESS NOTE Date of Service DOS: DATE: 10/29/20 TIME: 10:44 Chief Complaint Chief Complaint Acute respiratory failure with hypoxia, on VAPOtherm, max therapy, is DNR COVID-19 pneumonia SHELLIE due to vasomotor nephropathy Severe malnutrition severe sepsis History of Present Illness History of Present Illness Patient is a 85-year-old female presents to the ED with complaints of shortness of breath. She states she was recently diagnosed with COVID-19 in the clinic on Friday, and reports worsening shortness of breath since that time. Associated cough. States that she has been vaccinated against COVID-19, but does not recall the date or which vaccination she received. She does admit to chronic lower extremity edema that is unchanged recently. Will admit patient for further medical management. 10/29 seen and examined. Discussed with RN. Chart reviewed. yesterday transferred to 6th floor on vapotherm moderate respiratory distress. Pulmonology following s/p Remdesivir. Speech therapy plans to reevaluate noted report of Patchy areas of groundglass opacity in lungs bilaterally favored infectious or inflammatory in etiology. Vitals/I&O Vitals/I&O: Vital Signs Date Time Temp Pulse Resp B/P (MAP) Pulse Ox O2 Delivery O2 Flow Rate FiO2 10/29/20 09:36 95 183/84 10/29/20 08:29 87 VAPOTHERM 40.0 10/29/20 07:00 97.4 24 97.4 I & O 10/28/20 10/28/20 10/29/20 15:00 23:00 07:00 Intake Total 400 ml 720 ml 0 ml Output Total 150 ml 250 ml Balance 400 ml 570 ml -250 ml Physical Exam General: Alert, Oriented X3, Cooperative, mild distress Heart: Regular rate Lungs: Crackles, Other Abdomen: Soft, No tenderness, Other (Nondistended) Extremities: No clubbing, No cyanosis, No edema Skin: No rashes, No breakdown Labs Labs: Laboratory Tests Test 10/29/20 04:30 White Blood Count 18.3 x10^3/uL (4.0-11.0) Red Blood Count 3.78 x10^6/uL (3.50-5.40) Hemoglobin 11.8 g/dL (12.0-15.5) Hematocrit 35.8 % (36.0-47.0) Mean Corpuscular Volume 95 fL (79-100) Mean Corpuscular Hemoglobin 31 pg (25-35) Mean Corpuscular Hemoglobin Concent 33 g/dL (31-37) Red Cell Distribution Width 16.0 % (11.5-14.5) Platelet Count 333 x10^3/uL (140-400) Neutrophils (%) (Auto) 93 % (31-73) Lymphocytes (%) (Auto) 4 % (24-48) Monocytes (%) (Auto) 3 % (0-9) Eosinophils (%) (Auto) 0 % (0-3) Basophils (%) (Auto) 0 % (0-3) Neutrophils # (Auto) 17.0 x10^3/uL (1.8-7.7) Lymphocytes # (Auto) 0.7 x10^3/uL (1.0-4.8) Monocytes # (Auto) 0.5 x10^3/uL (0.0-1.1) Eosinophils # (Auto) 0.0 x10^3/uL (0.0-0.7) Basophils # (Auto) 0.0 x10^3/uL (0.0-0.2) Sodium Level 148 mmol/L (136-145) Potassium Level 3.9 mmol/L (3.5-5.1) Chloride Level 112 mmol/L (98-107) Carbon Dioxide Level 33 mmol/L (21-32) Anion Gap 3 (6-14) Blood Urea Nitrogen 20 mg/dL (7-20) Creatinine 0.7 mg/dL (0.6-1.0) Estimated GFR (Cockcroft-Gault) 79.3 Glucose Level 123 mg/dL (70-99) Calcium Level 8.2 mg/dL (8.5-10.1) C-Reactive Protein, Quantitative 94.9 mg/L (0-3.3) Review of Systems Review of Systems: weaknessn, resp distress, Assessment and Plan Assessmemt and Plan Problems Medical Problems: (1) Acute respiratory failure with hypoxia Status: Acute (2) COVID-19 Status: Acute Comment Review of Relevant I have reviewed the following items eamon (where applicable) has been applied. Medications: Current Medications Medications (Trade) Dose Ordered Sig/Bhavna Route PRN Reason Start Time Stop Time Status Last Admin Dose Admin Sterile Water (WATER for RESP) 1,000 ml CONT PRN INH VIA VAPOTHERM DEVICE 10/28/20 21:45 10/29/20 06:15 Amlodipine Besylate (Norvasc) 2.5 mg DAILY PO 10/29/20 09:15 10/29/20 09:36 Justifications for Admission Other Justification TOMY HART MD Oct 29, 2020 10:46
[2020-10-29 15:00] VITALS: BP 159/61
[2020-10-29 19:24] VITALS: BP 169/64
[2020-10-29] MEDS: diphenhydrAMINE HCL 25 MG CAPSULE PO PRN (20:35)
[2020-10-29] MEDS: ACETAMINOPHEN 325 MG TABLET. PO PRN (20:35)
[2020-10-29] MEDS: SERTRALINE 50 MG TABLET. PO SCH (20:35)
[2020-10-29 22:52] VITALS: BP 184/68
[2020-10-30 03:15] VITALS: BP 191/65
[2020-10-30] MEDS: STERILE WATER for RESP 1,000 ML BAG. INH PRN (03:44)
[2020-10-30] MEDS: HYDROcodone/APAP 5/325MG 1 TAB TABLET PO PRN (04:56)
[2020-10-30] MEDS: IV NORMAL SALINE 1000ML BAG 1,000 ML IV SCH ×2 (05:25→17:23)
--- NOTE | 2020-10-30 06:10 | NUR ---
Patient wakes when spoken to but extremely fatigued. Requiring Vapotherm with 40L and 100% FIO2 along with 15L NRB and O2Sat at best is 83%. Patient is a DNR. Attempted to call family, Nery, daughter, at [phone], to report change in status. No answer at that number. Will continue to reach out to family.
[2020-10-30] MEDS: LEVOTHYROXINE 25 MCG TABLET. PO SCH (06:21)
[2020-10-30] MEDS: PANTOPRAZOLE 40 MG TABLET.DR. PO SCH ×2 (06:21→09:22)
[2020-10-30 07:00] VITALS: BP 133/61
[2020-10-30 08:35] LABS: BASO % 0 % (0-3); EOS % 0 % (0-3); HEMOGLOBIN 11.3 g/dL (12.0-15.5); LYMPH # 0.7 x10^3/uL (1.0-4.8); LYMPH % 4 % (24-48); MEAN CORPUSCULAR HEMOGLOBIN 31 pg (25-35); MEAN CORPUSCULAR HGB CONC 32 g/dL (31-37); MEAN CORPUSCULAR VOLUME 95 fL (79-100); MONO # 0.6 x10^3/uL (0.0-1.1); MONO % 3 % (0-9); NEUT # 16.6 x10^3/uL (1.8-7.7); NEUT % 93 % (31-73); PLATELET COUNT 320 x10^3/uL (140-400); RED BLOOD COUNT 3.68 x10^6/uL (3.50-5.40); RED CELL DISTRIBUTION WIDTH 16.1 % (11.5-14.5); WHITE BLOOD COUNT 17.9 x10^3/uL (4.0-11.0)
[2020-10-30 08:45] LABS: CREATININE 0.6 mg/dL (0.6-1.0); GFR 94.8; POTASSIUM 4.1 mmol/L (3.5-5.1)
[2020-10-30] MEDS: CALCIUM CARB/VIT D3 500/200 TABLET. PO SCH ×2 (09:22→16:51)
[2020-10-30] MEDS: MULTIVITAMIN with MINERAL TABLET. PO SCH (09:22)
[2020-10-30] MEDS: ASPIRIN 325 MG TABLET PO SCH (09:22)
[2020-10-30] MEDS: DEXAMETHASONE SOD PHOS 4 MG/ML VIAL IVP SCH (09:22)
[2020-10-30] MEDS: HEPARIN for SUB-Q USE 5,000 UNIT/ML VIAL. SQ SCH ×2 (09:22→20:53)
[2020-10-30] MEDS: FUROSEMIDE 40 MG TABLET. PO SCH (09:23)
[2020-10-30] MEDS: LACTOBACILLUS RHAMNOSUS GG 1 CAPSULE. PO SCH ×2 (09:23→20:52)
[2020-10-30 10:52] VITALS: BP 145/58
--- NOTE | 2020-10-30 11:52 | PDOC ---
PULMONARY PROGRESS NOTES DATE: 10/30/20 TIME: 11:52 Subjective Patient currently on BiPAP 16/8 100% FiO2 to saturations 95% Vitals Vital Signs Date Time Temp Pulse Resp B/P (MAP) Pulse Ox O2 Delivery O2 Flow Rate FiO2 10/30/20 11:16 93 BiPAP/CPAP 10/30/20 10:52 97.3 94 28 145/58 (87) 15.0 97.3 ROS: No Nausea, No Chest Pain, No Abdominal Pain General: Alert Lungs: Crackles, Other Cardiovascular: S1, S2 Abdomen: Soft, Non-tender Extremities: No Edema Labs Laboratory Tests Test 10/29/20 04:30 10/30/20 07:30 White Blood Count 18.3 x10^3/uL (4.0-11.0) 17.9 x10^3/uL (4.0-11.0) Red Blood Count 3.78 x10^6/uL (3.50-5.40) 3.68 x10^6/uL (3.50-5.40) Hemoglobin 11.8 g/dL (12.0-15.5) 11.3 g/dL (12.0-15.5) Hematocrit 35.8 % (36.0-47.0) 35.0 % (36.0-47.0) Mean Corpuscular Volume 95 fL (79-100) 95 fL (79-100) Mean Corpuscular Hemoglobin 31 pg (25-35) 31 pg (25-35) Mean Corpuscular Hemoglobin Concent 33 g/dL (31-37) 32 g/dL (31-37) Red Cell Distribution Width 16.0 % (11.5-14.5) 16.1 % (11.5-14.5) Platelet Count 333 x10^3/uL (140-400) 320 x10^3/uL (140-400) Neutrophils (%) (Auto) 93 % (31-73) 93 % (31-73) Lymphocytes (%) (Auto) 4 % (24-48) 4 % (24-48) Monocytes (%) (Auto) 3 % (0-9) 3 % (0-9) Eosinophils (%) (Auto) 0 % (0-3) 0 % (0-3) Basophils (%) (Auto) 0 % (0-3) 0 % (0-3) Neutrophils # (Auto) 17.0 x10^3/uL (1.8-7.7) 16.6 x10^3/uL (1.8-7.7) Lymphocytes # (Auto) 0.7 x10^3/uL (1.0-4.8) 0.7 x10^3/uL (1.0-4.8) Monocytes # (Auto) 0.5 x10^3/uL (0.0-1.1) 0.6 x10^3/uL (0.0-1.1) Eosinophils # (Auto) 0.0 x10^3/uL (0.0-0.7) 0.0 x10^3/uL (0.0-0.7) Basophils # (Auto) 0.0 x10^3/uL (0.0-0.2) 0.0 x10^3/uL (0.0-0.2) Sodium Level 148 mmol/L (136-145) 149 mmol/L (136-145) Potassium Level 3.9 mmol/L (3.5-5.1) 4.1 mmol/L (3.5-5.1) Chloride Level 112 mmol/L (98-107) 112 mmol/L (98-107) Carbon Dioxide Level 33 mmol/L (21-32) 35 mmol/L (21-32) Anion Gap 3 (6-14) 2 (6-14) Blood Urea Nitrogen 20 mg/dL (7-20) 20 mg/dL (7-20) Creatinine 0.7 mg/dL (0.6-1.0) 0.6 mg/dL (0.6-1.0) Estimated GFR (Cockcroft-Gault) 79.3 94.8 Glucose Level 123 mg/dL (70-99) 109 mg/dL (70-99) Calcium Level 8.2 mg/dL (8.5-10.1) 8.0 mg/dL (8.5-10.1) C-Reactive Protein, Quantitative 94.9 mg/L (0-3.3) Laboratory Tests Test 10/30/20 07:30 White Blood Count 17.9 x10^3/uL (4.0-11.0) Red Blood Count 3.68 x10^6/uL (3.50-5.40) Hemoglobin 11.3 g/dL (12.0-15.5) Hematocrit 35.0 % (36.0-47.0) Mean Corpuscular Volume 95 fL (79-100) Mean Corpuscular Hemoglobin 31 pg (25-35) Mean Corpuscular Hemoglobin Concent 32 g/dL (31-37) Red Cell Distribution Width 16.1 % (11.5-14.5) Platelet Count 320 x10^3/uL (140-400) Neutrophils (%) (Auto) 93 % (31-73) Lymphocytes (%) (Auto) 4 % (24-48) Monocytes (%) (Auto) 3 % (0-9) Eosinophils (%) (Auto) 0 % (0-3) Basophils (%) (Auto) 0 % (0-3) Neutrophils # (Auto) 16.6 x10^3/uL (1.8-7.7) Lymphocytes # (Auto) 0.7 x10^3/uL (1.0-4.8) Monocytes # (Auto) 0.6 x10^3/uL (0.0-1.1) Eosinophils # (Auto) 0.0 x10^3/uL (0.0-0.7) Basophils # (Auto) 0.0 x10^3/uL (0.0-0.2) Sodium Level 149 mmol/L (136-145) Potassium Level 4.1 mmol/L (3.5-5.1) Chloride Level 112 mmol/L (98-107) Carbon Dioxide Level 35 mmol/L (21-32) Anion Gap 2 (6-14) Blood Urea Nitrogen 20 mg/dL (7-20) Creatinine 0.6 mg/dL (0.6-1.0) Estimated GFR (Cockcroft-Gault) 94.8 Glucose Level 109 mg/dL (70-99) Calcium Level 8.0 mg/dL (8.5-10.1) Medications Active Scripts Medications Dose Route/Sig Max Daily Dose Days Date Category Calcium + Vitamin D Tablet (Calcium Carbonate/Vitamin D3) 1 Each Tablet 1 Each PO BID 10/24/20 Reported [tylenol PM] 10/24/20 Reported Potassium Chloride (Potassium Chloride) 10 Meq Tab.sr.24h 15 Meq PO QODAY 10/24/20 Reported Potassium Chloride (Potassium Chloride) 10 Meq Tab.sr.24h 10 Meq PO QODAY 10/24/20 Reported Furosemide 40 Mg Tablet 1.5 Tab PO DAILY 10/24/20 Reported Furosemide 40 Mg Tablet 1 Tab PO QODAY 10/24/20 Reported Levothyroxine Sodium 25 Mcg Tablet 1 Tab PO DAILY 10/24/20 Reported Protonix (Pantoprazole Sodium) 20 Mg Tablet.dr 40 Mg PO DAILY 04/08/17 Reported Zoloft (Sertraline Hcl) 50 Mg Tablet 50 Mg PO HS 05/31/15 Reported Impression . IMPRESSION: 1. Acute hypoxemic respiratory failure. 2. COVID-19 viral pneumonia. 3. Acute respiratory distress syndrome. 4. Abnormal x-ray, compatible with viral pneumonia, possibly bacterial pneumonia. 5. Comorbidities, hypertension, gastroesophageal reflux, anxiety and depression. 6. CT angiogram revealed no evidence of pulmonary embolism. Plan . Updated 10/30 Continue BiPAP Steroids And remdesivir Continue close monitoring DVT prophylaxis Nutritional support 10/29 discussed with RN, will transfer to initiate Vapotherm Continue steroids Remdesivir DVT prophylaxis Monitor closely for any deterioration 1. Continue support with nonrebreather and nasal cannula. 2. May require Vapotherm. 3. Discussed possibility of intubation. The patient is currently a do not resuscitate candidate. 4. Continue support with IV remdesivir. 5. IV steroids. 6. DVT and GI prophylaxis. I do appreciate the privilege in sharing in the patient's care. ROLANDO SANTACRUZ MD Oct 30, 2020 11:52
--- NOTE | 2020-10-30 14:46 | PDOC ---
[facility] [facility] PROGRESS NOTE Date of Service DOS: DATE: 10/30/20 TIME: 14:43 Chief Complaint Chief Complaint Acute respiratory failure with hypoxia, on BiPAP max therapy, is DNR COVID-19 pneumonia SHELLIE due to vasomotor nephropathy Severe malnutrition severe sepsis History of Present Illness History of Present Illness Patient is a 85-year-old female presents to the ED with complaints of shortness of breath. She states she was recently diagnosed with COVID-19 in the clinic on Friday, and reports worsening shortness of breath since that time. Associated cough. States that she has been vaccinated against COVID-19, but does not recall the date or which vaccination she received. She does admit to chronic lower extremity edema that is unchanged recently. Will admit patient for further medical management. 10/29 seen and examined. Discussed with RN. Chart reviewed. yesterday transferred to 6th floor on vapotherm moderate respiratory distress. Pulmonology following s/p Remdesivir. Speech therapy plans to reevaluate noted report of Patchy areas of groundglass opacity in lungs bilaterally favored infectious or inflammatory in etiology. 10/30/2020 No acute events overnight. This morning patient desaturated down to 84% on Vapotherm. Will start BiPAP. Patient currently is not in any respiratory distress. However she is still DNR. A total of 34 minutes of critical care time was spent in reviewing chart, labs, and images. Discussed with RN and HELEN. Vitals/I&O Vitals/I&O: Vital Signs Date Time Temp Pulse Resp B/P (MAP) Pulse Ox O2 Delivery O2 Flow Rate FiO2 10/30/20 13:13 93 BiPAP/CPAP 10/30/20 10:52 97.3 94 28 145/58 (87) 15.0 97.3 I & O 10/29/20 10/29/20 10/30/20 15:00 23:00 07:00 Intake Total 840 ml 300 ml 0 ml Output Total 750 ml 150 ml 300 ml Balance 90 ml 150 ml -300 ml Physical Exam General: Alert, Oriented X3, Cooperative, mild distress Heart: Regular rate Lungs: Crackles, Other Abdomen: Soft, No tenderness, Other (Nondistended) Extremities: No clubbing, No cyanosis, No edema Skin: No rashes, No breakdown Labs Labs: Laboratory Tests Test 10/30/20 07:30 White Blood Count 17.9 x10^3/uL (4.0-11.0) Red Blood Count 3.68 x10^6/uL (3.50-5.40) Hemoglobin 11.3 g/dL (12.0-15.5) Hematocrit 35.0 % (36.0-47.0) Mean Corpuscular Volume 95 fL (79-100) Mean Corpuscular Hemoglobin 31 pg (25-35) Mean Corpuscular Hemoglobin Concent 32 g/dL (31-37) Red Cell Distribution Width 16.1 % (11.5-14.5) Platelet Count 320 x10^3/uL (140-400) Neutrophils (%) (Auto) 93 % (31-73) Lymphocytes (%) (Auto) 4 % (24-48) Monocytes (%) (Auto) 3 % (0-9) Eosinophils (%) (Auto) 0 % (0-3) Basophils (%) (Auto) 0 % (0-3) Neutrophils # (Auto) 16.6 x10^3/uL (1.8-7.7) Lymphocytes # (Auto) 0.7 x10^3/uL (1.0-4.8) Monocytes # (Auto) 0.6 x10^3/uL (0.0-1.1) Eosinophils # (Auto) 0.0 x10^3/uL (0.0-0.7) Basophils # (Auto) 0.0 x10^3/uL (0.0-0.2) Sodium Level 149 mmol/L (136-145) Potassium Level 4.1 mmol/L (3.5-5.1) Chloride Level 112 mmol/L (98-107) Carbon Dioxide Level 35 mmol/L (21-32) Anion Gap 2 (6-14) Blood Urea Nitrogen 20 mg/dL (7-20) Creatinine 0.6 mg/dL (0.6-1.0) Estimated GFR (Cockcroft-Gault) 94.8 Glucose Level 109 mg/dL (70-99) Calcium Level 8.0 mg/dL (8.5-10.1) Assessment and Plan Assessmemt and Plan Problems Medical Problems: (1) Acute respiratory failure with hypoxia Status: Acute (2) COVID-19 Status: Acute Comment Review of Relevant I have reviewed the following items eamon (where applicable) has been applied. Justifications for Admission Other Justification DEBBIE HAIDER MD Oct 30, 2020 14:46
[2020-10-30 14:52] VITALS: BP 106/42
[2020-10-30 19:50] VITALS: BP 129/53
[2020-10-30] MEDS: SERTRALINE 50 MG TABLET. PO SCH (20:52)
[2020-10-30 23:45] VITALS: BP 123/48
[2020-10-31 03:05] VITALS: BP 137/53
[2020-10-31 07:00] VITALS: BP 133/53
[2020-10-31] MEDS: HEPARIN for SUB-Q USE 5,000 UNIT/ML VIAL. SQ SCH ×2 (07:53→20:39)
[2020-10-31] MEDS: LEVOTHYROXINE 25 MCG TABLET. PO SCH (07:54)
[2020-10-31] MEDS: CALCIUM CARB/VIT D3 500/200 TABLET. PO SCH ×2 (07:54→17:00)
[2020-10-31] MEDS: MULTIVITAMIN with MINERAL TABLET. PO SCH (07:54)
[2020-10-31] MEDS: DEXAMETHASONE SOD PHOS 4 MG/ML VIAL IVP SCH (07:54)
[2020-10-31] MEDS: ASPIRIN 325 MG TABLET PO SCH (07:54)
[2020-10-31] MEDS: FUROSEMIDE 40 MG TABLET. PO SCH (07:55)
[2020-10-31] MEDS: IV NORMAL SALINE 1000ML BAG 1,000 ML IV SCH ×2 (08:00→20:40)
--- NOTE | 2020-10-31 08:37 | PDOC ---
PULMONARY PROGRESS NOTES DATE: 10/31/20 TIME: 08:36 Subjective Patient continues to require BiPAP, desaturates easily Currently on 16/8 FiO2 of 100% Vitals Vital Signs Date Time Temp Pulse Resp B/P (MAP) Pulse Ox O2 Delivery O2 Flow Rate FiO2 10/31/20 07:57 87 137/53 10/31/20 07:56 73 BiPAP/CPAP 10/31/20 03:05 97.4 22 97.4 10/30/20 10:52 15.0 ROS: No Nausea, No Chest Pain, No Abdominal Pain General: Alert Lungs: Crackles, Other Cardiovascular: S1, S2 Abdomen: Soft, Non-tender Extremities: No Edema Labs Laboratory Tests Test 10/30/20 07:30 White Blood Count 17.9 x10^3/uL (4.0-11.0) Red Blood Count 3.68 x10^6/uL (3.50-5.40) Hemoglobin 11.3 g/dL (12.0-15.5) Hematocrit 35.0 % (36.0-47.0) Mean Corpuscular Volume 95 fL (79-100) Mean Corpuscular Hemoglobin 31 pg (25-35) Mean Corpuscular Hemoglobin Concent 32 g/dL (31-37) Red Cell Distribution Width 16.1 % (11.5-14.5) Platelet Count 320 x10^3/uL (140-400) Neutrophils (%) (Auto) 93 % (31-73) Lymphocytes (%) (Auto) 4 % (24-48) Monocytes (%) (Auto) 3 % (0-9) Eosinophils (%) (Auto) 0 % (0-3) Basophils (%) (Auto) 0 % (0-3) Neutrophils # (Auto) 16.6 x10^3/uL (1.8-7.7) Lymphocytes # (Auto) 0.7 x10^3/uL (1.0-4.8) Monocytes # (Auto) 0.6 x10^3/uL (0.0-1.1) Eosinophils # (Auto) 0.0 x10^3/uL (0.0-0.7) Basophils # (Auto) 0.0 x10^3/uL (0.0-0.2) Sodium Level 149 mmol/L (136-145) Potassium Level 4.1 mmol/L (3.5-5.1) Chloride Level 112 mmol/L (98-107) Carbon Dioxide Level 35 mmol/L (21-32) Anion Gap 2 (6-14) Blood Urea Nitrogen 20 mg/dL (7-20) Creatinine 0.6 mg/dL (0.6-1.0) Estimated GFR (Cockcroft-Gault) 94.8 Glucose Level 109 mg/dL (70-99) Calcium Level 8.0 mg/dL (8.5-10.1) Medications Active Scripts Medications Dose Route/Sig Max Daily Dose Days Date Category Calcium + Vitamin D Tablet (Calcium Carbonate/Vitamin D3) 1 Each Tablet 1 Each PO BID 10/24/20 Reported [tylenol PM] 10/24/20 Reported Potassium Chloride (Potassium Chloride) 10 Meq Tab.sr.24h 15 Meq PO QODAY 10/24/20 Reported Potassium Chloride (Potassium Chloride) 10 Meq Tab.sr.24h 10 Meq PO QODAY 10/24/20 Reported Furosemide 40 Mg Tablet 1.5 Tab PO DAILY 10/24/20 Reported Furosemide 40 Mg Tablet 1 Tab PO QODAY 10/24/20 Reported Levothyroxine Sodium 25 Mcg Tablet 1 Tab PO DAILY 10/24/20 Reported Protonix (Pantoprazole Sodium) 20 Mg Tablet.dr 40 Mg PO DAILY 04/08/17 Reported Zoloft (Sertraline Hcl) 50 Mg Tablet 50 Mg PO HS 05/31/15 Reported Impression . IMPRESSION: 1. Acute hypoxemic respiratory failure. 2. COVID-19 viral pneumonia. 3. Acute respiratory distress syndrome. 4. Abnormal x-ray, compatible with viral pneumonia, possibly bacterial pneumonia. 5. Comorbidities, hypertension, gastroesophageal reflux, anxiety and depression. 6. CT angiogram revealed no evidence of pulmonary embolism. Plan . Updated 10/31 We will continue current support Prognosis is poor Remdesivir steroids DVT prophylaxis updated 10/30 Continue BiPAP Steroids And remdesivir Continue close monitoring DVT prophylaxis Nutritional support 10/29 discussed with RN, will transfer to initiate Vapotherm Continue steroids Remdesivir DVT prophylaxis Monitor closely for any deterioration ROLANDO SANTACRUZ MD Oct 31, 2020 08:37
[2020-10-31] MEDS: LACTOBACILLUS RHAMNOSUS GG 1 CAPSULE. PO SCH ×2 (09:00→20:38)
[2020-10-31 11:00] VITALS: BP 117/53
--- NOTE | 2020-10-31 13:56 | PDOC ---
[facility] [facility] PROGRESS NOTE Date of Service DOS: DATE: 10/31/20 TIME: 13:55 Chief Complaint Chief Complaint Acute respiratory failure with hypoxia, on BiPAP max therapy, is DNR COVID-19 pneumonia SHELLIE due to vasomotor nephropathy Severe malnutrition severe sepsis History of Present Illness History of Present Illness Patient is a 85-year-old female presents to the ED with complaints of shortness of breath. She states she was recently diagnosed with COVID-19 in the clinic on Friday, and reports worsening shortness of breath since that time. Associated cough. States that she has been vaccinated against COVID-19, but does not recall the date or which vaccination she received. She does admit to chronic lower extremity edema that is unchanged recently. Will admit patient for further medical management. 10/29 seen and examined. Discussed with RN. Chart reviewed. yesterday transferred to 6th floor on vapotherm moderate respiratory distress. Pulmonology following s/p Remdesivir. Speech therapy plans to reevaluate noted report of Patchy areas of groundglass opacity in lungs bilaterally favored infectious or inflammatory in etiology. 10/30/2020 No acute events overnight. This morning patient desaturated down to 84% on Vapotherm. Will start BiPAP. Patient currently is not in any respiratory distress. However she is still DNR. A total of 34 minutes of critical care time was spent in reviewing chart, labs, and images. Discussed with RN and SW. 10/31/2020 No acute events overnight. Patient still on BiPAP saturating 70%. Will attempt to feed p.o. by switching to Vapotherm and nonrebreather. No Other concerns from nursing. Patient's chart, labs, images were reviewed and discussed with RN A total of 35 minutes of critical care time was spent in reviewing chart, labs, and images. Discussed with RN and SW. Vitals/I&O Vitals/I&O: Vital Signs Date Time Temp Pulse Resp B/P (MAP) Pulse Ox O2 Delivery O2 Flow Rate FiO2 10/31/20 11:38 91 BiPAP/CPAP 10/31/20 11:00 96.9 79 17 117/53 (74) 96.9 10/31/20 08:00 40.0 I & O 10/30/20 10/30/20 10/31/20 15:00 23:00 07:00 Intake Total 240 ml 60 ml Output Total 850 ml 650 ml Balance -610 ml -590 ml Physical Exam General: Alert, Oriented X3, Cooperative, mild distress Heart: Regular rate Lungs: Crackles, Other Abdomen: Soft, No tenderness, Other (Nondistended) Extremities: No clubbing, No cyanosis, No edema Skin: No rashes, No breakdown Assessment and Plan Assessmemt and Plan Problems Medical Problems: (1) Acute respiratory failure with hypoxia Status: Acute (2) COVID-19 Status: Acute Comment Review of Relevant I have reviewed the following items eamon (where applicable) has been applied. Justifications for Admission Other Justification DEBBIE HAIDER MD Oct 31, 2020 13:56
[2020-10-31 15:00] VITALS: BP 139/53
[2020-10-31] MEDS: STERILE WATER for RESP 1,000 ML BAG. INH PRN (17:57)
[2020-10-31 19:00] VITALS: BP 149/52
[2020-10-31] MEDS: SERTRALINE 50 MG TABLET. PO SCH (20:38)
[2020-10-31 22:11] VITALS: BP 147/56
[2020-11-01 02:48] VITALS: BP 150/58
[2020-11-01] MEDS: LEVOTHYROXINE 25 MCG TABLET. PO SCH (06:20)
[2020-11-01 07:00] VITALS: BP 143/58
[2020-11-01] MEDS: ASPIRIN 325 MG TABLET PO SCH (08:57)
[2020-11-01] MEDS: CALCIUM CARB/VIT D3 500/200 TABLET. PO SCH ×2 (08:57→17:00)
[2020-11-01] MEDS: DEXAMETHASONE SOD PHOS 4 MG/ML VIAL IVP SCH (08:57)
[2020-11-01] MEDS: MULTIVITAMIN with MINERAL TABLET. PO SCH (08:58)
[2020-11-01] MEDS: FUROSEMIDE 40 MG TABLET. PO SCH (08:58)
[2020-11-01] MEDS: PANTOPRAZOLE 40 MG TABLET.DR. PO SCH (08:58)
[2020-11-01] MEDS: HEPARIN for SUB-Q USE 5,000 UNIT/ML VIAL. SQ SCH ×2 (08:59→20:51)
[2020-11-01] MEDS: LACTOBACILLUS RHAMNOSUS GG 1 CAPSULE. PO SCH ×2 (08:59→20:51)
--- NOTE | 2020-11-01 09:43 | PDOC ---
PULMONARY PROGRESS NOTES DATE: 11/01/20 TIME: 09:43 Subjective Patient holding their own currently on BiPAP 09/10 FiO2 100% Vitals Vital Signs Date Time Temp Pulse Resp B/P (MAP) Pulse Ox O2 Delivery O2 Flow Rate FiO2 11/01/20 08:58 92 150/58 11/01/20 08:54 85 VAPOTHERM 40.0 11/01/20 07:00 98.0 25 98.0 Lungs: Crackles Cardiovascular: S1, S2 Abdomen: Soft, Non-tender Extremities: No Edema Medications Active Scripts Medications Dose Route/Sig Max Daily Dose Days Date Category Calcium + Vitamin D Tablet (Calcium Carbonate/Vitamin D3) 1 Each Tablet 1 Each PO BID 10/24/20 Reported [tylenol PM] 10/24/20 Reported Potassium Chloride (Potassium Chloride) 10 Meq Tab.sr.24h 15 Meq PO QODAY 10/24/20 Reported Potassium Chloride (Potassium Chloride) 10 Meq Tab.sr.24h 10 Meq PO QODAY 10/24/20 Reported Furosemide 40 Mg Tablet 1.5 Tab PO DAILY 10/24/20 Reported Furosemide 40 Mg Tablet 1 Tab PO QODAY 10/24/20 Reported Levothyroxine Sodium 25 Mcg Tablet 1 Tab PO DAILY 10/24/20 Reported Protonix (Pantoprazole Sodium) 20 Mg Tablet.dr 40 Mg PO DAILY 04/08/17 Reported Zoloft (Sertraline Hcl) 50 Mg Tablet 50 Mg PO HS 05/31/15 Reported Impression . IMPRESSION: 1. Acute hypoxemic respiratory failure. 2. COVID-19 viral pneumonia. 3. Acute respiratory distress syndrome. 4. Abnormal x-ray, compatible with viral pneumonia, possibly bacterial pneumonia. 5. Comorbidities, hypertension, gastroesophageal reflux, anxiety and depression. 6. CT angiogram revealed no evidence of pulmonary embolism. Plan . Updated 11/01 Continues to require BiPAP Long-term prognosis poor Continue remdesivir, steroids DVT prophylaxis updated 10/31 We will continue current support Prognosis is poor Remdesivir steroids DVT prophylaxis updated 10/30 Continue BiPAP Steroids And remdesivir Continue close monitoring DVT prophylaxis Nutritional support 10/29 discussed with RN, will transfer to initiate Vapotherm Continue steroids Remdesivir DVT prophylaxis Monitor closely for any deterioration ROLANDO SANTACRUZ MD Nov 01, 2020 09:43
[2020-11-01] MEDS: IV NORMAL SALINE 1000ML BAG 1,000 ML IV SCH ×2 (10:45→20:52)
[2020-11-01 11:00] VITALS: BP 134/45
[2020-11-01 15:00] VITALS: BP 127/46
[2020-11-01 19:00] VITALS: BP 140/59
[2020-11-01] MEDS: HYDROcodone/APAP 5/325MG 1 TAB TABLET PO PRN (20:51)
[2020-11-01] MEDS: SERTRALINE 50 MG TABLET. PO SCH (20:51)
--- NOTE | 2020-11-01 21:15 | PDOC ---
[facility] [facility] PROGRESS NOTE Date of Service DOS: DATE: 11/01/20 TIME: 21:13 Chief Complaint Chief Complaint Acute respiratory failure with hypoxia, on BiPAP max therapy, is DNR COVID-19 pneumonia SHELLIE due to vasomotor nephropathy Severe malnutrition severe sepsis History of Present Illness History of Present Illness Patient is a 85-year-old female presents to the ED with complaints of shortness of breath. She states she was recently diagnosed with COVID-19 in the clinic on Friday, and reports worsening shortness of breath since that time. Associated cough. States that she has been vaccinated against COVID-19, but does not recall the date or which vaccination she received. She does admit to chronic lower extremity edema that is unchanged recently. Will admit patient for further medical management. 10/29 seen and examined. Discussed with RN. Chart reviewed. yesterday transferred to 6th floor on vapotherm moderate respiratory distress. Pulmonology following s/p Remdesivir. Speech therapy plans to reevaluate noted report of Patchy areas of groundglass opacity in lungs bilaterally favored infectious or inflammatory in etiology. 10/30/2020 No acute events overnight. This morning patient desaturated down to 84% on Vapotherm. Will start BiPAP. Patient currently is not in any respiratory distress. However she is still DNR. A total of 34 minutes of critical care time was spent in reviewing chart, labs, and images. Discussed with RN and HELEN. 10/31/2020 No acute events overnight. Patient still on BiPAP saturating 70%. Will attempt to feed p.o. by switching to Vapotherm and nonrebreather. No Other concerns from nursing. Patient's chart, labs, images were reviewed and discussed with RN A total of 35 minutes of critical care time was spent in reviewing chart, labs, and images. Discussed with RN and SW. 11/01/20 No acute events overnight. Pt continues to be on BiPAP and saturating at 97%. Pt easily destaurates when needing to eat with her vapotherma and NRB. A total of 32 minutes of critical care time was spent in reviewing chart, labs, and images Vitals/I&O Vitals/I&O: Vital Signs Date Time Temp Pulse Resp B/P (MAP) Pulse Ox O2 Delivery O2 Flow Rate FiO2 11/01/20 20:51 91 BiPAP/CPAP 11/01/20 19:00 97.7 88 17 140/59 (86) 97.7 11/01/20 10:13 40.0 I & O 10/31/20 10/31/20 11/01/20 15:00 23:00 07:00 Intake Total 180 ml 240 ml 200 ml Output Total 350 ml 300 ml Balance 180 ml -110 ml -100 ml Physical Exam General: Alert, Oriented X3, Cooperative, mild distress Heart: Regular rate Lungs: Crackles Abdomen: Soft, No tenderness, Other (Nondistended) Extremities: No clubbing, No cyanosis, No edema Skin: No rashes, No breakdown Assessment and Plan Assessmemt and Plan Problems Medical Problems: (1) Acute respiratory failure with hypoxia Status: Acute (2) COVID-19 Status: Acute Comment Review of Relevant I have reviewed the following items eamon (where applicable) has been applied. Justifications for Admission Other Justification DEBBIE HAIDER MD Nov 01, 2020 21:15
[2020-11-01 23:00] VITALS: BP 121/58
[2020-11-02 03:00] VITALS: BP 132/55
[2020-11-02] MEDS ORDERED: FUROSEMIDE 40 MG/4 ML VIAL. IVP ONE (03:00)
[2020-11-02] MEDS: LEVOTHYROXINE 25 MCG TABLET. PO SCH (07:00)
[2020-11-02 07:50] VITALS: BP 126/53
[2020-11-02] MEDS: PANTOPRAZOLE 40 MG TABLET.DR. PO SCH (08:55)
[2020-11-02] MEDS: MULTIVITAMIN with MINERAL TABLET. PO SCH (08:55)
[2020-11-02] MEDS: LACTOBACILLUS RHAMNOSUS GG 1 CAPSULE. PO SCH ×2 (08:56→21:00)
[2020-11-02] MEDS: ASPIRIN 325 MG TABLET PO SCH (08:56)
[2020-11-02] MEDS: CALCIUM CARB/VIT D3 500/200 TABLET. PO SCH ×2 (08:56→17:00)
[2020-11-02] MEDS: DEXAMETHASONE SOD PHOS 4 MG/ML VIAL IVP SCH (08:57)
[2020-11-02] MEDS: FUROSEMIDE 40 MG TABLET. PO SCH (08:57)
[2020-11-02] MEDS: HEPARIN for SUB-Q USE 5,000 UNIT/ML VIAL. SQ SCH ×2 (09:05→22:04)
--- NOTE | 2020-11-02 09:38 | PDOC ---
PULMONARY PROGRESS NOTES DATE: 11/02/20 TIME: 09:38 Subjective Patient appears to be comfortable on BiPAP patient holding their own currently on BiPAP 20/10, rate of 16, 100% FiO2 Vitals Vital Signs Date Time Temp Pulse Resp B/P (MAP) Pulse Ox O2 Delivery O2 Flow Rate FiO2 11/02/20 08:56 90 132/55 11/02/20 07:55 93 BiPAP/CPAP 11/02/20 07:42 40.0 11/02/20 03:00 97.7 17 97.7 Lungs: Crackles Cardiovascular: S1, S2 Abdomen: Soft, Non-tender Extremities: No Edema Medications Active Scripts Medications Dose Route/Sig Max Daily Dose Days Date Category Calcium + Vitamin D Tablet (Calcium Carbonate/Vitamin D3) 1 Each Tablet 1 Each PO BID 10/24/20 Reported [tylenol PM] 10/24/20 Reported Potassium Chloride (Potassium Chloride) 10 Meq Tab.sr.24h 15 Meq PO QODAY 10/24/20 Reported Potassium Chloride (Potassium Chloride) 10 Meq Tab.sr.24h 10 Meq PO QODAY 10/24/20 Reported Furosemide 40 Mg Tablet 1.5 Tab PO DAILY 10/24/20 Reported Furosemide 40 Mg Tablet 1 Tab PO QODAY 10/24/20 Reported Levothyroxine Sodium 25 Mcg Tablet 1 Tab PO DAILY 10/24/20 Reported Protonix (Pantoprazole Sodium) 20 Mg Tablet.dr 40 Mg PO DAILY 04/08/17 Reported Zoloft (Sertraline Hcl) 50 Mg Tablet 50 Mg PO HS 05/31/15 Reported Impression . IMPRESSION: 1. Acute hypoxemic respiratory failure. 2. COVID-19 viral pneumonia. 3. Acute respiratory distress syndrome. 4. Abnormal x-ray, compatible with viral pneumonia, possibly bacterial pneumonia. 5. Comorbidities, hypertension, gastroesophageal reflux, anxiety and depression. 6. CT angiogram revealed no evidence of pulmonary embolism. Plan . Updated 11/02 Patient continues to hold her own, Continue remdesivir and steroids Suspect patient may not survive Currently on BiPAP, had to increase EPAP updated 11/01 Continues to require BiPAP Long-term prognosis poor Continue remdesivir, steroids DVT prophylaxis updated 10/31 We will continue current support Prognosis is poor Remdesivir steroids DVT prophylaxis updated 10/30 Continue BiPAP Steroids And remdesivir Continue close monitoring DVT prophylaxis Nutritional support ROLANDO Jewell MD Nov 02, 2020 09:38
[2020-11-02 10:34] VITALS: BP 121/55
--- NOTE | 2020-11-02 13:10 | PDOC ---
[facility] PROGRESS NOTE Date of Service DOS: DATE: 11/02/20 TIME: 13:08 Chief Complaint Chief Complaint Acute respiratory failure with hypoxia, on BiPAP max therapy, is DNR COVID-19 pneumonia SHELLIE due to vasomotor nephropathy Severe malnutrition severe sepsis History of Present Illness History of Present Illness Patient is a 85-year-old female presents to the ED with complaints of shortness of breath. She states she was recently diagnosed with COVID-19 in the clinic on Friday, and reports worsening shortness of breath since that time. Associated cough. States that she has been vaccinated against COVID-19, but does not recall the date or which vaccination she received. She does admit to chronic lower extremity edema that is unchanged recently. Will admit patient for further medical management. 10/29 seen and examined. Discussed with RN. Chart reviewed. yesterday transferred to 6th floor on vapotherm moderate respiratory distress. Pulmonology following s/p Remdesivir. Speech therapy plans to reevaluate noted report of Patchy areas of groundglass opacity in lungs bilaterally favored infectious or inflammatory in etiology. 10/30/2020 No acute events overnight. This morning patient desaturated down to 84% on Vapotherm. Will start BiPAP. Patient currently is not in any respiratory distress. However she is still DNR. A total of 34 minutes of critical care time was spent in reviewing chart, labs, and images. Discussed with RN and SW. 10/31/2020 No acute events overnight. Patient still on BiPAP saturating 70%. Will attempt to feed p.o. by switching to Vapotherm and nonrebreather. No Other concerns from nursing. Patient's chart, labs, images were reviewed and discussed with RN A total of 35 minutes of critical care time was spent in reviewing chart, labs, and images. Discussed with RN and SW. 11/01/20 No acute events overnight. Pt continues to be on BiPAP and saturating at 97%. Pt easily destaurates when needing to eat with her vapotherma and NRB. A total of 32 minutes of critical care time was spent in reviewing chart, labs, and images 11/02/2020 Patient is currently still saturating 92% on BiPAP 100%. No other concerns from nursing. Patient is still a DNR status. She is holding her saturations well continues to be stable but not improving necessarily. Patient's chart, labs, images were reviewed and discussed with RN A total of 31 minutes of critical care time was spent in reviewing chart, labs, and images. Discussed with RN and SW. Vitals/I&O Vitals/I&O: Vital Signs Date Time Temp Pulse Resp B/P (MAP) Pulse Ox O2 Delivery O2 Flow Rate FiO2 11/02/20 12:14 92 BiPAP/CPAP 11/02/20 10:34 97.6 77 22 121/55 (77) 97.6 11/02/20 07:42 40.0 I & O 11/01/20 11/01/20 11/02/20 15:00 23:00 07:00 Intake Total 360 ml 0 ml 0 ml Output Total 850 ml 300 ml Balance 360 ml -850 ml -300 ml Physical Exam General: Alert, Oriented X3, Cooperative, mild distress Heart: Regular rate Lungs: Crackles Abdomen: Soft, No tenderness, Other (Nondistended) Extremities: No clubbing, No cyanosis, No edema Skin: No rashes, No breakdown Assessment and Plan Assessmemt and Plan Problems Medical Problems: (1) Acute respiratory failure with hypoxia Status: Acute (2) COVID-19 Status: Acute Comment Review of Relevant I have reviewed the following items eamon (where applicable) has been applied. Medications: Current Medications Medications (Trade) Dose Ordered Sig/Bhavna Route PRN Reason Start Time Stop Time Status Last Admin Dose Admin Lorazepam (Ativan Inj) 0.5 mg PRN Q4HRS PRN IVP ANXIETY / AGITATION 11/02/20 02:30 11/02/20 02:36 Justifications for Admission Other Justification DEBBIE HAIDER MD Nov 02, 2020 13:10
[2020-11-02] MEDS: IV NORMAL SALINE 1000ML BAG 1,000 ML IV SCH (13:25)
[2020-11-02 15:06] VITALS: BP 119/64
[2020-11-02 19:06] VITALS: BP 135/50
[2020-11-02] MEDS: SERTRALINE 50 MG TABLET. PO SCH (21:00)
[2020-11-02 23:00] VITALS: BP 135/50
[2020-11-03 03:00] VITALS: BP 132/53
[2020-11-03] MEDS: LEVOTHYROXINE 25 MCG TABLET. PO SCH (07:30)
[2020-11-03] MEDS: PANTOPRAZOLE 40 MG TABLET.DR. PO SCH (07:30)
[2020-11-03 07:55] VITALS: BP 144/63
[2020-11-03] MEDS: ASPIRIN 325 MG TABLET PO SCH (08:00)
[2020-11-03] MEDS: CALCIUM CARB/VIT D3 500/200 TABLET. PO SCH ×2 (08:00→16:15)
--- NOTE | 2020-11-03 08:32 | PDOC ---
PULMONARY PROGRESS NOTES DATE: 11/03/20 TIME: 08:30 Subjective Patient remains on BiPAP at 100% FiO2. She has some.'s of increased respiratory rate. 13/12, rate of 16, 100% FiO2 Vitals Vital Signs Date Time Temp Pulse Resp B/P (MAP) Pulse Ox O2 Delivery O2 Flow Rate FiO2 11/03/20 08:25 95 BiPAP/CPAP 11/03/20 07:55 98.4 69 22 144/63 (90) 98.4 11/02/20 20:00 40.0 General: Lethargic Lungs: Crackles Cardiovascular: S1, S2 Abdomen: Soft, Non-tender Extremities: No Edema Medications Active Scripts Medications Dose Route/Sig Max Daily Dose Days Date Category Calcium + Vitamin D Tablet (Calcium Carbonate/Vitamin D3) 1 Each Tablet 1 Each PO BID 10/24/20 Reported [tylenol PM] 10/24/20 Reported Potassium Chloride (Potassium Chloride) 10 Meq Tab.sr.24h 15 Meq PO QODAY 10/24/20 Reported Potassium Chloride (Potassium Chloride) 10 Meq Tab.sr.24h 10 Meq PO QODAY 10/24/20 Reported Furosemide 40 Mg Tablet 1.5 Tab PO DAILY 10/24/20 Reported Furosemide 40 Mg Tablet 1 Tab PO QODAY 10/24/20 Reported Levothyroxine Sodium 25 Mcg Tablet 1 Tab PO DAILY 10/24/20 Reported Protonix (Pantoprazole Sodium) 20 Mg Tablet.dr 40 Mg PO DAILY 04/08/17 Reported Zoloft (Sertraline Hcl) 50 Mg Tablet 50 Mg PO HS 05/31/15 Reported Impression . IMPRESSION: 1. Acute hypoxemic respiratory failure./ARDS from COVID-19 viral pneumonia. 2. COVID-19 viral pneumonia. 3. Acute respiratory distress syndrome. 4. Abnormal x-ray, compatible with viral pneumonia, possibly bacterial pneumonia. 5. Comorbidities, hypertension, gastroesophageal reflux, anxiety and depression. 6. CT angiogram revealed no evidence of pulmonary embolism. 7. Encephalopathy. Plan . Updated 11/03 Patient remains ill. Still requiring 100% FiO2 via BiPAP. Is status post remdesivir. Start tapering steroids. Suspect patient may not survive Will reach out to patient's daughter regarding discussing goals of care. I would recommend hospice care. Continue as needed Ativan for now. Updated 11/02 Patient continues to hold her own, Continue remdesivir and steroids Suspect patient may not survive Currently on BiPAP, had to increase EPAP updated 11/01 Continues to require BiPAP Long-term prognosis poor Continue remdesivir, steroids DVT prophylaxis updated 10/31 We will continue current support Prognosis is poor Remdesivir steroids DVT prophylaxis updated 10/30 Continue BiPAP Steroids And remdesivir Continue close monitoring DVT prophylaxis Nutritional support FELIX Benson MD Nov 03, 2020 08:32
[2020-11-03] MEDS: HEPARIN for SUB-Q USE 5,000 UNIT/ML VIAL. SQ SCH ×2 (08:52→20:05)
[2020-11-03] MEDS: MULTIVITAMIN with MINERAL TABLET. PO SCH (09:00)
[2020-11-03] MEDS: FUROSEMIDE 40 MG TABLET. PO SCH (09:00)
[2020-11-03] MEDS: LACTOBACILLUS RHAMNOSUS GG 1 CAPSULE. PO SCH ×2 (09:00→20:07)
[2020-11-03] MEDS ORDERED: LABETALOL 20 MG/4 ML DISP.SYRIN. IVP PRN (10:15)
[2020-11-03] MEDS: PANTOPRAZOLE IV PUSH 40 MG VIAL. IVP SCH (10:25)
[2020-11-03] MEDS: FUROSEMIDE 40 MG/4 ML VIAL. IVP SCH ×2 (10:27→10:28)
[2020-11-03] MEDS ORDERED: FUROSEMIDE 100 MG/10 ML VIAL. IVP SCH (10:30)
[2020-11-03 10:43] VITALS: BP 154/69
[2020-11-03 11:10] LABS: BASO # 0.1 x10^3/uL (0.0-0.2); BASO % 0 % (0-3); EOS % 0 % (0-3); HEMOGLOBIN 11.8 g/dL (12.0-15.5); LYMPH # 0.5 x10^3/uL (1.0-4.8); LYMPH % 2 % (24-48); MEAN CORPUSCULAR HEMOGLOBIN 31 pg (25-35); MEAN CORPUSCULAR HGB CONC 32 g/dL (31-37); MEAN CORPUSCULAR VOLUME 96 fL (79-100); MONO # 0.5 x10^3/uL (0.0-1.1); MONO % 2 % (0-9); NEUT # 23.3 x10^3/uL (1.8-7.7); NEUT % 96 % (31-73); PLATELET COUNT 193 x10^3/uL (140-400); RED BLOOD COUNT 3.84 x10^6/uL (3.50-5.40); RED CELL DISTRIBUTION WIDTH 15.4 % (11.5-14.5); WHITE BLOOD COUNT 24.3 x10^3/uL (4.0-11.0)
[2020-11-03 11:20] LABS: CALCIUM 8.5 mg/dL (8.5-10.1); CREATININE 0.5 mg/dL (0.6-1.0); PHOSPHORUS 2.6 mg/dL (2.6-4.7); POTASSIUM 4.1 mmol/L (3.5-5.1)
[2020-11-03 12:35] LABS: % ATYL 1 % (0-0); % BANDS 1 % (0-9); % LYMPHS 3 % (24-48); % MONOS 3 % (0-10); % SEGS 92 % (35-66); PLT ESTIMATE ADEQUATE (ADEQUATE)
--- NOTE | 2020-11-03 13:32 | PDOC ---
[facility] PROGRESS NOTE Date of Service DOS: DATE: 11/03/20 TIME: 13:31 Chief Complaint Chief Complaint Acute respiratory failure with hypoxia, on BiPAP max therapy, is DNR COVID-19 pneumonia SHELLIE due to vasomotor nephropathy Severe malnutrition severe sepsis History of Present Illness History of Present Illness Patient is a 85-year-old female presents to the ED with complaints of shortness of breath. She states she was recently diagnosed with COVID-19 in the clinic on Friday, and reports worsening shortness of breath since that time. Associated cough. States that she has been vaccinated against COVID-19, but does not recall the date or which vaccination she received. She does admit to chronic lower extremity edema that is unchanged recently. Will admit patient for further medical management. 10/29 seen and examined. Discussed with RN. Chart reviewed. yesterday transferred to 6th floor on vapotherm moderate respiratory distress. Pulmonology following s/p Remdesivir. Speech therapy plans to reevaluate noted report of Patchy areas of groundglass opacity in lungs bilaterally favored infectious or inflammatory in etiology. 10/30/2020 No acute events overnight. This morning patient desaturated down to 84% on Vapotherm. Will start BiPAP. Patient currently is not in any respiratory distress. However she is still DNR. A total of 34 minutes of critical care time was spent in reviewing chart, labs, and images. Discussed with RN and SW. 10/31/2020 No acute events overnight. Patient still on BiPAP saturating 70%. Will attempt to feed p.o. by switching to Vapotherm and nonrebreather. No Other concerns from nursing. Patient's chart, labs, images were reviewed and discussed with RN A total of 35 minutes of critical care time was spent in reviewing chart, labs, and images. Discussed with RN and SW. 11/01/20 No acute events overnight. Pt continues to be on BiPAP and saturating at 97%. Pt easily destaurates when needing to eat with her vapotherma and NRB. A total of 32 minutes of critical care time was spent in reviewing chart, labs, and images 11/02/2020 Patient is currently still saturating 92% on BiPAP 100%. No other concerns from nursing. Patient is still a DNR status. She is holding her saturations well continues to be stable but not improving necessarily. Patient's chart, labs, images were reviewed and discussed with RN A total of 31 minutes of critical care time was spent in reviewing chart, labs, and images. Discussed with RN and SW. 11/03/2020 No acute events overnight. Patient still saturating between 89 to 90% on 100% BiPAP. Sodium up to 157 we will switch from NS to half NS. CRP is downtrending. Patient's chart, labs, images were reviewed and discussed with RN A total of 34 minutes of critical care time was spent in reviewing chart, labs, and images. Discussed with RN and SW. Vitals/I&O Vitals/I&O: Vital Signs Date Time Temp Pulse Resp B/P (MAP) Pulse Ox O2 Delivery O2 Flow Rate FiO2 11/03/20 11:33 94 BiPAP/CPAP 11/03/20 10:43 97.8 75 21 154/69 (97) 97.8 11/03/20 08:00 40.0 I & O 11/02/20 11/02/20 11/03/20 15:00 23:00 07:00 Intake Total 20 ml 0 ml 0 ml Output Total 400 ml Balance 20 ml 0 ml -400 ml Physical Exam General: Alert, Cooperative, mild distress Heart: Regular rate Lungs: Crackles Abdomen: Soft, No tenderness, Other (Nondistended) Extremities: No clubbing, No cyanosis, No edema Skin: No rashes, No breakdown Labs Labs: Laboratory Tests Test 11/03/20 10:50 White Blood Count 24.3 x10^3/uL (4.0-11.0) Red Blood Count 3.84 x10^6/uL (3.50-5.40) Hemoglobin 11.8 g/dL (12.0-15.5) Hematocrit 37.0 % (36.0-47.0) Mean Corpuscular Volume 96 fL (79-100) Mean Corpuscular Hemoglobin 31 pg (25-35) Mean Corpuscular Hemoglobin Concent 32 g/dL (31-37) Red Cell Distribution Width 15.4 % (11.5-14.5) Platelet Count 193 x10^3/uL (140-400) Neutrophils (%) (Auto) 96 % (31-73) Lymphocytes (%) (Auto) 2 % (24-48) Monocytes (%) (Auto) 2 % (0-9) Eosinophils (%) (Auto) 0 % (0-3) Basophils (%) (Auto) 0 % (0-3) Neutrophils # (Auto) 23.3 x10^3/uL (1.8-7.7) Lymphocytes # (Auto) 0.5 x10^3/uL (1.0-4.8) Monocytes # (Auto) 0.5 x10^3/uL (0.0-1.1) Eosinophils # (Auto) 0.0 x10^3/uL (0.0-0.7) Basophils # (Auto) 0.1 x10^3/uL (0.0-0.2) Segmented Neutrophils % 92 % (35-66) Band Neutrophils % 1 % (0-9) Lymphocytes % 3 % (24-48) Atypical Lymphocytes % (Manual) 1 % (0-0) Monocytes % 3 % (0-10) Platelet Estimate Adequate (ADEQUATE) Sodium Level 157 mmol/L (136-145) Potassium Level 4.1 mmol/L (3.5-5.1) Chloride Level 120 mmol/L (98-107) Carbon Dioxide Level 36 mmol/L (21-32) Anion Gap 1 (6-14) Blood Urea Nitrogen 30 mg/dL (7-20) Creatinine 0.5 mg/dL (0.6-1.0) Estimated GFR (Cockcroft-Gault) 117.0 Glucose Level 107 mg/dL (70-99) Calcium Level 8.5 mg/dL (8.5-10.1) Phosphorus Level 2.6 mg/dL (2.6-4.7) Magnesium Level 3.0 mg/dL (1.8-2.4) Assessment and Plan Assessmemt and Plan Problems Medical Problems: (1) Acute respiratory failure with hypoxia Status: Acute (2) COVID-19 Status: Acute Comment Review of Relevant I have reviewed the following items eamon (where applicable) has been applied. Medications: Current Medications Medications (Trade) Dose Ordered Sig/Bhavna Route PRN Reason Start Time Stop Time Status Last Admin Dose Admin Pantoprazole Sodium (PROTONIX VIAL for IV PUSH) 40 mg DAILYAC IVP 11/03/20 11:30 11/03/20 10:25 Furosemide (Lasix) 40 mg DAILY IVP 11/03/20 11:00 11/03/20 10:42 DC 11/03/20 10:28 Furosemide (Lasix) 60 mg DAILY IVP 11/03/20 10:30 11/03/20 10:30 Justifications for Admission Other Justification DEBBIE HAIDER MD Nov 03, 2020 13:32
[2020-11-03] MEDS: IV 1/2 NORMAL SALINE 1,000 ML IV SCH (13:34)
[2020-11-03 14:16] VITALS: BP 129/48
[2020-11-03 19:30] VITALS: BP 113/47
[2020-11-03] MEDS: SERTRALINE 50 MG TABLET. PO SCH (20:07)
[2020-11-03 23:40] VITALS: BP 112/45
[2020-11-04] MEDS: IV 1/2 NORMAL SALINE 1,000 ML IV SCH ×2 (02:50→14:13)
[2020-11-04 02:55] VITALS: BP 125/54
[2020-11-04 07:00] VITALS: BP 137/43
[2020-11-04] MEDS: LEVOTHYROXINE 25 MCG TABLET. PO SCH (07:00)
[2020-11-04] MEDS: PANTOPRAZOLE IV PUSH 40 MG VIAL. IVP SCH (07:30)
[2020-11-04] MEDS: ASPIRIN 325 MG TABLET PO SCH (08:00)
[2020-11-04] MEDS: CALCIUM CARB/VIT D3 500/200 TABLET. PO SCH ×2 (08:00→16:47)
[2020-11-04] MEDS: HEPARIN for SUB-Q USE 5,000 UNIT/ML VIAL. SQ SCH ×2 (08:05→19:32)
--- NOTE | 2020-11-04 08:36 | PDOC ---
PULMONARY PROGRESS NOTES DATE: 11/04/20 TIME: 08:36 Subjective Patient remains on BiPAP at 100% FiO2. She has some.'s of increased respiratory rate. 20/10, rate of 16, 100% FiO2 Vitals Vital Signs Date Time Temp Pulse Resp B/P (MAP) Pulse Ox O2 Delivery O2 Flow Rate FiO2 11/04/20 07:00 97.0 86 34 137/43 (74) 94 BiPAP/CPAP 97.0 11/03/20 19:25 40.0 General: Lethargic Lungs: Crackles Cardiovascular: S1, S2 Abdomen: Soft, Non-tender Extremities: No Edema Labs Laboratory Tests Test 11/03/20 10:50 White Blood Count 24.3 x10^3/uL (4.0-11.0) Red Blood Count 3.84 x10^6/uL (3.50-5.40) Hemoglobin 11.8 g/dL (12.0-15.5) Hematocrit 37.0 % (36.0-47.0) Mean Corpuscular Volume 96 fL (79-100) Mean Corpuscular Hemoglobin 31 pg (25-35) Mean Corpuscular Hemoglobin Concent 32 g/dL (31-37) Red Cell Distribution Width 15.4 % (11.5-14.5) Platelet Count 193 x10^3/uL (140-400) Neutrophils (%) (Auto) 96 % (31-73) Lymphocytes (%) (Auto) 2 % (24-48) Monocytes (%) (Auto) 2 % (0-9) Eosinophils (%) (Auto) 0 % (0-3) Basophils (%) (Auto) 0 % (0-3) Neutrophils # (Auto) 23.3 x10^3/uL (1.8-7.7) Lymphocytes # (Auto) 0.5 x10^3/uL (1.0-4.8) Monocytes # (Auto) 0.5 x10^3/uL (0.0-1.1) Eosinophils # (Auto) 0.0 x10^3/uL (0.0-0.7) Basophils # (Auto) 0.1 x10^3/uL (0.0-0.2) Segmented Neutrophils % 92 % (35-66) Band Neutrophils % 1 % (0-9) Lymphocytes % 3 % (24-48) Atypical Lymphocytes % (Manual) 1 % (0-0) Monocytes % 3 % (0-10) Platelet Estimate Adequate (ADEQUATE) Sodium Level 157 mmol/L (136-145) Potassium Level 4.1 mmol/L (3.5-5.1) Chloride Level 120 mmol/L (98-107) Carbon Dioxide Level 36 mmol/L (21-32) Anion Gap 1 (6-14) Blood Urea Nitrogen 30 mg/dL (7-20) Creatinine 0.5 mg/dL (0.6-1.0) Estimated GFR (Cockcroft-Gault) 117.0 Glucose Level 107 mg/dL (70-99) Calcium Level 8.5 mg/dL (8.5-10.1) Phosphorus Level 2.6 mg/dL (2.6-4.7) Magnesium Level 3.0 mg/dL (1.8-2.4) Laboratory Tests Test 11/03/20 10:50 White Blood Count 24.3 x10^3/uL (4.0-11.0) Red Blood Count 3.84 x10^6/uL (3.50-5.40) Hemoglobin 11.8 g/dL (12.0-15.5) Hematocrit 37.0 % (36.0-47.0) Mean Corpuscular Volume 96 fL (79-100) Mean Corpuscular Hemoglobin 31 pg (25-35) Mean Corpuscular Hemoglobin Concent 32 g/dL (31-37) Red Cell Distribution Width 15.4 % (11.5-14.5) Platelet Count 193 x10^3/uL (140-400) Neutrophils (%) (Auto) 96 % (31-73) Lymphocytes (%) (Auto) 2 % (24-48) Monocytes (%) (Auto) 2 % (0-9) Eosinophils (%) (Auto) 0 % (0-3) Basophils (%) (Auto) 0 % (0-3) Neutrophils # (Auto) 23.3 x10^3/uL (1.8-7.7) Lymphocytes # (Auto) 0.5 x10^3/uL (1.0-4.8) Monocytes # (Auto) 0.5 x10^3/uL (0.0-1.1) Eosinophils # (Auto) 0.0 x10^3/uL (0.0-0.7) Basophils # (Auto) 0.1 x10^3/uL (0.0-0.2) Segmented Neutrophils % 92 % (35-66) Band Neutrophils % 1 % (0-9) Lymphocytes % 3 % (24-48) Atypical Lymphocytes % (Manual) 1 % (0-0) Monocytes % 3 % (0-10) Platelet Estimate Adequate (ADEQUATE) Sodium Level 157 mmol/L (136-145) Potassium Level 4.1 mmol/L (3.5-5.1) Chloride Level 120 mmol/L (98-107) Carbon Dioxide Level 36 mmol/L (21-32) Anion Gap 1 (6-14) Blood Urea Nitrogen 30 mg/dL (7-20) Creatinine 0.5 mg/dL (0.6-1.0) Estimated GFR (Cockcroft-Gault) 117.0 Glucose Level 107 mg/dL (70-99) Calcium Level 8.5 mg/dL (8.5-10.1) Phosphorus Level 2.6 mg/dL (2.6-4.7) Magnesium Level 3.0 mg/dL (1.8-2.4) Medications Active Scripts Medications Dose Route/Sig Max Daily Dose Days Date Category Calcium + Vitamin D Tablet (Calcium Carbonate/Vitamin D3) 1 Each Tablet 1 Each PO BID 10/24/20 Reported [tylenol PM] 10/24/20 Reported Potassium Chloride (Potassium Chloride) 10 Meq Tab.sr.24h 15 Meq PO QODAY 10/24/20 Reported Potassium Chloride (Potassium Chloride) 10 Meq Tab.sr.24h 10 Meq PO QODAY 10/24/20 Reported Furosemide 40 Mg Tablet 1.5 Tab PO DAILY 10/24/20 Reported Furosemide 40 Mg Tablet 1 Tab PO QODAY 10/24/20 Reported Levothyroxine Sodium 25 Mcg Tablet 1 Tab PO DAILY 10/24/20 Reported Protonix (Pantoprazole Sodium) 20 Mg Tablet.dr 40 Mg PO DAILY 04/08/17 Reported Zoloft (Sertraline Hcl) 50 Mg Tablet 50 Mg PO HS 05/31/15 Reported Impression . IMPRESSION: 1. Acute hypoxemic respiratory failure./ARDS from COVID-19 viral pneumonia. 2. COVID-19 viral pneumonia. 3. Acute respiratory distress syndrome. 4. Abnormal x-ray, compatible with viral pneumonia, possibly bacterial pneumonia. 5. Comorbidities, hypertension, gastroesophageal reflux, anxiety and depression. 6. CT angiogram revealed no evidence of pulmonary embolism. 7. Encephalopathy. Plan . Updated 11/04 Patient remains ill. Still requiring 100% FiO2 via BiPAP. Is status post remdesivir. Start tapering steroids. Suspect patient may not survive Will reach out to patient's daughter regarding discussing goals of care. I would recommend hospice care. Continue as needed Ativan for now. Updated 11/03 Patient remains ill. Still requiring 100% FiO2 via BiPAP. Is status post remdesivir. Start tapering steroids. Suspect patient may not survive Will reach out to patient's daughter regarding discussing goals of care. I would recommend hospice care. Continue as needed Ativan for now. Updated 11/02 Patient continues to hold her own, Continue remdesivir and steroids Suspect patient may not survive Currently on BiPAP, had to increase EPAP updated 11/01 Continues to require BiPAP Long-term prognosis poor Continue remdesivir, steroids DVT prophylaxis updated 10/31 We will continue current support Prognosis is poor Remdesivir steroids DVT prophylaxis updated 10/30 Continue BiPAP Steroids And remdesivir Continue close monitoring DVT prophylaxis Nutritional support FELIX Benson MD Nov 04, 2020 08:36
[2020-11-04] MEDS: LACTOBACILLUS RHAMNOSUS GG 1 CAPSULE. PO SCH ×2 (09:00→21:00)
[2020-11-04] MEDS: FUROSEMIDE 40 MG/4 ML VIAL. IVP SCH (09:00)
[2020-11-04] MEDS: MULTIVITAMIN with MINERAL TABLET. PO SCH (09:00)
--- NOTE | 2020-11-04 09:55 | NUR ---
Please send Roxanol
[2020-11-04] MEDS: MORPHINE SULFATE 20 MG/ML CONC SOLUTION. SL PRN ×3 (10:49→19:32)
[2020-11-04 11:00] VITALS: BP 153/47
--- NOTE | 2020-11-04 12:17 | PDOC ---
[facility] PROGRESS NOTE Date of Service DOS: DATE: 11/04/20 TIME: 12:12 Chief Complaint Chief Complaint Acute respiratory failure with hypoxia, on BiPAP max therapy, is DNR COVID-19 pneumonia SHELLIE due to vasomotor nephropathy Severe malnutrition severe sepsis History of Present Illness History of Present Illness Patient is a 85-year-old female presents to the ED with complaints of shortness of breath. She states she was recently diagnosed with COVID-19 in the clinic on Friday, and reports worsening shortness of breath since that time. Associated cough. States that she has been vaccinated against COVID-19, but does not recall the date or which vaccination she received. She does admit to chronic lower extremity edema that is unchanged recently. Will admit patient for further medical management. 10/29 seen and examined. Discussed with RN. Chart reviewed. yesterday transferred to 6th floor on vapotherm moderate respiratory distress. Pulmonology following s/p Remdesivir. Speech therapy plans to reevaluate noted report of Patchy areas of groundglass opacity in lungs bilaterally favored infectious or inflammatory in etiology. 10/30/2020 No acute events overnight. This morning patient desaturated down to 84% on Vapotherm. Will start BiPAP. Patient currently is not in any respiratory distress. However she is still DNR. A total of 34 minutes of critical care time was spent in reviewing chart, labs, and images. Discussed with RN and SW. 10/31/2020 No acute events overnight. Patient still on BiPAP saturating 70%. Will attempt to feed p.o. by switching to Vapotherm and nonrebreather. No Other concerns from nursing. Patient's chart, labs, images were reviewed and discussed with RN A total of 35 minutes of critical care time was spent in reviewing chart, labs, and images. Discussed with RN and SW. 11/01/20 No acute events overnight. Pt continues to be on BiPAP and saturating at 97%. Pt easily destaurates when needing to eat with her vapotherma and NRB. A total of 32 minutes of critical care time was spent in reviewing chart, labs, and images 11/02/2020 Patient is currently still saturating 92% on BiPAP 100%. No other concerns from nursing. Patient is still a DNR status. She is holding her saturations well continues to be stable but not improving necessarily. Patient's chart, labs, images were reviewed and discussed with RN A total of 31 minutes of critical care time was spent in reviewing chart, labs, and images. Discussed with RN and SW. 11/03/2020 No acute events overnight. Patient still saturating between 89 to 90% on 100% BiPAP. Sodium up to 157 we will switch from NS to half NS. CRP is downtrending. Patient's chart, labs, images were reviewed and discussed with RN A total of 34 minutes of critical care time was spent in reviewing chart, labs, and images. Discussed with RN and SW. 11/04/2020 No acute events overnight. Patient still holding onto BiPAP. Asked patient if she still want to continue to remain on BiPAP vent and she nodded appropriately to continue. We will continue to respect her wishes. Patient's chart, labs, images were reviewed and discussed with RN A total of 35 minutes of critical care time was spent in reviewing chart, labs, and images. Discussed with RN and SW. Vitals/I&O Vitals/I&O: Vital Signs Date Time Temp Pulse Resp B/P (MAP) Pulse Ox O2 Delivery O2 Flow Rate FiO2 11/04/20 11:05 93 BiPAP/CPAP 11/04/20 11:00 97.3 83 36 153/47 (82) 97.3 11/04/20 08:00 40.0 I & O 11/03/20 11/03/20 11/04/20 15:00 23:00 07:00 Intake Total 0 ml 0 ml Output Total 1400 ml 1600 ml 250 ml Balance -1400 ml -1600 ml -250 ml Physical Exam General: Alert, Cooperative, mild distress Heart: Regular rate Lungs: Crackles Abdomen: Soft, No tenderness, Other (Nondistended) Extremities: No clubbing, No cyanosis, No edema Skin: No rashes, No breakdown Assessment and Plan Assessmemt and Plan Problems Medical Problems: (1) Acute respiratory failure with hypoxia Status: Acute (2) COVID-19 Status: Acute Comment Review of Relevant I have reviewed the following items eamon (where applicable) has been applied. Medications: Current Medications Medications (Trade) Dose Ordered Sig/Bhavna Route PRN Reason Start Time Stop Time Status Last Admin Dose Admin Sodium Chloride 1,000 ml @ 75 mls/hr [id number] IV 11/03/20 13:30 11/03/20 13:34 Morphine Sulfate (Roxanol Conc) 5 mg PRN Q2HRS PRN SL PAIN 11/04/20 07:15 11/04/20 10:49 Justifications for Admission Other Justification DEBBIE HAIDER MD Nov 04, 2020 12:17
[2020-11-04] MEDS: IV DEXTROSE 5 %-0.45 % NACL 1,000 ML IV SCH (13:30)
[2020-11-04] MEDS ORDERED: FUROSEMIDE 40 MG/4 ML VIAL. IVP ONE (14:00)
[2020-11-04 14:38] LABS: CALCIUM 8.2 mg/dL (8.5-10.1); CREATININE 0.7 mg/dL (0.6-1.0); GFR 79.3; POTASSIUM 3.9 mmol/L (3.5-5.1)
[2020-11-04 15:00] VITALS: BP 146/46
[2020-11-04 19:15] VITALS: BP 133/49
[2020-11-04] MEDS: SERTRALINE 50 MG TABLET. PO SCH (21:00)
[2020-11-04 23:11] VITALS: BP 135/52
[2020-11-05] MEDS: MORPHINE SULFATE 20 MG/ML CONC SOLUTION. SL PRN ×2 (01:12→08:32)
[2020-11-05] MEDS: IV DEXTROSE 5 %-0.45 % NACL 1,000 ML IV SCH (02:50)
[2020-11-05 06:02] VITALS: BP 94/45
[2020-11-05] MEDS: LEVOTHYROXINE 25 MCG TABLET. PO SCH (07:00)
[2020-11-05] MEDS: ASPIRIN 325 MG TABLET PO SCH (08:00)
[2020-11-05] MEDS: CALCIUM CARB/VIT D3 500/200 TABLET. PO SCH (08:00)
[2020-11-05] MEDS: FUROSEMIDE 40 MG/4 ML VIAL. IVP SCH (08:33)
[2020-11-05] MEDS: PANTOPRAZOLE IV PUSH 40 MG VIAL. IVP SCH (08:33)
[2020-11-05] MEDS: HEPARIN for SUB-Q USE 5,000 UNIT/ML VIAL. SQ SCH (08:34)
[2020-11-05] MEDS: MULTIVITAMIN with MINERAL TABLET. PO SCH (09:00)
[2020-11-05] MEDS: LACTOBACILLUS RHAMNOSUS GG 1 CAPSULE. PO SCH (09:00)
--- NOTE | 2020-11-05 09:21 | PDOC ---
PULMONARY PROGRESS NOTES DATE: 11/05/20 TIME: 09:20 Subjective Patient remains on BiPAP at 100% FiO2. She has some.'s of increased respiratory rate. 13/12, rate of 16, 100% FiO2 Her oxygen level has remained in the 70s. She is nonresponsive. Vitals Vital Signs Date Time Temp Pulse Resp B/P (MAP) Pulse Ox O2 Delivery O2 Flow Rate FiO2 11/05/20 08:32 BiPAP/CPAP 11/05/20 07:11 84 11/05/20 06:02 97.1 80 24 94/45 (61) 97.1 11/04/20 20:11 40.0 General: Lethargic Lungs: Crackles Cardiovascular: S1, S2 Abdomen: Soft, Non-tender Extremities: No Edema Labs Laboratory Tests Test 11/03/20 10:50 11/04/20 14:15 White Blood Count 24.3 x10^3/uL (4.0-11.0) Red Blood Count 3.84 x10^6/uL (3.50-5.40) Hemoglobin 11.8 g/dL (12.0-15.5) Hematocrit 37.0 % (36.0-47.0) Mean Corpuscular Volume 96 fL (79-100) Mean Corpuscular Hemoglobin 31 pg (25-35) Mean Corpuscular Hemoglobin Concent 32 g/dL (31-37) Red Cell Distribution Width 15.4 % (11.5-14.5) Platelet Count 193 x10^3/uL (140-400) Neutrophils (%) (Auto) 96 % (31-73) Lymphocytes (%) (Auto) 2 % (24-48) Monocytes (%) (Auto) 2 % (0-9) Eosinophils (%) (Auto) 0 % (0-3) Basophils (%) (Auto) 0 % (0-3) Neutrophils # (Auto) 23.3 x10^3/uL (1.8-7.7) Lymphocytes # (Auto) 0.5 x10^3/uL (1.0-4.8) Monocytes # (Auto) 0.5 x10^3/uL (0.0-1.1) Eosinophils # (Auto) 0.0 x10^3/uL (0.0-0.7) Basophils # (Auto) 0.1 x10^3/uL (0.0-0.2) Segmented Neutrophils % 92 % (35-66) Band Neutrophils % 1 % (0-9) Lymphocytes % 3 % (24-48) Atypical Lymphocytes % (Manual) 1 % (0-0) Monocytes % 3 % (0-10) Platelet Estimate Adequate (ADEQUATE) Sodium Level 157 mmol/L (136-145) 159 mmol/L (136-145) Potassium Level 4.1 mmol/L (3.5-5.1) 3.9 mmol/L (3.5-5.1) Chloride Level 120 mmol/L (98-107) 118 mmol/L (98-107) Carbon Dioxide Level 36 mmol/L (21-32) 38 mmol/L (21-32) Anion Gap 1 (6-14) 3 (6-14) Blood Urea Nitrogen 30 mg/dL (7-20) 34 mg/dL (7-20) Creatinine 0.5 mg/dL (0.6-1.0) 0.7 mg/dL (0.6-1.0) Estimated GFR (Cockcroft-Gault) 117.0 79.3 Glucose Level 107 mg/dL (70-99) 99 mg/dL (70-99) Calcium Level 8.5 mg/dL (8.5-10.1) 8.2 mg/dL (8.5-10.1) Phosphorus Level 2.6 mg/dL (2.6-4.7) Magnesium Level 3.0 mg/dL (1.8-2.4) 3.0 mg/dL (1.8-2.4) Laboratory Tests Test 11/04/20 14:15 Sodium Level 159 mmol/L (136-145) Potassium Level 3.9 mmol/L (3.5-5.1) Chloride Level 118 mmol/L (98-107) Carbon Dioxide Level 38 mmol/L (21-32) Anion Gap 3 (6-14) Blood Urea Nitrogen 34 mg/dL (7-20) Creatinine 0.7 mg/dL (0.6-1.0) Estimated GFR (Cockcroft-Gault) 79.3 Glucose Level 99 mg/dL (70-99) Calcium Level 8.2 mg/dL (8.5-10.1) Magnesium Level 3.0 mg/dL (1.8-2.4) Medications Active Scripts Medications Dose Route/Sig Max Daily Dose Days Date Category Calcium + Vitamin D Tablet (Calcium Carbonate/Vitamin D3) 1 Each Tablet 1 Each PO BID 10/24/20 Reported [tylenol PM] 10/24/20 Reported Potassium Chloride (Potassium Chloride) 10 Meq Tab.sr.24h 15 Meq PO QODAY 10/24/20 Reported Potassium Chloride (Potassium Chloride) 10 Meq Tab.sr.24h 10 Meq PO QODAY 10/24/20 Reported Furosemide 40 Mg Tablet 1.5 Tab PO DAILY 10/24/20 Reported Furosemide 40 Mg Tablet 1 Tab PO QODAY 10/24/20 Reported Levothyroxine Sodium 25 Mcg Tablet 1 Tab PO DAILY 10/24/20 Reported Protonix (Pantoprazole Sodium) 20 Mg Tablet.dr 40 Mg PO DAILY 04/08/17 Reported Zoloft (Sertraline Hcl) 50 Mg Tablet 50 Mg PO HS 05/31/15 Reported Impression . IMPRESSION: 1. Acute hypoxemic respiratory failure./ARDS from COVID-19 viral pneumonia. 2. COVID-19 viral pneumonia. 3. Acute respiratory distress syndrome. 4. Abnormal x-ray, compatible with viral pneumonia, possibly bacterial pneumonia. 5. Comorbidities, hypertension, gastroesophageal reflux, anxiety and depression. 6. CT angiogram revealed no evidence of pulmonary embolism. 7. Encephalopathy. Plan . Updated 11/05 Patient remains ill. Still requiring 100% FiO2 via BiPAP. Oxygen level is in the 70s. Is status post remdesivir. steroids. Suspect patient may not survive I have talked to patient's daughter Nery this morning. Explained patient's poor prognosis and no chance of survival. She agrees to discontinue BiPAP and proceed with comfort care. Discussed with patient's nurse. Will follow per palliative care protocol Updated 11/04 Patient remains ill. Still requiring 100% FiO2 via BiPAP. Is status post remdesivir. Start tapering steroids. Suspect patient may not survive Will reach out to patient's daughter regarding discussing goals of care. I would recommend hospice care. Continue as needed Ativan for now. Updated 11/03 Patient remains ill. Still requiring 100% FiO2 via BiPAP. Is status post remdesivir. Start tapering steroids. Suspect patient may not survive Will reach out to patient's daughter regarding discussing goals of care. I would recommend hospice care. Continue as needed Ativan for now. Updated 11/02 Patient continues to hold her own, Continue remdesivir and steroids Suspect patient may not survive Currently on BiPAP, had to increase EPAP updated 11/01 Continues to require BiPAP Long-term prognosis poor Continue remdesivir, steroids DVT prophylaxis updated 10/31 We will continue current support Prognosis is poor Remdesivir steroids DVT prophylaxis updated 10/30 Continue BiPAP Steroids And remdesivir Continue close monitoring DVT prophylaxis Nutritional support FELIX Benson MD Nov 05, 2020 09:21
[2020-11-05] MEDS ORDERED: MORPHINE SULFATE 2 MG/ML INJ. IVP PRN (10:30)
[2020-11-05] MEDS ORDERED: HALOPERIDOL LACTATE 5 MG/ML VIAL. IVP PRN ×3 (10:30)
[2020-11-05] MEDS ORDERED: ONDANSETRON PF 4 MG/2 ML VIAL. IVP PRN (10:30)
[2020-11-05] MEDS ORDERED: fentaNYL PF VIAL 100 MCG/2 ML VIAL IVP PRN ×3 (10:30)
[2020-11-05] MEDS ORDERED: 0.9 % SODIUM CHLORIDE 10 ML DISP.SYRIN. IV PRN (10:30)
[2020-11-05] MEDS ORDERED: PROCHLORPERAZINE 10 MG/2 ML VIAL. IVP PRN (10:30)
[2020-11-05] MEDS ORDERED: SCOPOLAMINE 1.5MG PATCH. TD PRN (10:30)
[2020-11-05] MEDS ORDERED: ACETAMINOPHEN 650 MG SUPP.RECT. PR PRN (10:30)
[2020-11-05] MEDS ORDERED: SODIUM PHOSPHATES 19/7GM 133 ML ENEMA. PR PRN (10:30)
[2020-11-05] MEDS ORDERED: MORPHINE SULFATE 4 MG/ML INJ. IVP PRN (10:30)
[2020-11-05] MEDS ORDERED: MORPHINE SULFATE 20 MG/ML CONC SOLUTION. PO/SL PRN ×2 (10:30)
[2020-11-05] MEDS ORDERED: BISACODYL 10 MG SUPP.RECT. PR PRN (10:30)
[2020-11-05] MEDS ORDERED: ACETAMINOPHEN 650 MG/20.3 ML SOLUTION. PEG PRN (10:30)
[2020-11-05] MEDS ORDERED: HYDROmorphone 2 MG/ML VIAL IVP PRN ×2 (10:30)
[2020-11-05] MEDS ORDERED: ACETAMINOPHEN 325 MG TABLET. PO PRN (10:30)
--- NOTE | 2020-11-05 12:19 | PDOC ---
[facility] PROGRESS NOTE Date of Service DOS: DATE: 11/05/20 TIME: 12:14 Chief Complaint Chief Complaint Acute respiratory failure with hypoxia, on BiPAP max therapy, is DNR COVID-19 pneumonia SHELLIE due to vasomotor nephropathy Severe malnutrition severe sepsis History of Present Illness History of Present Illness Patient is a 85-year-old female presents to the ED with complaints of shortness of breath. She states she was recently diagnosed with COVID-19 in the clinic on Friday, and reports worsening shortness of breath since that time. Associated cough. States that she has been vaccinated against COVID-19, but does not recall the date or which vaccination she received. She does admit to chronic lower extremity edema that is unchanged recently. Will admit patient for further medical management. 10/29 seen and examined. Discussed with RN. Chart reviewed. yesterday transferred to 6th floor on vapotherm moderate respiratory distress. Pulmonology following s/p Remdesivir. Speech therapy plans to reevaluate noted report of Patchy areas of groundglass opacity in lungs bilaterally favored infectious or inflammatory in etiology. 10/30/2020 No acute events overnight. This morning patient desaturated down to 84% on Vapotherm. Will start BiPAP. Patient currently is not in any respiratory distress. However she is still DNR. A total of 34 minutes of critical care time was spent in reviewing chart, labs, and images. Discussed with RN and SW. 10/31/2020 No acute events overnight. Patient still on BiPAP saturating 70%. Will attempt to feed p.o. by switching to Vapotherm and nonrebreather. No Other concerns from nursing. Patient's chart, labs, images were reviewed and discussed with RN A total of 35 minutes of critical care time was spent in reviewing chart, labs, and images. Discussed with RN and SW. 11/01/20 No acute events overnight. Pt continues to be on BiPAP and saturating at 97%. Pt easily destaurates when needing to eat with her vapotherma and NRB. A total of 32 minutes of critical care time was spent in reviewing chart, labs, and images 11/02/2020 Patient is currently still saturating 92% on BiPAP 100%. No other concerns from nursing. Patient is still a DNR status. She is holding her saturations well continues to be stable but not improving necessarily. Patient's chart, labs, images were reviewed and discussed with RN A total of 31 minutes of critical care time was spent in reviewing chart, labs, and images. Discussed with RN and HELEN. 11/03/2020 No acute events overnight. Patient still saturating between 89 to 90% on 100% BiPAP. Sodium up to 157 we will switch from NS to half NS. CRP is downtrending. Patient's chart, labs, images were reviewed and discussed with RN A total of 34 minutes of critical care time was spent in reviewing chart, labs, and images. Discussed with RN and SW. 11/04/2020 No acute events overnight. Patient still holding onto BiPAP. Asked patient if she still want to continue to remain on BiPAP vent and she nodded appropriately to continue. We will continue to respect her wishes. Patient's chart, labs, images were reviewed and discussed with RN A total of 35 minutes of critical care time was spent in reviewing chart, labs, and images. Discussed with RN and HELEN. 11/05/2020 No acute events overnight. Patient still on BiPAP but had a desaturation down to 50% today her heart rate did decrease to almost asystole on telemetry managing BiPAP backup once her daughter was talking to her. Her heart rate currently in the 80s. Discussed with family in the room and also the daughter who is DPOA and they want her to be placed on comfort care. All palliative and end-of-life care orders were placed. In addition to my E/M visit, advance care planning done with A total time of 20 minutes was spent from 940 to 10:00 face to face in discussion with the patient and family regarding their goals of care, CODE STATUS. Vitals/I&O Vitals/I&O: Vital Signs Date Time Temp Pulse Resp B/P (MAP) Pulse Ox O2 Delivery O2 Flow Rate FiO2 11/05/20 11:29 BiPAP/CPAP 11/05/20 08:00 40.0 11/05/20 07:11 84 11/05/20 06:02 97.1 80 24 94/45 (61) 97.1 I & O 11/04/20 11/04/20 11/05/20 15:00 23:00 07:00 Intake Total 0 ml 450 ml 0 ml Output Total 1000 ml 300 ml Balance 0 ml -550 ml -300 ml Physical Exam General: Alert, Cooperative, mild distress Heart: Regular rate Lungs: Crackles Abdomen: Soft, No tenderness, Other (Nondistended) Extremities: No clubbing, No cyanosis, No edema Skin: No rashes, No breakdown Labs Labs: Laboratory Tests Test 11/04/20 14:15 Sodium Level 159 mmol/L (136-145) Potassium Level 3.9 mmol/L (3.5-5.1) Chloride Level 118 mmol/L (98-107) Carbon Dioxide Level 38 mmol/L (21-32) Anion Gap 3 (6-14) Blood Urea Nitrogen 34 mg/dL (7-20) Creatinine 0.7 mg/dL (0.6-1.0) Estimated GFR (Cockcroft-Gault) 79.3 Glucose Level 99 mg/dL (70-99) Calcium Level 8.2 mg/dL (8.5-10.1) Magnesium Level 3.0 mg/dL (1.8-2.4) Assessment and Plan Assessmemt and Plan Problems Medical Problems: (1) Acute respiratory failure with hypoxia Status: Acute (2) COVID-19 Status: Acute Comment Review of Relevant I have reviewed the following items eamon (where applicable) has been applied. Medications: Current Medications Medications (Trade) Dose Ordered Sig/Bhavna Route PRN Reason Start Time Stop Time Status Last Admin Dose Admin Dextrose/Sodium Chloride 1,000 ml @ 75 mls/hr [id number] IV 11/04/20 13:30 11/05/20 02:50 Furosemide (Lasix) 60 mg 1X ONCE IVP 11/04/20 14:00 11/04/20 14:01 DC 11/04/20 13:35 Morphine Sulfate (Morphine Sulfate) 2 mg PRN Q2HR PRN IVP PAIN OR DYSPNEA,1st CHOICE 11/05/20 10:30 11/05/20 11:29 Justifications for Admission Other Justification DEBBIE HAIDER MD Nov 05, 2020 12:19
== END 2020-11-05 12:30 | DRG 177 ==
LOC: ER 18:43 → 5 SOUTH 21:31 → 5 NORTH 10-27 10:55 → 6 SOUTH 10-28 12:46
PROVIDERS: ADMIT Family Medicine; ATTEND Family Medicine
PROC: 5A0935A Assistance with Respiratory Ventilation, Less than 24 Consecutive Hours, High Flow/Velocity Cannula (ICD-10-PCS; 2020-10-24)
PROC: XW033E5 Introduction of Remdesivir Anti-infective into Peripheral Vein, Percutaneous Approach, New Technology Group 5 (ICD-10-PCS; 2020-10-25)
PROC: 5A09557 Assistance with Respiratory Ventilation, Greater than 96 Consecutive Hours, Continuous Positive Airway Pressure (ICD-10-PCS; principal; 2020-10-30)
DX: U07.1 COVID-19 (principal); J12.82 Pneumonia due to coronavirus disease 2019; E43 Unspecified severe protein-calorie malnutrition; J96.01 Acute respiratory failure with hypoxia; N17.0 Acute kidney failure with tubular necrosis; G93.40 Encephalopathy, unspecified; F32.9 Major depressive disorder, single episode, unspecified; F41.9 Anxiety disorder, unspecified; I10 Essential (primary) hypertension; K21.9 Gastro-esophageal reflux disease without esophagitis; Z51.5 Encounter for palliative care; Z66 Do not resuscitate; Z87.891 Personal history of nicotine dependence; Z90.710 Acquired absence of both cervix and uterus; D64.9 Anemia, unspecified; Z79.899 Other long term (current) drug therapy; Z68.27 Body mass index [BMI] 27.0-27.9, adult; Z88.8 Allergy status to other drugs, medicaments and biological substances
CPT/HCPCS: 36415; 71045; 71275; 80048; 80053; 80076; 82728; 83605; 83735; 83880; 84100; 84484; 85007; 85025; 85379; 86140; 87040; 93005; 94660; 94760; 96365; 96375; C9113; J0456; J0696; J1100; J1644; J1940; J2060; J2270; J2405; J3490; J7030; J7042; J7050; Q9967; 92526-GN; 92610-GN; 99285-25; G0378; Q0163